=== PATIENT | female | born 1985 | race Asian ===

== ENCOUNTER 2018-02-12 08:57 | Emergency (ER) | payer OTHER, MEDICAID, SELFPAY ==
[2018-02-12 09:08] VITALS: BP 174/106; PULSE 120; RESP 20; TEMP 37.1; O2SAT 99; BMI 55.0
--- NOTE | 2018-02-12 09:45 | ED_ITS ---
HPI - General Adult General Chief complaint: Hypertension Stated complaint: BLOOD PRESSURE 170, PULSE 123 Time Seen by Provider: 02/12/18 09:31 Source: patient Mode of arrival: ambulatory Limitations: no limitations History of Present Illness HPI narrative: Patient is a 32-year-old female with history of hypertension and tachycardia is presenting with what she thinks is a kidney infection. For the last 2-3 days she has had bilateral flank pain. She was at the walk-in clinic but did not want to stay for evaluation. She has no painful or frequent urination. Pain does not radiate around to her front. She has been trying to stay hydrated. This morning as she did not take her morning meds and noted that her heart rate was elevated along with her blood pressure. She denies any fever or chills Onset (ago): day(s) (3) Location: back (Flank pain) Radiation: non-radiation Relieving factors: none Exacerbating factors: none Related Data Home Medications Medication Instructions Recorded Confirmed insulin lispro [Humalog KwikPen 18 - 54 u SQ SEE INSTRUCTIONS 02/12/18 02/12/18 Insulin] nystatin [Nystop] 100,000 unit TOPICAL BIDP PRN 02/12/18 02/12/18 Previous Rx's Medication Instructions Recorded fluticasone [Flovent HFA] 1 puff INH BID #1 inh 03/29/16 albuterol sulfate [Ventolin HFA] 2 puff INH Q4HP PRN #1 inh 09/25/16 fluticasone 0.05 mg INTRANASAL Q DAY PRN PRN 02/25/17 #1 spr hydrochlorothiazide 25 mg PO QDAY #30 tab 03/21/17 clobetasol 1 nikole TOPICAL BID PRN #30 gm 08/06/17 lisinopril 10 mg PO SEE INSTRUCTIONS #90 tab 10/16/17 metformin 500 mg tablet 500 mg PO QID #360 tab 02/03/18 propranolol 10 mg tablet 10 mg PO BID #60 tab 02/03/18 hydrocodone 5 mg-acetaminophen 325 1 tab PO Q6HP PRN #120 tab 02/11/18 mg tablet lorazepam 1 mg tablet See Label Instructions PO QID PRN 02/12/18 #120 tab MDD 4 mg sulfamethoxazole-trimethoprim 1 tab PO BID 5 Days #10 tab 02/12/18 true metrix glucose strips #100 each 02/12/18 Allergies Allergy/AdvReac Type Severity Reaction Status Date / Time Iodinated Contrast- Oral and Allergy Severe Neck, face Unverified 12/10/17 12:20 IV Dye arms all [IODINATED CONTRAST MEDIA - swollen IV DYE] with difficulty breathing hydromorphone [From DILAUDID] Allergy Mild Very Unverified 12/10/17 12:20 sensitive to this drug. loperamide [From IMODIUM A-D] AdvReac Mild Nausea Unverified 12/10/17 12:20 vomiting ondansetron AdvReac Mild Nausea Unverified 12/10/17 12:20 [From ZOFRAN ( with oral HYDROCHLORIDE)] route VITAMIN C AdvReac Mild Nausea/vomiting Uncoded 12/10/17 12:20 and migraines Review of Systems Review of Systems All systems reviewed & are unremarkable except as noted in HPI and below Constitutional Denies chills, Denies fever(s), Denies lethargy and Denies weakness ENT Ears, Nose, Mouth, and Throat: Denies dysphagia Cardiovascular Denies chest pain with activity, Denies syncope and Denies dyspnea Respiratory Denies change in phlegm color, Denies cough, Denies pain with cough, Denies dyspnea and Denies wheezing Gastrointestinal Gastrointestinal: Reports abdominal pain (Mild lower bilaterally), Reports bloating and Denies dysphagia Genitourinary Reports system reviewed and no additional complaints, except as docu and Reports as per HPI Neurologic Denies syncope and Denies weakness Allergic/Immunologic Denies wheezing PFSH Family History Mother Age: 37 Type 2 diabetes mellitus without complication Sister Age: 27 Depression Sister Age: 30 Anxiety Social History Smoking Status: Never smoker Exam Initial Vital Signs Initial Vital Signs: Vital Signs Temperature 98.7 F 02/12/18 09:08 Pulse Rate 120 H 02/12/18 09:08 Respiratory Rate 20 02/12/18 09:08 Blood Pressure 174/106 H 02/12/18 09:08 Pulse Oximetry 99 02/12/18 09:08 Const General: cooperative and comfortable Nutritional Appearance: obese Neck Neck: full ROM and no meningeal signs Resp Effort & Inspection: normal respiratory effort, able to speak in complete sentences, no respiratory distress and no use of accessory muscles Auscultation: clear to auscultation bilaterally, no rales, no rhonchi and no wheezes Cardio Rate: tachycardic Rhythm: regular rhythm Heart Sounds: S1 normal and S2 normal GI Palpation: soft and tender (Mild across lower abdomen no localization) General: CVA tenderness (Bilateral) Skin General: no rashes or lesions noted, No jaundice and No petechiae Neuro General: alert, oriented x3, gait normal and no focal motor deficits Speech: speech normal Course Orders Ordered: Discontinued Medications Sodium Chloride (Normal Saline 0.9%) 1,000 mls @ 1,000 mls/hr IV CONT JANIE Last Infusion: 02/12/18 10:59 Dose: 0 mls/hr Admin: 02/12/18 09:55 Dose: 1,000 mls/hr Ketorolac Tromethamine (Toradol) 30 mg IV NOW ONE Stop: 02/12/18 09:32 Last Admin: 02/12/18 09:56 Dose: 30 mg Vital Signs - 8 hr 02/12/18 11:50 02/12/18 12:16 Pulse Rate 106 H 106 H Respiratory Rate 22 20 Blood Pressure 118/54 L Blood Pressure [Right Arm] 133/83 H Pulse Oximetry 99 99 Medical Decision Making MDM Narrative Medical decision making narrative: Patient took her own medications in the ED her vitals improved. She does have bacteria in her urine and will treat for kidney infection. Lab Data Result diagrams: 02/12/18 09:50 02/12/18 09:50 Lab Results 02/12/18 02/12/18 02/12/18 Range/Units 09:50 09:50 10:35 WBC 10.4 (4.5-11.0) X10^3/uL RBC 5.29 H (4.0-5.2) X10^6/uL Hgb 9.9 L (12.0-16.0) g/dL Hct 31.0 L (36-46) % MCV 58.7 L (80-100) fL MCH 18.7 L (26-34) PG MCHC 31.9 (30-36) % RDW 19.2 H (11.6-14.8) % Plt Count 411 H (150-400) X10^3/uL Neut % (Auto) 89.1 H (50-75) % Lymph % (Auto) 4.3 L (25-40) % [place] % (Auto) 5.7 (3-14) % Eos % (Auto) 0.5 L (2-4) % Baso % (Auto) 0.4 (0-2) % Neut # (Auto) 9300 H (0366-2654) /uL RBC Morphology Not Reportable Polychromasia 1+ H Hypochromasia 2+ H Microcytosis 2+ H Sodium 135 L (137-145) mmol/L Potassium 4.2 (3.4-5.1) mmol/L Chloride 98 (98-107) mmol/L Carbon Dioxide 25 (22-32) mmol/L BUN 19 H (7-17) mg/dL Creatinine 0.50 L (0.52-1.04) mg/dL Estimated GFR > 60.0 (>60) mL/min BUN/Creatinine Ratio 38.0 H (6-22) Glucose 218 H (70-100) mg/dL Calcium 8.4 (8.4-10.2) mg/dL Total Bilirubin 0.6 (0.2-1.3) mg/dL AST 15 (14-36) IU/L ALT 26 (9-52) IU/L Alkaline Phosphatase 50 (38-126) U/L Total Protein 7.6 (6.3-8.2) g/dL Albumin 4.0 (3.5-5.0) g/dL Globulin 3.6 (1.7-4.1) g/dL Albumin/Globulin Ratio 1.1 (1.0-2.8) Lipase 341 H (23-300) U/L Urine RBC >100/hpf H (0-5/HPF) Urine WBC 0-1/hpf (0-5/HPF) Ur Squamous Epith Cells 1-5 /hpf Urine Bacteria Many (>30) H (None) Ur Culture Indicated? Cult not indicated Micro UA Comment Not Reportable Discharge Plan Departure Patient Disposition: Home, Self-Care Clinical Impression: UTI (urinary tract infection) Discharge Date/Time: 02/12/18 12:17 Interventions: ED Discharge Assessment Last Done: 02/12/18 12:16 Activity Restrictions/Additional Instructions: *You have been diagnosed with kidney infection *What to do: Increase fluids *Continue to take medications as directed -Septra 1 tablet twice a day for 7 days At your request you're medications have been faxed to [facility] *Follow up with your primary care provider in 2-3 days and follow up with ortho , urology etc *Return to ER if you should have such as or any new, worsening or concerning symptoms Prescriptions: New sulfamethoxazole-trimethoprim 800-160 mg tablet 1 tab PO BID 5 Days Qty: 10 RF: 0 No Action fluticasone [Flovent HFA] 12 GM HFA aerosol inhaler 1 puff INH BID Qty: 1 RF: 2 albuterol sulfate [Ventolin HFA] 90 MCG/PUFF HFA aerosol inhaler 2 puff INH Q4HP PRNQty: 1 RF: 0 fluticasone 16 GM spray,suspension 0.05 mg Intranasal Q DAY PRN PRNQty: 1 RF: 5 hydrochlorothiazide 25 MG tablet 25 mg PO QDAY Qty: 30 RF: 5 clobetasol 0.05 % ointment 1 nikole Topical BID PRNQty: 30 RF: 3 lisinopril 10 MG tablet 10 mg PO SEE INSTRUCTIONS Qty: 90 RF: 3 propranolol 10 mg tablet 10 mg PO BID Qty: 60 RF: 0 metformin [Glucophage] 500 mg tablet 500 mg PO QID Qty: 360 RF: 0 hydrocodone-acetaminophen 5-325 mg tablet 1 tab PO Q6HP PRN (Reason: pain) Qty: 120 RF: 0 lorazepam 1 mg tablet See Label Instructions PO QID MDD 4 mg PRN (Reason: anxiety) Qty: 120 RF: 0 true metrix glucose strips Qty: 100 RF: 5 nystatin [Nystop] 30 GM powder 100,000 unit Topical BIDP PRN (Reason: yeast) RF: 0 insulin lispro [Humalog KwikPen Insulin] 100 UNIT/1 ML insulin pen 18 - 54 u SQ SEE INSTRUCTIONS RF: 0
[2018-02-12] MEDS: SODIUM CHLORIDE 0.9% 1,000 ML 1000 ML IV (09:55)
[2018-02-12] MEDS: KETOROLAC 60 MG/2 ML VIAL 30 MG IV (09:56)
[2018-02-12 10:05] VITALS: BP 144/81; PULSE 110; RESP 23; O2SAT 99
[2018-02-12 10:05] LABS: Add Manual Diff / Slide Review NO; Basophils Percent Auto 0.4 % (0-2); Eosinophils Percent Auto 0.5 % (2-4); Hemoglobin 9.9 g/dL (12.0-16.0); Lymphocytes Percent Auto 4.3 % (25-40); Mean Corpuscular HGB Conc 31.9 % (30-36); Mean Corpuscular Hemoglobin 18.7 PG (26-34); Mean Corpuscular Volume 58.7 fL (80-100); Monocytes Percent Auto 5.7 % (3-14); Neutrophils Absolute Auto 9300 /uL (3000-5900); Neutrophils Percent Auto 89.1 % (50-75); Platelet Count 411 X10^3/uL (150-400); Red Blood Cell Count 5.29 X10^6/uL (4.0-5.2); Red Cell Distribution Width 19.2 % (11.6-14.8); White Blood Cell Count 10.4 X10^3/uL (4.5-11.0)
--- NOTE | 2018-02-12 10:07 | PC.NURSE ---
Pt states pain that starts at rt uq and travels across abd to l upper quad
[2018-02-12 10:17] LABS: Alanine Aminotransferase 26 IU/L (9-52); Albumin Globulin Ratio 1.1 (1.0-2.8); Alkaline Phosphatase 50 U/L (38-126); Aspartate Aminotransferase 15 IU/L (14-36); Bilirubin Total 0.6 mg/dL (0.2-1.3); Blood Urea Nitrogen 19 mg/dL (7-17); Calcium 8.4 mg/dL (8.4-10.2); Carbon Dioxide 25 mmol/L (22-32); Chloride 98 mmol/L (98-107); Estimated Glomerular Filt Rate > 60.0 mL/min (>60); Globulin 3.6 g/dL (1.7-4.1); Glucose 218 mg/dL (70-100); HEMOLYSIS < 15 (0-50); Lipase 341 U/L (23-300); Potassium 4.2 mmol/L (3.4-5.1); Sodium 135 mmol/L (137-145); Total Protein 7.6 g/dL (6.3-8.2)
[2018-02-12 10:33] LABS: Hypochromasia 2+; Microcytosis 2+; Polychromasia 1+
[2018-02-12 11:00] VITALS: BP 138/89; PULSE 111; RESP 28; O2SAT 99
[2018-02-12 11:29] LABS: Bacteria Urine Many (>30); Culture Indicated Urine Cult Not Indicated; RBC Urine >100/HPF (0-5/HPF); Squamous Epithelial Cell Urine 1-5 /HPF; WBC Urine 0-1/HPF (0-5/HPF)
[2018-02-12 11:30] VITALS: BP 118/54; PULSE 102; RESP 21; O2SAT 99
[2018-02-12 11:50] VITALS: BP 133/83; PULSE 106; RESP 22; O2SAT 99
[2018-02-12 12:16] VITALS: BP 118/54; PULSE 106; RESP 20; O2SAT 99
== END 2018-02-12 12:17 | disposition home or self-care (01) ==
PROVIDERS: Emergency Provider Emergency Medicine; Family Provider Family Medicine; PCP Family Medicine
DX: N39.0 Urinary tract infection, site not specified (principal)
CPT/HCPCS: 80053; 81003; 81015; 81025; 83690; 85025; 93005; 93041; 96361; 96374; 99284; J1885

== ENCOUNTER 2018-02-13 09:21 | Emergency (ER) | payer OTHER, MEDICAID, SELFPAY ==
[2018-02-13 09:35] VITALS: BP 132/84; PULSE 94; RESP 20; TEMP 36.9; O2SAT 98
--- NOTE | 2018-02-13 12:04 | ED_ITS ---
HPI - Allergic Reaction <Ely Ybarra PA-C - Last Filed: 02/13/18 20:42> General Chief complaint: Allergic Reaction Stated complaint: swelling/rash/itching after taking antibiotic Time Seen by Provider: 02/13/18 11:28 Source: patient Mode of arrival: ambulatory Limitations: no limitations History of Present Illness HPI narrative: This 32 y.o. female was seen yesterday and diagnosed with UTI/ pyelo. She states that she never developed dysuria, frequency, or urgency, but has had right flank pain and stomach upset with turning and twisting in her stomach. She vomited once yesterday. She is not sure about whether any hematuria as she has menses now. She states her stomach is better today. After she took her 2nd dose of Bactrim, she felt warm all over, itchy, and ? puffy?, and noticed bumps and rash on her arms. She states that this has resolved in the last hour or so and feeling fine now. She denies any SOB, wheeze , or difficulty swallowing, or other new c/o on ROS. Related Data Home Medications Medication Instructions Recorded Confirmed insulin lispro [Humalog KwikPen 18 - 54 u SQ SEE INSTRUCTIONS 02/12/18 02/13/18 Insulin] nystatin [Nystop] 100,000 unit TOPICAL BIDP PRN 02/12/18 02/13/18 albuterol sulfate [Ventolin HFA] 2 puff INH Q4HP PRN 02/13/18 02/13/18 clobetasol 1 nikole TOPICAL BID PRN 02/13/18 02/13/18 fluticasone 0.05 mg INTRANASAL Q DAY PRN PRN 02/13/18 02/13/18 Previous Rx's Medication Instructions Recorded fluticasone [Flovent HFA] 1 puff INH BID #1 inh 03/29/16 hydrochlorothiazide 25 mg PO QDAY #30 tab 03/21/17 lisinopril 10 mg PO SEE INSTRUCTIONS #90 tab 10/16/17 metformin 500 mg tablet 500 mg PO QID #360 tab 02/03/18 propranolol 10 mg tablet 10 mg PO BID #60 tab 02/03/18 hydrocodone 5 mg-acetaminophen 325 1 tab PO Q6HP PRN #120 tab 02/11/18 mg tablet lorazepam 1 mg tablet See Label Instructions PO QID PRN 06/14/18 #120 tab MDD 4 mg sulfamethoxazole-trimethoprim 1 tab PO BID 5 Days #10 tab 02/12/18 ciprofloxacin HCl [Cipro] 500 mg PO Q12H #14 tab 02/13/18 Allergies Allergy/AdvReac Type Severity Reaction Status Date / Time Iodinated Contrast- Oral and Allergy Severe Neck, face Unverified 12/10/17 12:20 IV Dye arms all [IODINATED CONTRAST MEDIA - swollen IV DYE] with difficulty breathing hydromorphone [From DILAUDID] Allergy Mild Very Unverified 12/10/17 12:20 sensitive to this drug. Sulfa (Sulfonamide Allergy Rash Verified 02/13/18 12:22 Antibiotics) loperamide [From IMODIUM A-D] AdvReac Mild Nausea Unverified 12/10/17 12:20 vomiting ondansetron AdvReac Mild Nausea Unverified 12/10/17 12:20 [From ZOFRAN ( with oral HYDROCHLORIDE)] route VITAMIN C AdvReac Mild Nausea/vomiting Uncoded 12/10/17 12:20 and migraines Review of Systems <Ely Ybarra PA-C - Last Filed: 02/13/18 20:42> Review of Systems All systems reviewed & are unremarkable except as noted in HPI and below Exam <Ely Ybarra PA-C - Last Filed: 02/13/18 20:42> Narrative Exam Narrative: GENERAL APPEARANCE: Patient sitting comfortably, in no distress. HEENT: EOMI, normal oropharynx NECK: Supple, no masses LUNGS: Clear to auscultation bilaterally. HEART: Rate and rhythm regular without murmur, normal S1 and S2, no S3 or S4. ABDOMEN: Soft, NT, ND, +BS x 4 quadrants, no CVAT. DERMATOLOGIC: No exanthem Initial Vital Signs Initial Vital Signs: Vital Signs Temperature 98.4 F 02/13/18 09:35 Pulse Rate 94 H 02/13/18 09:35 Respiratory Rate 20 02/13/18 09:35 Blood Pressure 132/84 H 02/13/18 09:35 Pulse Oximetry 98 02/13/18 09:35 <Karuna Avila DO - Last Filed: 02/14/18 08:50> Initial Vital Signs Initial Vital Signs: Vital Signs Temperature 98.4 F 02/13/18 09:35 Pulse Rate 94 H 02/13/18 09:35 Respiratory Rate 20 02/13/18 09:35 Blood Pressure 132/84 H 02/13/18 09:35 Pulse Oximetry 98 02/13/18 09:35 Course <Ely Ybarar PA-C - Last Filed: 02/13/18 20:42> Vital Signs - 8 hr 02/13/18 09:35 Temperature 98.4 F Pulse Rate 94 H Respiratory Rate 20 Blood Pressure 132/84 H Pulse Oximetry 98 <Karuna Avila DO - Last Filed: 02/14/18 08:50> Vital Signs - 8 hr 02/13/18 09:35 Temperature 98.4 F Pulse Rate 94 H Respiratory Rate 20 Blood Pressure 132/84 H Pulse Oximetry 98 Discharge Plan Departure Patient Disposition: Home, Self-Care Clinical Impression: Pyelonephritis Discharge Date/Time: 02/13/18 12:39 Interventions: ED Discharge Assessment Last Done: 02/13/18 12:39 Instructions: DI for Kidney Infection Activity Restrictions/Additional Instructions: Please stop the sulfa antibiotic and avoid these in the future as this may have caused your rash earlier today. Since that has resolved, no further treatment is needed now. I have sent in a different antibiotic for you, called ciprofloxacin to the pharmacy. This is typically very effective for kidney infections. It does have a black box warning on it about tendon rupture and damage however this is a very rare side effect, and it is an appropriate antibiotic for your infection. Please return right away if you have any acutely worsening symptoms again, otherwise see your PCP as we talked about in a few days for recheck and to make sure this antibiotic is effective for you. Prescriptions: New ciprofloxacin HCl [Cipro] 500 mg tablet 500 mg PO Q12H Qty: 14 RF: 0 No Action fluticasone [Flovent HFA] 12 GM HFA aerosol inhaler 1 puff INH BID Qty: 1 RF: 2 hydrochlorothiazide 25 MG tablet 25 mg PO QDAY Qty: 30 RF: 5 lisinopril 10 MG tablet 10 mg PO SEE INSTRUCTIONS Qty: 90 RF: 3 propranolol 10 mg tablet 10 mg PO BID Qty: 60 RF: 0 metformin [Glucophage] 500 mg tablet 500 mg PO QID Qty: 360 RF: 0 hydrocodone-acetaminophen 5-325 mg tablet 1 tab PO Q6HP PRN (Reason: pain) Qty: 120 RF: 0 lorazepam 1 mg tablet See Label Instructions PO QID MDD 4 mg PRN (Reason: anxiety) Qty: 120 RF: 0 nystatin [Nystop] 30 GM powder 100,000 unit Topical BIDP PRN (Reason: yeast) RF: 0 insulin lispro [Humalog KwikPen Insulin] 100 UNIT/1 ML insulin pen 18 - 54 u SQ SEE INSTRUCTIONS RF: 0 sulfamethoxazole-trimethoprim 800-160 mg tablet 1 tab PO BID 5 Days Qty: 10 RF: 0 clobetasol 0.05 % ointment 1 nikole Topical BID PRN (Reason: UNKNOWN) RF: 0 albuterol sulfate [Ventolin HFA] 90 MCG/PUFF HFA aerosol inhaler 2 puff INH Q4HP PRN (Reason: Shortness Of Breath) RF: 0 fluticasone 16 GM spray,suspension 0.05 mg Intranasal Q DAY PRN PRN (Reason: Congestion) RF: 0 Referrals: Josiah Escobedo MD [Primary Care Provider] - <Karuna Avila DO - Last Filed: 02/14/18 08:50> Cosign ED Attending Cosmarianneature Attestation: I was immediately available in the department for consultation. Documentation has been reviewed. I agree with assessment and plan.
[2018-02-13 12:39] VITALS: BP 124/76; PULSE 89; RESP 16; O2SAT 100
== END 2018-02-13 12:39 | disposition home or self-care (01) ==
PROVIDERS: Emergency Provider Internal Medicine; Family Provider Family Medicine; PCP Family Medicine
DX: N12 Tubulo-interstitial nephritis, not specified as acute or chronic (principal)
CPT/HCPCS: 99282

== ENCOUNTER → 2018-03-16 19:54 | Outpatient (CLI) | payer OTHER, MEDICAID, SELFPAY | PROVIDERS: Family Provider Family Medicine; PCP Family Medicine; Visit Provider Physician Assistant | DX: R52 Pain, unspecified (principal) | CPT/HCPCS: 87077; 87086; 87186 ==

== ENCOUNTER 2018-03-24 13:44 | Emergency (ER) | payer OTHER, MEDICAID, SELFPAY ==
[2018-03-24 14:14] VITALS: BP 169/100; PULSE 80; RESP 14; TEMP 36.2; O2SAT 100
[2018-03-24 14:46] LABS: Bacteria Urine Many (>30); Culture Indicated Urine Cult Not Indicated; RBC Urine 1-5/HPF (0-5/HPF); Squamous Epithelial Cell Urine 5-10 /HPF; WBC Urine 10-30/HPF (0-5/HPF)
--- NOTE | 2018-03-24 15:48 | ED_ITS ---
HPI - Female Genitourinary <MARY Vaughan - Last Filed: 03/24/18 22:17> General Chief complaint: Urogenital-Female Stated complaint: BACK PAIN,BLADDER/KIDNEY INFECTION Time Seen by Provider: 03/24/18 15:48 History of Present Illness HPI Narrative: 32-year-old female with history type 1 diabetes here for complaint of on going symptoms of urinary tract infection. She has been seen multiple times over the past few weeks for same symptoms that has not resolved. She was last treated with Macrobid and symptoms have not resolved over the past week. She has had different antibiotic prescriptions given to her to were changed due to allergic reactions such as hives. She denies any fevers. She does report having some flank pain over the past few days. Positive p.o. intake. No nausea vomiting. No other concerns or complaints at this time. MD Complaint: UTI Related Data Home Medications Medication Instructions Recorded Confirmed nystatin [Nystop] 100,000 unit TOPICAL BIDP PRN 02/12/18 03/24/18 albuterol sulfate [Ventolin HFA] 2 puff INH Q4HP PRN 02/13/18 03/24/18 clobetasol 1 nikole TOPICAL BID PRN 02/13/18 03/24/18 fluticasone 0.05 mg INTRANASAL Q DAY PRN PRN 02/13/18 03/24/18 bupropion HCl 1 cap PO DAILY 03/24/18 03/24/18 fluticasone [Flovent HFA] 1 puff INH BID PRN 03/24/18 03/24/18 loratadine [Claritin] 10 mg PO QPM 03/24/18 03/24/18 lorazepam 0.5 - 1 mg PO QID PRN MDD 4 mg 03/24/18 03/24/18 methocarbamol 1.5 tab PO QID 03/24/18 03/24/18 nitrofurantoin monohyd/m-cryst 1 cap PO BID 03/24/18 03/24/18 Previous Rx's Medication Instructions Recorded hydrochlorothiazide 25 mg PO QDAY #30 tab 03/21/17 lisinopril 10 mg PO SEE INSTRUCTIONS #90 tab 10/16/17 metformin 500 mg tablet 500 mg PO QID #360 tab 02/03/18 propranolol 10 mg tablet 10 mg PO BID #60 tab 02/03/18 hydrocodone 5 mg-acetaminophen 325 1 tab PO Q6HP PRN #120 tab 03/10/18 mg tablet insulin lispro (U-100) 100 unit/mL See Label Instructions SUBCUT 03/10/18 subcutaneous pen .COMPLEX #15 ml promethazine 6.25 mg-codeine 10 5 ml PO Q6H PRN #118 ml 03/17/18 mg/5 mL syrup cephalexin 500 mg PO BID #14 cap 03/24/18 Allergies Allergy/AdvReac Type Severity Reaction Status Date / Time Iodinated Contrast- Oral and Allergy Severe Neck, face Verified 03/16/18 19:39 IV Dye arms all [IODINATED CONTRAST MEDIA - swollen IV DYE] with difficulty breathing hydromorphone [From DILAUDID] Allergy Mild Very Verified 03/16/18 19:39 sensitive to this drug. ciprofloxacin [From Cipro] Allergy Hives Verified 03/16/18 19:39 Sulfa (Sulfonamide Allergy Rash Verified 03/16/18 19:39 Antibiotics) loperamide [From IMODIUM A-D] AdvReac Mild Nausea Verified 03/16/18 19:39 vomiting ondansetron AdvReac Mild Nausea Verified 03/16/18 19:39 [From ZOFRAN ( with oral HYDROCHLORIDE)] route VITAMIN C AdvReac Mild Nausea/vomiting Uncoded 03/16/18 19:39 and migraines Review of Systems <MARY Vaughan - Last Filed: 03/24/18 22:17> Constitutional Denies chills, Denies fatigue, Denies fever(s), Denies lethargy and Denies weakness Eyes Denies change in vision, Denies eye discharge, Denies irritation and Denies loss of vision ENT Ears, Nose, Mouth, and Throat: Denies change in voice, Denies neck pain and Denies sore throat Cardiovascular Denies dyspnea and Denies dyspnea on exertion Respiratory Denies cough, Denies dyspnea, Denies dyspnea on exertion and Denies wheezing Gastrointestinal Gastrointestinal: Denies abdominal pain, Denies change in bowel habits, Denies diarrhea, Denies nausea and Denies vomiting Genitourinary Reports dysuria Comments: Increased urinary frequency Musculoskeletal Denies neck pain Integumentary/Breasts Denies pruritus, Denies erythema, Denies rash and Denies wounds Neurologic Denies confusion, Denies loss of vision and Denies weakness Psychiatric Denies anxiety, Denies confusion, Denies depression, Denies homicidal ideation and Denies suicidal ideation Endocrine Denies fatigue and Denies flushing Allergic/Immunologic Denies wheezing Exam <MARY Vaughan - Last Filed: 03/24/18 22:17> Initial Vital Signs Initial Vital Signs: Vital Signs Temperature 97.2 F L 03/24/18 14:14 Pulse Rate 80 03/24/18 14:14 Respiratory Rate 14 03/24/18 14:14 Blood Pressure 169/100 H 03/24/18 14:14 Pulse Oximetry 100 03/24/18 14:14 Const General: cooperative and well developed Nutritional Appearance: well nourished Orientation: alert, awake, oriented x3 and not confused HENOK Mouth: oral mucosae normal and moist mucous membranes Eyes General: appearance normal, both eyes and all related structures Eyelids: eyelids normal Conjunctivae: conjunctivae normal Sclera: sclerae normal Pupils: PERRL EOM: EOM intact bilaterally Resp Effort & Inspection: normal respiratory effort, able to speak in complete sentences, no respiratory distress and no use of accessory muscles Auscultation: clear to auscultation bilaterally, no rales, no rhonchi and no wheezes Cardio Rate: regular rate Rhythm: regular rhythm Heart Sounds: no click, no gallops, no murmurs and no rubs GI Inspection: non-distended Palpation: soft, no hepatosplenomegaly, No guarding, No pulsatile mass and No tender Auscultation: normal bowel sounds General: CVA tenderness Skin General: no rashes or lesions noted, No jaundice and No petechiae Neuro General: alert, oriented x3, gait normal and no focal motor deficits Speech: speech normal <Manuel Gutierrez DO - Last Filed: 03/25/18 08:33> Initial Vital Signs Initial Vital Signs: Vital Signs Temperature 97.2 F L 03/24/18 14:14 Pulse Rate 80 03/24/18 14:14 Respiratory Rate 14 03/24/18 14:14 Blood Pressure 169/100 H 03/24/18 14:14 Pulse Oximetry 100 03/24/18 14:14 Course <MARY Vaughan - Last Filed: 03/24/18 22:17> Orders Ordered: Discontinued Medications Sodium Chloride (Normal Saline 0.9%) 1,000 mls @ 1,000 mls/hr IV BOLUS ONE Stop: 03/24/18 17:29 Last Infusion: 03/24/18 17:16 Dose: 0 mls/hr Admin: 03/24/18 16:00 Dose: 1,000 mls/hr Ceftriaxone Sodium/Dextrose (Rocephin) 1 gm in 50 mls @ 100 mls/hr IV NOW ONE Stop: 03/24/18 18:46 Last Infusion: 03/24/18 19:11 Dose: 0 mls/hr Admin: 03/24/18 18:28 Dose: 100 mls/hr Vital Signs - 8 hr 03/24/18 17:16 03/24/18 19:07 Pulse Rate 72 82 Respiratory Rate 22 18 Blood Pressure [Right Arm] 156/88 H 144/54 H Pulse Oximetry 98 99 <Manuel Gutierrez DO - Last Filed: 03/25/18 08:33> Orders Ordered: Discontinued Medications Sodium Chloride (Normal Saline 0.9%) 1,000 mls @ 1,000 mls/hr IV BOLUS ONE Stop: 03/24/18 17:29 Last Infusion: 03/24/18 17:16 Dose: 0 mls/hr Admin: 03/24/18 16:00 Dose: 1,000 mls/hr Ceftriaxone Sodium/Dextrose (Rocephin) 1 gm in 50 mls @ 100 mls/hr IV NOW ONE Stop: 03/24/18 18:46 Last Infusion: 03/24/18 19:11 Dose: 0 mls/hr Admin: 03/24/18 18:28 Dose: 100 mls/hr Vital Signs - 8 hr 03/24/18 17:16 03/24/18 19:07 Pulse Rate 72 82 Respiratory Rate 22 18 Blood Pressure [Right Arm] 156/88 H 144/54 H Pulse Oximetry 98 99 MDM - Female Genitourinary <MARY Vaughan - Last Filed: 03/24/18 22:17> Lab Data Result diagrams: 03/24/18 16:00 03/24/18 16:00 Lab Results 03/24/18 03/24/18 03/24/18 Range/Units 14:20 16:00 16:00 WBC 10.6 (4.5-11.0) X10^3/uL RBC 5.53 H (4.0-5.2) X10^6/uL Hgb 9.9 L (12.0-16.0) g/dL Hct 31.6 L (36-46) % MCV 57.0 L (80-100) fL MCH 17.9 L (26-34) PG MCHC 31.4 (30-36) % RDW 19.7 H (11.6-14.8) % Plt Count 436 H (150-400) X10^3/uL Neut % (Auto) 70.8 (50-75) % Lymph % (Auto) 19.6 L (25-40) % [place] % (Auto) 7.3 (3-14) % Eos % (Auto) 1.3 L (2-4) % Baso % (Auto) 1.0 (0-2) % Neut # (Auto) 7500 H (2939-1946) /uL RBC Morphology Not Reportable Hypochromasia 3+ H Anisocytosis 3+ H Microcytosis 3+ H Sodium (137-145) mmol/L Potassium (3.4-5.1) mmol/L Chloride (98-107) mmol/L Carbon Dioxide (22-32) mmol/L BUN (7-17) mg/dL Creatinine (0.52-1.04) mg/dL Estimated GFR (>60) mL/min BUN/Creatinine Ratio (6-22) Glucose (70-100) mg/dL Lactate (0.7-2.1) mmol/L Calcium (8.4-10.2) mg/dL Total Bilirubin (0.2-1.3) mg/dL AST (14-36) IU/L ALT (9-52) IU/L Alkaline Phosphatase (38-126) U/L Total Protein (6.3-8.2) g/dL Albumin (3.5-5.0) g/dL Globulin (1.7-4.1) g/dL Albumin/Globulin Ratio (1.0-2.8) Procalcitonin < 0.05 (<0.5) ng/mL Urine RBC 1-5/hpf D (0-5/HPF) Urine WBC 10-30/hpf H (0-5/HPF) Ur Squamous Epith Cells 5-10 /hpf H Urine Bacteria Many (>30) H (None) Ur Culture Indicated? Cult not indicated Micro UA Comment Not Reportable 03/24/18 03/24/18 Range/Units 16:00 16:00 WBC (4.5-11.0) X10^3/uL RBC (4.0-5.2) X10^6/uL Hgb (12.0-16.0) g/dL Hct (36-46) % MCV (80-100) fL MCH (26-34) PG MCHC (30-36) % RDW (11.6-14.8) % Plt Count (150-400) X10^3/uL Neut % (Auto) (50-75) % Lymph % (Auto) (25-40) % [place] % (Auto) (3-14) % Eos % (Auto) (2-4) % Baso % (Auto) (0-2) % Neut # (Auto) (6958-8347) /uL RBC Morphology Hypochromasia Anisocytosis Microcytosis Sodium 137 (137-145) mmol/L Potassium 4.0 (3.4-5.1) mmol/L Chloride 98 (98-107) mmol/L Carbon Dioxide 29 (22-32) mmol/L BUN 13 (7-17) mg/dL Creatinine 0.60 (0.52-1.04) mg/dL Estimated GFR > 60.0 (>60) mL/min BUN/Creatinine Ratio 21.7 (6-22) Glucose 233 H (70-100) mg/dL Lactate 1.1 (0.7-2.1) mmol/L Calcium 9.1 (8.4-10.2) mg/dL Total Bilirubin 0.6 (0.2-1.3) mg/dL AST 33 (14-36) IU/L ALT 32 (9-52) IU/L Alkaline Phosphatase 49 (38-126) U/L Total Protein 8.4 H (6.3-8.2) g/dL Albumin 4.5 (3.5-5.0) g/dL Globulin 3.9 (1.7-4.1) g/dL Albumin/Globulin Ratio 1.2 (1.0-2.8) Procalcitonin (<0.5) ng/mL Urine RBC (0-5/HPF) Urine WBC (0-5/HPF) Ur Squamous Epith Cells Urine Bacteria (None) Ur Culture Indicated? Micro UA Comment MDM Narrative Medical decision making narrative: CBC shows anemia however is consistent with her prior levels. Otherwise unremarkable. CMP panel was unremarkable urinalysis indicates urinary tract infection. Urine culture is ordered and is pending. Last urinary culture shows Klebsiella pneumonia with indeterminate Macrobid resistance. Discussed case with hospitalist who recommends continued oral antibiotics and follow-up in the next few days. She was given Rocephin IV in the emergency room and is placed on Keflex. Patient to call her primary care provider office to schedule follow-up appointment here in the next couple of days. Currently prescribed medications as prescribed return emergency room for any worsening symptoms. <Manuel Gutierrez, DO - Last Filed: 03/25/18 08:33> Lab Data Lab Results 03/24/18 03/24/18 03/24/18 Range/Units 14:20 16:00 16:00 WBC 10.6 (4.5-11.0) X10^3/uL RBC 5.53 H (4.0-5.2) X10^6/uL Hgb 9.9 L (12.0-16.0) g/dL Hct 31.6 L (36-46) % MCV 57.0 L (80-100) fL MCH 17.9 L (26-34) PG MCHC 31.4 (30-36) % RDW 19.7 H (11.6-14.8) % Plt Count 436 H (150-400) X10^3/uL Neut % (Auto) 70.8 (50-75) % Lymph % (Auto) 19.6 L (25-40) % [place] % (Auto) 7.3 (3-14) % Eos % (Auto) 1.3 L (2-4) % Baso % (Auto) 1.0 (0-2) % Neut # (Auto) 7500 H (3334-2248) /uL RBC Morphology Not Reportable Hypochromasia 3+ H Anisocytosis 3+ H Microcytosis 3+ H Sodium (137-145) mmol/L Potassium (3.4-5.1) mmol/L Chloride (98-107) mmol/L Carbon Dioxide (22-32) mmol/L BUN (7-17) mg/dL Creatinine (0.52-1.04) mg/dL Estimated GFR (>60) mL/min BUN/Creatinine Ratio (6-22) Glucose (70-100) mg/dL Lactate (0.7-2.1) mmol/L Calcium (8.4-10.2) mg/dL Total Bilirubin (0.2-1.3) mg/dL AST (14-36) IU/L ALT (9-52) IU/L Alkaline Phosphatase (38-126) U/L Total Protein (6.3-8.2) g/dL Albumin (3.5-5.0) g/dL Globulin (1.7-4.1) g/dL Albumin/Globulin Ratio (1.0-2.8) Procalcitonin < 0.05 (<0.5) ng/mL Urine RBC 1-5/hpf D (0-5/HPF) Urine WBC 10-30/hpf H (0-5/HPF) Ur Squamous Epith Cells 5-10 /hpf H Urine Bacteria Many (>30) H (None) Ur Culture Indicated? Cult not indicated Micro UA Comment Not Reportable 03/24/18 03/24/18 Range/Units 16:00 16:00 WBC (4.5-11.0) X10^3/uL RBC (4.0-5.2) X10^6/uL Hgb (12.0-16.0) g/dL Hct (36-46) % MCV (80-100) fL MCH (26-34) PG MCHC (30-36) % RDW (11.6-14.8) % Plt Count (150-400) X10^3/uL Neut % (Auto) (50-75) % Lymph % (Auto) (25-40) % [place] % (Auto) (3-14) % Eos % (Auto) (2-4) % Baso % (Auto) (0-2) % Neut # (Auto) (6451-6146) /uL RBC Morphology Hypochromasia Anisocytosis Microcytosis Sodium 137 (137-145) mmol/L Potassium 4.0 (3.4-5.1) mmol/L Chloride 98 (98-107) mmol/L Carbon Dioxide 29 (22-32) mmol/L BUN 13 (7-17) mg/dL Creatinine 0.60 (0.52-1.04) mg/dL Estimated GFR > 60.0 (>60) mL/min BUN/Creatinine Ratio 21.7 (6-22) Glucose 233 H (70-100) mg/dL Lactate 1.1 (0.7-2.1) mmol/L Calcium 9.1 (8.4-10.2) mg/dL Total Bilirubin 0.6 (0.2-1.3) mg/dL AST 33 (14-36) IU/L ALT 32 (9-52) IU/L Alkaline Phosphatase 49 (38-126) U/L Total Protein 8.4 H (6.3-8.2) g/dL Albumin 4.5 (3.5-5.0) g/dL Globulin 3.9 (1.7-4.1) g/dL Albumin/Globulin Ratio 1.2 (1.0-2.8) Procalcitonin (<0.5) ng/mL Urine RBC (0-5/HPF) Urine WBC (0-5/HPF) Ur Squamous Epith Cells Urine Bacteria (None) Ur Culture Indicated? Micro UA Comment Discharge Plan Departure Patient Disposition: Home, Self-Care Clinical Impression: Urinary tract infection Discharge Date/Time: 03/24/18 19:13 Interventions: ED Discharge Assessment Last Done: 03/24/18 19:11 Instructions: Urinary Tract Infection Activity Restrictions/Additional Instructions: Urinalysis indicates continued urinary tract infection. New were given IV antibiotics in the emergency room and placed on a different antibiotic. Follow up with primary care provider in the next day or 2 for re-evaluation. Call the office tomorrow to schedule follow-up appointment. Plenty of fluids. Currently prescribed medication regimen as prescribed. For any worsening symptoms return to the emergency room. Prescriptions: New cephalexin 500 mg capsule 500 mg PO BID Qty: 14 RF: 0 No Action hydrocodone-acetaminophen 5-325 mg tablet 1 tab PO Q6HP PRN (Reason: pain) Qty: 120 RF: 0 insulin lispro [Humalog KwikPen Insulin] 100 unit/mL insulin pen See Patient Comments SUBCUT .COMPLEX Qty: 15 RF: 5 hydrochlorothiazide 25 MG tablet 25 mg PO QDAY Qty: 30 RF: 5 lisinopril 10 MG tablet 10 mg PO SEE INSTRUCTIONS Qty: 90 RF: 3 propranolol 10 mg tablet 10 mg PO BID Qty: 60 RF: 0 metformin [Glucophage] 500 mg tablet 500 mg PO QID Qty: 360 RF: 0 promethazine-codeine 6.25-10 mg/5 mL syrup 5 ml PO Q6H PRN (Reason: cough) Qty: 118 RF: 0 nystatin [Nystop] 30 GM powder 100,000 unit Topical BIDP PRN (Reason: yeast) RF: 0 methocarbamol 500 mg tablet 1.5 tab PO QID RF: 0 bupropion HCl 150 mg tablet extended release 24 hr 1 cap PO DAILY RF: 0 nitrofurantoin monohyd/m-cryst 100 mg capsule 1 cap PO BID RF: 0 lorazepam 1 mg tablet 0.5 - 1 mg PO QID MDD 4 mg PRN (Reason: anxiety) RF: 0 loratadine [Claritin] 10 mg Tablet 10 mg PO QPM RF: 0 fluticasone [Flovent HFA] 12 GM HFA aerosol inhaler 1 puff INH BID PRN (Reason: Shortness Of Breath) RF: 0 clobetasol 0.05 % ointment 1 nikole Topical BID PRN (Reason: UNKNOWN) RF: 0 albuterol sulfate [Ventolin HFA] 90 MCG/PUFF HFA aerosol inhaler 2 puff INH Q4HP PRN (Reason: Shortness Of Breath) RF: 0 fluticasone 16 GM spray,suspension 0.05 mg Intranasal Q DAY PRN PRN (Reason: Congestion) RF: 0 Referrals: Josiah Escobedo MD [Primary Care Provider] - <Manuel Gutierrez DO - Last Filed: 03/25/18 08:33> Cosign ED Attending Cosmarianneature Attestation: I was immediately available in the department for consultation. Documentation has been reviewed. I agree with assessment and plan.
[2018-03-24] MEDS: SODIUM CHLORIDE 0.9% 1,000 ML 1000 ML IV (16:00)
[2018-03-24 16:39] LABS: Add Manual Diff / Slide Review NO; Eosinophils Percent Auto 1.3 % (2-4); Hematocrit 31.6 % (36-46); Hemoglobin 9.9 g/dL (12.0-16.0); Lymphocytes Percent Auto 19.6 % (25-40); Mean Corpuscular HGB Conc 31.4 % (30-36); Mean Corpuscular Hemoglobin 17.9 PG (26-34); Monocytes Percent Auto 7.3 % (3-14); Neutrophils Absolute Auto 7500 /uL (3000-5900); Neutrophils Percent Auto 70.8 % (50-75); Platelet Count 436 X10^3/uL (150-400); Red Blood Cell Count 5.53 X10^6/uL (4.0-5.2); Red Cell Distribution Width 19.7 % (11.6-14.8); White Blood Cell Count 10.6 X10^3/uL (4.5-11.0)
[2018-03-24 17:00] LABS: Alanine Aminotransferase 32 IU/L (9-52); Albumin 4.5 g/dL (3.5-5.0); Albumin Globulin Ratio 1.2 (1.0-2.8); Alkaline Phosphatase 49 U/L (38-126); Aspartate Aminotransferase 33 IU/L (14-36); BUN Creatinine Ratio 21.7 (6-22); Bilirubin Total 0.6 mg/dL (0.2-1.3); Blood Urea Nitrogen 13 mg/dL (7-17); Calcium 9.1 mg/dL (8.4-10.2); Carbon Dioxide 29 mmol/L (22-32); Chloride 98 mmol/L (98-107); Estimated Glomerular Filt Rate > 60.0 mL/min (>60); Globulin 3.9 g/dL (1.7-4.1); Glucose 233 mg/dL (70-100); HEMOLYSIS < 15 (0-50); Sodium 137 mmol/L (137-145); Total Protein 8.4 g/dL (6.3-8.2)
[2018-03-24 17:16] VITALS: BP 156/88; PULSE 72; RESP 22; O2SAT 98
[2018-03-24 17:19] LABS: Procalcitonin < 0.05 ng/mL (<0.5)
[2018-03-24 17:22] LABS: Lactate (Lactic Acid) 1.1 mmol/L (0.7-2.1)
[2018-03-24 17:35] LABS: Anisocytosis 3+; Hypochromasia 3+; Microcytosis 3+
[2018-03-24] MEDS: CEFTRIAXONE 1 GM/50 ML FROZ.PIGGY IV (18:28)
[2018-03-24 19:07] VITALS: BP 144/54; PULSE 82; RESP 18; O2SAT 99
== END 2018-03-24 19:13 | disposition home or self-care (01) ==
PROVIDERS: Emergency Provider Nurse Practitioner Family; Family Provider Family Medicine; PCP Family Medicine
DX: N39.0 Urinary tract infection, site not specified (principal)
CPT/HCPCS: 36415; 80053; 81003; 81015; 83605; 84145; 85025; 96361; 96365; 99283; 99284

== ENCOUNTER 2018-05-12 21:26 | Emergency (ER) | payer OTHER, MEDICAID, SELFPAY ==
[2018-05-12 21:34] VITALS: BP 162/91; PULSE 108; RESP 18; TEMP 36.9; O2SAT 100; BMI 54.9
--- NOTE | 2018-05-12 21:40 | ED.GENADULT ---
HPI - General Adult <Mauricio ChoiMARY ordoñez - Last Filed: 05/12/18 21:58> General Chief complaint: Extremity Problem,Nontraumatic Stated complaint: RT FOOT PAIN, HIGH BP Time Seen by Provider: 05/12/18 21:30 Source: patient Mode of arrival: ambulatory Limitations: no limitations History of Present Illness HPI narrative: 32-year-old female with history of hypertension and lower extremity edema that is a former smoker here for complaint of having a swelling into ft earlier tonight mode in the right foot. The she states this has resolved after some elevation earlier today. She also states that her blood pressure was elevated today. She states that she has not taken her night hypertension medication. She denies any shortness of breath. No chest pain. She denies any trauma to the right foot. She states she has been taking her medications as prescribed. She denies any chest pain no shortness of breath. No abdominal pain. She was told by her primary care provider DUs elevation to help with any swelling to her lower extremities. She denies any other concerns or complaints at this time. Related Data Home Medications Medication Instructions Recorded Confirmed nystatin [Nystop] 100,000 unit TOPICAL BIDP PRN 02/12/18 04/24/18 albuterol sulfate [Ventolin HFA] 2 puff INH Q4HP PRN 02/13/18 04/24/18 clobetasol 1 nikole TOPICAL BID PRN 02/13/18 04/24/18 fluticasone 0.05 mg INTRANASAL Q DAY PRN PRN 02/13/18 04/24/18 fluticasone [Flovent HFA] 1 puff INH BID PRN 03/24/18 04/24/18 loratadine [Claritin] 10 mg PO QPM 03/24/18 04/24/18 methocarbamol 1.5 tab PO QID 03/24/18 04/24/18 nitrofurantoin monohyd/m-cryst 1 cap PO BID 03/24/18 04/24/18 Previous Rx's Medication Instructions Recorded lisinopril 10 mg PO SEE INSTRUCTIONS #90 tab 10/16/17 metformin 500 mg tablet 500 mg PO QID #360 tab 02/03/18 insulin lispro (U-100) 100 unit/mL See Label Instructions SUBCUT 03/10/18 subcutaneous pen .COMPLEX #15 ml promethazine 6.25 mg-codeine 10 5 ml PO Q6H PRN #118 ml 03/17/18 mg/5 mL syrup cephalexin 500 mg PO BID #14 cap 03/24/18 hydrocodone 5 mg-acetaminophen 325 1 tab PO Q6HP PRN #120 tab 04/24/18 mg tablet lorazepam 1 mg tablet 1 mg PO Q6H PRN #120 tab MDD 4 mg 04/24/18 hydrochlorothiazide 25 mg PO QDAY #30 tab 04/29/18 propranolol 10 mg tablet 10 mg PO BID #60 tab 04/29/18 bupropion HCl XL 150 mg 24 hr 150 mg PO DAILY #30 tab 04/30/18 tablet, extended release Allergies Allergy/AdvReac Type Severity Reaction Status Date / Time Iodinated Contrast- Oral and Allergy Severe Neck, face Verified 04/24/18 11:10 IV Dye arms all [IODINATED CONTRAST MEDIA - swollen IV DYE] with difficulty breathing hydromorphone [From DILAUDID] Allergy Mild Very Verified 04/24/18 11:10 sensitive to this drug. ciprofloxacin [From Cipro] Allergy Hives Verified 04/24/18 11:10 Sulfa (Sulfonamide Allergy Rash Verified 04/24/18 11:10 Antibiotics) loperamide [From IMODIUM A-D] AdvReac Mild Nausea Verified 04/24/18 11:10 vomiting ondansetron AdvReac Mild Nausea Verified 04/24/18 11:10 [From ZOFRAN ( with oral HYDROCHLORIDE)] route VITAMIN C AdvReac Mild Nausea/vomiting Uncoded 04/24/18 11:10 and migraines Review of Systems <MARY Vaughan - Last Filed: 05/12/18 21:58> Constitutional Denies chills, Denies fever(s), Denies lethargy and Denies weakness Eyes Denies change in vision, Denies eye discharge, Denies irritation and Denies loss of vision ENT Ears, Nose, Mouth, and Throat: Denies change in voice, Denies neck pain and Denies sore throat Cardiovascular Denies chest pain, Denies irregular heart rhythm, Denies lightheadedness, Denies palpitations, Denies dyspnea, Denies dyspnea on exertion and Denies orthopnea Respiratory Denies cough, Denies dyspnea, Denies dyspnea on exertion and Denies wheezing Gastrointestinal Gastrointestinal: Denies abdominal pain, Denies change in bowel habits, Denies diarrhea, Denies nausea and Denies vomiting Genitourinary Denies hematuria, Denies flank pain, Denies urinary incontinence and Denies urinary urgency Musculoskeletal Denies neck pain Comments: Swelling Integumentary/Breasts Denies pruritus, Denies erythema, Denies rash and Denies wounds Neurologic Denies loss of vision and Denies weakness Endocrine Denies palpitations Allergic/Immunologic Denies wheezing Exam <MARY Vaughan - Last Filed: 05/12/18 21:58> Initial Vital Signs Initial Vital Signs: Vital Signs Temperature 98.5 F 05/12/18 21:34 Pulse Rate 108 H 05/12/18 21:34 Respiratory Rate 18 05/12/18 21:34 Blood Pressure 162/91 H 05/12/18 21:34 Pulse Oximetry 100 05/12/18 21:34 Const General: cooperative and well developed Nutritional Appearance: well nourished Orientation: alert, awake, oriented x3 and not confused HENMT Mouth: oral mucosae normal, oropharynx normal and moist mucous membranes Eyes Conjunctivae: conjunctivae normal Sclera: sclerae normal Pupils: PERRL EOM: EOM intact bilaterally Resp Effort & Inspection: normal respiratory effort, able to speak in complete sentences, no respiratory distress and no use of accessory muscles Auscultation: clear to auscultation bilaterally, no rales, no rhonchi and no wheezes Cardio Rate: regular rate Rhythm: regular rhythm Heart Sounds: no click, no gallops, no murmurs and no rubs Pulses: normal peripheral pulses Neuro General: alert, oriented x3, gait normal and no focal motor deficits Speech: speech normal Extrem Other: No edema appreciated to bilateral lower extremities at this time. Distal sensation is intact. Distal pulses are intact. Distal range of motion is intact. <Chon Kilpatrick DO - Last Filed: 05/12/18 22:33> Initial Vital Signs Initial Vital Signs: Vital Signs Temperature 98.5 F 05/12/18 21:34 Pulse Rate 108 H 05/12/18 21:34 Respiratory Rate 18 05/12/18 21:34 Blood Pressure 162/91 H 05/12/18 21:34 Pulse Oximetry 100 05/12/18 21:34 Course <MARY Vaughan - Last Filed: 05/12/18 21:58> Vital Signs - 8 hr 05/12/18 21:34 05/12/18 21:50 Temperature 98.5 F Pulse Rate 108 H 94 H Respiratory Rate 18 Blood Pressure 162/91 H Blood Pressure [Right Wrist] 162/91 H Pulse Oximetry 100 99 <Chon Kilpatrick DO - Last Filed: 05/12/18 22:33> Vital Signs - 8 hr 05/12/18 21:34 05/12/18 21:50 Temperature 98.5 F Pulse Rate 108 H 94 H Respiratory Rate 18 Blood Pressure 162/91 H Blood Pressure [Right Wrist] 162/91 H Pulse Oximetry 100 99 Medical Decision Making <MARY Vaughan - Last Filed: 05/12/18 21:58> MDM Narrative Medical decision making narrative: Blood pressure elevated emergency room this evening at 162/91. Patient has not taken her evening blood pressure medications as of yet. Lab patient follow up with primary care provider for further evaluation. Patient encouraged to keep a log of blood pressure readings for further evaluation. No pitting edema is appreciated on exam today most likely resolved prior to arrival. She is placed in an Hema wrap to the right foot to help with swelling. She is encouraged to use elevation to help with her symptoms. Compression socks may help as well for any worsening symptoms return to the emergency room. Discharge Plan Departure Patient Disposition: Home Clinical Impression: Essential hypertension, Edema of lower extremity Discharge Date/Time: 05/12/18 22:04 Interventions: ED Discharge Assessment Last Done: 05/12/18 22:04 Instructions: DI for Dependent Edema Activity Restrictions/Additional Instructions: Signs and symptoms swelling into your lower extremities appears consistent with dependent edema. Try to elevate your feet to help with the edema. Compression socks may be of help. Make sure you are taking your blood pressure medications as prescribed. Keep a log of her blood pressure and bring with you when you follow up with her primary care provider for further evaluation to help with titration of her medications if needed. Hema wrap was applied to the right foot to help with any edema. For any worsening symptoms return to the emergency room. Prescriptions: No Action insulin lispro [Humalog KwikPen Insulin] 100 unit/mL insulin pen See Patient Comments SUBCUT .COMPLEX Qty: 15 RF: 5 lorazepam 1 mg tablet 1 mg PO Q6H MDD 4 mg PRN (Reason: anxiety) Qty: 120 RF: 0 hydrocodone-acetaminophen 5-325 mg tablet 1 tab PO Q6HP PRN (Reason: pain) Qty: 120 RF: 0 lisinopril 10 MG tablet 10 mg PO SEE INSTRUCTIONS Qty: 90 RF: 3 metformin [Glucophage] 500 mg tablet 500 mg PO QID Qty: 360 RF: 0 promethazine-codeine 6.25-10 mg/5 mL syrup 5 ml PO Q6H PRN (Reason: cough) Qty: 118 RF: 0 hydrochlorothiazide 25 mg tablet 25 mg PO QDAY Qty: 30 RF: 5 propranolol 10 mg tablet 10 mg PO BID Qty: 60 RF: 0 bupropion HCl 150 mg tablet extended release 24 hr 150 mg PO DAILY Qty: 30 RF: 5 nystatin [Nystop] 30 GM powder 100,000 unit Topical BIDP PRN (Reason: yeast) RF: 0 methocarbamol 500 mg tablet 1.5 tab PO QID RF: 0 nitrofurantoin monohyd/m-cryst 100 mg capsule 1 cap PO BID RF: 0 loratadine [Claritin] 10 mg Tablet 10 mg PO QPM RF: 0 fluticasone [Flovent HFA] 12 GM HFA aerosol inhaler 1 puff INH BID PRN (Reason: Shortness Of Breath) RF: 0 cephalexin 500 mg capsule 500 mg PO BID Qty: 14 RF: 0 clobetasol 0.05 % ointment 1 nikole Topical BID PRN (Reason: UNKNOWN) RF: 0 albuterol sulfate [Ventolin HFA] 90 MCG/PUFF HFA aerosol inhaler 2 puff INH Q4HP PRN (Reason: Shortness Of Breath) RF: 0 fluticasone 16 GM spray,suspension 0.05 mg Intranasal Q DAY PRN PRN (Reason: Congestion) RF: 0 Referrals: Josiah Escobedo MD [Primary Care Provider] - <Chon Kilpatrick DO - Last Filed: 05/12/18 22:33> Cosign ED Attending Cosignature Attestation: I was available for consultation during this patient's emergency department encounter
[2018-05-12 21:50] VITALS: BP 162/91; PULSE 94; O2SAT 99
== END 2018-05-12 22:04 | disposition home or self-care (01) ==
PROVIDERS: Emergency Provider Nurse Practitioner Family; Family Provider Family Medicine; PCP Family Medicine
DX: R60.0 Localized edema (principal); I10 Essential (primary) hypertension
CPT/HCPCS: 99282

== ENCOUNTER → 2018-07-10 18:46 | Outpatient (CLI) | payer OTHER, MEDICAID, SELFPAY | PROVIDERS: Family Provider Family Medicine; PCP Student in an Organized Health Care Education/Training Program; Visit Provider Physician Assistant | DX: J35.1 Hypertrophy of tonsils (principal) | CPT/HCPCS: 87070; 87077; 87147 ==

== ENCOUNTER 2018-10-18 19:38 | Observation (INO) | payer OTHER, MEDICAID, SELFPAY ==
[2018-10-18 19:43] VITALS: BP 172/112; PULSE 112; RESP 24; TEMP 38.5; O2SAT 99; BMI 55.3
--- NOTE | 2018-10-18 20:25 | ED.CHESTPAIN ---
HPI - Chest Pain General Chief Complaint: Chest Pain Stated Complaint: chest pains,stomach pains,vomiting and diarrhea Time Seen by Provider: 10/18/18 20:16 Source: patient Mode of arrival: ambulatory Limitations: no limitations History of Present Illness HPI narrative: The patient presents with chest pain of 8 2+ day duration. The pain radiates across her upper chest. She denies dyspnea. She has a fever upon arrival, she has had no productive cough. She denies sinus pressure, sore throat, or ear pain. She has no neck pain. She has not complained of abdominal pain, nausea, vomiting or diarrhea. She denies dysuria. She has no skin rash. With the chest discomfort she has had no hemoptysis. She is diabetic, and hypertensive. She has history of DVT and PE in 2010. She is also injured small PEs in 2016 and 2017. She is not currently anticoagulated. She has no history of CAD or LA. She has previously experienced a significant allergic reaction to IV contrast. Her last PE was evaluated by a V/Q scan. Related Data Home Medications Medication Instructions Recorded Confirmed Ventolin HFA 2 puff INH Q4HP PRN 02/13/18 10/19/18 clobetasol 1 nikole TOPICAL BID PRN 02/13/18 10/19/18 loratadine [Claritin] 10 mg PO QPM 03/24/18 10/19/18 Previous Rx's Medication Instructions Recorded hydrochlorothiazide 25 mg PO QDAY #30 tab 04/29/18 lisinopril 10 mg tablet 10 mg PO SEE INSTRUCTIONS #90 tab 07/03/18 metformin 500 mg tablet 500 mg PO QID #360 tab 07/03/18 nystatin 100,000 unit/gram topical 100,000 unit TOPICAL BIDP PRN #15 07/03/18 powder gram propranolol 10 mg tablet 10 mg PO BID #180 tab 07/03/18 True metrix glucose test strip #100 each 07/31/18 insulin lispro (U- 100) 100 See Rx Instructions SUBCUT 08/18/18 unit/mL subcutaneous pen .COMPLEX #30 ml BD U/F MINI PEN NEEDLE [id number] #1 ea 08/27/18 lorazepam 1 mg tablet 1 mg PO Q6H PRN #120 tab MDD 4 mg 09/02/18 hydrocodone 5 mg-acetaminophen 325 1 tab PO Q6HP PRN #120 tab 10/09/18 mg tablet Allergies Allergy/AdvReac Type Severity Reaction Status Date / Time Iodinated Contrast- Oral and Allergy Severe Neck, face Verified 10/09/18 12:59 IV Dye arms all [IODINATED CONTRAST MEDIA - swollen IV DYE] with difficulty breathing hydromorphone [From DILAUDID] Allergy Mild Very Verified 10/09/18 12:59 sensitive to this drug. ciprofloxacin [From Cipro] Allergy Hives Verified 10/09/18 12:59 Sulfa (Sulfonamide Allergy Rash Verified 10/09/18 12:59 Antibiotics) loperamide [From IMODIUM A-D] AdvReac Mild Nausea Verified 10/09/18 12:59 vomiting ondansetron AdvReac Mild Nausea Verified 10/09/18 12:59 [From ZOFRAN ( with oral HYDROCHLORIDE)] route VITAMIN C AdvReac Mild Nausea/vomiting Uncoded 04/24/18 11:10 and migraines Review of Systems Review of Systems ROS Unobtainable: All systems reviewed & are unremarkable except as noted in HPI and below Constitutional Denies chills, Reports fever(s), Reports lethargy and Denies weakness Eyes Denies change in vision, Denies eye discharge and Denies irritation ENT Ears, Nose, Mouth, and Throat: Denies change in voice, Denies vertigo, Denies otalgia, Denies facial pain, Denies nasal congestion, Denies neck pain and Denies sore throat Cardiovascular Reports as per HPI, Denies chest pain, Denies syncope, Denies irregular heart rhythm, Denies lightheadedness, Denies palpitations, Denies dyspnea on exertion, Denies orthopnea and Reports other (No hemoptysis) Respiratory Denies cough, Denies dyspnea on exertion and Denies wheezing Gastrointestinal Gastrointestinal: Denies abdominal pain, Denies change in bowel habits, Denies diarrhea, Denies nausea and Denies vomiting Genitourinary Denies hematuria, Denies dysuria, Denies flank pain and Denies urinary urgency Musculoskeletal Denies back pain and Denies neck pain Integumentary/Breasts Denies pruritus, Denies erythema, Denies rash and Denies wounds Neurologic Denies confusion, Denies vertigo, Denies syncope and Denies weakness Psychiatric Denies anxiety and Denies confusion Endocrine Denies palpitations Hematologic/Lymphatic Denies easy bleeding and Denies easy bruising Allergic/Immunologic Denies wheezing Comments: Known allergy to IV contrast. [facility] Medical History Chronic dental pain (Chronic) Uncomplicated opioid dependence (Chronic) Anxiety (Chronic Unknown) Depression (Chronic Unknown) HTN (hypertension) (Chronic ~2009) Asthma (Chronic) Morbid obesity with body mass index (BMI) greater than or equal to 50 (Chronic 08/04/15) Mild intermittent asthma without complication (Chronic 02/23/16) Type 2 diabetes mellitus without complication, with long-term current use of insulin (Chronic 10/08/16) Dermatitis (Chronic Unknown) Hx MRSA infection (Resolved 10/2010) Surgical History No history of previous surgery (Chronic) History of cholecystectomy (Acute) Family History Mother Age: 38 Type 2 diabetes mellitus without complication Sister Age: 28 Depression Sister Age: 31 Anxiety Social History household members: spouse Smoking Status: Former smoker Family History Mother Age: 38 Type 2 diabetes mellitus without complication Sister Age: 28 Depression Sister Age: 31 Anxiety Social History household members: spouse Smoking Status: Former smoker Exam Initial Vital Signs Initial Vital Signs: Vital Signs Temperature 101.3 F H 10/18/18 19:43 Pulse Rate 112 H 10/18/18 19:43 Respiratory Rate 24 10/18/18 19:43 Blood Pressure 172/112 H 10/18/18 19:43 Pulse Oximetry 99 10/18/18 19:43 Const General: cooperative, well developed and other (Morbidly obese) Nutritional Appearance: well nourished Orientation: alert, awake, oriented x3 and not confused HENMT Head: normocephalic and atraumatic Ears: external ears normal and TM's normal bilaterally Nose: No nasal discharge Face and sinus: sinuses nontender and face symmetric Mouth: oral mucosae normal and moist mucous membranes Throat: posterior oropharynx normal, tonsils normal and uvula midline Eyes General: appearance normal, both eyes and all related structures Eyelids: eyelids normal Conjunctivae: conjunctivae normal Sclera: sclerae normal Pupils: PERRL EOM: EOM intact bilaterally Neck Neck: supple Lymphatic: No lymphadenopathy Chest Chest: normal inspection of the chest and tenderness (Across the upper chest.) Resp Effort & Inspection: normal respiratory effort, able to speak in complete sentences, no respiratory distress and no use of accessory muscles Auscultation: clear to auscultation bilaterally, no rales, no rhonchi and no wheezes Cardio Rate: regular rate Rhythm: regular rhythm Heart Sounds: no click, no gallops, no murmurs and no rubs Pulses: normal peripheral pulses GI Inspection: non-distended and obesity Palpation: soft, no hepatosplenomegaly, No guarding, No pulsatile mass and No tender Auscultation: normal bowel sounds Back/Spine/Pelvis Back: No CVA tenderness Cervical Spine: cervical ROM normal and No pain with cervical ROM Thoracic/Lumbar Spine: thoracic and lumbar spine normal to inspection Skin General: no rashes or lesions noted, dry skin, No jaundice and No petechiae Neuro General: alert, oriented x3, gait normal and no focal motor deficits Speech: speech normal Extrem General: full ROM, no clubbing, cyanosis or edema, no pedal edema and calf tenderness (Mild right calf tenderness, but no edema or positive Homans.) Psych Appearance: well kempt Mental Status: mental status grossly normal Attitude: cooperative Thought Content: normal and suicidality Judgment: judgment good Course Orders Ordered: ED Orders 10/18/18 20:36 XR chest 2V Stat 10/18/18 21:00 Blood Culture Stat Complete Blood Count AUTO DIFF Stat Comprehensive Metabolic Panel Stat D Dimer Stat Lactate (Lactic Acid) Stat Lipase Stat Troponin & CK Cardiac Panel Stat 10/18/18 21:16 Influenza A and B by PCR Rapid Stat 10/18/18 21:37 US periph venous low extrem rt Stat 10/18/18 23:25 Urinalysis and Microscopic Stat 10/19/18 NM pul vent and perfusion Urgent Hemoglobin A1C % Routine Lipid Panel Routine PTT [Partial Thromboplastin Time] Stat Prothrombin Time INR Stat 10/19/18 02:09 Consult to Dietitian, Adult Routine Consult to Discharge Planning Routine 10/19/18 02:13 Consult to Pharmacy Routine 10/19/18 03:02 Consult to Respiratory Therapy Evaluate & Treat 10/19/18 05:00 Basic Metabolic Panel DAILY Complete Blood Count AUTO DIFF DAILY 10/19/18 08:00 Partial Thromboplastin Time Stat 10/20/18 05:00 Basic Metabolic Panel DAILY Complete Blood Count AUTO DIFF DAILY 10/21/18 05:00 Basic Metabolic Panel DAILY Complete Blood Count AUTO DIFF DAILY Acetaminophen (Tylenol) 650 mg PO Q6HR PRN PRN Reason: As Needed for Fever/Mild Pain Bisacodyl (Dulcolax) 10 mg PO DAILY PRN PRN Reason: Constipation Dextrose (D50w) 25 gm IV PRN PRN; Protocol PRN Reason: Hypoglycemia Hydrochlorothiazide (Hydrochlorothiazide) 25 mg PO DAILY [facility] Heparin Sodium/Dextrose (Heparin Drip) 25,000 unit in 500 mls @ 56.01 mls/hr IV CONT JANIE; Protocol Last Titration: 10/19/18 02:42 Dose: 18 units/kg/hr, 56.01 mls/hr Admin: 10/19/18 01:53 Dose: 18 units/kg/hr, 56.01 mls/hr Sodium Chloride (Normal Saline 0.9%) 1,000 mls @ 100 mls/hr IV CONT [facility] Insulin Aspart (Novolog Flexpen) 0 unit SUBCUT ACHS [facility]; Protocol Insulin Glargine (Lantus Solostar (Pen)) 20 unit SUBCUT BEDTIME JANIE Lisinopril (Zestril) 10 mg PO SEE INSTRUCTIONS [facility] Metformin HCl (Glucophage) 500 mg PO 0800,1700 [facility] Naloxone HCl (Narcan) 0.2 mg IV Q2MIN PRN PRN Reason: Opiate Reversal Ondansetron HCl (Zofran) 4 mg IV Q8HR PRN PRN Reason: Nausea And Vomiting Pantoprazole Sodium (Protonix) 20 mg PO 0600 [facility] Propranolol HCl (Inderal) 10 mg PO BID JANIE Discontinued Medications Bupropion HCl (Wellbutrin Xl) 150 mg PO DAILY [facility] Al Hydrox/Mg Hydrox/Simethicone 20 ml/ Lidocaine HCl 15 ml 0 ml PO NOW ONE Stop: 10/18/18 20:26 Last Admin: 10/18/18 21:04 Dose: 35 ml Heparin Sodium (Porcine) (Heparin) 5,000 unit IV NOW ONE Stop: 10/19/18 01:03 Last Admin: 10/19/18 01:29 Dose: 5,000 unit Sodium Chloride (Normal Saline 0.9%) 1,000 mls @ 1,000 mls/hr IV BOLUS ONE Stop: 10/18/18 22:31 Last Infusion: 10/19/18 00:33 Dose: 0 mls/hr Admin: 10/18/18 21:40 Dose: 1,000 mls/hr Pantoprazole Sodium (Protonix) 40 mg IV NOW ONE Stop: 10/18/18 20:26 Last Admin: 10/18/18 21:04 Dose: 40 mg Vital Signs - 8 hr 10/18/18 19:43 10/18/18 21:53 10/18/18 22:50 Temperature 101.3 F H 101.7 F H Pulse Rate 112 H 112 H 108 H Respiratory Rate 24 24 Blood Pressure 172/112 H Blood Pressure [Left Arm] 139/40 L 139/74 Pulse Oximetry 99 100 97 10/18/18 23:13 10/19/18 00:03 10/19/18 00:33 Temperature Pulse Rate 108 H 105 H 107 H Respiratory Rate 17 25 H Blood Pressure Blood Pressure [Left Arm] 143/51 H 97/68 115/61 Pulse Oximetry 96 95 97 10/19/18 01:08 10/19/18 01:35 10/19/18 02:14 Temperature 99.7 F H Pulse Rate 105 H 106 H 104 H Respiratory Rate 18 29 H 18 Blood Pressure Blood Pressure [Left Arm] 133/55 L 109/40 L Pulse Oximetry 97 98 97 MDM - Chest Pain Lab Data Attestation: I reviewed the patient's lab results. Result diagrams: 10/18/18 21:00 10/18/18 21:00 Lab Results 10/18/18 10/18/18 10/18/18 Range/Units 21:00 21:00 21:00 WBC 7.5 (4.5-11.0) X10^3/uL RBC 5.75 H (4.0-5.2) X10^6/uL Hgb 10.7 L (12.0-16.0) g/dL Hct 33.9 L (36-46) % MCV 58.9 L (80-100) fL MCH 18.6 L (26-34) PG MCHC 31.6 (30-36) % RDW 20.2 H (11.6-14.8) % Plt Count 339 (150-400) X10^3/uL Neut % (Auto) 78.2 H (50-75) % Lymph % (Auto) 13.0 L (25-40) % [place] % (Auto) 7.0 (3-14) % Eos % (Auto) 1.0 L (2-4) % Baso % (Auto) 0.8 (0-2) % Neut # (Auto) 5900 (0380-0907) /uL Lymph # (Auto) 1000 L (2129-6561) /uL [place] # (Auto) 500 (0-900) /uL Eos # (Auto) 100 (0-450) /uL Baso # (Auto) 100 (0-100) /uL RBC Morphology See below Hypochromasia 1+ H Anisocytosis 3+ H Microcytosis 3+ H PT (10.1-12.7) SECONDS INR (0.9-1.3) APTT (26.4-36.2) SECONDS D-Dimer 1806 H (<230) ng/mL Sodium 136 L (137-145) mmol/L Potassium 4.1 (3.4-5.1) mmol/L Chloride 98 (98-107) mmol/L Carbon Dioxide 27 (22-32) mmol/L BUN 16 (7-17) mg/dL Creatinine 0.60 (0.52-1.04) mg/dL Estimated GFR > 60.0 (>60) mL/min BUN/Creatinine Ratio 26.7 H (6-22) Glucose 249 H (70-100) mg/dL Lactate (0.7-2.1) mmol/L Calcium 9.1 (8.4-10.2) mg/dL Total Bilirubin 0.5 (0.2-1.3) mg/dL AST 21 (14-36) IU/L ALT 37 (9-52) IU/L Alkaline Phosphatase 49 (38-126) U/L Total Creatine Kinase 68 (30-135) U/L CK-MB (CK-2) TNP CK-MB (CK-2) Rel Index TNP Troponin I 0.014 (0.01-0.034) ng/mL Total Protein 8.2 (6.3-8.2) g/dL Albumin 4.3 (3.5-5.0) g/dL Globulin 3.9 (1.7-4.1) g/dL Albumin/Globulin Ratio 1.1 (1.0-2.8) Lipase 104 (23-300) U/L Urine Color Urine Appearance Urine pH (4.5-8.0) Ur Specific [place] (1.000-1.035) Urine Protein (Negative) Urine Glucose (UA) (Negative) g/dL Urine Ketones (NEGATIVE) Urine Occult Blood (Negative) Urine Nitrate (Negative) Urine Bilirubin (NEGATIVE) Urine Urobilinogen (0.2) E.U./dL Ur Leukocyte Esterase (NEGATIVE) Urine RBC (0-5/HPF) Urine WBC (0-5/HPF) Ur Squamous Epith Cells Urine Bacteria (None) Ur Culture Indicated? Influenza A & B (PCR) (Negative) 10/18/18 10/18/18 10/18/18 Range/Units 21:00 21:16 23:25 WBC (4.5-11.0) X10^3/uL RBC (4.0-5.2) X10^6/uL Hgb (12.0-16.0) g/dL Hct (36-46) % MCV (80-100) fL MCH (26-34) PG MCHC (30-36) % RDW (11.6-14.8) % Plt Count (150-400) X10^3/uL Neut % (Auto) (50-75) % Lymph % (Auto) (25-40) % [place] % (Auto) (3-14) % Eos % (Auto) (2-4) % Baso % (Auto) (0-2) % Neut # (Auto) (6020-0258) /uL Lymph # (Auto) (4510-3130) /uL [place] # (Auto) (0-900) /uL Eos # (Auto) (0-450) /uL Baso # (Auto) (0-100) /uL RBC Morphology Hypochromasia Anisocytosis Microcytosis PT (10.1-12.7) SECONDS INR (0.9-1.3) APTT (26.4-36.2) SECONDS D-Dimer (<230) ng/mL Sodium (137-145) mmol/L Potassium (3.4-5.1) mmol/L Chloride (98-107) mmol/L Carbon Dioxide (22-32) mmol/L BUN (7-17) mg/dL Creatinine (0.52-1.04) mg/dL Estimated GFR (>60) mL/min BUN/Creatinine Ratio (6-22) Glucose (70-100) mg/dL Lactate 1.7 (0.7-2.1) mmol/L Calcium (8.4-10.2) mg/dL Total Bilirubin (0.2-1.3) mg/dL AST (14-36) IU/L ALT (9-52) IU/L Alkaline Phosphatase (38-126) U/L Total Creatine Kinase (30-135) U/L CK-MB (CK-2) CK-MB (CK-2) Rel Index Troponin I (0.01-0.034) ng/mL Total Protein (6.3-8.2) g/dL Albumin (3.5-5.0) g/dL Globulin (1.7-4.1) g/dL Albumin/Globulin Ratio (1.0-2.8) Lipase (23-300) U/L Urine Color Yellow Urine Appearance Slightly cloudy Urine pH 5.0 (4.5-8.0) Ur Specific [place] 1.020 (1.000-1.035) Urine Protein Negative (Negative) Urine Glucose (UA) 1+ H (Negative) g/dL Urine Ketones Negative (NEGATIVE) Urine Occult Blood 3+ H (Negative) Urine Nitrate Negative (Negative) Urine Bilirubin Negative (NEGATIVE) Urine Urobilinogen 0.2 (0.2) E.U./dL Ur Leukocyte Esterase Negative (NEGATIVE) Urine RBC >100/hpf H (0-5/HPF) Urine WBC 0-1/hpf (0-5/HPF) Ur Squamous Epith Cells 1-5 /hpf Urine Bacteria Few (2-10) H (None) Ur Culture Indicated? Cult not indicated Influenza A & B (PCR) Negative (Negative) 10/18/18 Range/Units Unknown WBC (4.5-11.0) X10^3/uL RBC (4.0-5.2) X10^6/uL Hgb (12.0-16.0) g/dL Hct (36-46) % MCV (80-100) fL MCH (26-34) PG MCHC (30-36) % RDW (11.6-14.8) % Plt Count (150-400) X10^3/uL Neut % (Auto) (50-75) % Lymph % (Auto) (25-40) % [place] % (Auto) (3-14) % Eos % (Auto) (2-4) % Baso % (Auto) (0-2) % Neut # (Auto) (7284-9678) /uL Lymph # (Auto) (1803-7210) /uL [place] # (Auto) (0-900) /uL Eos # (Auto) (0-450) /uL Baso # (Auto) (0-100) /uL RBC Morphology Hypochromasia Anisocytosis Microcytosis PT 11.9 (10.1-12.7) SECONDS INR 1.0 (0.9-1.3) APTT 30 (26.4-36.2) SECONDS D-Dimer (<230) ng/mL Sodium (137-145) mmol/L Potassium (3.4-5.1) mmol/L Chloride (98-107) mmol/L Carbon Dioxide (22-32) mmol/L BUN (7-17) mg/dL Creatinine (0.52-1.04) mg/dL Estimated GFR (>60) mL/min BUN/Creatinine Ratio (6-22) Glucose (70-100) mg/dL Lactate (0.7-2.1) mmol/L Calcium (8.4-10.2) mg/dL Total Bilirubin (0.2-1.3) mg/dL AST (14-36) IU/L ALT (9-52) IU/L Alkaline Phosphatase (38-126) U/L Total Creatine Kinase (30-135) U/L CK-MB (CK-2) CK-MB (CK-2) Rel Index Troponin I (0.01-0.034) ng/mL Total Protein (6.3-8.2) g/dL Albumin (3.5-5.0) g/dL Globulin (1.7-4.1) g/dL Albumin/Globulin Ratio (1.0-2.8) Lipase (23-300) U/L Urine Color Urine Appearance Urine pH (4.5-8.0) Ur Specific [place] (1.000-1.035) Urine Protein (Negative) Urine Glucose (UA) (Negative) g/dL Urine Ketones (NEGATIVE) Urine Occult Blood (Negative) Urine Nitrate (Negative) Urine Bilirubin (NEGATIVE) Urine Urobilinogen (0.2) E.U./dL Ur Leukocyte Esterase (NEGATIVE) Urine RBC (0-5/HPF) Urine WBC (0-5/HPF) Ur Squamous Epith Cells Urine Bacteria (None) Ur Culture Indicated? Influenza A & B (PCR) (Negative) Imaging Data Chest x-ray: Radiologist's impression: 197 Javi Boucher MD Find Patient Imaging Yaquelin Loera 32 F 1985 ACTIVITY DATE EXAM STATUS AUTHOR 10/18/18 21:37 Signed Misha Marquez 10/18/18 20:36 Signed Misha Marquez ORDER STATUS ORDER START ORDER DETAIL CT angio chest PE protocol Cancelled 10/18/18 21:[address] [address] XRay Report Signed Patient: Yaquelin Loera CMR#: [id number] : 1985Acct:[id number] Age/Sex: 32 / FDate of Service: 10/18/18 Loc: ED Accession Number: [id number] Procedure: XR chest 2V Ordering Provider: Javi Boucher M.D. PROCEDURE: XR CHEST 2V INDICATIONS: Fever. Chest discomfort TECHNIQUE: 2 views of the chest were acquired. COMPARISON: [facility], , XR CHEST 1 VIEW, 03/25/2018, 21:41. FINDINGS: Surgical changes and devices: None. Lungs and pleura: Lungs are clear. No pleural effusions or pneumothorax. Mediastinum: Mediastinal contours are normal. Heart size is normal. Bones and chest wall: No suspicious bony abnormalities. Soft tissues appear unremarkable. IMPRESSION: 1. No acute cardiopulmonary disease. Dictated by: Misha Marquez M.D. on 10/18/2018 at 21:46 Approved by: Misha Marquez M.D. on 10/18/2018 at 21:46 Right leg Venous US:: Radiologist's impression: No evidence of DVT ECG Data Attestation: I personally reviewed and interpreted this ECG as follows: (Normal sinus rhythm rate 99 bpm. Normal intervals. No ectopy. No acute ST or T-wave changes.) MDM Narrative Medical decision making narrative: The patient has a low-grade fever. Influenza test is negative. The BC count is normal. Lactate is normal. UA is normal. There are no acute findings on ENT, chest, or abdominal exam. She has no concerning rashes. I think the fevers associated with a viral syndrome. An ultrasound was performed of the right leg, no evidence of DVT. Chest x-ray is normal. She is a concerning elevation to the D-dimer study. She has experienced 3 PEs with the last 8 years. She is not a candidate for a CTA of the chest due to significant allergy reaction to IV contrast. Given the situation she was started on heparin, admitted to the hospitalist,MARY Anne. Followup V/Q scan and echo were discussed with MARY Anne. She is on a heparin drip following a bolus when admitted. Her blood pressure is normal, she has no hypoxia. She has no suggestion of shock. Discharge Plan Departure Patient Disposition: Admitted As Inpatient Clinical Impression: Atypical chest pain, Elevated d-dimer Discharge Date/Time: 10/19/18 01:39 Interventions: ED Discharge Assessment Last Done: 10/19/18 02:14 Admit Date/Time: 10/19/18 01:38 Admit Provider: Riley Anne
--- NOTE | 2018-10-18 20:36 | DI.RAD.S_ITS ---
PROCEDURE: XR CHEST 2V INDICATIONS: Fever. Chest discomfort TECHNIQUE: 2 views of the chest were acquired. COMPARISON: [facility], CR, XR CHEST 1 VIEW, 03/25/2018, 21:41. FINDINGS: Surgical changes and devices: None. Lungs and pleura: Lungs are clear. No pleural effusions or pneumothorax. Mediastinum: Mediastinal contours are normal. Heart size is normal. Bones and chest wall: No suspicious bony abnormalities. Soft tissues appear unremarkable. IMPRESSION: 1. No acute cardiopulmonary disease. Dictated by: Misha Marquez M.D. on 10/18/2018 at 21:46 Approved by: Misha Marquez M.D. on 10/18/2018 at 21:46
[2018-10-18] MEDS: MAG HYDROX/ALUMINUM/SIMETH SUS 20 ML, LIDOCAINE VISCOUS 2% 15 ML PO (21:04)
[2018-10-18] MEDS: PANTOPRAZOLE 40 MG VIAL IV (21:04)
[2018-10-18 21:20] LABS: Alanine Aminotransferase 37 IU/L (9-52); Albumin 4.3 g/dL (3.5-5.0); Albumin Globulin Ratio 1.1 (1.0-2.8); Alkaline Phosphatase 49 U/L (38-126); Aspartate Aminotransferase 21 IU/L (14-36); BUN Creatinine Ratio 26.7 (6-22); Bilirubin Total 0.5 mg/dL (0.2-1.3); Blood Urea Nitrogen 16 mg/dL (7-17); Calcium 9.1 mg/dL (8.4-10.2); Carbon Dioxide 27 mmol/L (22-32); Chloride 98 mmol/L (98-107); Creatine Kinase 68 U/L (30-135); Estimated Glomerular Filt Rate > 60.0 mL/min (>60); Globulin 3.9 g/dL (1.7-4.1); Glucose 249 mg/dL (70-100); HEMOLYSIS < 15 (0-50); Lactate (Lactic Acid) 1.7 mmol/L (0.7-2.1); Lipase 104 U/L (23-300); Potassium 4.1 mmol/L (3.4-5.1); Sodium 136 mmol/L (137-145); Total Protein 8.2 g/dL (6.3-8.2)
[2018-10-18 21:23] LABS: Add Manual Diff / Slide Review SLIDE REVIEW; Basophils Absolute Auto 100 /uL (0-100); Basophils Percent Auto 0.8 % (0-2); Eosinophils Absolute Auto 100 /uL (0-450); Hematocrit 33.9 % (36-46); Hemoglobin 10.7 g/dL (12.0-16.0); Lymphocytes Absolute Auto 1000 /uL (1100-4500); Mean Corpuscular HGB Conc 31.6 % (30-36); Mean Corpuscular Hemoglobin 18.6 PG (26-34); Mean Corpuscular Volume 58.9 fL (80-100); Monocytes Absolute Auto 500 /uL (0-900); Neutrophils Absolute Auto 5900 /uL (1500-7000); Neutrophils Percent Auto 78.2 % (50-75); Platelet Count 339 X10^3/uL (150-400); Red Blood Cell Count 5.75 X10^6/uL (4.0-5.2); Red Cell Distribution Width 20.2 % (11.6-14.8); White Blood Cell Count 7.5 X10^3/uL (4.5-11.0)
[2018-10-18 21:26] LABS: D Dimer 1806 ng/mL (<230)
[2018-10-18 21:32] LABS: Troponin I 0.014 ng/mL (0.01-0.034)
[2018-10-18 21:36] LABS: Influenza A and B by PCR Rapid Negative (Negative)
--- NOTE | 2018-10-18 21:37 | DI.US.S_ITS ---
PROCEDURE: US PERIPH VENOUS LOW EXTREM RT INDICATIONS: Right calf tenderness, elevated D Dimer TECHNIQUE: Real-time imaging, as well as color and pulse Doppler interrogation, were performed of the lower extremity deep veins from the inguinal ligament to the popliteal fossa. COMPARISON: [facility], , PERIPH.JASMEET EXT BILAT, 08/18/2017, 10:50. FINDINGS: The deep veins are normally compressible, and free of intraluminal thrombus. Color and pulse Doppler demonstrate normal phasic intraluminal flow. There is normal augmentation response to distal compression maneuver. IMPRESSION: 1. No evidence of deep venous thrombosis in the right lower extremity. Dictated by: Misha Marquez M.D. on 10/18/2018 at 22:26 Approved by: Misha Marquez M.D. on 10/18/2018 at 22:27
[2018-10-18] MEDS: SODIUM CHLORIDE 0.9% 1,000 ML 1000 ML IV (21:40)
[2018-10-18 21:53] VITALS: BP 139/40; PULSE 112; RESP 24; TEMP 38.7; O2SAT 100
[2018-10-18 21:54] LABS: Anisocytosis 3+; Hypochromasia 1+; Microcytosis 3+
[2018-10-18 22:50] VITALS: BP 139/74; PULSE 108; O2SAT 97
[2018-10-18 23:13] VITALS: BP 143/51; PULSE 108; O2SAT 96
[2018-10-18 23:29] LABS: Bilirubin Urine UA NEGATIVE (NEGATIVE); Color Urine UA YELLOW; Glucose Urine UA 1+ g/dL (Negative); Ketones Urine UA NEGATIVE (NEGATIVE); Leukocyte Esterase Urine UA NEGATIVE (NEGATIVE); Nitrite Urine UA NEGATIVE (Negative); Occult Blood Urine UA 3+ (Negative); Protein Urine UA NEGATIVE (Negative); Urobilinogen Urine UA 0.2 E.U./dL (0.2)
[2018-10-18 23:31] LABS: Appearance Urine UA Slightly Cloudy
[2018-10-18 23:39] LABS: Bacteria Urine Few (2-10); RBC Urine >100/HPF (0-5/HPF); Squamous Epithelial Cell Urine 1-5 /HPF; WBC Urine 0-1/HPF (0-5/HPF)
[2018-10-18 23:40] LABS: Culture Indicated Urine Cult Not Indicated
[2018-10-19] VITALS (14 sets, daily range): BP systolic 97–136; BP diastolic 40–82; PULSE 80–107; RESP 15–29; TEMP 36.1–37.6; O2SAT 95–99; BMI 55.3
--- NOTE | 2018-10-19 | DI.NM.S_ITS ---
PROCEDURE: AL PUL VENT AND PERFUSION RADIOPHARMACEUTICAL: 36.1 mCi Tc-99m DTPA aerosol by inhalation and 10.1 mCi Tc-99m MAA intravenously. INDICATIONS: CP, history multiple PE TECHNIQUE: Ventilation images were obtained first with Tc-99m DTPA aerosol. Subsequently, perfusion images were acquired after intravenous injection of Tc-99m MAA. Anterior, posterior, EMERSON, PERSIAN, RPO, LPO, left and right lateral views were obtained. COMPARISON: [facility], [place], PUL. PERFUSION & VENTILATION, 08/18/2017, 11:38. FINDINGS: No unmatched perfusion defects were visible. There is homogeneous distribution of ventilation and perfusion radiotracer in both lungs. IMPRESSION: Low probability of pulmonary embolus. Dictated by: Regine Hernandes M.D. on 10/19/2018 at 14:51 Approved by: Regine Hernandes M.D. on 10/19/2018 at 14:57
[2018-10-19 01:25] LABS: PTT Partial Thromboplastin Tim 30 SECONDS (26.4-36.2); Prothrombin Time 11.9 SECONDS (10.1-12.7)
[2018-10-19] MEDS: HEPARIN 5,000 UNIT/ML VIAL 5000 UNIT IV (01:29)
[2018-10-19] MEDS: HEPARIN DRIP 25,000 UNIT/500 ML IV.SOLN 56.01 UNIT IV (01:53)
--- NOTE | 2018-10-19 01:54 | PC.NURSE ---
Namrata Porter RN verified dose heparin
--- NOTE | 2018-10-19 02:17 | PM.HP.1 ---
History of Present Illness Date Patient Seen: 10/19/18 Time Patient Seen: 01:45 Chief complaint: chest pains,stomach pains,vomiting and diarrhea Narrative: This is a 32-year-old female with a history of morbid obesity, diabetes, hypertension, asthma, previous DVTs and pulmonary emboli who presents to the ER today with chest pain and stomach pains. Patient states she began feeling ill 2 days ago with fevers and chills, nausea and vomiting and diarrhea. She had associated symptoms of headaches and dizziness. She subsequently today developed precordial chest pain extending bilateral across the mid chest that was occasionally pleuritic in nature. She also complains of right leg pain with swelling and just this evening is had right leg and foot cramping. 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 She has changed physicians and now is under the care Dr. Wright and is currently having her diabetic medications adjusted. She has been taking variable doses metformin from 2-4 times daily depending on blood sugar as well as Humalog between 30 and 60 units up to 4 times daily. Patient previously been on Lantus 20 mg at bedtime. She describes poor oral intake but today did have a bottle Gatorade as that was the only thing she was able to keep down. Patient arrived in the ER at 1943. She had an elevated temperature at 11.3, tachycardic at 112, a blood pressure 172/112 and respirations 24 with an oxygen saturation of 99% on room air. On laboratory analysis the patient has a normal white count at 7.5 without shift and electrolytes are within normal range. She has a BUN of 16 and creatinine 0.6 and a blood sugar of 249. Her lactate was 1.0 however she did have a D-dimer of 1806. Right lower extremity vascular ultrasound was done that was negative for thrombus. She also received Protonix and a GI cocktail which the patient reports did markedly improve her discomfort. She has also had blood cultures drawn and received 1000 saline bolus. The patient started on heparin bolus and infusion and admitted to hospital for rule out PE. Patient History Medical History Chronic dental pain (Chronic) Uncomplicated opioid dependence (Chronic) Anxiety (Chronic Unknown) Depression (Chronic Unknown) HTN (hypertension) (Chronic ~2009) Asthma (Chronic) Morbid obesity with body mass index (BMI) greater than or equal to 50 (Chronic 08/04/15) Mild intermittent asthma without complication (Chronic 02/23/16) Type 2 diabetes mellitus without complication, with long-term current use of insulin (Chronic 10/08/16) Dermatitis (Chronic Unknown) Hx MRSA infection (Resolved 10/2010) Surgical History No history of previous surgery (Chronic) History of cholecystectomy (Acute) Family History Mother Age: 38 Type 2 diabetes mellitus without complication Sister Age: 28 Depression Sister Age: 31 Anxiety Social History household members: spouse Smoking Status: Former smoker Family & Social History Family History Mother Age: 38 Type 2 diabetes mellitus without complication Sister Age: 28 Depression Sister Age: 31 Anxiety Safety & Behavioral: Feels Safe in Current Yes Environment Tobacco & Substance use: Smoking Status Former smoker alcohol intake frequency other Substance Use Type does not use Comment: The patient is for 12 years and is living with her , her best friend and 2 other friends and their child. She reports that she is adopted and has not seen her biological mother for over 15 years however she does have history of obesity but no further malady of health issues. She has never known her father. She has 1 biological sister with a history of osteoarthritis. Smoking: The patient has never smoked however has large burden of 2nd hand smoke exposure Alcohol: Very rare, 1 to 2 times a year Substance use: No recreational pharmaceuticals, tried CBD oil for the 1st time 3 days ago. Advanced directives: The patient designates her father Efrain Frankel to be her surrogate decision maker. Meds Home Medications Medication Instructions Recorded Confirmed Type Ventolin HFA 2 puff INH Q4HP PRN 02/13/18 10/19/18 History clobetasol 1 nikole TOPICAL BID PRN 02/13/18 10/19/18 History loratadine [Claritin] 10 mg PO QPM 03/24/18 10/19/18 History hydrochlorothiazide 25 mg PO QDAY #30 tab 04/29/18 10/19/18 Rx lisinopril 10 mg tablet 10 mg PO SEE INSTRUCTIONS #90 tab 07/03/18 10/19/18 Rx metformin 500 mg tablet 500 mg PO QID #360 tab 07/03/18 10/19/18 Rx nystatin 100,000 unit/gram topical 100,000 unit TOPICAL BIDP PRN #15 07/03/18 10/19/18 Rx powder gram propranolol 10 mg tablet 10 mg PO BID #180 tab 07/03/18 10/19/18 Rx True metrix glucose test strip #100 each 07/31/18 10/09/18 Rx insulin lispro (U- 100) 100 See Rx Instructions SUBCUT 08/18/18 10/19/18 Rx unit/mL subcutaneous pen .COMPLEX #30 ml BD U/F MINI PEN NEEDLE [id number] #1 ea 08/27/18 10/09/18 Rx lorazepam 1 mg tablet 1 mg PO Q6H PRN #120 tab MDD 4 mg 09/02/18 10/19/18 Rx hydrocodone 5 mg-acetaminophen 325 1 tab PO Q6HP PRN #120 tab 10/09/18 10/19/18 Rx mg tablet Allergies Allergy/AdvReac Type Severity Reaction Status Date / Time Iodinated Contrast- Oral and Allergy Severe Neck, face Verified 10/09/18 12:59 IV Dye arms all [IODINATED CONTRAST MEDIA - swollen IV DYE] with difficulty breathing hydromorphone [From DILAUDID] Allergy Mild Very Verified 10/09/18 12:59 sensitive to this drug. ciprofloxacin [From Cipro] Allergy Hives Verified 10/09/18 12:59 Sulfa (Sulfonamide Allergy Rash Verified 10/09/18 12:59 Antibiotics) loperamide [From IMODIUM A-D] AdvReac Mild Nausea Verified 10/09/18 12:59 vomiting ondansetron AdvReac Mild Nausea Verified 10/09/18 12:59 [From ZOFRAN ( with oral HYDROCHLORIDE)] route VITAMIN C AdvReac Mild Nausea/vomiting Uncoded 04/24/18 11:10 and migraines Review of Systems Review of Systems Constitutional: Positive for illness the last 2 days with fevers, chills, malaise and poor oral intake Eyes: Positive for glasses, Denies visual changes, denies floaters, diplopia ENT: Positive for prior mental allergies, headache Denies hearing changes, no nasal congestion, rhinorrhea, no dysphagia, sore throat or dentalgia, no neck stiffness or pain Respiratory: Positive for poor exercise tolerance, asthma, Denies SOB, cough, exertional dyspnea, wheezing Cardiovascular: Positive for bilateral and substernal precordial chest pain, pleuritic chest pain, orthostatic dizziness, Denies palpitations, syncope, edema Gastrointestinal: Positive for nausea vomiting and diarrhea, bloating Denies denies blood in stool. Genitourinary: Positive for menstruating onset yesterday, denies vaginal discharge, no complains of frequency, burning or urgency, hematuria on voiding Musculoskeletal: Positive for leg cramps and right calf pain and leg swelling, denies falls, weakness, joint swelling. Integumentary: Positive for history of MRSA lesions, plaque psoriasis, denies current abscesses, lesions, masses, rashes, hives, itching or hair loss Neurological: denies dizziness, confusion, numbness or tingling, speech difficulties or seizures Psychiatric: Positive for history of anxiety depression, denies current disturbances in thought, attentions or mood, denies substance abuse Endocrine: Positive for history of diabetes, denies goiter, lethargy, abnormal sweating, and heat/cold intolerance. Heme/lymph: Denies lymphadenopathy, abnormal bleeding or bruising Exam Vital Signs (past 8 hours): - 10/18/18 19:43 10/18/18 21:53 10/18/18 22:50 Temperature 101.3 F H 101.7 F H Pulse Rate 112 H 112 H 108 H Respiratory Rate 24 24 Blood Pressure 172/112 H Blood Pressure [Left Arm] 139/40 L 139/74 Pulse Oximetry 99 100 97 10/18/18 23:13 10/19/18 00:03 10/19/18 00:33 Temperature Pulse Rate 108 H 105 H 107 H Respiratory Rate 17 25 H Blood Pressure Blood Pressure [Left Arm] 143/51 H 97/68 115/61 Pulse Oximetry 96 95 97 10/19/18 01:08 10/19/18 01:35 10/19/18 02:14 Temperature 99.7 F H Pulse Rate 105 H 106 H 104 H Respiratory Rate 18 29 H 18 Blood Pressure Blood Pressure [Left Arm] 133/55 L 109/40 L Pulse Oximetry 97 98 97 Oxygen Delivery Method Room Air Narrative Exam Narrative: General: Well developed, morbidly obese female, BMI 55 point 4 that is febrile and ill appearing Skin: Hot, dry, pink, no rashes, multiple psoriatic lesions HEENT: Normocephalic, PERRLA, EOMs intact without nystagmus, fundi grossly normal bilateral conjunctiva moist, sclera is anicteric, hearing grossly normal, no sinus tenderness to percussion, no rhinorrhea, oropharynx is moist and pink without lesions or exudate, uvula midline, posterior pharynx without inflammation, no cervical lymphadenopathy Neck: Supple, no masses, no thyromegaly, trachea midline, no carotid bruits or JVD, no supraclavicular lymphadenopathy Cardiac: Tachycardic rate with regular rhythm, S1-S2, no murmur, no gallops or rubs, 2+ radial pulse, capillary refill is brisk, trace bilateral pedal edema Chest: Symmetrical movement, breathing non labored, no retractions, no cough present, BS equal bilateral without coarseness, crackles or wheezes Abdomen: Soft, round, obese, exam limited by body habitus, temp neck percussion bilateral upper quadrants dull bilateral lower quadrants no tenderness or guarding, no masses, no flank or suprapubic pain, BS hyperactive Back: Normal curvature, no tenderness Extremities: Movement of extremities x4, no synovial effusions or deformities, strength 5/5 and symmetrical Neuro: AAOx4, cranial nerves II-XII grossly intact, distal sensation intact to light touch, no paresthesias or neuropathy Psych: pleasant, thought coherent, stable mood and congruent affect Objective Labs Result Diagrams: 10/18/18 21:00 10/18/18 21:00 Labs: Laboratory Results - last 24 hr 10/18/18 10/18/18 10/18/18 21:00 21:00 21:00 WBC 7.5 RBC 5.75 H Hgb 10.7 L Hct 33.9 L MCV 58.9 L MCH 18.6 L MCHC 31.6 RDW 20.2 H Plt Count 339 Neut % (Auto) 78.2 H Lymph % (Auto) 13.0 L Gonzales % (Auto) 7.0 Eos % (Auto) 1.0 L Baso % (Auto) 0.8 Neut # (Auto) 5900 Lymph # (Auto) 1000 L Gonzales # (Auto) 500 Eos # (Auto) 100 Baso # (Auto) 100 RBC Morphology See below Hypochromasia 1+ H Anisocytosis 3+ H Microcytosis 3+ H PT INR APTT D-Dimer 1806 H Sodium 136 L Potassium 4.1 Chloride 98 Carbon Dioxide 27 BUN 16 Creatinine 0.60 Estimated GFR > 60.0 BUN/Creatinine Ratio 26.7 H Glucose 249 H Lactate Calcium 9.1 Total Bilirubin 0.5 AST 21 ALT 37 Alkaline Phosphatase 49 Total Creatine Kinase 68 CK-MB (CK-2) TNP CK-MB (CK-2) Rel Index TNP Troponin I 0.014 Total Protein 8.2 Albumin 4.3 Globulin 3.9 Albumin/Globulin Ratio 1.1 Lipase 104 Urine Color Urine Appearance Urine pH Ur Specific [place] Urine Protein Urine Glucose (UA) Urine Ketones Urine Occult Blood Urine Nitrate Urine Bilirubin Urine Urobilinogen Ur Leukocyte Esterase Urine RBC Urine WBC Ur Squamous Epith Cells Urine Bacteria Ur Culture Indicated? Influenza A & B (PCR) 10/18/18 10/18/18 10/18/18 21:00 21:16 23:25 WBC RBC Hgb Hct MCV MCH MCHC RDW Plt Count Neut % (Auto) Lymph % (Auto) Gonzales % (Auto) Eos % (Auto) Baso % (Auto) Neut # (Auto) Lymph # (Auto) Gonzales # (Auto) Eos # (Auto) Baso # (Auto) RBC Morphology Hypochromasia Anisocytosis Microcytosis PT INR APTT D-Dimer Sodium Potassium Chloride Carbon Dioxide BUN Creatinine Estimated GFR BUN/Creatinine Ratio Glucose Lactate 1.7 Calcium Total Bilirubin AST ALT Alkaline Phosphatase Total Creatine Kinase CK-MB (CK-2) CK-MB (CK-2) Rel Index Troponin I Total Protein Albumin Globulin Albumin/Globulin Ratio Lipase Urine Color Yellow Urine Appearance Slightly cloudy Urine pH 5.0 Ur Specific [place] 1.020 Urine Protein Negative Urine Glucose (UA) 1+ H Urine Ketones Negative Urine Occult Blood 3+ H Urine Nitrate Negative Urine Bilirubin Negative Urine Urobilinogen 0.2 Ur Leukocyte Esterase Negative Urine RBC >100/hpf H Urine WBC 0-1/hpf Ur Squamous Epith Cells 1-5 /hpf Urine Bacteria Few (2-10) H Ur Culture Indicated? Cult not indicated Influenza A & B (PCR) Negative 10/18/18 Unknown WBC RBC Hgb Hct MCV MCH MCHC RDW Plt Count Neut % (Auto) Lymph % (Auto) Gonzales % (Auto) Eos % (Auto) Baso % (Auto) Neut # (Auto) Lymph # (Auto) Gonzales # (Auto) Eos # (Auto) Baso # (Auto) RBC Morphology Hypochromasia Anisocytosis Microcytosis PT 11.9 INR 1.0 APTT 30 D-Dimer Sodium Potassium Chloride Carbon Dioxide BUN Creatinine Estimated GFR BUN/Creatinine Ratio Glucose Lactate Calcium Total Bilirubin AST ALT Alkaline Phosphatase Total Creatine Kinase CK-MB (CK-2) CK-MB (CK-2) Rel Index Troponin I Total Protein Albumin Globulin Albumin/Globulin Ratio Lipase Urine Color Urine Appearance Urine pH Ur Specific [place] Urine Protein Urine Glucose (UA) Urine Ketones Urine Occult Blood Urine Nitrate Urine Bilirubin Urine Urobilinogen Ur Leukocyte Esterase Urine RBC Urine WBC Ur Squamous Epith Cells Urine Bacteria Ur Culture Indicated? Influenza A & B (PCR) Assessment & Plan Assessment & Plan narrative: A 32-year-old female with history of prior DVT and PE with an elevated D-dimer that is admitted to the hospital for evaluation recurrent PE. 1. Chest pain, acute -The patient has new onset chest pain is bilateral across the precordium and somewhat pleuritic in nature. -prior history of pulmonary emboli as a knot on anticoagulation or anti platelet therapy -12 lead EKG is sinus tachycardia with a ventricular rate of 108, no ectopy noted, normal axis without ST or T-wave changes or strain -patient is allergic to radiologic contrast dye therefore will obtain a V/Q scan 2. Right calf pain, present on admission, acute -patient with right calf pain for several days with history of prior DVTs -marked elevated D-dimer at 1806 -vascular ultrasound obtain finding no evidence of thrombus 3. Nausea, vomiting, diarrhea, acute -GI symptoms improved with GI cocktail and Protonix in the ER -patient remains febrile at 101?, electrolytes within normal limits -patient received normal saline bolus -will continue hydration with normal saline at 100 cc an hour -patient received Protonix 20 mg daily 4. Diabetes type 2, uncontrolled, chronic -patient under care of new primary care with evolving glycemic treatment plan. Patient's typical blood sugars have been in the mid 200s -patient with variable metformin dosing 2-4 times daily as well as using Humalog 30-60 units sliding scale up to 4 times daily -history of using Lantus 20 units at bedtime previously -we will dose metformin 500 mg twice daily as she has had diarrhea related to 1000 mg dosing -will add Lantus back to her regimen at 20 units at bedtime -will check blood sugars AC and HS and use high dose sliding scale insulin. -we obtain hemoglobin A1c and will follow glucose trending and adjust Lantus as needed 5. Asthma, chronic -patient with history of asthma and uses albuterol at home -no wheezing on exam, patient is saturating at 99% on room air -RT to consult evaluate -albuterol treatments as needed 6. Hypertension, chronic -under treatment taking lisinopril 10 mg daily and propranolol 10 mg daily will continue both medications 7. Depression and anxiety, chronic -patient has been on bupropion which has since been discontinued -patient has been taking lorazepam 1 mg every 6 hr as needed which is continued. Patient is admitted to the hospital observation for rule out PE and the need for close monitoring and potential for complications. Patient's expected length of stay is 1 midnight.
[2018-10-19] MEDS: SODIUM CHLORIDE 0.9% 1,000 ML 100 ML IV ×3 (05:05→23:58)
[2018-10-19 05:59] LABS: Blood Urea Nitrogen 14 mg/dL (7-17); Calcium 8.1 mg/dL (8.4-10.2); Carbon Dioxide 25 mmol/L (22-32); Chloride 101 mmol/L (98-107); Estimated Glomerular Filt Rate > 60.0 mL/min (>60); Glucose 205 mg/dL (70-100); HEMOLYSIS < 15 (0-50); Potassium 3.9 mmol/L (3.4-5.1); Sodium 134 mmol/L (137-145)
[2018-10-19 06:05] LABS: Cholesterol 133 mg/dL (140-199); HDL Cholesterol 37 mg/dL (40-60); LDL Cholesterol Calculated 82 mg/dL (<100); Triglycerides 68 mg/dL (35-150)
[2018-10-19] MEDS: PANTOPRAZOLE 20 MG TABLET PO (06:29)
[2018-10-19 06:45] LABS: Basophils Absolute Auto 0 /uL (0-100); Basophils Percent Auto 0.7 % (0-2); Eosinophils Absolute Auto 0 /uL (0-450); Eosinophils Percent Auto 0.8 % (2-4); Hemoglobin 9.3 g/dL (12.0-16.0); Lymphocytes Absolute Auto 1400 /uL (1100-4500); Lymphocytes Percent Auto 22.2 % (25-40); Mean Corpuscular Hemoglobin 18.4 PG (26-34); Mean Corpuscular Volume 59.4 fL (80-100); Monocytes Absolute Auto 600 /uL (0-900); Monocytes Percent Auto 8.7 % (3-14); Neutrophils Absolute Auto 4300 /uL (1500-7000); Neutrophils Percent Auto 67.6 % (50-75); Platelet Count 287 X10^3/uL (150-400); Red Blood Cell Count 5.04 X10^6/uL (4.0-5.2); Red Cell Distribution Width 20.1 % (11.6-14.8); White Blood Cell Count 6.3 X10^3/uL (4.5-11.0)
[2018-10-19 06:47] LABS: Add Manual Diff / Slide Review SLIDE REVIEW
[2018-10-19 07:23] LABS: Microcytosis 3+
[2018-10-19 07:26] LABS: Anisocytosis 2+; Hypochromasia 2+
[2018-10-19] MEDS: LISINOPRIL 10 MG TABLET PO ×2 (08:43→20:39)
[2018-10-19] MEDS: METFORMIN HCL 500 MG TABLET PO ×2 (08:43→16:50)
[2018-10-19] MEDS: PROPRANOLOL 10 MG TABLET PO ×2 (08:43→20:40)
[2018-10-19] MEDS: hydroCHLOROthiazide 25 MG TABLET PO (08:58)
[2018-10-19] MEDS: INSULIN ASPART 100 UNIT/ML INSULN PEN SUBCUT ×4 (08:59→20:41)
[2018-10-19 09:21] LABS: PTT Partial Thromboplastin Tim 91 SECONDS (26.4-36.2)
--- NOTE | 2018-10-19 09:47 | PC.NURSE ---
Day shift: Lab called with critical lab value Ptt 91. Made Dr Leon aware and she said to follow the heparin drip protocol. Discussed with Michelle hamlin RN that rate to stay the same and Ptt to be drawn tomorrow. Call light in reach. Pt agrees to not get OOB w/o help. Pt made aware that she is at increased risk for bleeding at this time.
[2018-10-19] MEDS: HEPARIN DRIP 25,000 UNIT/500 ML IV.SOLN 16 UNIT IV (11:14)
--- NOTE | 2018-10-19 11:27 | PC.NURSE ---
Day shift: Pt off unit at approx 1130 for imaging.
--- NOTE | 2018-10-19 12:39 | PC.NURSE ---
Day shift: Pt back on AC unit at approx 1235.
--- NOTE | 2018-10-19 13:03 | CM.DANOTE ---
Discharge Planning/Care Management DCP: assessment: Case reviewed and discussed in Team Rounds. Went to room at 1150 with intent to meet pt and introduce self and role. Pt was found to be off the floor and at a procedure. White board in pt's room updated with DCP contact info. EMR reviewed. Documentation reveals that pt is a 32 yeare old female who admitted early this morning to care of the hospitalist team. Admission status: OBS thus far: confirmed by UR RN Misha. Payer: [facility] and Medicaid PCP: Dr. Corwin Pacheco Pt does carry diagnosis of morbid obesity: noted to be 341 lbs. She has a hx of PE's and diabetes that has been difficult to control per H&P. Dr. Leon is seeing her today. Testing is in process. Will follow prn as POC unfolds to assist with any d/c needs that may arise. Her spouse Javi Loera is listed as her primary contact although do note that their home adresses differ (on the demographic info). Will be following as per above. Advanced directive, confirm from FAMILY Start: 10/19/18 03:00 Freq: Q24H Status: Active Protocol: Document 10/19/18 03:00 VLA (Rec: 10/19/18 04:05 VLA [id number]) Advance Directive, confirm on record Time 04:05 Person contacted Javi Montenegro received No CM Discharge Assessment Start: 10/19/18 13:01 Freq: Status: Active Protocol: Document 10/19/18 13:01 ITV (Rec: 10/19/18 13:03 ITV [id number]) Discharge Planning Assessment Advance Directives on File / History Provided By Medical Record Prior Living Arrangements House Household Members spouse Whiteboard Updated in Patient Room with Yes name and ext. # of Wealth Management Advisor Review Status In Process Next Review Type Continued Stay Review
[2018-10-19 14:34] LABS: PTT Partial Thromboplastin Tim 22 SECONDS (26.4-36.2)
--- NOTE | 2018-10-19 14:58 | DIET.PN ---
Interviewed pt. States she's had diabetes ed before - about 5 years ago. Readily agrees she can use more education as she hasn't really gotten good control of her diabetes. Reports having a referral pending to a diabetes ed program DX: Chest pain, stomach pain, vomiting, diarrhea HX: DM2 Ht: 66 / 167cm Wt 343# / 155 kg BMI: 55 Morbid obesity A1C: 9.0 H Cbgs: mid 200's Assessment: Appears cheerful, receptive to DM education. Intervention: Provided ed on using our menus; identifying carb foods and grams of carb. Encouraged pt to use info on menus when ordering meals. Plan: F/U w/ written DM diet information
[2018-10-19] MEDS: HEPARIN 5,000 UNIT/ML VIAL 5000 UNIT SUBCUT ×2 (16:15→23:58)
[2018-10-19] MEDS: INSULIN GLARGINE 100 UNIT/ML 3ML PEN 20 UNIT SUBCUT (20:41)
[2018-10-19 22:20] LABS: PTT Partial Thromboplastin Tim 40 SECONDS (26.4-36.2)
[2018-10-20] VITALS: BP 117/48; PULSE 84; RESP 16; TEMP 36.9; O2SAT 100
--- NOTE | 2018-10-20 | DI.ECHO.S_ITS ---
[facility] +---------+ : : [address] : : : [place], [place] : : : : [id number] : : : : Phone: [phone]+ Echocardiogram Report + + :Name: OZZIE PICKARD Study Date: 10/20/2018 Height: 66 in : :[facility] Exam Location: [facility] Weight: 342 lb : : Gender: Female BSA: 2.5 m2 : :: 1985 Age: 32 yrs BP: 128/75 mmHg: : Performed By: ERM : :Referring: BRENDAN PATTEN : + + Interpretation Summary The left ventricle is not well visualized but grossly appears normal in size. Left ventricular systolic function is probably normal with the ejection fraction grossly estimated to be 60-65%. There are no obvious focal wall motion abnormalities noted but poor endocardial definition reduces the sensitivity for the detection of such. Diastolic parameters suggest probable normal left ventricular diastolic function and normal filling pressures. The right ventricle is not well visualized but grossly appears normal in size. Systolic function may be mildly depressed but reduced visualization reduced specificity. Pulmonary artery pressures cannot be estimated because of the lack of a measurable TR jet velocity. The atria are not well visualized. There is no obvious significant valvular heart disease but limited visualization reduces the sensitivity to detect such. Procedure: A two-dimensional transthoracic echocardiogram with color flow and Doppler was performed. The patient was imaged in a supine position. The echocardiogram was technically difficult due to patient body habitus. The patient declined the use of Definity. Limited visualization of the left ventricle can best be seen on clips 52-54. There is no prior echocardiogram noted for this patient. The patient was in normal sinus rhythm during the exam. Left Ventricle: The left ventricle is not well visualized. The left ventricle is grossly normal size. Left ventricular systolic function is probably normal. The ejection fraction is estimated to be 60-65%. There are no obvious focal wall motion abnormalities noted but poor endocardial definition reduces the sensitivity for the detection of such. Diastolic parameters suggest probable normal left ventricular diastolic function and normal filling pressures. Right Ventricle: The right ventricle is not well visualized. The right ventricle is grossly normal size. Systolic function may be mildly depressed but reduced visualization reduced specificity. Atria: The left atrium is not well visualized. Right atrium not well visualized. Mitral Valve: The mitral valve is grossly normal. There is no mitral regurgitation noted. Aortic Valve: The aortic valve is not well visualized. The aortic valve is grossly normal. Tricuspid Valve: The tricuspid valve is not well visualized. There is a trace or physiologic amount of tricuspid regurgitation. Pulmonary artery pressures cannot be estimated because of the lack of a measurable TR jet velocity. Pulmonic Valve: The pulmonic valve is not well visualized. There is no significant valvular heart disease. Great Vessels: The ascending aorta could not be visualized. The inferior vena cava was not visualized. Pericardium/ Pleura There is an anterior echo-free space consistent with a fat pad. There is no pericardial effusion. There is no pleural effusion. MMode/2D Measurements & Calculations Ao Arch Diam (Prox Trans): 2.5 cm Doppler Measurements & Calculations MV E max tristian: 66.7 cm/sec MV A max tristian: 35.3 cm/sec MV E/A: 1.9 Med Peak E' Tristian: 8.2 cm/sec E/E' med: 8.1 Lat Peak E' Tristian: 8.4 cm/sec E/E' lat: 7.9 E/e' average: 8.0 MV dec time: 0.09 sec Reading Physician:PAULY
--- NOTE | 2018-10-20 00:10 | PC.NURSE ---
Shift- A/O xe, no c/o chest pain, or SOB, mild tenderness to right calf inner aspect, no erythemia, edema, tenderness, and afebrile. Pt reports feels like a cramp ablut to start. RFA SL, Lt hand NS @ 100 and heparin drip at 800/hr, APPT @ 1430-22, per protocol, heparin 5000 units IV bolus, and increased to units/hr to 1000/hr, orders to recheck APTT @ 2200. 2200- APTT- 40, heparin 5000 units bolus, and increased to 1200/hr per protocol. Orders to recheck APTT @ 0600. CBG- 243- 4 units and 204-2units insulin plus 20 units glargine insulin. Tele in place with NSR 1 degree AVB x 2. 98%RA, LS clear denies SOB. BT+ denies nausea, brown/yellowish loose stools from previous GI cocktail admin in ED. rooming in, stress test in AM, NPO at midnight. uses call light appropriately.
--- NOTE | 2018-10-20 01:06 | PC.NURSE ---
Heparin infusing per non-cardiac protocol. 5000 units IV given, rate increased to 1200 units/hr. Patient denies chest pain or dyspnea, no sings of bleeding. Next PTT draw at 0545 am. NPO after midnight for Nuclear stress test in am.
[2018-10-20 05:30] VITALS: BP 125/71; PULSE 98; RESP 16; TEMP 36.5; O2SAT 98
[2018-10-20] MEDS: PANTOPRAZOLE 20 MG TABLET PO (05:55)
[2018-10-20 06:02] LABS: PTT Partial Thromboplastin Tim 56 SECONDS (26.4-36.2)
[2018-10-20 06:08] LABS: Basophils Absolute Auto 100 /uL (0-100); Basophils Percent Auto 0.9 % (0-2); Eosinophils Absolute Auto 100 /uL (0-450); Eosinophils Percent Auto 1.3 % (2-4); Hematocrit 32.1 % (36-46); Hemoglobin 10.1 g/dL (12.0-16.0); Lymphocytes Absolute Auto 1600 /uL (1100-4500); Lymphocytes Percent Auto 23.3 % (25-40); Mean Corpuscular HGB Conc 31.6 % (30-36); Mean Corpuscular Hemoglobin 18.7 PG (26-34); Mean Corpuscular Volume 59.1 fL (80-100); Monocytes Absolute Auto 500 /uL (0-900); Monocytes Percent Auto 8.2 % (3-14); Neutrophils Absolute Auto 4400 /uL (1500-7000); Neutrophils Percent Auto 66.3 % (50-75); Platelet Count 335 X10^3/uL (150-400); Red Blood Cell Count 5.43 X10^6/uL (4.0-5.2); Red Cell Distribution Width 20.5 % (11.6-14.8); White Blood Cell Count 6.7 X10^3/uL (4.5-11.0)
[2018-10-20 06:09] LABS: Add Manual Diff / Slide Review SLIDE REVIEW
[2018-10-20 06:11] LABS: Blood Urea Nitrogen 10 mg/dL (7-17); Calcium 8.5 mg/dL (8.4-10.2); Carbon Dioxide 22 mmol/L (22-32); Chloride 104 mmol/L (98-107); Estimated Glomerular Filt Rate > 60.0 mL/min (>60); Glucose 200 mg/dL (70-100); HEMOLYSIS 28 (0-50); Potassium 4.2 mmol/L (3.4-5.1); Sodium 136 mmol/L (137-145)
[2018-10-20 06:18] LABS: Troponin I < 0.012 ng/mL (0.01-0.034)
[2018-10-20] MEDS: HEPARIN 5,000 UNIT/ML VIAL 5000 UNIT SUBCUT (06:26)
[2018-10-20 07:33] LABS: Hypochromasia 2+; Platelet Estimate Adequate on smear
[2018-10-20 07:34] LABS: Anisocytosis 1+; Microcytosis 3+
--- NOTE | 2018-10-20 07:39 | P.PN_ITS ---
Subjective Date Patient Seen: 10/20/18 Interval history: Yaquelin Loera is a 32-year-old female with a past medical history significant for morbid obesity, hypertension, diabetes mellitus type 2, insulin using, asthma, previous DVTs and pulmonary emboli who presented after feeling ill for 2 days ago with fevers, chills, nausea, vomiting and diarrhea with associated symptoms of headaches and dizziness. She subsequently today developed precordial chest pain extending bilateral across the mid chest that was occasionally pleuritic in nature. Exam Vital Signs (past 8 hours): - 10/20/18 00:00 10/20/18 05:30 Temperature 98.5 F 97.7 F Pulse Rate 84 98 H Respiratory Rate 16 16 Blood Pressure 117/48 L 125/71 Pulse Oximetry 100 98 Oxygen Delivery Method Room Air Oxygen Flow Rate 0 Objective Labs Result Diagrams: 10/20/18 05:45 10/20/18 05:45 Labs: Laboratory Results - last 24 hr 10/19/18 10/19/18 10/19/18 08:30 14:10 22:05 WBC RBC Hgb Hct MCV MCH MCHC RDW Plt Count Neut % (Auto) Lymph % (Auto) [place] % (Auto) Eos % (Auto) Baso % (Auto) Neut # (Auto) Lymph # (Auto) [place] # (Auto) Eos # (Auto) Baso # (Auto) Platelet Estimate RBC Morphology Hypochromasia Anisocytosis Microcytosis APTT 91 H* D 22 L D 40 H D Sodium Potassium Chloride Carbon Dioxide BUN Creatinine Estimated GFR BUN/Creatinine Ratio Glucose Calcium Troponin I 10/20/18 10/20/18 10/20/18 05:45 05:45 05:45 WBC 6.7 RBC 5.43 H Hgb 10.1 L Hct 32.1 L MCV 59.1 L MCH 18.7 L MCHC 31.6 RDW 20.5 H Plt Count 335 Neut % (Auto) 66.3 Lymph % (Auto) 23.3 L [place] % (Auto) 8.2 Eos % (Auto) 1.3 L Baso % (Auto) 0.9 Neut # (Auto) 4400 Lymph # (Auto) 1600 [place] # (Auto) 500 Eos # (Auto) 100 Baso # (Auto) 100 Platelet Estimate Adequate on smear RBC Morphology See below Hypochromasia 2+ H Anisocytosis 1+ H Microcytosis 3+ H APTT 56 H D Sodium 136 L Potassium 4.2 Chloride 104 Carbon Dioxide 22 BUN 10 Creatinine 0.50 L Estimated GFR > 60.0 BUN/Creatinine Ratio 20.0 Glucose 200 H Calcium 8.5 Troponin I 10/20/18 05:45 WBC RBC Hgb Hct MCV MCH MCHC RDW Plt Count Neut % (Auto) Lymph % (Auto) [place] % (Auto) Eos % (Auto) Baso % (Auto) Neut # (Auto) Lymph # (Auto) [place] # (Auto) Eos # (Auto) Baso # (Auto) Platelet Estimate RBC Morphology Hypochromasia Anisocytosis Microcytosis APTT Sodium Potassium Chloride Carbon Dioxide BUN Creatinine Estimated GFR BUN/Creatinine Ratio Glucose Calcium Troponin I < 0.012
[2018-10-20 08:39] VITALS: BP 110/72; PULSE 85; RESP 16; TEMP 36.7; O2SAT 97
[2018-10-20] MEDS: METFORMIN HCL 500 MG TABLET PO (09:00)
[2018-10-20] MEDS: INSULIN ASPART 100 UNIT/ML INSULN PEN SUBCUT ×2 (09:01→12:41)
[2018-10-20] MEDS: SODIUM CHLORIDE 0.9% FLUSH 10 ML IV (09:01)
[2018-10-20] MEDS: SODIUM CHLORIDE 0.9% 1,000 ML 100 ML IV (10:38)
[2018-10-20 11:08] LABS: Adenovirus Not Detected (Not Detect); Bordetella pertussis Not Detected (Not Detect); Chlamydophila pneumoniae Not Detected (Not Detect); Coronavirus 229E Not Detected (Not Detect); Coronavirus HKU1 Not Detected (Not Detect); Coronavirus NL 63 Not Detected (Not Detect); Coronavirus OC43 Not Detected (Not Detect); Human Metapneumovirus Not Detected (Not Detect); Human Rhinovirus/Enterovirus Not Detected (Not Detect); Influenza A Not Detected (Not Detect); Influenza B Not Detected (Not Detect); Mycoplasma pneumoniae Not Detected (Not Detect); Parainfluenza Virus 1 Not Detected (Not Detect); Parainfluenza Virus 2 Not Detected (Not Detect); Parainfluenza Virus 3 Not Detected (Not Detect); Parainfluenza Virus 4 Not Detected (Not Detect); Respiratory Syncytial Virus Not Detected (Not Detect)
[2018-10-20 12:00] VITALS: BP 128/80; PULSE 94; RESP 16; TEMP 36.8; O2SAT 98
[2018-10-20 12:33] LABS: PTT Partial Thromboplastin Tim 30 SECONDS (26.4-36.2)
--- NOTE | 2018-10-20 13:46 | PC.NURSE ---
Addendum entered by Arina Mcconnell R.N. 10/20/18 13:53: Heparin infusion stopped at 0905 per verbal and written order by Dr. Leon. Original Note: Day Shift- Held scheduled BP meds this AM per pt request, states does not take her BP medications if her SBP is 125 or less and with her SBP at 0905 was 128, pr continued to not want to take. At 1200 vitals SBP was 128. Pt asymptomatic. Pt states taking her BP approx every 4 hours at home during the day. Respiratory virus panel swab completed at 0935 and sent to lab. Bedside Echo completed at 1145. Updated Dr. Leon at 1215 that RVP was negative, awaiting echo results. At 1340, pt reported her heart racing, Eliana,student development advisor took BP at 126/67 and pulse 90. Pt remains on telemetry monitoring and shortly after the Monitor read HR of 93-98.
--- NOTE | 2018-10-20 14:38 | CM.DPC ---
DCP: continued: met with pt and her Hiro, as per plan. Introduced self and role. Pt confirms that she and Hiro do live at the [address] [place] [address] address. Hiro's address is a home they lived in years ago. Pt is able to get about without any assistive device. She confirms she saw drawbench operator helper Irene for ideas on managing her diabetes and found it helpful. she said she would bring me some paperwork to take home. Pt expects to go home when ok'd for same by Dr. Leon. She will be following up with her PCP Dr. Corwin Pacheco. She will have either a friend for her take her home at d/c. It depends on what day they discharge me. DCP team will follow prn for any d/c needs that may arise.
--- NOTE | 2018-10-20 15:32 | PC.NURSE ---
Addendum entered by Rosetta Pike R.N. 10/20/18 18:36: 1825- pt discharged. discussion about medications and diabetes. pt verbalized understanding. wheeled down to ER with gift shop clerk for d/c to private vehicle. Original Note: 1500- assumed care of pt from outgoing shift. pending discharge. will continue to monitor.
[2018-10-20 16:00] VITALS: BP 126/68; PULSE 89; RESP 18; TEMP 36.7; O2SAT 99
--- NOTE | 2018-10-20 17:09 | PM.DS.1 ---
History of Present Illness Date Patient Seen: 10/19/18 Chief complaint: chest pains,stomach pains,vomiting and diarrhea Narrative: Written by Riley HERNANDEZ: This is a 32-year-old female with a history of morbid obesity, diabetes, hypertension, asthma, previous DVTs and pulmonary emboli who presents to the ER today with chest pain and stomach pains. Patient states she began feeling ill 2 days ago with fevers and chills, nausea and vomiting and diarrhea. She had associated symptoms of headaches and dizziness. She subsequently today developed precordial chest pain extending bilateral across the mid chest that was occasionally pleuritic in nature. She also complains of right leg pain with swelling and just this evening is had right leg and foot cramping. 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 She has changed physicians and now is under the care Dr. Wright and is currently having her diabetic medications adjusted. She has been taking variable doses metformin from 2-4 times daily depending on blood sugar as well as Humalog between 30 and 60 units up to 4 times daily. Patient previously been on Lantus 20 mg at bedtime. She describes poor oral intake but today did have a bottle Gatorade as that was the only thing she was able to keep down. Patient arrived in the ER at 1943. She had an elevated temperature at 11.3, tachycardic at 112, a blood pressure 172/112 and respirations 24 with an oxygen saturation of 99% on room air. On laboratory analysis the patient has a normal white count at 7.5 without shift and electrolytes are within normal range. She has a BUN of 16 and creatinine 0.6 and a blood sugar of 249. Her lactate was 1.0 however she did have a D-dimer of 1806. Right lower extremity vascular ultrasound was done that was negative for thrombus. She also received Protonix and a GI cocktail which the patient reports did markedly improve her discomfort. She has also had blood cultures drawn and received 1000 saline bolus. The patient started on heparin bolus and infusion and admitted to hospital for rule out PE. Discharge Providers Date of admission: 10/19/18 01:38 Primary care physician: Corwin Pacheco MD Consults: 10/19/18 02:09 Consult to Dietitian, Adult Routine Comment: Reason For Exam: morbid obesity, DM Consult to Discharge Planning Routine Comment: 10/19/18 02:13 Consult to Pharmacy Routine Comment: Heparin infusion dosing, APTT at 0800 10/19/18 03:02 Consult to Respiratory Therapy Evaluate & Treat Comment: Asthma Physician Instructions: Evaluate and treat Discharge provider: Peri Leon DO Discharge Date: 10/20/18 Summary Discharge Diagnosis: 1. Acute atypical chest pain, present on admission. Resolved. 2. Acute right calf pain, present on admission. Resolved. 3. Acute URI, present on admission. Resolved. 4. Diabetes mellitus type 2, insulin using, chronic and uncontrolled, present on admission. Stable. 5. Asthma, chronic, present on admission. Stable. 6. Hypertension, chronic, present the admission. Stable. 7. Depression and anxiety, chronic, present on admission. Stable. 8. Morbid obesity, chronic, present on admission. Stable. Hospital Course: Yaquelin Loera is a 32-year-old female with a past medical history significant for hypertension, diabetes mellitus type 2, insulin using, anxiety and depression, and possible DVT with an elevated D-dimer that was admitted to the hospital for evaluation of possible PE. 1. Acute atypical chest pain, present on admission. Resolved. -The patient has new onset pleuritic chest pain bilaterally across the precordium with associated fevers and chills, nausea and vomiting and diarrhea. -Patient does not have a prior history of pulmonary emboli and it has been ruled out every hospitalization, including at [facility]. No evidence of DVT in the records, however, patient is adamant that she has had DVT in the past that was provoked due to long flight to [facility] previously on anticoagulation or aspirin in 2011. -12 lead EKG demonstrated sinus tachycardia with a ventricular rate of 108, no ectopy noted, normal axis without ST or T-wave changes or strain. -Patient is allergic (angioedema) to iodinated contrast and obtain V/Q scan which was low probability of PE. Discontinued heparin gtt. Recommended and prescribed aspirin 81 mg daily and possible genetic workup if not pursued previously. 2. Acute right calf pain, present on admission. Resolved. -Patient with right calf pain for several days with history of prior DVTs. -Marked elevated D-dimer at 1806. -Vascular Doppler ultrasound of right lower extremity did not demonstrate any evidence of DVT. 3. Acute URI, present on admission. Resolved. -GI symptoms improved with GI cocktail and Protonix in the ER. Febrile at 101?. -Received normal saline boluses in ED. Continued IV fluids until adequately hydrated then discontinued. -Respiratory viral PCR negative. -Continued with symptom management for which all symptoms have resolved. 4. Diabetes mellitus type 2, insulin using, chronic and uncontrolled, present on admission. Stable. -Hemoglobin A1c 9.0% 10/2018. -Patient under care of new primary care with evolving glycemic treatment plan. Patient's typical blood sugars have been in the mid 200s and were during hospitalization as well. -Patient with variable metformin dosing 2-4 times daily as well as using Humalog 30-60 units sliding scale up to 4 times daily. History of using Lantus 20 units daily which was continued and prescribed at discharge. Instructed patient to continue until she is able to follow-up with Dr. Pacheco to discuss. -Continued metformin 500 mg twice daily as she has had diarrhea related to 1000 mg dosing. -Continued high-dose correctional scale insulin and blood glucose checks ACHS. 5. Asthma, chronic, present on admission. Stable. -Patient with history of asthma and uses albuterol at home. Question whether patient has OHS and ANDER. Recommend outpatient sleep study. -No wheezing on exam, patient is saturating at 99% on room air. -RT consulted and provided albuterol treatments as needed. 6. Hypertension, chronic, present the admission. Stable. -Continued lisinopril 10 mg daily and propranolol 10 mg daily. 7. Depression and anxiety, chronic, present on admission. Stable. -Patient has been on bupropion previously which has since been discontinued. -Continued lorazepam 1 mg every 6 hr as needed. 8. Morbid obesity, chronic, present on admission. Stable. -BMI 55. -Discussed lifestyle modification including diet and exercise in depth for greater than 30 min. Instructed the patient that she is to start exercising regularly and to start with small obtainable goals working her way up to 150 min of moderate intensity exercise per week per AHA guidelines. Taught the patient the hand rule regarding diet (protein=closed fist, outspread hand=green leafy vegetables (hungry give yourself a high five and eat more veggies) and good carbohydrates half the size of your palm). Recommended the book The Diabetic Solution by Riley Elias MD. Also discussed bariatric surgery after 1 year trial of intensive lifestyle modification. Also discussed poor dentition and it being a cardiac risk factor for which she has plans to have caries filled/pulled by her dentist. -Maintenance Planning Clerk was consulted and discussed nutrition and DM. Status at Discharge Functional status at discharge: independent ambulation Overall status at discharge: patient is back to baseline Time Spent with Patient Greater than 30 minutes Exam Vital Signs (past 8 hours): - 10/20/18 12:00 10/20/18 16:00 Temperature 98.2 F 98.0 F Pulse Rate 94 H 89 Respiratory Rate 16 18 Blood Pressure 128/80 126/68 Pulse Oximetry 98 99 Oxygen Delivery Method Room Air Oxygen Flow Rate 0 Narrative Exam Narrative: General: Young morbidly obese female sitting in bedside chair and in no acute distress, well-developed, well-nourished, appropriately interactive. HEENT: Normocephalic, atraumatic. External ears without defect. Pupils equal, round, and reactive to light. Anicteric sclerae, moist conjunctivae, and no lid lag. Oropharynx free of erythema and cobble stoning with moist mucosa. Poor dentition with multiple caries to gum line. Neck: Supple with full range of motion. No jugular venous distension. No bruits. No lymphadenopathy or thyromegaly. Cardiovascular: Regular rate and rhythm without murmurs, rubs, or gallops appreciated Pulmonary: Clear to auscultation bilaterally without crackles, wheezes, or rhonchi. Normal respiratory effort with no use of accessory muscles. Abdomen: Soft, obese, bowel sounds present, nontender, nondistended. No hepatosplenomegaly or masses appreciated. Extremities: No clubbing, cyanosis, or edema. Skin: Normal temperature, turgor, and texture; no rash, ulcers, or subcutaneous nodules appreciated. Neurological: Cranial nerves grossly intact. Normal muscle strength, tone, and bulk. Reflexes, coordination, and sensory function within normal limits. No known gait impairment. Psychiatric: Normal mood and affect. Alert and oriented to person, place, and time. Objective Labs Result Diagrams: 10/20/18 05:45 10/20/18 05:45 Labs: Laboratory Results - last 24 hr 10/19/18 10/20/18 10/20/18 22:05 05:45 05:45 WBC 6.7 RBC 5.43 H Hgb 10.1 L Hct 32.1 L MCV 59.1 L MCH 18.7 L MCHC 31.6 RDW 20.5 H Plt Count 335 Neut % (Auto) 66.3 Lymph % (Auto) 23.3 L [place] % (Auto) 8.2 Eos % (Auto) 1.3 L Baso % (Auto) 0.9 Neut # (Auto) 4400 Lymph # (Auto) 1600 [place] # (Auto) 500 Eos # (Auto) 100 Baso # (Auto) 100 Platelet Estimate Adequate on smear RBC Morphology See below Hypochromasia 2+ H Anisocytosis 1+ H Microcytosis 3+ H APTT 40 H D 56 H D Sodium Potassium Chloride Carbon Dioxide BUN Creatinine Estimated GFR BUN/Creatinine Ratio Glucose Calcium Troponin I Chlamy pneumoniae PCR Adenovirus (PCR) B.parapertussis DNA PCR Coronavirus OC43 (PCR) Coronavirus HKU1 (PCR) Coronavirus 229E (PCR) Coronavirus NL63 (PCR) Human Metapneumovir PCR Influenza Type A (PCR) Influenza Type B (PCR) M. pneumoniae (PCR) Parainfluenza 1 (PCR) Parainfluenza 2 (PCR) Parainfluenza 3 (PCR) Parainfluenza 4 (PCR) RSV (PCR) Entero/Rhino (PCR) 10/20/18 10/20/18 10/20/18 05:45 05:45 09:29 WBC RBC Hgb Hct MCV MCH MCHC RDW Plt Count Neut % (Auto) Lymph % (Auto) [place] % (Auto) Eos % (Auto) Baso % (Auto) Neut # (Auto) Lymph # (Auto) [place] # (Auto) Eos # (Auto) Baso # (Auto) Platelet Estimate RBC Morphology Hypochromasia Anisocytosis Microcytosis APTT Sodium 136 L Potassium 4.2 Chloride 104 Carbon Dioxide 22 BUN 10 Creatinine 0.50 L Estimated GFR > 60.0 BUN/Creatinine Ratio 20.0 Glucose 200 H Calcium 8.5 Troponin I < 0.012 Chlamy pneumoniae PCR Not detected Adenovirus (PCR) Not detected B.parapertussis DNA PCR Not detected Coronavirus OC43 (PCR) Not detected Coronavirus HKU1 (PCR) Not detected Coronavirus 229E (PCR) Not detected Coronavirus NL63 (PCR) Not detected Human Metapneumovir PCR Not detected Influenza Type A (PCR) Not detected Influenza Type B (PCR) Not detected M. pneumoniae (PCR) Not detected Parainfluenza 1 (PCR) Not detected Parainfluenza 2 (PCR) Not detected Parainfluenza 3 (PCR) Not detected Parainfluenza 4 (PCR) Not detected RSV (PCR) Not detected Entero/Rhino (PCR) Not detected 10/20/18 12:10 WBC RBC Hgb Hct MCV MCH MCHC RDW Plt Count Neut % (Auto) Lymph % (Auto) [place] % (Auto) Eos % (Auto) Baso % (Auto) Neut # (Auto) Lymph # (Auto) [place] # (Auto) Eos # (Auto) Baso # (Auto) Platelet Estimate RBC Morphology Hypochromasia Anisocytosis Microcytosis APTT 30 D Sodium Potassium Chloride Carbon Dioxide BUN Creatinine Estimated GFR BUN/Creatinine Ratio Glucose Calcium Troponin I Chlamy pneumoniae PCR Adenovirus (PCR) B.parapertussis DNA PCR Coronavirus OC43 (PCR) Coronavirus HKU1 (PCR) Coronavirus 229E (PCR) Coronavirus NL63 (PCR) Human Metapneumovir PCR Influenza Type A (PCR) Influenza Type B (PCR) M. pneumoniae (PCR) Parainfluenza 1 (PCR) Parainfluenza 2 (PCR) Parainfluenza 3 (PCR) Parainfluenza 4 (PCR) RSV (PCR) Entero/Rhino (PCR) Discharge Plan Discharge Plan Patient Disposition: Home Discharge comment: You're being discharged home. Please follow-up with your PCP, Dr. Pacheco, regarding your hospitalization and to continue to manage your diabetes and weight loss as discussed. We have continued your Lantus 20 units daily and a prescription for this was sent to your pharmacy. You may discuss continuation of Lantus in addition to your other diabetic medications with your PCP. Your echocardiogram did not demonstrate any heart failure or changes suggestive of impending heart attack. Your EKG and lab markers have been negative for any signs of heart attack. Your V/Q scan did not demonstrate any pulmonary embolism or blood clot in your lung. Review of your records ([facility]) did not demonstrate any previous history of PE or blood clot in your lung or legs. You have been prescribed aspirin 81 mg daily (enteric coated to protect the lining of GI tract) to prevent blood clot. You may discuss with Dr. Pacheco a genetic workup for clotting disorders if this has not already been pursued. Please continue lifestyle modification as discussed including: diet (hand rule) and exercise (150 minutes a week and start with small obtainable goals and work your way up). Discharge Med Rec/Prescriptions Prescriptions: New aspirin 81 mg tablet,delayed release (DR/EC) 81 mg PO DAILY Qty: 30 RF: 0 Lantus Solostar U-100 Insulin 100 unit/mL (3 mL) insulin pen 20 unit SUBCUT DAILY Qty: 15 RF: 0 Continued hydrochlorothiazide 25 mg tablet 25 mg PO QDAY Qty: 30 RF: 5 lisinopril 10 mg tablet 10 mg PO SEE INSTRUCTIONS Qty: 90 RF: 3 metformin [Glucophage] 500 mg tablet 500 mg PO QID Qty: 360 RF: 3 nystatin [Nystop] 100,000 unit/gram powder 100,000 unit Topical BIDP PRN (Reason: yeast) Qty: 15 RF: 0 propranolol 10 mg tablet 10 mg PO BID Qty: 180 RF: 3 True metrix glucose test strip Qty: 100 RF: 5 insulin lispro [Humalog KwikPen Insulin] 100 unit/mL insulin pen See Patient Comments SUBCUT .COMPLEX Qty: 30 RF: 5 BD U/F MINI PEN NEEDLE [id number] Qty: 1 RF: 2 lorazepam 1 mg tablet 1 mg PO Q6H MDD 4 mg PRN (Reason: anxiety) Qty: 120 RF: 2 hydrocodone-acetaminophen 5-325 mg tablet 1 tab PO Q6HP PRN (Reason: pain) Qty: 120 RF: 0 loratadine [Claritin] 10 mg Tablet 10 mg PO QPM RF: 0 clobetasol 0.05 % ointment 1 nikole Topical BID PRN (Reason: UNKNOWN) RF: 0 Ventolin HFA 90 MCG/PUFF HFA aerosol inhaler 2 puff INH Q4HP PRN (Reason: Shortness Of Breath) RF: 0 Follow up/Referrals: Corwin Pacheco MD [Primary Care Provider] - 2 Weeks Provider Discharge Instructions Diet: Carb-consistent/Diabetic, Low-fat, Low-sodium and Low-cholesterol Activity: Activity as tolerated Visit Report/Discharge Packet Instructions: DI for Viral Syndrome Discharge Data Primary Care Provider: Corwin Pacheco Attending Provider: Riley Anne Admit Date/Time: 10/19/18 01:38
== END 2018-10-20 18:32 | disposition home or self-care (01) ==
LOC: ED 20:16 → AC 10-19 01:39
PROVIDERS: Internal Medicine; Admitting Provider Nurse Practitioner Adult Health; Emergency Provider Emergency Medicine; Family Provider Family Medicine; PCP Student in an Organized Health Care Education/Training Program; Visit Provider Nurse Practitioner Adult Health
DX: R07.9 Chest pain, unspecified (principal); E11.9 Type 2 diabetes mellitus without complications; I10 Essential (primary) hypertension; E66.9 Obesity, unspecified; Z68.43 Body mass index [BMI] 50.0-59.9, adult; Z79.4 Long term (current) use of insulin; J45.909 Unspecified asthma, uncomplicated; F32.9 Major depressive disorder, single episode, unspecified; F41.9 Anxiety disorder, unspecified; R11.2 Nausea with vomiting, unspecified; R19.7 Diarrhea, unspecified; M79.661 Pain in right lower leg; J06.9 Acute upper respiratory infection, unspecified
CPT/HCPCS: 36415; 36591; 71046; 78582; 80048; 80053; 80061; 81001; 82550; 82962; 83036; 83605; 83690; 84484; 85025; 85379; 85610; 85730; 87040; 87400; 87633; 93005; 93041; 93306; 93971; 94760; 94762; 96361; 96365; 99285; A9539; A9540; G0378; C9113; J1644

== ENCOUNTER → 2018-11-26 17:02 | Outpatient (CLI) | payer OTHER, MEDICAID, SELFPAY ==
[2018-10-19 02:34] VITALS: BMI 55.3
[2018-11-26 17:45] LABS: Reticulocyte Count, Percent 2.4 % (1.06-2.63)
[2018-11-26 17:56] LABS: Hemoglobin A1C% w Est Avg Glu 9.2 % (4.0-6.0)
[2018-11-26 18:33] LABS: HEMOLYSIS < 15 (0-50); Iron 41 ug/dL (37-170)
[2018-11-26 18:44] LABS: Percent Iron Saturation 10 % (15-50); Total Iron Binding Capacity 396 ug/dL (265-497); Transferrin 312 mg/dL (206-381)
[2018-11-26 19:10] LABS: Ferritin 20.2 ng/mL (6.27-137)
[2018-11-26 19:29] LABS: Vitamin D 25 Hydroxy (D3) < 12.8 ng/mL (30.0-100.0)
[2018-11-26 19:41] LABS: Folate 7.9 ng/mL (2.76-20.0); Vitamin B12 529 pg/mL (239-931)
== END ==
PROVIDERS: PCP Student in an Organized Health Care Education/Training Program; Visit Provider Student in an Organized Health Care Education/Training Program
DX: E61.1 Iron deficiency (principal); E55.9 Vitamin D deficiency, unspecified; E11.9 Type 2 diabetes mellitus without complications; Z79.4 Long term (current) use of insulin
CPT/HCPCS: 36415; 82306; 82607; 82728; 82746; 83036; 83540; 83550; 85045

== ENCOUNTER → 2018-12-09 13:51 | Oncology outpatient (ONC) | payer OTHER, MEDICAID, SELFPAY ==
[2018-10-19 02:34] VITALS: BMI 55.3
[2018-12-09] MEDS: IRON SUCROSE 200 MG in SODIUM CHLORIDE 0.9% 250 ML 1040 ML IV (14:41)
[2018-12-09 14:51] VITALS: BP 144/74; PULSE 87; RESP 20; TEMP 36.6; O2SAT 98
--- NOTE | 2018-12-09 15:25 | PC.NURSE ---
Patient here for iron sucrose one time infusion. Ordered rate was 1000ml/hr. Nurse set rate at 750. About 7[address] patient complained of headache. Rate slowed to 200ml/hour for duration and headache resolved by end of infusion.
== END ==
PROVIDERS: PCP Student in an Organized Health Care Education/Training Program; Visit Provider Student in an Organized Health Care Education/Training Program
DX: D50.9 Iron deficiency anemia, unspecified (principal)
CPT/HCPCS: 96365; J1756

== ENCOUNTER 2018-12-26 21:17 | Emergency (ER) | payer OTHER, MEDICAID, SELFPAY ==
[2018-10-19 02:34] VITALS: BMI 55.3
[2018-12-26 21:28] VITALS: BP 153/89; PULSE 89; RESP 16; TEMP 36.7; O2SAT 100; BMI 55.8
--- NOTE | 2018-12-26 21:31 | ED.GENADULT ---
HPI - General Adult General Chief complaint: Extremity Problem,Nontraumatic Stated complaint: feet are swelling and alot of pain Time Seen by Provider: 12/26/18 21:31 Source: patient Mode of arrival: ambulatory Limitations: no limitations History of Present Illness HPI narrative: Patient is a 33-year-old female who is an insulin-dependent diabetic here for evaluation of bilateral leg and feet swelling and pain and tingling. She states she has had this off and on in the past. She states that the last time it happened she was told that if it was not ?pitting? that she should not worry about it. She is not on any diuretics. She states that her feet have been swelling for the past couple days. She does have some compression stockings at home but does not wear them because they make her feet hurt. She states that the swelling does not seem to be associated with standing or walking. No chest pain or shortness of breath Related Data Home Medications Medication Instructions Recorded Confirmed clobetasol 1 nikole TOPICAL BID PRN 02/13/18 12/03/18 loratadine [Claritin] 10 mg PO QPM 03/24/18 12/03/18 Previous Rx's Medication Instructions Recorded propranolol 10 mg tablet 10 mg PO BID #180 tab 07/03/18 True metrix glucose test strip #100 each 07/31/18 BD U/F MINI PEN NEEDLE [id number] #1 ea 08/27/18 lorazepam 1 mg tablet 1 mg PO Q6H PRN #120 tab MDD 4 mg 09/02/18 hydrocodone 5 mg-acetaminophen 325 1 tab PO Q6HP PRN #120 tab 10/09/18 mg tablet aspirin 81 mg PO DAILY #30 tab 10/20/18 ferrous sulfate 325 mg (65 mg 325 mg PO DAILY #30 tab 10/28/18 iron) tablet lisinopril 20 mg tablet 20 mg PO DAILY #90 tab 10/28/18 metformin 500 mg tablet 500 mg PO BID #180 tab 10/28/18 albuterol sulfate HFA 90 2 puff INHALATION Q4HP PRN #8 gram 11/03/18 mcg/actuation aerosol inhaler ergocalciferol (vitamin D2) 50,000 50,000 unit PO QWEEK #6 cap 11/27/18 unit capsule insulin glargine (U-100) 100 20 unit SUBCUT DAILY #15 ml 12/16/18 unit/mL (3 mL) subcutaneous pen insulin lispro (U- 100) 100 25 unit SUBCUT QAC #30 ml 12/16/18 unit/mL subcutaneous pen furosemide [Lasix] 20 mg PO DAILY 5 Days #5 tab 12/26/18 Allergies Allergy/AdvReac Type Severity Reaction Status Date / Time Iodinated Contrast- Oral and Allergy Severe Neck, face Verified 12/26/18 22:06 IV Dye arms all [IODINATED CONTRAST MEDIA - swollen IV DYE] with difficulty breathing hydromorphone [From DILAUDID] Allergy Mild Very Verified 12/26/18 22:06 sensitive to this drug. ciprofloxacin [From Cipro] Allergy Hives Verified 12/26/18 22:06 Sulfa (Sulfonamide Allergy Rash Verified 12/26/18 22:06 Antibiotics) loperamide [From IMODIUM A-D] AdvReac Mild Nausea Verified 12/26/18 22:06 vomiting VITAMIN C AdvReac Mild Nausea/vomiting Uncoded 11/27/18 16:17 and migraines Review of Systems Constitutional Denies fever(s) Cardiovascular Denies chest pain, Reports pedal edema, Reports edema and Denies dyspnea Respiratory Denies cough and Denies dyspnea Gastrointestinal Gastrointestinal: Denies abdominal pain Musculoskeletal Denies myalgias, Denies arthralgias and Denies joint swelling Integumentary/Breasts Comments: Redness to bilateral legs Hematologic/Lymphatic Denies easy bleeding and Denies easy bruising FOR[facility]LY [facility] Medical History Chronic dental pain (Chronic) Uncomplicated opioid dependence (Chronic) Anxiety (Chronic Unknown) Depression (Chronic Unknown) Morbid obesity with body mass index (BMI) greater than or equal to 50 (Chronic 08/04/15) Mild intermittent asthma without complication (Chronic 02/23/16) Type 2 diabetes mellitus without complication, with long-term current use of insulin (Chronic 10/08/16) Dermatitis (Chronic Unknown) Hx MRSA infection (Resolved 10/2010) Surgical History No history of previous surgery (Chronic) History of cholecystectomy (Acute) Family History Mother Age: 38 Type 2 diabetes mellitus without complication Sister Age: 28 Depression Sister Age: 31 Anxiety Social History household members: spouse Smoking Status: Former smoker Social History household members: spouse Smoking Status: Former smoker Exam Initial Vital Signs Initial Vital Signs: Vital Signs Temperature 98.0 F 12/26/18 21:28 Pulse Rate 89 12/26/18 21:28 Respiratory Rate 16 12/26/18 21:28 Blood Pressure 153/89 H 12/26/18 21:28 Pulse Oximetry 100 12/26/18 21:28 Const General: cooperative, comfortable, well developed, well groomed and No acute distress Orientation: alert, awake and oriented x3 HENMT Head: normal to inspection and normocephalic Resp Effort & Inspection: normal respiratory effort Cardio Rate: regular rate Skin Other: Patient with some redness located bilateral lower extremities from the knees down to the ankles. Occluding the tops of the feet. Neuro Cognition: normal cognition Speech: speech normal Extrem General: edema Course Orders Ordered: ED Orders 12/26/18 21:50 Basic Metabolic Panel Stat Complete Blood Count AUTO DIFF Stat Vital Signs - 8 hr 12/26/18 21:28 Temperature 98.0 F Pulse Rate 89 Respiratory Rate 16 Blood Pressure 153/89 H Pulse Oximetry 100 Medical Decision Making Lab Data Lab results reviewed: Yes I reviewed the patient's lab results. Result diagrams: 12/26/18 21:50 12/26/18 21:50 Lab Results 12/26/18 12/26/18 Range/Units 21:50 21:50 WBC 7.4 (4.5-11.0) X10^3/uL RBC 5.63 H (4.0-5.2) X10^6/uL Hgb 11.5 L (12.0-16.0) g/dL Hct 35.5 L (36-46) % MCV 63.0 L (80-100) fL MCH 20.4 L (26-34) PG MCHC 32.4 (30-36) % RDW 22.7 H (11.6-14.8) % Plt Count 315 (150-400) X10^3/uL Neut % (Auto) 63.4 (50-75) % Lymph % (Auto) 26.7 (25-40) % [place] % (Auto) 7.2 (3-14) % Eos % (Auto) 1.8 L (2-4) % Baso % (Auto) 0.9 (0-2) % Neut # (Auto) 4700 (7046-5814) /uL Lymph # (Auto) 2000 (6177-7496) /uL [place] # (Auto) 500 (0-900) /uL Eos # (Auto) 100 (0-450) /uL Baso # (Auto) 100 (0-100) /uL Sodium 136 L (137-145) mmol/L Potassium 4.2 (3.4-5.1) mmol/L Chloride 100 (98-107) mmol/L Carbon Dioxide 28 (22-32) mmol/L BUN 19 H (7-17) mg/dL Creatinine 0.60 (0.52-1.04) mg/dL Estimated GFR > 60.0 (>60) mL/min BUN/Creatinine Ratio 31.7 H (6-22) Glucose 325 H (70-100) mg/dL Calcium 9.5 (8.4-10.2) mg/dL MDM Narrative Medical decision making narrative: Her exam today is not consistent with cellulitis. It is bilateral. I suspect the redness is secondary to the venous stasis changes. Her creatinine is unremarkable. Potassium is unremarkable. We did discuss the use of the compression stockings and keeping her feet elevated. Will start on a short course of some Lasix. Former that she needed to contact her primary doctor for follow-up. She was also given return precautions. She expressed understanding and agreement with plan. Discharge Plan Departure Patient Disposition: Home Clinical Impression: Peripheral edema Instructions: DI for Peripheral Edema -- Bilateral Activity Restrictions/Additional Instructions: Take the medication as directed. Continue to take your blood sugars at home and treat yourself as directed with your insulin by your primary doctor. You need to contact your primary care doctor for a follow-up. Return to the emergency department for any new or worsening symptoms Prescriptions: New furosemide [Lasix] 20 mg tablet 20 mg PO DAILY 5 Days Qty: 5 RF: 0 No Action propranolol 10 mg tablet 10 mg PO BID Qty: 180 RF: 3 True metrix glucose test strip Qty: 100 RF: 5 BD U/F MINI PEN NEEDLE [id number] Qty: 1 RF: 2 lorazepam 1 mg tablet 1 mg PO Q6H MDD 4 mg PRN (Reason: anxiety) Qty: 120 RF: 2 Lantus Solostar U-100 Insulin 100 unit/mL (3 mL) insulin pen 20 unit SUBCUT DAILY Qty: 15 RF: 1 Humalog KwikPen Insulin 100 unit/mL insulin pen 25 unit SUBCUT QAC Qty: 30 RF: 1 metformin [Glucophage] 500 mg tablet 500 mg PO BID Qty: 180 RF: 3 lisinopril 20 mg tablet 20 mg PO DAILY Qty: 90 RF: 3 ferrous sulfate 325 mg (65 mg iron) tablet 325 mg PO DAILY Qty: 30 RF: 5 Ventolin HFA 90 mcg/actuation HFA aerosol inhaler 2 puff Inhalation Q4HP PRN (Reason: Shortness Of Breath) Qty: 8 RF: 11 hydrocodone-acetaminophen 5-325 mg tablet 1 tab PO Q6HP PRN (Reason: pain) Qty: 120 RF: 0 ergocalciferol (vitamin D2) 50,000 unit capsule 50,000 unit PO QWEEK Qty: 6 RF: 0 loratadine [Claritin] 10 mg Tablet 10 mg PO QPM RF: 0 aspirin 81 mg tablet,delayed release (DR/EC) 81 mg PO DAILY Qty: 30 RF: 0 clobetasol 0.05 % ointment 1 nikole Topical BID PRN (Reason: UNKNOWN) RF: 0 Referrals: Corwin Pacheco MD [Primary Care Provider] -
[2018-12-26 21:57] LABS: Add Manual Diff / Slide Review SLIDE REVIEW; Basophils Absolute Auto 100 /uL (0-100); Basophils Percent Auto 0.9 % (0-2); Eosinophils Absolute Auto 100 /uL (0-450); Eosinophils Percent Auto 1.8 % (2-4); Hematocrit 35.5 % (36-46); Hemoglobin 11.5 g/dL (12.0-16.0); Lymphocytes Absolute Auto 2000 /uL (1100-4500); Lymphocytes Percent Auto 26.7 % (25-40); Mean Corpuscular HGB Conc 32.4 % (30-36); Mean Corpuscular Hemoglobin 20.4 PG (26-34); Monocytes Absolute Auto 500 /uL (0-900); Monocytes Percent Auto 7.2 % (3-14); Neutrophils Absolute Auto 4700 /uL (1500-7000); Neutrophils Percent Auto 63.4 % (50-75); Platelet Count 315 X10^3/uL (150-400); Red Blood Cell Count 5.63 X10^6/uL (4.0-5.2); Red Cell Distribution Width 22.7 % (11.6-14.8); White Blood Cell Count 7.4 X10^3/uL (4.5-11.0)
[2018-12-26 22:04] LABS: BUN Creatinine Ratio 31.7 (6-22); Blood Urea Nitrogen 19 mg/dL (7-17); Calcium 9.5 mg/dL (8.4-10.2); Carbon Dioxide 28 mmol/L (22-32); Chloride 100 mmol/L (98-107); Estimated Glomerular Filt Rate > 60.0 mL/min (>60); Glucose 325 mg/dL (70-100); HEMOLYSIS < 15 (0-50); Potassium 4.2 mmol/L (3.4-5.1); Sodium 136 mmol/L (137-145)
[2018-12-26 22:25] VITALS: BP 135/70; PULSE 90; RESP 16; TEMP 36.7; O2SAT 99
[2018-12-26 22:53] LABS: Anisocytosis 3+; Microcytosis 3+
[2018-12-26 22:54] LABS: Hypochromasia 1+
== END 2018-12-26 22:25 | disposition home or self-care (01) ==
PROVIDERS: Emergency Provider Emergency Medicine; PCP Student in an Organized Health Care Education/Training Program
DX: R60.9 Edema, unspecified (principal); M79.672 Pain in left foot; M79.671 Pain in right foot
CPT/HCPCS: 36415; 80048; 85025; 99282; 99283

== ENCOUNTER 2019-01-13 15:19 | Emergency (ER) | payer OTHER, MEDICAID, SELFPAY ==
[2018-10-19 02:34] VITALS: BMI 55.3
[2019-01-13 15:39] VITALS: BP 146/86; PULSE 99; RESP 20; TEMP 37.2; O2SAT 100
[2019-01-13] MEDS: ONDANSETRON 4 MG/2 ML INJ IV (16:59)
[2019-01-13] MEDS: SODIUM CHLORIDE 0.9% 1,000 ML 1000 ML IV ×2 (16:59→18:05)
[2019-01-13 17:04] LABS: Add Manual Diff / Slide Review NO; Basophils Absolute Auto 0 /uL (0-100); Basophils Percent Auto 0.7 % (0-2); Eosinophils Absolute Auto 100 /uL (0-450); Eosinophils Percent Auto 1.3 % (2-4); Hemoglobin 12.2 g/dL (12.0-16.0); Lymphocytes Absolute Auto 1000 /uL (1100-4500); Lymphocytes Percent Auto 15.8 % (25-40); Mean Corpuscular HGB Conc 32.2 % (30-36); Mean Corpuscular Hemoglobin 20.6 PG (26-34); Mean Corpuscular Volume 64.2 fL (80-100); Monocytes Absolute Auto 700 /uL (0-900); Monocytes Percent Auto 11.4 % (3-14); Neutrophils Absolute Auto 4600 /uL (1500-7000); Neutrophils Percent Auto 70.8 % (50-75); Platelet Count 258 X10^3/uL (150-400); Red Blood Cell Count 5.92 X10^6/uL (4.0-5.2); Red Cell Distribution Width 20.9 % (11.6-14.8); White Blood Cell Count 6.4 X10^3/uL (4.5-11.0)
[2019-01-13 17:15] LABS: Alanine Aminotransferase 57 IU/L (9-52); Albumin 4.2 g/dL (3.5-5.0); Alkaline Phosphatase 41 U/L (38-126); Aspartate Aminotransferase 51 IU/L (14-36); Bilirubin Total 0.7 mg/dL (0.2-1.3); Blood Urea Nitrogen 11 mg/dL (7-17); Calcium 8.9 mg/dL (8.4-10.2); Carbon Dioxide 26 mmol/L (22-32); Chloride 98 mmol/L (98-107); Estimated Glomerular Filt Rate > 60.0 mL/min (>60); Globulin 4.1 g/dL (1.7-4.1); Glucose 163 mg/dL (70-100); HEMOLYSIS 85 (0-50); Magnesium 1.9 mg/dL (1.6-2.3); Sodium 133 mmol/L (137-145); Total Protein 8.3 g/dL (6.3-8.2)
[2019-01-13 17:16] LABS: Potassium 4.7 mmol/L (3.4-5.1)
[2019-01-13 17:20] LABS: Anisocytosis 2+
--- NOTE | 2019-01-13 19:01 | ED_ITS ---
HPI - Nausea/Vomiting/Diarrhea <Portia Miguelmer, DIRECTOR AMBULATORY-BC - Last Filed: 01/13/19 20:43> General Chief complaint: Nausea/Vomiting/Diarrhea Stated complaint: states severe diarrhea, dizziness Time Seen by Provider: 01/13/19 16:31 Source: patient and family Mode of arrival: ambulatory Limitations: no limitations History of Present Illness HPI Narrative: The patient is a 33-year-old female former smoker with history of diabetes who presents with a chief complaint of severe diarrhea. She had loose stools 3 days ago, which x-ray Manuel to watery stools every 30 minutes or so today. She states on arrival that she has not had a diarrhea 90 minutes. She has taken 3 doses of Pepto-Bismol. She states she vomited once yesterday. She denies any fever. She complains of diffuse abdominal cramping, but no specific pain. She denies any chest pain or shortness of breath. She does feel lighthea ded and dizzy at times, and is concerned about dehydration. Related Data Home Medications Medication Instructions Recorded Confirmed clobetasol 1 nikole TOPICAL BID PRN 02/13/18 01/13/19 loratadine [Claritin] 10 mg PO DAILY PRN 03/24/18 01/13/19 insulin glargine [Lantus Solostar 20 unit SUBCUT QPM 01/13/19 01/13/19 U-100 Insulin] lisinopril 30 mg PO DAILY 01/13/19 01/13/19 metformin [Glucophage] 500 mg PO BID 01/13/19 01/13/19 Previous Rx's Medication Instructions Recorded propranolol 10 mg tablet 10 mg PO BID #180 tab 07/03/18 True metrix glucose test strip #100 each 07/31/18 BD U/F MINI PEN NEEDLE [id number] #1 ea 08/27/18 ferrous sulfate 325 mg (65 mg 325 mg PO DAILY #30 tab 10/28/18 iron) tablet albuterol sulfate HFA 90 2 puff INHALATION Q4HP PRN #8 gram 11/03/18 mcg/actuation aerosol inhaler ergocalciferol (vitamin D2) 50,000 50,000 unit PO QWEEK #6 cap 11/27/18 unit capsule insulin lispro (U- 100) 100 25 unit SUBCUT QAC #30 ml 12/16/18 unit/mL subcutaneous pen hydrocodone 5 mg-acetaminophen 325 1 tab PO Q6HP PRN #120 tab 12/29/18 mg tablet lorazepam 1 mg tablet 1 mg PO Q6H PRN #120 tab MDD 4 mg 12/30/18 ondansetron HCl 4 mg PO TID PRN #30 tab 01/13/19 Allergies Allergy/AdvReac Type Severity Reaction Status Date / Time Iodinated Contrast- Oral and Allergy Severe Neck, face Verified 12/29/18 15:41 IV Dye arms all [IODINATED CONTRAST MEDIA - swollen IV DYE] with difficulty breathing hydromorphone [From DILAUDID] Allergy Mild Very Verified 12/29/18 15:41 sensitive to this drug. ciprofloxacin [From Cipro] Allergy Hives Verified 12/29/18 15:41 Sulfa (Sulfonamide Allergy Rash Verified 12/29/18 15:41 Antibiotics) loperamide [From IMODIUM A-D] AdvReac Mild Nausea Verified 12/29/18 15:41 vomiting VITAMIN C AdvReac Mild Nausea/vomiting Uncoded 12/29/18 15:41 and migraines Review of Systems <KOLTON Gustafson - Last Filed: 01/13/19 20:43> Review of Systems GENERAL: Denies chills, fatigue, malaise, fever, sweats. HEENT: Denies sinus pain, ear pain, sore throat, difficulty swallowing, dizziness. RESPIRATORY: Denies dyspnea, cough, wheezing, hemoptysis, sputum. CARDIOVASCULAR: Denies chest pain, palpitations, orthopnea, edema, GASTROINTESTINAL: See HPI : Denies dysuria, frequency, incontinence, hematuria, urinary retention. MUSCULOSKELETAL: denies weakness, joint pain, or bony pain SKIN: Denies rash, skin lesions, or other NEUROLOGIC: Denies weakness, headache, numbness, change in speech, confusion, seizures, incoordination. PSYCHIATRIC: No concerning psychosocial issues. 12 point review of systems is negative except for those stated above PFSH <KOLTON Gustafson - Last Filed: 01/13/19 20:43> Medical History Chronic dental pain (Chronic) Uncomplicated opioid dependence (Chronic) Anxiety (Chronic Unknown) Depression (Chronic Unknown) Morbid obesity with body mass index (BMI) greater than or equal to 50 (Chronic 08/04/15) Mild intermittent asthma without complication (Chronic 02/23/16) Type 2 diabetes mellitus without complication, with long-term current use of insulin (Chronic 10/08/16) Dermatitis (Chronic Unknown) Hx MRSA infection (Resolved 10/2010) Surgical History No history of previous surgery (Chronic) History of cholecystectomy (Acute) Family History Mother Age: 38 Type 2 diabetes mellitus without complication Sister Age: 28 Depression Sister Age: 31 Anxiety Social History household members: spouse Smoking Status: Former smoker Family History Mother Age: 38 Type 2 diabetes mellitus without complication Sister Age: 28 Depression Sister Age: 31 Anxiety Social History household members: spouse Smoking Status: Former smoker Exam <KOLTON Gustafson - Last Filed: 01/13/19 20:43> Narrative Exam Narrative: GENERAL: Obese female lying in no acute distress HEAD: Atraumatic. Normocephalic. No temporal or scalp tenderness. EYES: Pupils equal round and reactive. Extraocular motions intact. No scleral icterus. No injection or drainage. ENT: Nose without bleeding, purulent drainage or septal hematoma. Throat without erythema, tonsillar hypertrophy or exudate. Uvula midline. Airway patent. Slightly dry mucous membranes noted. NECK: Trachea midline. No JVD or lymphadenopathy. Supple, nontender, no meningeal signs. CARDIOVASCULAR: Regular rate and rhythm without murmurs, gallops, or rubs. RESPIRATORY: Clear to auscultation. Breath sounds equal bilaterally. No wheezes, rales, or rhonchi. No cough. No increased respiratory effort. GASTROINTESTINAL: Abdomen soft, diffusely tender, nondistended. No hepato- splenomegaly, or palpable masses. No guarding. Active bowel sounds all 4 quadrants EXTREMITIES: No clubbing, cyanosis, or edema. No joint tenderness, effusion, or edema noted. BACK: Nontender without deformity or crepitance. No flank tenderness. NEURO: AOx3. SKIN: No rash or erythema. Initial Vital Signs Initial Vital Signs: Vital Signs Temperature 98.9 F 01/13/19 15:39 Pulse Rate 99 H 01/13/19 15:39 Respiratory Rate 20 01/13/19 15:39 Blood Pressure 146/86 H 01/13/19 15:39 Pulse Oximetry 100 01/13/19 15:39 <Javi Boucher MD - Last Filed: 01/14/19 06:54> Initial Vital Signs Initial Vital Signs: Vital Signs Temperature 98.9 F 01/13/19 15:39 Pulse Rate 99 H 01/13/19 15:39 Respiratory Rate 20 01/13/19 15:39 Blood Pressure 146/86 H 01/13/19 15:39 Pulse Oximetry 100 01/13/19 15:39 Course <KENRICK Gustafson- - Last Filed: 01/13/19 20:43> Orders Ordered: Discontinued Medications Sodium Chloride (Normal Saline 0.9%) 1,000 mls @ 1,000 mls/hr IV BOLUS ONE Stop: 01/13/19 17:32 Last Infusion: 01/13/19 18:07 Dose: 0 mls/hr Admin: 01/13/19 16:59 Dose: 1,000 mls/hr Sodium Chloride (Normal Saline 0.9%) 1,000 mls @ 1,000 mls/hr IV BOLUS ONE Stop: 01/13/19 18:51 Last Infusion: 01/13/19 19:33 Dose: 1,000 mls/hr Admin: 01/13/19 18:05 Dose: 1,000 mls/hr Ondansetron HCl (Zofran) 4 mg IV NOW ONE Stop: 01/13/19 16:45 Last Admin: 01/13/19 16:59 Dose: 4 mg Vital Signs - 8 hr 01/13/19 15:39 01/13/19 19:15 01/13/19 20:00 Temperature 98.9 F Pulse Rate 99 H 87 94 H Respiratory Rate 20 18 17 Blood Pressure 146/86 H Blood Pressure [Right Arm] 149/84 H 147/84 H Pulse Oximetry 100 100 99 <Javi Boucher MD - Last Filed: 01/14/19 06:54> Orders Ordered: Discontinued Medications Sodium Chloride (Normal Saline 0.9%) 1,000 mls @ 1,000 mls/hr IV BOLUS ONE Stop: 01/13/19 17:32 Last Infusion: 01/13/19 18:07 Dose: 0 mls/hr Admin: 01/13/19 16:59 Dose: 1,000 mls/hr Sodium Chloride (Normal Saline 0.9%) 1,000 mls @ 1,000 mls/hr IV BOLUS ONE Stop: 01/13/19 18:51 Last Infusion: 01/13/19 19:33 Dose: 1,000 mls/hr Admin: 01/13/19 18:05 Dose: 1,000 mls/hr Ondansetron HCl (Zofran) 4 mg IV NOW ONE Stop: 01/13/19 16:45 Last Admin: 01/13/19 16:59 Dose: 4 mg Vital Signs - 8 hr 01/13/19 15:39 01/13/19 19:15 01/13/19 20:00 Temperature 98.9 F Pulse Rate 99 H 87 94 H Respiratory Rate 20 18 17 Blood Pressure 146/86 H Blood Pressure [Right Arm] 149/84 H 147/84 H Pulse Oximetry 100 100 99 MDM - Nausea/Vomiting/Diarrhea <KENRICK Gustafson- - Last Filed: 01/13/19 20:43> Lab Data Result diagrams: 01/13/19 16:50 01/13/19 16:50 Lab Results 01/13/19 01/13/19 01/13/19 Range/Units 16:50 16:50 16:50 WBC 6.4 (4.5-11.0) X10^3/uL RBC 5.92 H (4.0-5.2) X10^6/uL Hgb 12.2 (12.0-16.0) g/dL Hct 38.0 (36-46) % MCV 64.2 L (80-100) fL MCH 20.6 L (26-34) PG MCHC 32.2 (30-36) % RDW 20.9 H (11.6-14.8) % Plt Count 258 (150-400) X10^3/uL Neut % (Auto) 70.8 (50-75) % Lymph % (Auto) 15.8 L (25-40) % [place] % (Auto) 11.4 (3-14) % Eos % (Auto) 1.3 L (2-4) % Baso % (Auto) 0.7 (0-2) % Neut # (Auto) 4600 (2291-8070) /uL Lymph # (Auto) 1000 L (4489-6054) /uL [place] # (Auto) 700 (0-900) /uL Eos # (Auto) 100 (0-450) /uL Baso # (Auto) 0 (0-100) /uL RBC Morphology Not Reportable Anisocytosis 2+ H Sodium 133 L (137-145) mmol/L Potassium 4.7 (3.4-5.1) mmol/L Chloride 98 (98-107) mmol/L Carbon Dioxide 26 (22-32) mmol/L BUN 11 (7-17) mg/dL Creatinine 0.50 L (0.52-1.04) mg/dL Estimated GFR > 60.0 (>60) mL/min BUN/Creatinine Ratio 22.0 (6-22) Glucose 163 H (70-100) mg/dL Calcium 8.9 (8.4-10.2) mg/dL Magnesium 1.9 (1.6-2.3) mg/dL Total Bilirubin 0.7 (0.2-1.3) mg/dL AST 51 H (14-36) IU/L ALT 57 H (9-52) IU/L Alkaline Phosphatase 41 (38-126) U/L Total Protein 8.3 H (6.3-8.2) g/dL Albumin 4.2 (3.5-5.0) g/dL Globulin 4.1 (1.7-4.1) g/dL Albumin/Globulin Ratio 1.0 (1.0-2.8) Urine RBC (0-5/HPF) Urine WBC (0-5/HPF) Ur Squamous Epith Cells (0-5/HPF) Urine Bacteria (None) Ur Culture Indicated? 01/13/19 Range/Units 19:15 WBC (4.5-11.0) X10^3/uL RBC (4.0-5.2) X10^6/uL Hgb (12.0-16.0) g/dL Hct (36-46) % MCV (80-100) fL MCH (26-34) PG MCHC (30-36) % RDW (11.6-14.8) % Plt Count (150-400) X10^3/uL Neut % (Auto) (50-75) % Lymph % (Auto) (25-40) % Swift % (Auto) (3-14) % Eos % (Auto) (2-4) % Baso % (Auto) (0-2) % Neut # (Auto) (4923-9927) /uL Lymph # (Auto) (3886-6813) /uL Swift # (Auto) (0-900) /uL Eos # (Auto) (0-450) /uL Baso # (Auto) (0-100) /uL RBC Morphology Anisocytosis Sodium (137-145) mmol/L Potassium (3.4-5.1) mmol/L Chloride (98-107) mmol/L Carbon Dioxide (22-32) mmol/L BUN (7-17) mg/dL Creatinine (0.52-1.04) mg/dL Estimated GFR (>60) mL/min BUN/Creatinine Ratio (6-22) Glucose (70-100) mg/dL Calcium (8.4-10.2) mg/dL Magnesium (1.6-2.3) mg/dL Total Bilirubin (0.2-1.3) mg/dL AST (14-36) IU/L ALT (9-52) IU/L Alkaline Phosphatase (38-126) U/L Total Protein (6.3-8.2) g/dL Albumin (3.5-5.0) g/dL Globulin (1.7-4.1) g/dL Albumin/Globulin Ratio (1.0-2.8) Urine RBC 1-5/hpf D (0-5/HPF) Urine WBC 1-5/hpf (0-5/HPF) Ur Squamous Epith Cells 1-5 /hpf (0-5/HPF) Urine Bacteria Occasional (0-1) (None) Ur Culture Indicated? Cult not indicated Point of Care Testing Test Results Negative Urine Dip Bedside Urine Glucose Negative Bedside Urine Bilirubin - Negative Bedside Urine Ketone - Negative Urine Specific [place] 1.010 Bedside Urine Occult Blood +/- Bedside Urine pH 6.0 Bedside Urine Protein - Negative Bedside Urine Urobilinogen - Negative Bedside Urine Nitrite - Negative Bedside Urine Leukocytes - Negative Esterase MDM Narrative Medical decision making narrative: The patient is a [age]-year-old female who presents with chief complaint of diarrhea. Interestingly she only had 1 episode of diarrhea during her stay in the emergency department, which she did not collect for lab evaluation. She does not have any elevated white blood cell count. She felt much improved after 2 L of IV fluid and Zofran. She had no belly pain on re-evaluation to palpation. Her electrolytes are grossly normal. She was able to pass a p.o. challenge prior to discharge. She had a negative UA. She requested Zofran tablets rather than disintegrating, so I gave her prescription of those. Discussed at length return precautions of fever with abdominal pain, chest pain shortness of breath etc. Patient felt much improved upon discharge. <Javi Boucher MD - Last Filed: 01/14/19 06:54> Lab Data Lab Results 01/13/19 01/13/19 01/13/19 Range/Units 16:50 16:50 16:50 WBC 6.4 (4.5-11.0) X10^3/uL RBC 5.92 H (4.0-5.2) X10^6/uL Hgb 12.2 (12.0-16.0) g/dL Hct 38.0 (36-46) % MCV 64.2 L (80-100) fL MCH 20.6 L (26-34) PG MCHC 32.2 (30-36) % RDW 20.9 H (11.6-14.8) % Plt Count 258 (150-400) X10^3/uL Neut % (Auto) 70.8 (50-75) % Lymph % (Auto) 15.8 L (25-40) % Swift % (Auto) 11.4 (3-14) % Eos % (Auto) 1.3 L (2-4) % Baso % (Auto) 0.7 (0-2) % Neut # (Auto) 4600 (0307-6672) /uL Lymph # (Auto) 1000 L (3751-7400) /uL [place] # (Auto) 700 (0-900) /uL Eos # (Auto) 100 (0-450) /uL Baso # (Auto) 0 (0-100) /uL RBC Morphology Not Reportable Anisocytosis 2+ H Sodium 133 L (137-145) mmol/L Potassium 4.7 (3.4-5.1) mmol/L Chloride 98 (98-107) mmol/L Carbon Dioxide 26 (22-32) mmol/L BUN 11 (7-17) mg/dL Creatinine 0.50 L (0.52-1.04) mg/dL Estimated GFR > 60.0 (>60) mL/min BUN/Creatinine Ratio 22.0 (6-22) Glucose 163 H (70-100) mg/dL Calcium 8.9 (8.4-10.2) mg/dL Magnesium 1.9 (1.6-2.3) mg/dL Total Bilirubin 0.7 (0.2-1.3) mg/dL AST 51 H (14-36) IU/L ALT 57 H (9-52) IU/L Alkaline Phosphatase 41 (38-126) U/L Total Protein 8.3 H (6.3-8.2) g/dL Albumin 4.2 (3.5-5.0) g/dL Globulin 4.1 (1.7-4.1) g/dL Albumin/Globulin Ratio 1.0 (1.0-2.8) Urine RBC (0-5/HPF) Urine WBC (0-5/HPF) Ur Squamous Epith Cells (0-5/HPF) Urine Bacteria (None) Ur Culture Indicated? 01/13/19 Range/Units 19:15 WBC (4.5-11.0) X10^3/uL RBC (4.0-5.2) X10^6/uL Hgb (12.0-16.0) g/dL Hct (36-46) % MCV (80-100) fL MCH (26-34) PG MCHC (30-36) % RDW (11.6-14.8) % Plt Count (150-400) X10^3/uL Neut % (Auto) (50-75) % Lymph % (Auto) (25-40) % [place] % (Auto) (3-14) % Eos % (Auto) (2-4) % Baso % (Auto) (0-2) % Neut # (Auto) (9549-6328) /uL Lymph # (Auto) (7242-0094) /uL [place] # (Auto) (0-900) /uL Eos # (Auto) (0-450) /uL Baso # (Auto) (0-100) /uL RBC Morphology Anisocytosis Sodium (137-145) mmol/L Potassium (3.4-5.1) mmol/L Chloride (98-107) mmol/L Carbon Dioxide (22-32) mmol/L BUN (7-17) mg/dL Creatinine (0.52-1.04) mg/dL Estimated GFR (>60) mL/min BUN/Creatinine Ratio (6-22) Glucose (70-100) mg/dL Calcium (8.4-10.2) mg/dL Magnesium (1.6-2.3) mg/dL Total Bilirubin (0.2-1.3) mg/dL AST (14-36) IU/L ALT (9-52) IU/L Alkaline Phosphatase (38-126) U/L Total Protein (6.3-8.2) g/dL Albumin (3.5-5.0) g/dL Globulin (1.7-4.1) g/dL Albumin/Globulin Ratio (1.0-2.8) Urine RBC 1-5/hpf D (0-5/HPF) Urine WBC 1-5/hpf (0-5/HPF) Ur Squamous Epith Cells 1-5 /hpf (0-5/HPF) Urine Bacteria Occasional (0-1) (None) Ur Culture Indicated? Cult not indicated Point of Care Testing Test Results Negative Urine Dip Bedside Urine Glucose Negative Bedside Urine Bilirubin - Negative Bedside Urine Ketone - Negative Urine Specific [place] 1.010 Bedside Urine Occult Blood +/- Bedside Urine pH 6.0 Bedside Urine Protein - Negative Bedside Urine Urobilinogen - Negative Bedside Urine Nitrite - Negative Bedside Urine Leukocytes - Negative Esterase Discharge Plan Departure Patient Disposition: Home Clinical Impression: Diarrhea Qualifiers: Diarrhea type: unspecified type Qualified Code(s): R19.7 - Diarrhea, unspecified Vomiting Qualifiers: Vomiting type: unspecified Vomiting Intractability: non-intractable Nausea presence: with nausea Qualified Code(s): R11.2 - Nausea with vomiting, unspecified Discharge Date/Time: 01/13/19 20:45 Interventions: ED Discharge Assessment Last Done: 01/13/19 20:45 Instructions: DI for Abdominal Pain-Adult, DI for Diarrhea and Traveler's Diarrhea -- Adult, DI for Vomiting -- Adult Activity Restrictions/Additional Instructions: Your lab work came back mostly normal today. You did well with 2 L of fluid. I have given her prescription for Zofran tablets. Please push fluids and rest. Please follow up with primary care provider. Please come back to the emergency department for any acute concerns such as chest pain, shortness of breath abdominal pain with fever etc. Prescriptions: New ondansetron HCl 4 mg tablet 4 mg PO TID PRN (Reason: nausea and vomiting) Qty: 30 RF: 0 No Action propranolol 10 mg tablet 10 mg PO BID Qty: 180 RF: 3 True metrix glucose test strip Qty: 100 RF: 5 BD U/F MINI PEN NEEDLE [id number] Qty: 1 RF: 2 Humalog KwikPen Insulin 100 unit/mL insulin pen 25 unit SUBCUT QAC Qty: 30 RF: 1 lorazepam 1 mg tablet 1 mg PO Q6H MDD 4 mg PRN (Reason: anxiety) Qty: 120 RF: 5 ferrous sulfate 325 mg (65 mg iron) tablet 325 mg PO DAILY Qty: 30 RF: 5 Ventolin HFA 90 mcg/actuation HFA aerosol inhaler 2 puff Inhalation Q4HP PRN (Reason: Shortness Of Breath) Qty: 8 RF: 11 hydrocodone-acetaminophen 5-325 mg tablet 1 tab PO Q6HP PRN (Reason: pain) Qty: 120 RF: 0 ergocalciferol (vitamin D2) 50,000 unit capsule 50,000 unit PO QWEEK Qty: 6 RF: 0 loratadine [Claritin] 10 mg Tablet 10 mg PO DAILY PRN (Reason: Allergy Symptoms) RF: 0 lisinopril 10 mg tablet 30 mg PO DAILY RF: 0 metformin [Glucophage] 500 mg tablet 500 mg PO BID RF: 0 Lantus Solostar U-100 Insulin 100 unit/mL (3 mL) insulin pen 20 unit SUBCUT QPM RF: 0 clobetasol 0.05 % ointment 1 nikole Topical BID PRN (Reason: UNKNOWN) RF: 0 Referrals: Corwin Pacheco MD [Primary Care Provider] - <Javi Boucher MD - Last Filed: 01/14/19 06:54> Cosign ED Attending Cosignature Attestation: I was present in the ER at the time of this patient's care. I was available for consultation or to see the patient directly if requested. I agree with the evaluation, assessment and treatment plan noted in the record.
[2019-01-13 19:15] VITALS: BP 149/84; PULSE 87; RESP 18; O2SAT 100
[2019-01-13 20:00] VITALS: BP 147/84; PULSE 94; RESP 17; O2SAT 99
[2019-01-13 20:23] LABS: Bacteria Urine Occasional (0-1); Culture Indicated Urine Cult Not Indicated; RBC Urine 1-5/HPF (0-5/HPF); Squamous Epithelial Cell Urine 1-5 /HPF (0-5/HPF); WBC Urine 1-5/HPF (0-5/HPF)
== END 2019-01-13 20:45 | disposition home or self-care (01) ==
PROVIDERS: Emergency Provider Nurse Practitioner Family; PCP Student in an Organized Health Care Education/Training Program
DX: R19.7 Diarrhea, unspecified (principal); R11.2 Nausea with vomiting, unspecified; R42 Dizziness and giddiness
CPT/HCPCS: 36591; 80053; 81003; 81015; 81025; 83735; 85025; 96361; 96374; 99284; J2405

== ENCOUNTER 2019-02-04 20:04 | Emergency (ER) | payer OTHER, MEDICAID, SELFPAY ==
[2019-02-04 19:31] VITALS: BMI 55.3
[2019-02-04 20:11] VITALS: BP 187/108; PULSE 69; RESP 16; TEMP 38.1; O2SAT 98; BMI 57.4
--- NOTE | 2019-02-04 20:41 | ED_ITS ---
HPI - URI/Sore Throat General Chief Complaint: Upper Respiratory Symptoms Stated Complaint: COUGHING UP BLOOD Time Seen by Provider: 02/04/19 20:40 Source: patient Mode of arrival: ambulatory Limitations: no limitations History of Present Illness HPI Narrative: 33-year-old female was sent over from the walk-in clinic for evaluation after she reported to the walk-in clinic for several days of a cough which led to shortness of breath and also blood streaked sputum. She states that she is never coughed up just blood. It is always been blood-streaked sputum. She states that she only has shortness of breath after coughing spells. No chest pain. Patient states that she has had an elevated D-dimer in the past. Initially there was some concern that she had had a pulmonary embolism in the past however the patient states she has never been diagnosed with a pulmonary embolism. Has never been on any anticoagulation except for aspirin. Related Data Home Medications Medication Instructions Recorded Confirmed loratadine [Claritin] 10 mg PO DAILY PRN 03/24/18 02/04/19 insulin glargine [Lantus Solostar 20 unit SUBCUT QPM 01/13/19 02/04/19 U-100 Insulin] lisinopril 30 mg PO DAILY 01/13/19 02/04/19 metformin [Glucophage] 500 mg PO BID 01/13/19 02/04/19 Previous Rx's Medication Instructions Recorded propranolol 10 mg tablet 10 mg PO BID #180 tab 07/03/18 True metrix glucose test strip #100 each 07/31/18 BD U/F MINI PEN NEEDLE [id number] #1 ea 08/27/18 ferrous sulfate 325 mg (65 mg 325 mg PO DAILY #30 tab 10/28/18 iron) tablet albuterol sulfate HFA 90 2 puff INHALATION Q4HP PRN #8 gram 11/03/18 mcg/actuation aerosol inhaler ergocalciferol (vitamin D2) 50,000 50,000 unit PO QWEEK #6 cap 11/27/18 unit capsule insulin lispro (U- 100) 100 25 unit SUBCUT QAC #30 ml 12/16/18 unit/mL subcutaneous pen hydrocodone 5 mg-acetaminophen 325 1 tab PO Q6HP PRN #120 tab 12/29/18 mg tablet lorazepam 1 mg tablet 1 mg PO Q6H PRN #120 tab MDD 4 mg 12/30/18 ondansetron HCl 4 mg PO TID PRN #30 tab 01/13/19 clobetasol 0.05 % topical ointment 1 applictn TOPICAL BID PRN #30 gram 01/19/19 nystatin 100,000 unit/gram topical 1 applictn TOP BID #30 gram 01/19/19 powder benzonatate [Tessalon Perles] 100 mg PO BID-TID PRN #20 cap 02/04/19 Allergies Allergy/AdvReac Type Severity Reaction Status Date / Time Iodinated Contrast- Oral and Allergy Severe Neck, face Verified 02/04/19 19:50 IV Dye arms all [IODINATED CONTRAST MEDIA - swollen IV DYE] with difficulty breathing hydromorphone [From DILAUDID] Allergy Mild Very Verified 02/04/19 19:50 sensitive to this drug. ciprofloxacin [From Cipro] Allergy Hives Verified 02/04/19 19:50 Sulfa (Sulfonamide Allergy Rash Verified 02/04/19 19:50 Antibiotics) loperamide [From IMODIUM A-D] AdvReac Mild Nausea Verified 02/04/19 19:50 vomiting VITAMIN C AdvReac Mild Nausea/vomiting Uncoded 01/22/19 15:30 and migraines Review of Systems Constitutional Denies fever(s) Cardiovascular Denies chest pain and Reports dyspnea Respiratory Reports chest congestion, Reports cough, Reports hemoptysis, Reports pain with cough and Reports dyspnea Gastrointestinal Gastrointestinal: Denies abdominal pain, Denies nausea and Denies vomiting Genitourinary Denies dysuria Integumentary/Breasts Denies rash Neurologic Denies behavioral changes Psychiatric Denies behavioral changes Hematologic/Lymphatic Denies easy bleeding and Denies easy bruising [facility] Medical History Chronic dental pain (Chronic) Uncomplicated opioid dependence (Chronic) Anxiety (Chronic Unknown) Depression (Chronic Unknown) Morbid obesity with body mass index (BMI) greater than or equal to 50 (Chronic 08/04/15) Mild intermittent asthma without complication (Chronic 02/23/16) Type 2 diabetes mellitus without complication, with long-term current use of insulin (Chronic 10/08/16) Dermatitis (Chronic Unknown) Hx MRSA infection (Resolved 10/2010) Surgical History No history of previous surgery (Chronic) History of cholecystectomy (Acute) Family History Mother Age: 38 Type 2 diabetes mellitus without complication Sister Age: 28 Depression Sister Age: 31 Anxiety Social History household members: spouse Smoking Status: Former smoker Social History household members: spouse Smoking Status: Former smoker Exam Initial Vital Signs Initial Vital Signs: Vital Signs Temperature 100.5 F H 02/04/19 20:11 Pulse Rate 69 02/04/19 20:11 Respiratory Rate 16 02/04/19 20:11 Blood Pressure 187/108 H 02/04/19 20:11 Pulse Oximetry 98 02/04/19 20:11 Const General: cooperative, well developed, well groomed and No acute distress Orientation: alert, awake and oriented x3 HENMT Head: normal to inspection and normocephalic Resp Effort & Inspection: normal respiratory effort Auscultation: clear to auscultation bilaterally Cardio Rate: regular rate Rhythm: regular rhythm GI Inspection: non-distended Skin Lesions: no lesions Rashes: no rashes Neuro General: alert and awake Cognition: normal cognition Speech: speech normal Extrem General: normal to inspection and capillary refill normal Course Orders Ordered: ED Orders 02/04/19 20:51 XR chest 2V Stat Vital Signs - 8 hr 02/04/19 20:11 Temperature 100.5 F H Pulse Rate 69 Respiratory Rate 16 Blood Pressure 187/108 H Pulse Oximetry 98 MDM - URI/Sore Throat Imaging Data Chest x-ray: Radiologist's impression: [address] [address] XRay Report Signed Patient: Yaquelin Loera CMR#: [id number] : 1985Acct:[id number] Age/Sex: 33 / FDate of Service: 02/04/19 Loc: ED Accession Number: [id number] Procedure: XR chest 2V Ordering Provider: Chon Kilpatrick D.O. PROCEDURE: XR CHEST 2V INDICATIONS: Fever and cough TECHNIQUE: 2 views of the chest were acquired. COMPARISON: None. FINDINGS: Surgical changes and devices: None. Lungs and pleura: Low lung volumes with scattered subsegmental atelectasis/scarring. No pleural effusions or pneumothorax. Mediastinum: Mediastinal contours are normal. Heart size is normal. Bones and chest wall: No suspicious bony abnormalities. Soft tissues appear unremarkable. IMPRESSION: No acute disease. Dictated by: Manpreet Tobin M.D. on 02/04/2019 at 21:11 Approved by: Manpreet Tobin M.D. on 02/04/2019 at 21:[address] [facility] Narrative Medical decision making narrative: Patient is a negative chest x-ray however is not hypoxic, not tachypneic, is febrile to 100.5. Her shortness of breath is only associated with the time immediately following a ?coughing fit? she denies any chest pain. I have low suspicion for pulmonary embolism. Will hold on further workup of that for now. No indication for antibiotics. Suspect upper respiratory infection. Patient was given strict return precautions and follow- up instructions. She expressed understanding and agreement plan Discharge Plan Departure Patient Disposition: Home Clinical Impression: Cough Upper respiratory infection Qualifiers: URI type: unspecified URI Qualified Code(s): J06.9 - Acute upper respiratory infection, unspecified Discharge Date/Time: 02/04/19 21:52 Interventions: ED Discharge Assessment Last Done: 02/04/19 21:46 Instructions: Cough, DI for Acute Bronchitis Activity Restrictions/Additional Instructions: Continue all of your medications as directed. Return to the emergency department for any new or worsening symptoms Prescriptions: New benzonatate [Tessalon Perles] 100 mg capsule 100 mg PO BID-TID PRN (Reason: cough) Qty: 20 RF: 0 No Action propranolol 10 mg tablet 10 mg PO BID Qty: 180 RF: 3 True metrix glucose test strip Qty: 100 RF: 5 BD U/F MINI PEN NEEDLE [id number] Qty: 1 RF: 2 Humalog KwikPen Insulin 100 unit/mL insulin pen 25 unit SUBCUT QAC Qty: 30 RF: 1 lorazepam 1 mg tablet 1 mg PO Q6H MDD 4 mg PRN (Reason: anxiety) Qty: 120 RF: 5 nystatin 100,000 unit/gram powder 1 applictn TOP BID Qty: 30 RF: 1 clobetasol 0.05 % ointment 1 applictn Topical BID PRN (Reason: rash) Qty: 30 RF: 1 ferrous sulfate 325 mg (65 mg iron) tablet 325 mg PO DAILY Qty: 30 RF: 5 Ventolin HFA 90 mcg/actuation HFA aerosol inhaler 2 puff Inhalation Q4HP PRN (Reason: Shortness Of Breath) Qty: 8 RF: 11 hydrocodone-acetaminophen 5-325 mg tablet 1 tab PO Q6HP PRN (Reason: pain) Qty: 120 RF: 0 ergocalciferol (vitamin D2) 50,000 unit capsule 50,000 unit PO QWEEK Qty: 6 RF: 0 loratadine [Claritin] 10 mg Tablet 10 mg PO DAILY PRN (Reason: Allergy Symptoms) RF: 0 lisinopril 10 mg tablet 30 mg PO DAILY RF: 0 metformin [Glucophage] 500 mg tablet 500 mg PO BID RF: 0 Lantus Solostar U-100 Insulin 100 unit/mL (3 mL) insulin pen 20 unit SUBCUT QPM RF: 0 ondansetron HCl 4 mg tablet 4 mg PO TID PRN (Reason: nausea and vomiting) Qty: 30 RF: 0 Referrals: Corwin Pacheco MD [Primary Care Provider] -
--- NOTE | 2019-02-04 20:51 | DI.RAD.S_ITS ---
PROCEDURE: XR CHEST 2V INDICATIONS: Fever and cough TECHNIQUE: 2 views of the chest were acquired. COMPARISON: None. FINDINGS: Surgical changes and devices: None. Lungs and pleura: Low lung volumes with scattered subsegmental atelectasis/scarring. No pleural effusions or pneumothorax. Mediastinum: Mediastinal contours are normal. Heart size is normal. Bones and chest wall: No suspicious bony abnormalities. Soft tissues appear unremarkable. IMPRESSION: No acute disease. Dictated by: Manpreet Tobin M.D. on 02/04/2019 at 21:11 Approved by: Manpreet Tobin M.D. on 02/04/2019 at 21:12
== END 2019-02-04 21:52 | disposition home or self-care (01) ==
PROVIDERS: Emergency Provider Emergency Medicine; Family Provider Student in an Organized Health Care Education/Training Program; PCP Student in an Organized Health Care Education/Training Program
DX: J06.9 Acute upper respiratory infection, unspecified (principal)
CPT/HCPCS: 71046; 99282; 99283

== ENCOUNTER 2019-03-04 09:56 | Emergency (ER) | payer OTHER, MEDICAID, SELFPAY ==
[2019-03-04 10:01] VITALS: BP 195/106; PULSE 96; RESP 18; TEMP 35.7; O2SAT 97; BMI 55.2
--- NOTE | 2019-03-04 10:07 | DI.RAD.S_ITS ---
PROCEDURE: XR CHEST 2V INDICATIONS: sob, cough TECHNIQUE: 2 views of the chest were acquired. COMPARISON: None. FINDINGS: Surgical changes and devices: None. Lungs and pleura: Lungs are clear. No pleural effusions or pneumothorax. Mediastinum: Mediastinal contours are normal. Heart size is enlarged. Bones and chest wall: No suspicious bony abnormalities. Soft tissues appear unremarkable. IMPRESSION: Cardiomegaly. No acute pulmonary pathology. Dictated by: Buck Negrete M.D. on 03/04/2019 at 10:32 Approved by: Buck Negrete M.D. on 03/04/2019 at 10:32
[2019-03-04 10:23] VITALS: PULSE 72; RESP 14; O2SAT 98
[2019-03-04] MEDS: ALBUTEROL/IPRATROPIUM 3 ML AMPUL INH (10:23)
[2019-03-04 10:27] VITALS: BP 195/106; PULSE 86
[2019-03-04] MEDS: LISINOPRIL 20 MG TABLET PO (10:27)
[2019-03-04] MEDS: PROPRANOLOL 10 MG TABLET PO (10:27)
--- NOTE | 2019-03-04 10:28 | ED_ITS ---
HPI - URI/Sore Throat General Chief Complaint: Upper Respiratory Symptoms Stated Complaint: possible pneumonia Time Seen by Provider: 03/04/19 10:00 Source: patient Mode of arrival: ambulatory Limitations: no limitations History of Present Illness HPI Narrative: Patient is a 33-year-old presenting with cough sore throat shortness of breath. 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 She says last week initially started with what she thought was allergies runny nose itchy eyes cough. She does have an albuterol inhaler for her seasonal allergies however she has not used it. She says this morning she feels worse. He is coughing up mucus she feels short of breath with exertion and at rest. She does not think she has had fever or chills. Her blood pressure is noted to be quite elevated she states she did not take her blood pressure medications this morning. He has no chest tightness every time she takes a deep breath she coughs. MD Complaint: cough and sore throat Onset (ago): day(s) Duration: progressively worsening Relieving factors: nothing Exacerbating factors: nothing Able to tolerate fluids by mouth: Yes Context: sick contacts Related Data Home Medications Medication Instructions Recorded Confirmed loratadine [Claritin] 10 mg PO DAILY PRN 03/24/18 02/04/19 insulin glargine [Lantus Solostar 20 unit SUBCUT QPM 01/13/19 02/04/19 U-100 Insulin] lisinopril 30 mg PO DAILY 01/13/19 02/04/19 metformin [Glucophage] 500 mg PO BID 01/13/19 02/04/19 Previous Rx's Medication Instructions Recorded propranolol 10 mg tablet 10 mg PO BID #180 tab 07/03/18 True metrix glucose test strip #100 each 07/31/18 BD U/F MINI PEN NEEDLE [id number] #1 ea 08/27/18 ferrous sulfate 325 mg (65 mg 325 mg PO DAILY #30 tab 10/28/18 iron) tablet albuterol sulfate HFA 90 2 puff INHALATION Q4HP PRN #8 gram 11/03/18 mcg/actuation aerosol inhaler ergocalciferol (vitamin D2) 50,000 50,000 unit PO QWEEK #6 cap 11/27/18 unit capsule insulin lispro (U- 100) 100 25 unit SUBCUT QAC #30 ml 12/16/18 unit/mL subcutaneous pen hydrocodone 5 mg-acetaminophen 325 1 tab PO Q6HP PRN #120 tab 12/29/18 mg tablet lorazepam 1 mg tablet 1 mg PO Q6H PRN #120 tab MDD 4 mg 12/30/18 clobetasol 0.05 % topical ointment 1 applictn TOPICAL BID PRN #30 gram 01/19/19 nystatin 100,000 unit/gram topical 1 applictn TOP BID #30 gram 01/19/19 powder benzonatate [Tessalon Perles] 100 mg PO BID-TID PRN #20 cap 02/04/19 Allergies Allergy/AdvReac Type Severity Reaction Status Date / Time Iodinated Contrast- Oral and Allergy Severe Neck, face Verified 03/04/19 10:01 IV Dye arms all [IODINATED CONTRAST MEDIA - swollen IV DYE] with difficulty breathing hydromorphone [From DILAUDID] Allergy Mild Very Verified 03/04/19 10:01 sensitive to this drug. ciprofloxacin [From Cipro] Allergy Hives Verified 03/04/19 10:01 Sulfa (Sulfonamide Allergy Rash Verified 03/04/19 10:01 Antibiotics) loperamide [From IMODIUM A-D] AdvReac Mild Nausea Verified 03/04/19 10:01 vomiting VITAMIN C AdvReac Mild Nausea/vomiting Uncoded 03/04/19 10:01 and migraines Review of Systems Review of Systems ROS Unobtainable: All systems reviewed & are unremarkable except as noted in HPI and below Constitutional Denies chills, Denies fever(s), Denies lethargy and Denies weakness Eyes Denies change in vision, Denies eye discharge, Denies irritation and Denies loss of vision ENT Ears, Nose, Mouth, and Throat: Reports as per HPI Cardiovascular Denies chest pain, Denies irregular heart rhythm, Denies lightheadedness, Denies palpitations, Reports dyspnea, Reports dyspnea on exertion and Denies orthopnea Respiratory Reports as per HPI, Reports change in phlegm color, Reports dyspnea and Reports dyspnea on exertion Gastrointestinal Gastrointestinal: Denies abdominal pain, Denies change in bowel habits, Denies diarrhea, Denies nausea and Denies vomiting Musculoskeletal Denies back pain, Denies muscle weakness, Denies numbness and Denies tingling Integumentary/Breasts Denies pruritus, Denies erythema, Denies rash and Denies wounds Neurologic Denies loss of vision, Denies numbness, Denies tingling and Denies weakness Endocrine Denies palpitations [facility] Social History household members: spouse Smoking Status: Former smoker Exam Initial Vital Signs Initial Vital Signs: Vital Signs Temperature 96.3 F L 03/04/19 10:01 Pulse Rate 96 H 03/04/19 10:01 Respiratory Rate 18 03/04/19 10:01 Blood Pressure 195/106 H 03/04/19 10:01 Pulse Oximetry 97 03/04/19 10:01 Course Orders Ordered: ED Orders 03/04/19 10:07 XR chest 2V Stat Discontinued Medications Albuterol/Ipratropium (Duoneb) 3 ml INH NOW ONE Stop: 03/04/19 10:08 Last Admin: 03/04/19 10:23 Dose: 3 ml Lisinopril (Zestril) 20 mg PO NOW ONE Stop: 03/04/19 10:08 Last Admin: 03/04/19 10:27 Dose: 20 mg Propranolol HCl (Inderal) 10 mg PO NOW ONE Stop: 03/04/19 10:08 Last Admin: 03/04/19 10:27 Dose: 10 mg Vital Signs - 8 hr 03/04/19 10:01 03/04/19 10:23 03/04/19 10:27 Temperature 96.3 F L Pulse Rate 96 H 72 86 Respiratory Rate 18 14 Blood Pressure 195/106 H 195/106 H Blood Pressure [Left Arm] Pulse Oximetry 97 98 03/04/19 11:03 03/04/19 12:04 Temperature Pulse Rate 79 73 Respiratory Rate 16 15 Blood Pressure Blood Pressure [Left Arm] 162/99 H 150/99 H Pulse Oximetry 97 97 MDM - URI/Sore Throat Lab Data Point of Care Testing Rapid Strep A Negative Imaging Data Chest x-ray: Radiologist's impression: PROCEDURE: XR CHEST 2V INDICATIONS: sob, cough TECHNIQUE: 2 views of the chest were acquired. COMPARISON: None. FINDINGS: Surgical changes and devices: None. Lungs and pleura: Lungs are clear. No pleural effusions or pneumothorax. Mediastinum: Mediastinal contours are normal. Heart size is enlarged. Bones and chest wall: No suspicious bony abnormalities. Soft tissues appear unremarkable. IMPRESSION: Cardiomegaly. No acute pulmonary pathology. Dictated by: Buck Negrete M.D. on 03/04/2019 at 10:32 MDM Narrative Medical decision making narrative: The patient states albuterol did seem to help. She was given a spacer and teaching. At this time she does not appear septic or toxic. Blood pressure has come down with her regular blood pressure medications. No sign of pneumonia x-ray. At this time recommend conservative treatment and management. No need for antibiotics. Discharge Plan Departure Patient Disposition: Home Clinical Impression: Upper respiratory infection Qualifiers: URI type: unspecified viral URI Qualified Code(s): J06.9 - Acute upper respiratory infection, unspecified Discharge Date/Time: 03/04/19 12:33 Interventions: ED Discharge Assessment Last Done: 03/04/19 12:33 Instructions: DI for Acute Bronchitis Activity Restrictions/Additional Instructions: *You have been diagnosed with upper respiratory infection *What to do: at this time no indication for antibiotics x-ray does not show pneumonia *Continue to take medications as directed Albuterol inhaler with spacer every 4 hours if needed for pain *Follow up with your primary care provider in 2-3 days *Return to ER if you should have increasing shortness of breath chest pain or any new, worsening or concerning symptoms Prescriptions: No Action propranolol 10 mg tablet 10 mg PO BID Qty: 180 RF: 3 True metrix glucose test strip Qty: 100 RF: 5 BD U/F MINI PEN NEEDLE [id number] Qty: 1 RF: 2 Humalog KwikPen Insulin 100 unit/mL insulin pen 25 unit SUBCUT QAC Qty: 30 RF: 1 lorazepam 1 mg tablet 1 mg PO Q6H MDD 4 mg PRN (Reason: anxiety) Qty: 120 RF: 5 nystatin 100,000 unit/gram powder 1 applictn TOP BID Qty: 30 RF: 1 clobetasol 0.05 % ointment 1 applictn Topical BID PRN (Reason: rash) Qty: 30 RF: 1 ferrous sulfate 325 mg (65 mg iron) tablet 325 mg PO DAILY Qty: 30 RF: 5 Ventolin HFA 90 mcg/actuation HFA aerosol inhaler 2 puff Inhalation Q4HP PRN (Reason: Shortness Of Breath) Qty: 8 RF: 11 hydrocodone-acetaminophen 5-325 mg tablet 1 tab PO Q6HP PRN (Reason: pain) Qty: 120 RF: 0 ergocalciferol (vitamin D2) 50,000 unit capsule 50,000 unit PO QWEEK Qty: 6 RF: 0 loratadine [Claritin] 10 mg Tablet 10 mg PO DAILY PRN (Reason: Allergy Symptoms) RF: 0 lisinopril 10 mg tablet 30 mg PO DAILY RF: 0 metformin [Glucophage] 500 mg tablet 500 mg PO BID RF: 0 Lantus Solostar U-100 Insulin 100 unit/mL (3 mL) insulin pen 20 unit SUBCUT QPM RF: 0 benzonatate [Tessalon Perles] 100 mg capsule 100 mg PO BID-TID PRN (Reason: cough) Qty: 20 RF: 0 Referrals: Corwin Pacheco MD [Primary Care Provider] -
[2019-03-04 11:03] VITALS: BP 162/99; PULSE 79; RESP 16; O2SAT 97
[2019-03-04 12:04] VITALS: BP 150/99; PULSE 73; RESP 15; O2SAT 97
--- NOTE | 2019-03-04 12:35 | PC.NURSE ---
left upper lobe wheeze mild after RT breathing treatment. pt states feeling better
== END 2019-03-04 12:33 | disposition home or self-care (01) ==
PROVIDERS: Emergency Provider Emergency Medicine; Family Provider Student in an Organized Health Care Education/Training Program; PCP Student in an Organized Health Care Education/Training Program
DX: J06.9 Acute upper respiratory infection, unspecified (principal)
CPT/HCPCS: 71046; 87880; 94640; 99282; 99283

== ENCOUNTER 2019-03-05 18:42 | Emergency (ER) | payer OTHER, MEDICAID, SELFPAY ==
[2019-03-05 18:46] VITALS: BP 179/110; PULSE 87; RESP 16; TEMP 36.2; O2SAT 99; BMI 55.2
--- NOTE | 2019-03-05 19:15 | ED.BACK ---
HPI - Back Pain/Injury General Chief Complaint: Back Pain/Injury Stated Complaint: BACK PAIN Time Seen by Provider: 03/05/19 18:43 Source: patient Mode of arrival: ambulatory Limitations: no limitations History of Present Illness HPI Narrative: 33-year-old female with multiple medical problems presents to the emergency department with a chief complaint of pain across her mid and lower back over the course of the day. She states that she was walking and she felt this pain started. She denies any specific injury but states she has been working harder than normal at home lately. She states is worse with motion and improves with rest. She denies any radiation down her legs, denies any bowel or bladder control problems. She denies any numbness, tingling or weakness. She denies frequency, urgency or dysuria. She has had no fever or chills. MD Complaint: back pain Onset (ago): hour(s) Duration: constant Similar Symptoms Previously: Yes Location: lumbar spine and thoracic spine Severity: moderate Quality: aching Radiation: none Relieving factors: immobilization Exacerbating factors: movement Associated symptoms: denies other symptoms Related Data Home Medications Medication Instructions Recorded Confirmed loratadine [Claritin] 10 mg PO DAILY PRN 03/24/18 02/04/19 insulin glargine [Lantus Solostar 20 unit SUBCUT QPM 01/13/19 02/04/19 U-100 Insulin] lisinopril 30 mg PO DAILY 01/13/19 02/04/19 metformin [Glucophage] 500 mg PO BID 01/13/19 02/04/19 Previous Rx's Medication Instructions Recorded propranolol 10 mg tablet 10 mg PO BID #180 tab 07/03/18 True metrix glucose test strip #100 each 07/31/18 BD U/F MINI PEN NEEDLE [id number] #1 ea 08/27/18 ferrous sulfate 325 mg (65 mg 325 mg PO DAILY #30 tab 10/28/18 iron) tablet ergocalciferol (vitamin D2) 50,000 50,000 unit PO QWEEK #6 cap 11/27/18 unit capsule insulin lispro (U- 100) 100 25 unit SUBCUT QAC #30 ml 12/16/18 unit/mL subcutaneous pen hydrocodone 5 mg-acetaminophen 325 1 tab PO Q6HP PRN #120 tab 12/29/18 mg tablet lorazepam 1 mg tablet 1 mg PO Q6H PRN #120 tab MDD 4 mg 12/30/18 clobetasol 0.05 % topical ointment 1 applictn TOPICAL BID PRN #30 gram 01/19/19 nystatin 100,000 unit/gram topical 1 applictn TOP BID #30 gram 01/19/19 powder albuterol sulfate HFA 90 2 puff INHALATION Q4HP PRN #8 gram 03/05/19 mcg/actuation aerosol inhaler benzonatate 100 mg capsule 100 mg PO BID-TID PRN #20 cap 03/05/19 ketorolac 10 mg PO Q6H PRN #14 tab 03/05/19 Allergies Allergy/AdvReac Type Severity Reaction Status Date / Time Iodinated Contrast- Oral and Allergy Severe Neck, face Verified 03/05/19 18:51 IV Dye arms all [IODINATED CONTRAST MEDIA - swollen IV DYE] with difficulty breathing hydromorphone [From DILAUDID] Allergy Mild Very Verified 03/05/19 18:51 sensitive to this drug. ciprofloxacin [From Cipro] Allergy Hives Verified 03/05/19 18:51 Sulfa (Sulfonamide Allergy Rash Verified 03/05/19 18:51 Antibiotics) loperamide [From IMODIUM A-D] AdvReac Mild Nausea Verified 03/05/19 18:51 vomiting VITAMIN C AdvReac Mild Nausea/vomiting Uncoded 03/05/19 18:51 and migraines Review of Systems Constitutional Denies chills, Denies fever(s), Denies lethargy and Denies weakness Eyes Denies change in vision, Denies eye discharge, Denies irritation and Denies loss of vision ENT Ears, Nose, Mouth, and Throat: Denies change in voice, Denies neck pain and Denies sore throat Cardiovascular Denies chest pain, Denies irregular heart rhythm, Denies lightheadedness, Denies palpitations, Denies dyspnea, Denies dyspnea on exertion and Denies orthopnea Respiratory Denies cough, Denies dyspnea, Denies dyspnea on exertion and Denies wheezing Gastrointestinal Gastrointestinal: Denies abdominal pain, Denies change in bowel habits, Denies diarrhea, Denies nausea and Denies vomiting Genitourinary Denies hematuria, Denies flank pain, Denies urinary incontinence and Denies urinary urgency Musculoskeletal Reports back pain and Denies neck pain Integumentary/Breasts Denies pruritus, Denies erythema, Denies rash and Denies wounds Neurologic Denies confusion, Denies loss of vision and Denies weakness Psychiatric Denies anxiety, Denies confusion, Denies depression, Denies homicidal ideation and Denies suicidal ideation Endocrine Denies palpitations Hematologic/Lymphatic Denies easy bruising Allergic/Immunologic Denies wheezing [facility] Medical History Chronic dental pain (Chronic) Uncomplicated opioid dependence (Chronic) Anxiety (Chronic Unknown) Depression (Chronic Unknown) Morbid obesity with body mass index (BMI) greater than or equal to 50 (Chronic 08/04/15) Mild intermittent asthma without complication (Chronic 02/23/16) Type 2 diabetes mellitus without complication, with long-term current use of insulin (Chronic 10/08/16) Dermatitis (Chronic Unknown) Hx MRSA infection (Resolved 10/2010) Surgical History No history of previous surgery (Chronic) History of cholecystectomy (Acute) Family History Mother Age: 38 Type 2 diabetes mellitus without complication Sister Age: 28 Depression Sister Age: 31 Anxiety Social History household members: spouse Smoking Status: Former smoker Family History Mother Age: 38 Type 2 diabetes mellitus without complication Sister Age: 28 Depression Sister Age: 31 Anxiety Social History household members: spouse Smoking Status: Former smoker Exam Narrative Exam Narrative: GEN: AOx3 and in mild distress, morbidly obese, appears stated age EYES: Pupils are equal, round, and reactive to light and accommodation. Extraoccular muscles are intact bilaterally. There is no subconjunctival hemorrhage or exudate. CHEST: Lungs are clear to auscultation bilaterally and free of wheezes, rales, or rhonchi. Heart rate is regular rhythm, there are no murmurs, clicks, rubs, or gallops. There is no chest wall tenderness. ABD: Abdomen is soft and nontender. There is no guarding or rebound. Bowel sounds are normal in all 4 quadrants. There is no mass or organomegaly. EXT: Full painless ROM of all extremities with no loss of sensation or strength. BACK: Patient tender to palpation across thoracic and lumbar spine and bilaterally in the paraspinal muscles. No midline tenderness. tender but free of any obvious external abnormalities. Patient exam notes decreased range of motion and muscle spasm, but no CVA tenderness, or vertebral point tenderness. There are no symptoms of cauda equina such as saddle anesthesia, and decreased reflexes, decreased sensation or strength. SKIN: Warm, pink, and dry. No erythema or rash Initial Vital Signs Initial Vital Signs: Vital Signs Temperature 97.2 F L 03/05/19 18:46 Pulse Rate 87 03/05/19 18:46 Respiratory Rate 16 03/05/19 18:46 Blood Pressure 179/110 H 03/05/19 18:46 Pulse Oximetry 99 03/05/19 18:46 Course Orders Ordered: ED Orders 03/05/19 19:51 Urinalysis and Microscopic Stat Vital Signs - 8 hr 03/05/19 18:46 Temperature 97.2 F L Pulse Rate 87 Respiratory Rate 16 Blood Pressure 179/110 H Pulse Oximetry 99 MDM - Back Pain/Injury Lab Data Lab Results 03/05/19 Range/Units 19:51 Urine Color Yellow Urine Appearance Clear Urine pH 6.5 (4.5-8.0) Ur Specific Perry <=1.005 (1.000-1.035) Urine Protein Negative (Negative) Urine Glucose (UA) Trace H (Negative) g/dL Urine Ketones Negative (NEGATIVE) Urine Occult Blood Negative (Negative) Urine Nitrate Negative (Negative) Urine Bilirubin Negative (NEGATIVE) Urine Urobilinogen 0.2 (0.2) E.U./dL Ur Leukocyte Esterase Negative (NEGATIVE) Urine RBC 1-5/hpf (0-5/HPF) Urine WBC 1-5/hpf (0-5/HPF) Urine Bacteria None seen (None) Ur Culture Indicated? Cult not indicated MDM Narrative Medical decision making narrative: Multiple etiologies for patient's symptoms considered including: [Musculoskeletal spasm, pyelonephritis versus epidural abscess versus osteomyelitis versus other] Findings and discharge diagnosis discussed with patient/family followed by verbalization of understanding Return precautions discussed with patient/family whom verbalize understanding. Discharge Plan Departure Patient Disposition: Home Clinical Impression: Back pain Qualifiers: Back pain location: thoracic back pain Chronicity: acute Back pain laterality: bilateral Qualified Code(s): M54.6 - Pain in thoracic spine Discharge Date/Time: 03/05/19 21:21 Interventions: ED Discharge Assessment Last Done: 03/05/19 21:21 Instructions: DI for Back Spasm Activity Restrictions/Additional Instructions: *You have been diagnosed with [thoracic and lumbar back pain, muscle spasm and inflammation] *What to do: *Take medications as directed: You already have prescriptions for hydrocodone (pain), lorazepam (muscle relaxer), please take these as directed. Additionally I have electronically transmitted a prescription for an anti-inflammatory to [facility] at your request. Finally you can also use [id number] lidocaine patches, ask the pharmacist about these *Follow up with your primary care provider in 2-3 days, call for an appointment. Let them know you were seen in the Emergency Department and that we ask that you be seen in follow up *Return to ER if you should have any new, worsening or concerning symptoms Prescriptions: New ketorolac 10 mg tablet 10 mg PO Q6H PRN (Reason: pain) Qty: 14 RF: 0 No Action propranolol 10 mg tablet 10 mg PO BID Qty: 180 RF: 3 True metrix glucose test strip Qty: 100 RF: 5 BD U/F MINI PEN NEEDLE [id number] Qty: 1 RF: 2 Humalog KwikPen Insulin 100 unit/mL insulin pen 25 unit SUBCUT QAC Qty: 30 RF: 1 lorazepam 1 mg tablet 1 mg PO Q6H MDD 4 mg PRN (Reason: anxiety) Qty: 120 RF: 5 nystatin 100,000 unit/gram powder 1 applictn TOP BID Qty: 30 RF: 1 clobetasol 0.05 % ointment 1 applictn Topical BID PRN (Reason: rash) Qty: 30 RF: 1 Ventolin HFA 90 mcg/actuation HFA aerosol inhaler 2 puff Inhalation Q4HP PRN (Reason: Shortness Of Breath) Qty: 8 RF: 11 benzonatate [Tessalon Perles] 100 mg capsule 100 mg PO BID-TID PRN (Reason: cough) Qty: 20 RF: 0 ferrous sulfate 325 mg (65 mg iron) tablet 325 mg PO DAILY Qty: 30 RF: 5 hydrocodone-acetaminophen 5-325 mg tablet 1 tab PO Q6HP PRN (Reason: pain) Qty: 120 RF: 0 ergocalciferol (vitamin D2) 50,000 unit capsule 50,000 unit PO QWEEK Qty: 6 RF: 0 loratadine [Claritin] 10 mg Tablet 10 mg PO DAILY PRN (Reason: Allergy Symptoms) RF: 0 lisinopril 10 mg tablet 30 mg PO DAILY RF: 0 metformin [Glucophage] 500 mg tablet 500 mg PO BID RF: 0 Lantus Solostar U-100 Insulin 100 unit/mL (3 mL) insulin pen 20 unit SUBCUT QPM RF: 0 Referrals: Corwin Pacheco MD [Primary Care Provider] -
[2019-03-05 19:52] LABS: Bacteria Urine None Seen
[2019-03-05 19:55] LABS: Appearance Urine UA CLEAR; Bilirubin Urine UA NEGATIVE (NEGATIVE); Color Urine UA YELLOW; Glucose Urine UA TRACE g/dL (Negative); Ketones Urine UA NEGATIVE (NEGATIVE); Leukocyte Esterase Urine UA NEGATIVE (NEGATIVE); Nitrite Urine UA NEGATIVE (Negative); Occult Blood Urine UA NEGATIVE (Negative); Protein Urine UA NEGATIVE (Negative); Specific Gravity Urine UA <=1.005 (1.000-1.035); Urobilinogen Urine UA 0.2 E.U./dL (0.2); pH Urine UA 6.5 (4.5-8.0)
[2019-03-05 20:19] LABS: Culture Indicated Urine Cult Not Indicated; RBC Urine 1-5/HPF (0-5/HPF); WBC Urine 1-5/HPF (0-5/HPF)
--- NOTE | 2019-03-05 20:37 | PC.NURSE ---
Pt Hx chronic back pain. Takes pain meds at home. C/o pain 9/10 today. Denies any injury. No relief obtained from home medication. Ambulating without assistance. Urine sample collected and results available and negative. Will continue to monitor.
== END 2019-03-05 21:21 | disposition home or self-care (01) ==
PROVIDERS: Emergency Provider Emergency Medicine; Family Provider Student in an Organized Health Care Education/Training Program; PCP Student in an Organized Health Care Education/Training Program
DX: M54.6 Pain in thoracic spine (principal)
CPT/HCPCS: 81001; 99282; 99283

== ENCOUNTER → 2019-03-15 17:52 | Outpatient (CLI) | payer OTHER, MEDICAID, SELFPAY ==
[2019-03-15 18:31] LABS: Reticulocyte Count, Percent 1.4 % (1.06-2.63)
[2019-03-15 18:36] LABS: Hematocrit 38.2 % (36-46); Hemoglobin 12.2 g/dL (12.0-16.0); Mean Corpuscular Hemoglobin 21.6 PG (26-34); Mean Corpuscular Volume 67.6 fL (80-100); Platelet Count 305 X10^3/uL (150-400); Red Blood Cell Count 5.65 X10^6/uL (4.0-5.2); Red Cell Distribution Width 16.9 % (11.6-14.8); White Blood Cell Count 7.9 X10^3/uL (4.5-11.0)
[2019-03-15 18:48] LABS: D Dimer 230 ng/mL (<230)
[2019-03-15 18:59] LABS: HEMOLYSIS < 15 (0-50); Iron 39 ug/dL (37-170)
[2019-03-15 19:00] LABS: Phosphorous 3.7 mg/dL (2.5-4.5)
[2019-03-15 19:10] LABS: Percent Iron Saturation 11 % (15-50); Total Iron Binding Capacity 354 ug/dL (265-497); Transferrin 289 mg/dL (206-381)
[2019-03-15 19:17] LABS: Vitamin D 25 Hydroxy (D3) 17.5 ng/mL (30.0-100.0)
[2019-03-18 15:15] LABS: Parathyroid Hormone Int 52 pg/mL (14-64)
== END ==
PROVIDERS: Family Provider Student in an Organized Health Care Education/Training Program; PCP Student in an Organized Health Care Education/Training Program; Visit Provider Student in an Organized Health Care Education/Training Program
DX: D50.9 Iron deficiency anemia, unspecified (principal); E11.9 Type 2 diabetes mellitus without complications; E55.9 Vitamin D deficiency, unspecified; Z79.4 Long term (current) use of insulin; E66.01 Morbid (severe) obesity due to excess calories
CPT/HCPCS: 36415; 82306; 83516; 83540; 83550; 83970; 84100; 85027; 85045; 85379

== ENCOUNTER → 2019-03-16 13:35 | Outpatient (CLI) | payer OTHER, MEDICAID, SELFPAY ==
[2019-03-16 13:56] LABS: Hemoglobin A1C% w Est Avg Glu 10.2 % (4.0-6.0)
== END ==
PROVIDERS: Family Provider Student in an Organized Health Care Education/Training Program; PCP Student in an Organized Health Care Education/Training Program; Visit Provider Student in an Organized Health Care Education/Training Program
DX: E11.9 Type 2 diabetes mellitus without complications (principal); Z79.4 Long term (current) use of insulin
CPT/HCPCS: 83036

== ENCOUNTER 2019-05-18 15:17 | Emergency (ER) | payer OTHER, MEDICAID, SELFPAY ==
[2019-05-18 15:26] VITALS: BP 161/90; PULSE 78; RESP 20; TEMP 36.6; O2SAT 97; BMI 55.2
--- NOTE | 2019-05-18 16:53 | ED_ITS ---
HPI - Nausea/Vomiting/Diarrhea General Chief complaint: Nausea/Vomiting/Diarrhea Stated complaint: fever, vomiting, unable to swallow water Time Seen by Provider: 05/18/19 16:53 Source: patient Mode of arrival: ambulatory Limitations: no limitations History of Present Illness HPI Narrative: 33-year-old female comes to the emergency department with complaint of diarrhea for 3 days. Patient states that has decreased but not she is having nausea and vomiting intermittently. She states she has not been able to keep a lot of fluid down. She states the last. Of emesis was about 11:00 a.m. this morning. She denies fevers but felt a little warm earlier today. She had abdominal pain that she describes left flank pain little bit into the left side but also describes some generalized abdominal pain. She also describes a little bit of a sore throat. She states she has been a little hoarse but she has been vomiting she also attended a post [employer] concert and was screaming a lot during the concert. She has been able to swallow liquids without major issue. She did contact her primary care but but not get in for a sooner appointment. She also had her Zofran refilled which she does take. She has a history of diabetes as well as hypertension. She states that she has had a cholecystectomy and denies other surgeries. She has not allergy to Zofran ODT but has had IV and p.o. Zofran without issue. Related Data Home Medications Medication Instructions Recorded Confirmed loratadine [Claritin] 10 mg PO DAILY PRN 03/24/18 05/18/19 insulin glargine [Lantus Solostar 30 unit SUBCUT QPM 01/13/19 05/18/19 U-100 Insulin] ergocalciferol (vitamin D2) 50,000 unit PO QWEEK 05/18/19 05/18/19 [Vitamin D2] ferrous sulfate 325 mg PO QPM 05/18/19 05/18/19 insulin lispro [Humalog KwikPen 45 unit SUBCUT QAC 05/18/19 05/18/19 Insulin] lisinopril 10 mg PO QPM 05/18/19 05/18/19 lisinopril 20 mg PO QAM 05/18/19 05/18/19 propranolol 10 mg PO BID 05/18/19 05/18/19 Previous Rx's Medication Instructions Recorded BD U/F MINI PEN NEEDLE [id number] #1 ea 08/27/18 lorazepam 1 mg tablet 1 mg PO Q6H PRN #120 tab MDD 4 mg 12/30/18 clobetasol 0.05 % topical ointment 1 applictn TOPICAL BID PRN #30 gram 01/19/19 nystatin 100,000 unit/gram topical 1 applictn TOP BID #30 gram 01/19/19 powder albuterol sulfate 90 mcg/actuation 2 puff INHALATION Q4HP PRN #8 gram 03/05/19 aerosol inhaler cyclobenzaprine 5 mg tablet 5 mg PO BEDTIME PRN #30 tab 03/16/19 hydrocodone 5 mg-acetaminophen 325 1 tab PO Q6HP PRN #120 tab 03/16/19 mg tablet metformin 500 mg tablet 500 mg PO QID #360 tab 03/16/19 TRUE METRIX AIR GLUCOSE METER #1 ea 03/17/19 BD U/F Mini Pen Needle #100 each 04/14/19 True metrix glucose test strip #100 each 04/14/19 cephalexin [Keflex] 500 mg PO BID #14 cap 05/18/19 ondansetron HCl 4 mg tablet 4 mg PO TID PRN #30 tab 05/18/19 ondansetron HCl [Zofran] 4 mg PO QID PRN #5 tab 05/18/19 Allergies Allergy/AdvReac Type Severity Reaction Status Date / Time Iodinated Contrast- Oral and Allergy Severe Neck, face Verified 03/16/19 13:36 IV Dye arms all [IODINATED CONTRAST MEDIA - swollen IV DYE] with difficulty breathing hydromorphone [From DILAUDID] Allergy Mild Very Verified 03/16/19 13:36 sensitive to this drug. ciprofloxacin [From Cipro] Allergy Hives Verified 03/16/19 13:36 Sulfa (Sulfonamide Allergy Rash Verified 03/16/19 13:36 Antibiotics) loperamide [From IMODIUM A-D] AdvReac Mild Nausea Verified 03/16/19 13:36 vomiting VITAMIN C AdvReac Mild Nausea/vomiting Uncoded 03/16/19 13:36 and migraines Review of Systems Review of Systems ROS Unobtainable: All systems reviewed & are unremarkable except as noted in HPI and below Constitutional Constitutional: Denies chills, Denies fever(s), Denies lethargy and Denies weakness Cardiovascular Cardiovascular: Denies chest pain, Denies dyspnea and Denies dyspnea on exertion Respiratory Respiratory: Denies dyspnea and Denies dyspnea on exertion Gastrointestinal Gastrointestinal: Reports abdominal pain, Denies melena, Denies hematochezia, Denies change in bowel habits, Denies constipation, Reports cramping, Denies adelaide rrhea, Reports nausea and Reports vomiting Genitourinary Genitourinary: Denies hematuria, Denies urinary frequency, Denies dysuria, Denies flank pain, Denies urinary incontinence, Denies urinary hesitancy and Denies urinary urgency Neurologic Neurologic: Denies weakness [facility] Medical History Anxiety (Chronic Unknown) Chronic dental pain (Chronic) Depression (Chronic Unknown) Dermatitis (Chronic Unknown) Hx MRSA infection (Resolved 10/2010) Mild intermittent asthma without complication (Chronic 02/23/16) Morbid obesity with body mass index (BMI) greater than or equal to 50 (Chronic 08/04/15) Type 2 diabetes mellitus without complication, with long-term current use of insulin (Chronic 10/08/16) Uncomplicated opioid dependence (Chronic) Surgical History History of cholecystectomy (Acute) No history of previous surgery (Chronic) Family History Mother Age: 38 Type 2 diabetes mellitus without complication Sister Age: 28 Depression Sister Age: 31 Anxiety Social History household members: spouse Smoking Status: Former smoker Social History household members: spouse Smoking Status: Former smoker Exam Narrative Exam Narrative: GENERAL: Alert and oriented x three, obese, well-appearing female in mild distress. HEENT: Head normocephalic, atraumatic, EOMI, pupils reactive, face symmetric, throat is not erythematous, no exudate, uvula is midline, moist mucous membranes NECK: Supple, full range of motion CARDIOVASCULAR: Regular rate and rhythm without murmurs, rubs or gallops. RESPIRATORY: Breath sounds equal bilaterally, no wheezes rales or rhonchi. ABDOMEN: Soft, mild generalized tenderness. Normoactive bowel sounds all 4 quadrants. No guarding or rebound, rigidity, no mass : No CVA tenderness EXTREMITIES: Normal range of motion, no clubbing or edema. Neurovascularly in tact NEUROLOGICAL: Cranial nerves II through XII grossly intact. Moving all extremities SKIN: Warm, dry, no petechiae, no rashes or lesions. Initial Vital Signs Initial Vital Signs: Vital Signs Temperature 97.8 F 05/18/19 15:26 Pulse Rate 78 05/18/19 15:26 Respiratory Rate 20 05/18/19 15:26 Blood Pressure 161/90 H 05/18/19 15:26 Pulse Oximetry 97 05/18/19 15:26 Course Orders Ordered: ED Orders 05/18/19 17:08 CT kidney ureter bladder (KUB) Stat 05/18/19 17:20 Complete Blood Count AUTO DIFF Stat Comprehensive Metabolic Panel Stat Lipase Stat Urinalysis and Microscopic Stat Urine Culture Stat Discontinued Medications Cephalexin HCl (Keflex) 500 mg PO NOW ONE Stop: 05/18/19 18:11 Last Admin: 05/18/19 18:41 Dose: 500 mg Documented by: EULOGIO Sodium Chloride (Normal Saline 0.9%) 1,000 mls @ 1,000 mls/hr IV BOLUS ONE Stop: 05/18/19 18:05 Last Infusion: 05/18/19 18:48 Dose: 0 mls/hr Documented by: Admin: 05/18/19 17:27 Dose: 1,000 mls/hr Documented by: EULOGIO Ketorolac Tromethamine (Toradol) 15 mg IV NOW ONE Stop: 05/18/19 17:13 Last Admin: 05/18/19 17:27 Dose: 15 mg Documented by: EULOGIO Ondansetron HCl (Zofran) 4 mg IV NOW ONE Stop: 05/18/19 17:07 Last Admin: 05/18/19 17:27 Dose: 4 mg Documented by: EULOGIO Vital Signs Vital signs: Vital Signs - 8 hr 05/18/19 15:26 05/18/19 18:46 Temperature 97.8 F Pulse Rate 78 77 Respiratory Rate 20 16 Blood Pressure 161/90 H 147/85 H Pulse Oximetry 97 99 MDM - Nausea/Vomiting/Diarrhea Lab Data Attestation: I reviewed the patient's lab results. Result diagrams: 05/18/19 17:20 05/18/19 17:20 Labs: Lab Results 05/18/19 05/18/19 05/18/19 Range/Units 17:20 17:20 17:20 WBC 8.9 (4.5-11.0) X10^3/uL RBC 5.56 H (4.0-5.2) X10^6/uL Hgb 12.4 (12.0-16.0) g/dL Hct 37.2 (36-46) % MCV 66.9 L (80-100) fL MCH 22.2 L (26-34) PG MCHC 33.2 (30-36) % RDW 16.1 H (11.6-14.8) % Plt Count 301 (150-400) X10^3/uL Neut % (Auto) 70.0 (50-75) % Lymph % (Auto) 17.0 L (25-40) % [place] % (Auto) 8.4 (3-14) % Eos % (Auto) 4.3 H (2-4) % Baso % (Auto) 0.3 (0-2) % Neut # (Auto) 6300 (6480-3668) /uL Lymph # (Auto) 1500 (8264-1129) /uL [place] # (Auto) 700 (0-900) /uL Eos # (Auto) 400 (0-450) /uL Baso # (Auto) 0 (0-100) /uL RBC Morphology See below Polychromasia 1+ H Hypochromasia 1+ H Microcytosis 1+ H Sodium 137 (137-145) mmol/L Potassium 3.9 (3.4-5.1) mmol/L Chloride 99 (98-107) mmol/L Carbon Dioxide 30 (22-32) mmol/L BUN 12 (7-17) mg/dL Creatinine 0.50 L (0.52-1.04) mg/dL Estimated GFR > 60.0 (>60) mL/min BUN/Creatinine Ratio 24.0 H (6-22) Glucose 246 H (70-100) mg/dL Calcium 8.9 (8.4-10.2) mg/dL Total Bilirubin 0.6 (0.2-1.3) mg/dL AST 35 (14-36) IU/L ALT 53 H (9-52) IU/L Alkaline Phosphatase 48 (38-126) U/L Total Protein 7.8 (6.3-8.2) g/dL Albumin 4.0 (3.5-5.0) g/dL Globulin 3.8 (1.7-4.1) g/dL Albumin/Globulin Ratio 1.1 (1.0-2.8) Lipase 53 (23-300) U/L Urine Color Yellow Urine Appearance Cloudy Urine pH 7.0 (4.5-8.0) Ur Specific [place] 1.010 (1.000-1.035) Urine Protein 1+ H (Negative) Urine Glucose (UA) 2+ H (Negative) g/dL Urine Ketones Negative (NEGATIVE) Urine Occult Blood 3+ H (Negative) Urine Nitrate Negative (Negative) Urine Bilirubin Negative (NEGATIVE) Urine Urobilinogen 0.2 (0.2) E.U./dL Ur Leukocyte Esterase Trace H (NEGATIVE) Urine RBC 5-10/hpf H (0-5/HPF) Urine WBC 5-10/hpf H (0-5/HPF) Amorphous Sediment 2+ Urine Bacteria None seen (None) Ur Culture Indicated? Specimen cultured Point of Care Testing Test Results Negative Urine Dip Bedside Urine Glucose 1000 mg/dl Bedside Urine Bilirubin - Negative Bedside Urine Ketone - Negative Urine Specific [place] 1.015 Bedside Urine Occult Blood +++ Bedside Urine pH 6.5 Bedside Urine Protein + 30 Bedside Urine Urobilinogen - Negative Bedside Urine Nitrite - Negative Bedside Urine Leukocytes ++ [address] scan - abdomen: Radiologist's impression: [place] [address] CT Scan Report Signed Patient: Yaquelin Loera CMR#: [id number] : 1985Acct:[id number] Age/Sex: 33 / FDate of Service: 05/18/19 Loc: ED Accession Number: [id number] Procedure: CT kidney ureter bladder (KUB) Ordering Provider: Portia Lira D.O. PROCEDURE: CT KIDNEY URETER BLADDER (KUB) INDICATIONS: left flank pain, n/v TECHNIQUE: Noncontrast 5 mm thick sections acquired from the diaphragms to the symphysis. 5 mm thick coronal and sagittal reformats were then performed. For radiation dose reduction, the following was used: automated exposure control, adjustment of mA and/or kV according to patient size. COMPARISON: [facility], CT, KIDNEY/ URETER/BLADDER, 08/16/2017, 19:50. [facility], CT, KIDNEY/ URETER/BLADDER, 11/26/2011, 17:10. FINDINGS: Image quality: Excellent. Lung bases: Lung bases are clear. Heart size is normal. Urinary system: Both kidneys are normal in size. No kidney stones. No hydron ephrosis or perinephric fat stranding. Both ureters appear non-dilated throughout their expected courses. Bladder wall thickness is normal; no calcified bladder stones. Other solid organs: Liver is normal in size. Gallbladder is surgically absent. Mild prominence of the common bile duct probably is within normal limits given the patient's prior cholecystectomy. Pancreas is normal in contours. Spleen is normal in borderline enlarged. No adrenal nodules. Peritoneum and bowel: Unenhanced bowel loops demonstrate normal wall thickness and caliber. No free fluid or air. No loculated fluid collections are present. The appendix is well-visualized and normal. Moderate residual stool is seen within the colon. Nodes and vessels: No retroperitoneal or mesenteric adenopathy by size criteria. Aorta and inferior vena cava are normal in caliber. Abdominal wall: No ventral hernias. Pelvis: No free pelvic fluid. No inguinal hernias or adenopathy. The uterus a nd ovaries are not enlarged or adequately evaluated. Bones: No suspicious bony lesions. No vertebral body compression fractures. IMPRESSION: 1. No calcified nephroureterolithiasis or hydronephrosis. 2. No bowel obstruction. 3. The uterus and ovaries do not appear to be enlarged. Dictated by: Brendon La M.D. on 05/18/2019 at 16:52 Approved by: Brendon La M.D. on 05/18/2019 at 16:55 MDM Narrative Medical decision making narrative: patient has Discharge Plan Departure Patient Disposition: Home Clinical Impression: UTI (urinary tract infection) Discharge Date/Time: 05/18/19 18:49 Instructions: DI for Urinary Tract Infection (UTI) Activity Restrictions/Additional Instructions: Follow up with primary care in the next 3-5 days for recheck. Take antibiotics until gone. [facility] in [place]. Return to the Emergency Department fevers greater than 100.4 F, persistent vomiting, worsening abdominal, flank pain, black or bloody stools, lightheadedness, altered mental status or other new or concerning symptoms. Prescriptions: New cephalexin [Keflex] 500 mg capsule 500 mg PO BID Qty: 14 RF: 0 ondansetron HCl [Zofran] 4 mg tablet 4 mg PO QID PRN (Reason: nausea and vomiting) Qty: 5 RF: 0 No Action (DME) BD U/F MINI PEN NEEDLE [id number] Qty: 1 RF: 2 lorazepam 1 mg tablet 1 mg PO Q6H MDD 4 mg PRN (Reason: anxiety) Qty: 120 RF: 5 nystatin 100,000 unit/gram powder 1 applictn TOP BID Qty: 30 RF: 1 clobetasol 0.05 % ointment 1 applictn Topical BID PRN (Reason: rash) Qty: 30 RF: 1 Ventolin HFA 90 mcg/actuation HFA aerosol inhaler 2 puff Inhalation Q4HP PRN (Reason: Shortness Of Breath) Qty: 8 RF: 11 (DME) TRUE METRIX AIR GLUCOSE METER Qty: 1 RF: 0 (DME) True metrix glucose test strip Qty: 100 RF: 5 (DME) BD U/F Mini Pen Needle 31G X 5MM Qty: 100 RF: 5 ondansetron HCl 4 mg tablet 4 mg PO TID PRN (Reason: nausea and vomiting) Qty: 30 RF: 0 cyclobenzaprine 5 mg tablet 5 mg PO BEDTIME PRN (Reason: muscle spasm) Qty: 30 RF: 0 metformin [Glucophage] 500 mg tablet 500 mg PO QID Qty: 360 RF: 1 hydrocodone-acetaminophen 5-325 mg tablet 1 tab PO Q6HP PRN (Reason: pain) Qty: 120 RF: 0 loratadine [Claritin] 10 mg Tablet 10 mg PO DAILY PRN (Reason: Allergy Symptoms) RF: 0 Lantus Solostar U-100 Insulin 100 unit/mL (3 mL) insulin pen 30 unit SUBCUT QPM RF: 0 propranolol 10 mg tablet 10 mg PO BID RF: 0 lisinopril 10 mg tablet 10 mg PO QPM RF: 0 ergocalciferol (vitamin D2) [Vitamin D2] 50,000 unit capsule 50,000 unit PO QWEEK RF: 0 lisinopril 20 mg tablet 20 mg PO QAM RF: 0 ferrous sulfate 325 mg (65 mg iron) tablet 325 mg PO QPM RF: 0 insulin lispro [Humalog KwikPen Insulin] 100 unit/mL insulin pen 45 unit SUBCUT QAC RF: 0 Referrals: Corwin Pacheco MD [Primary Care Provider] -
--- NOTE | 2019-05-18 17:08 | DI.CT.S_ITS ---
PROCEDURE: CT KIDNEY URETER BLADDER (KUB) INDICATIONS: left flank pain, n/v TECHNIQUE: Noncontrast 5 mm thick sections acquired from the diaphragms to the symphysis. 5 mm thick coronal and sagittal reformats were then performed. For radiation dose reduction, the following was used: automated exposure control, adjustment of mA and/or kV according to patient size. COMPARISON: [facility], CT, KIDNEY/ URETER/BLADDER, 08/16/2017, 19:50. [facility], CT, KIDNEY/ URETER/BLADDER, 11/26/2011, 17:10. FINDINGS: Image quality: Excellent. Lung bases: Lung bases are clear. Heart size is normal. Urinary system: Both kidneys are normal in size. No kidney stones. No hydronephrosis or perinephric fat stranding. Both ureters appear non-dilated throughout their expected courses. Bladder wall thickness is normal; no calcified bladder stones. Other solid organs: Liver is normal in size. Gallbladder is surgically absent. Mild prominence of the common bile duct probably is within normal limits given the patient's prior cholecystectomy. Pancreas is normal in contours. Spleen is normal in borderline enlarged. No adrenal nodules. Peritoneum and bowel: Unenhanced bowel loops demonstrate normal wall thickness and caliber. No free fluid or air. No loculated fluid collections are present. The appendix is well-visualized and normal. Moderate residual stool is seen within the colon. Nodes and vessels: No retroperitoneal or mesenteric adenopathy by size criteria. Aorta and inferior vena cava are normal in caliber. Abdominal wall: No ventral hernias. Pelvis: No free pelvic fluid. No inguinal hernias or adenopathy. The uterus and ovaries are not enlarged or adequately evaluated. Bones: No suspicious bony lesions. No vertebral body compression fractures. IMPRESSION: 1. No calcified nephroureterolithiasis or hydronephrosis. 2. No bowel obstruction. 3. The uterus and ovaries do not appear to be enlarged. Dictated by: Brendon La M.D. on 05/18/2019 at 16:52 Approved by: Brendon La M.D. on 05/18/2019 at 16:55
[2019-05-18] MEDS: KETOROLAC 60 MG/2 ML VIAL 15 MG IV (17:27)
[2019-05-18] MEDS: ONDANSETRON 4 MG/2 ML INJ IV (17:27)
[2019-05-18] MEDS: SODIUM CHLORIDE 0.9% 1,000 ML 1000 ML IV (17:27)
[2019-05-18 17:31] LABS: Add Manual Diff / Slide Review NO; Basophils Absolute Auto 0 /uL (0-100); Basophils Percent Auto 0.3 % (0-2); Eosinophils Absolute Auto 400 /uL (0-450); Eosinophils Percent Auto 4.3 % (2-4); Hematocrit 37.2 % (36-46); Hemoglobin 12.4 g/dL (12.0-16.0); Lymphocytes Absolute Auto 1500 /uL (1100-4500); Mean Corpuscular HGB Conc 33.2 % (30-36); Mean Corpuscular Hemoglobin 22.2 PG (26-34); Mean Corpuscular Volume 66.9 fL (80-100); Monocytes Absolute Auto 700 /uL (0-900); Monocytes Percent Auto 8.4 % (3-14); Neutrophils Absolute Auto 6300 /uL (1500-7000); Platelet Count 301 X10^3/uL (150-400); Red Blood Cell Count 5.56 X10^6/uL (4.0-5.2); Red Cell Distribution Width 16.1 % (11.6-14.8); White Blood Cell Count 8.9 X10^3/uL (4.5-11.0)
[2019-05-18 17:47] LABS: Alanine Aminotransferase 53 IU/L (9-52); Albumin Globulin Ratio 1.1 (1.0-2.8); Alkaline Phosphatase 48 U/L (38-126); Aspartate Aminotransferase 35 IU/L (14-36); Bilirubin Total 0.6 mg/dL (0.2-1.3); Blood Urea Nitrogen 12 mg/dL (7-17); Calcium 8.9 mg/dL (8.4-10.2); Carbon Dioxide 30 mmol/L (22-32); Chloride 99 mmol/L (98-107); Estimated Glomerular Filt Rate > 60.0 mL/min (>60); Globulin 3.8 g/dL (1.7-4.1); Glucose 246 mg/dL (70-100); HEMOLYSIS < 15 (0-50); Lipase 53 U/L (23-300); Potassium 3.9 mmol/L (3.4-5.1); Sodium 137 mmol/L (137-145); Total Protein 7.8 g/dL (6.3-8.2)
[2019-05-18 17:50] LABS: Hypochromasia 1+; Microcytosis 1+; Polychromasia 1+
[2019-05-18 17:51] LABS: Bacteria Urine None Seen
[2019-05-18 17:54] LABS: Appearance Urine UA CLOUDY; Bilirubin Urine UA NEGATIVE (NEGATIVE); Color Urine UA YELLOW; Glucose Urine UA 2+ g/dL (Negative); Ketones Urine UA NEGATIVE (NEGATIVE); Leukocyte Esterase Urine UA TRACE (NEGATIVE); Nitrite Urine UA NEGATIVE (Negative); Occult Blood Urine UA 3+ (Negative); Protein Urine UA 1+ (Negative); Urobilinogen Urine UA 0.2 E.U./dL (0.2)
[2019-05-18 18:03] LABS: Amorphous Sediment Urine 2+; Culture Indicated Urine Specimen Cultured; RBC Urine 5-10/HPF (0-5/HPF); WBC Urine 5-10/HPF (0-5/HPF)
[2019-05-18] MEDS: cephALEXin 250 MG CAPSULE 500 MG PO (18:41)
[2019-05-18 18:46] VITALS: BP 147/85; PULSE 77; RESP 16; O2SAT 99
== END 2019-05-18 18:49 | disposition home or self-care (01) ==
PROVIDERS: Emergency Provider Emergency Medicine; Family Provider Student in an Organized Health Care Education/Training Program; PCP Student in an Organized Health Care Education/Training Program
DX: N39.0 Urinary tract infection, site not specified (principal)
CPT/HCPCS: 74176; 80053; 81001; 81003; 81025; 83690; 85025; 87077; 87086; 96361; 96374; 96375; 99283; 99284; J1885; J2405

== ENCOUNTER → 2019-06-24 19:34 | Outpatient (CLI) | payer OTHER, MEDICAID, SELFPAY | PROVIDERS: Family Provider Student in an Organized Health Care Education/Training Program; PCP Student in an Organized Health Care Education/Training Program; Visit Provider Physician Assistant | DX: J02.9 Acute pharyngitis, unspecified (principal) | CPT/HCPCS: 87070 ==

== ENCOUNTER 2019-07-13 23:41 | Inpatient (IN) | payer OTHER, MEDICAID, SELFPAY ==
[2019-07-14] VITALS (15 sets, daily range): BP systolic 114–162; BP diastolic 38–96; PULSE 77–110; RESP 20–24; TEMP 36.1–37.8; O2SAT 96–100; BMI 55.7; BMI 59.5; BMI 59.6
--- NOTE | 2019-07-14 00:58 | ED.SKABFB ---
HPI - Skin/Abscess/Foreign Bdy General Chief complaint: Skin/Abscess/Foreign Body Stated complaint: cyst or boil under left breast Time Seen by Provider: 07/14/19 00:58 Source: patient Mode of arrival: Ambulatory Limitations: no limitations History of Present Illness HPI narrative: The patient presents with pain and swelling to the left breast. She has a cyst or abscess forming. There has been drainage at this site. There is redness to the left breast. She denies associated fever chills. She has had recent cough and URI symptoms, which seemed to resolve. She is having no chest pain or dyspnea at this time. She denies chronic skin problems. She is morbidly obese, with poorly controlled diabetes. Glucose levels at home or using a 2-300 range. She has no prior history of pathology or surgery on the left breast. Related Data Home Medications Medication Instructions Recorded Confirmed loratadine [Claritin] 10 mg PO DAILY PRN 03/24/18 07/14/19 insulin glargine [Lantus Solostar 30 unit SUBCUT QPM 01/13/19 07/14/19 U-100 Insulin] ferrous sulfate 325 mg PO QPM 05/18/19 07/14/19 lisinopril 20 mg PO QAM 05/18/19 07/14/19 propranolol 10 mg PO BID 05/18/19 07/14/19 Previous Rx's Medication Instructions Recorded BD U/F MINI PEN NEEDLE [id number] #1 ea 08/27/18 albuterol sulfate 90 mcg/actuation 2 puff INHALATION Q4HP PRN #8 gram 03/05/19 aerosol inhaler cyclobenzaprine 5 mg tablet 5 mg PO BEDTIME PRN #30 tab 03/16/19 metformin 500 mg tablet 500 mg PO QID #360 tab 03/16/19 TRUE METRIX AIR GLUCOSE METER #1 ea 03/17/19 BD U/F Mini Pen Needle #100 each 04/14/19 True metrix glucose test strip #100 each 04/14/19 hydrocodone 5 mg-acetaminophen 325 1 tab PO Q6HP PRN #120 tab 06/15/19 mg tablet lorazepam 1 mg tablet 1 mg PO BID PRN #60 tab 06/15/19 insulin lispro 100 unit/mL 45 unit SUBCUT QAC #30 ml 06/21/19 subcutaneous pen clobetasol 0.05 % topical ointment 1 applictn TOPICAL BID PRN #30 gram 06/25/19 nystatin 100,000 unit/gram topical 1 applictn TOP BID #30 gram 06/25/19 powder Allergies Allergy/AdvReac Type Severity Reaction Status Date / Time Iodinated Contrast Media Allergy Severe Neck, face Verified 06/24/19 19:28 [IODINATED CONTRAST MEDIA - arms all IV DYE] swollen with difficulty breathing hydromorphone [From DILAUDID] Allergy Mild Very Verified 06/24/19 19:28 sensitive to this drug. ciprofloxacin [From Cipro] Allergy Hives Verified 06/24/19 19:28 Sulfa (Sulfonamide Allergy Rash Verified 06/24/19 19:28 Antibiotics) loperamide [From IMODIUM A-D] AdvReac Mild Nausea Verified 06/24/19 19:28 vomiting VITAMIN C AdvReac Mild Nausea/vomiting Uncoded 06/15/19 11:36 and migraines Review of Systems Review of Systems ROS Unobtainable: All systems reviewed & are unremarkable except as noted in HPI and below Constitutional Constitutional: Denies chills, Denies fever(s), Denies headache(s), Reports lethargy and Denies weakness ENT Ears, Nose, Mouth, and Throat: Denies change in voice, Denies vertigo, Denies dizziness, Denies headache(s), Denies neck pain and Denies sore throat Cardiovascular Cardiovascular: Denies chest pain, Denies lightheadedness, Denies palpitations, Denies dyspnea and Denies orthopnea Respiratory Respiratory: Reports cough, Denies dyspnea and Denies wheezing Gastrointestinal Gastrointestinal: Denies abdominal pain, Denies change in bowel habits, Denies diarrhea, Denies nausea and Denies vomiting Musculoskeletal Musculoskeletal: Denies back pain and Denies neck pain Integumentary/Breasts Skin/Breast: Reports breast swelling, Reports erythema and Reports sores Neurologic Neurologic: Denies confusion, Denies vertigo, Denies dizziness, Denies headache(s) and Denies weakness Psychiatric Psychiatric: Denies confusion Endocrine Endocrine: Denies palpitations Allergic/Immunologic Allergic/Immunologic: Denies wheezing Patient History Medical History Anxiety (Chronic Unknown) Chronic dental pain (Chronic) Depression (Chronic Unknown) Dermatitis (Chronic Unknown) Hx MRSA infection (Resolved 10/2010) Mild intermittent asthma without complication (Chronic 02/23/16) Morbid obesity with body mass index (BMI) greater than or equal to 50 (Chronic 08/04/15) Type 2 diabetes mellitus without complication, with long-term current use of insulin (Chronic 10/08/16) Uncomplicated opioid dependence (Chronic) Surgical History History of cholecystectomy (Acute) No history of previous surgery (Chronic) Family History Mother Age: 38 Type 2 diabetes mellitus without complication Sister Age: 28 Depression Sister Age: 31 Anxiety Social History household members: spouse Smoking Status: Former smoker alcohol intake frequency: holidays/special occasions only Substance Use Type: does not use Exam Initial Vital Signs Initial Vital Signs: Vital Signs Temperature 99.7 F H 07/14/19 00:29 Pulse Rate 110 H 07/14/19 00:29 Respiratory Rate 24 07/14/19 00:29 Blood Pressure 149/76 H 07/14/19 00:29 Pulse Oximetry 98 07/14/19 00:29 Const General: cooperative and well developed Nutritional Appearance: well nourished Orientation: alert, awake, oriented x3 and not confused Chest Other: Erythema with warmth involving about 1/2 of the left breast. There is a 2x3 cm abscess with induration and fluctuance and purulent discharge in the left lower outer quadrant of the breast. The site is quite tender. There is no nipple discharge. Resp Effort & Inspection: normal respiratory effort, able to speak in complete sentences, respiratory distress and uses accessory muscles Auscultation: clear to auscultation bilaterally, no rales, no rhonchi and no wheezes Cardio Rate: regular rate Rhythm: regular rhythm Heart Sounds: S1 normal, S2 normal, no click, no gallops, no murmurs and no rubs Pulses: normal peripheral pulses GI Inspection: large pannus and obesity Palpation: soft and No tender Procedures Abscess I/D Site: chest (breast) Side (if applicable): left Local Anesthetic: lidocaine 1% Amount of anesthesia used (mL): 4 Technique: incised with #11 blade Amount of fluid expressed (mL): 3 Irrigation: Yes Packing used?: iodoform Complications: other (None) Course Course Course Narrative: The patient arrives with significant cellulitis and an abscess in the left breast. I have I and D the abscess, the wound was irrigated and packed. Wound and blood cultures have been obtained. The patient was tachypneic with tachycardic upon arrival. Lactic acid level was normal. She has been started on vancomycin for the breast infection. Her glucose is greater than 300. Successful management of wound will require management of hyperglycemia. The case has been discussed with hospitalist, LUCIANO Anne. She will be admitted. Decision to Admit Date: 07/14/19 Decision to Admit time: 03:31 Orders Ordered: ED Orders 07/14/19 01:15 Basic Metabolic Panel Stat Complete Blood Count AUTO DIFF Stat Lactate (Lactic Acid) Stat Wound Culture and Gram Stain Stat 07/14/19 01:40 Blood Culture Stat 07/14/19 02:15 Urine Culture Stat Urine Microscopic Stat Discontinued Medications Vancomycin HCl/Dextrose (Vancomycin) 2,000 mg in 400 mls @ 200 mls/hr IV NOW ONE Stop: 07/14/19 03:06 Last Admin: 07/14/19 02:07 Dose: 200 mls/hr Documented by: ALICIA Lidocaine HCl (Xylocaine 1%) 10 ml INJ NOW ONE Stop: 07/14/19 01:06 Last Admin: 07/14/19 02:06 Dose: 10 ml Documented by: ALICIA Vital Signs Vital signs: Vital Signs - 8 hr 07/14/19 00:29 07/14/19 00:34 Temperature 99.7 F H 99.7 F H Pulse Rate 110 H 110 H Respiratory Rate 24 24 Blood Pressure [Right Arm] 149/76 H Pulse Oximetry 98 98 MDM - Skin/Abscess/Foreign Bdy Lab Data Result diagrams: 07/14/19 01:15 07/14/19 01:15 Labs: Lab Results 07/14/19 07/14/19 07/14/19 Range/Units 01:15 01:15 01:15 WBC 10.4 (4.5-11.0) X10^3/uL RBC 5.73 H (4.0-5.2) X10^6/uL Hgb 12.7 (12.0-16.0) g/dL Hct 38.9 (36-46) % MCV 67.9 L (80-100) fL MCH 22.2 L (26-34) PG MCHC 32.7 (30-36) % RDW 15.6 H (11.6-14.8) % Plt Count 313 (150-400) X10^3/uL Neut % (Auto) 72.6 (50-75) % Lymph % (Auto) 18.1 L (25-40) % [place] % (Auto) 7.6 (3-14) % Eos % (Auto) 1.1 L (2-4) % Baso % (Auto) 0.6 (0-2) % Neut # (Auto) 7500 H (2970-4229) /uL Lymph # (Auto) 1900 (2715-7493) /uL [place] # (Auto) 800 (0-900) /uL Eos # (Auto) 100 (0-450) /uL Baso # (Auto) 100 (0-100) /uL Sodium 135 L (137-145) mmol/L Potassium 4.2 (3.4-5.1) mmol/L Chloride 97 L (98-107) mmol/L Carbon Dioxide 28 (22-32) mmol/L BUN 19 H (7-17) mg/dL Creatinine 0.90 (0.52-1.04) mg/dL Estimated GFR > 60.0 (>60) mL/min BUN/Creatinine Ratio 21.1 (6-22) Glucose 315 H (70-100) mg/dL Lactate 1.5 (0.7-2.1) mmol/L Calcium 9.2 (8.4-10.2) mg/dL Urine RBC (0-5/HPF) Urine WBC (0-5/HPF) Urine Bacteria (None) Ur Culture Indicated? 07/14/19 Range/Units 02:15 WBC (4.5-11.0) X10^3/uL RBC (4.0-5.2) X10^6/uL Hgb (12.0-16.0) g/dL Hct (36-46) % MCV (80-100) fL MCH (26-34) PG MCHC (30-36) % RDW (11.6-14.8) % Plt Count (150-400) X10^3/uL Neut % (Auto) (50-75) % Lymph % (Auto) (25-40) % [place] % (Auto) (3-14) % Eos % (Auto) (2-4) % Baso % (Auto) (0-2) % Neut # (Auto) (5814-3464) /uL Lymph # (Auto) (9516-2946) /uL [place] # (Auto) (0-900) /uL Eos # (Auto) (0-450) /uL Baso # (Auto) (0-100) /uL Sodium (137-145) mmol/L Potassium (3.4-5.1) mmol/L Chloride (98-107) mmol/L Carbon Dioxide (22-32) mmol/L BUN (7-17) mg/dL Creatinine (0.52-1.04) mg/dL Estimated GFR (>60) mL/min BUN/Creatinine Ratio (6-22) Glucose (70-100) mg/dL Lactate (0.7-2.1) mmol/L Calcium (8.4-10.2) mg/dL Urine RBC >100/hpf H (0-5/HPF) Urine WBC None seen (0-5/HPF) Urine Bacteria None seen (None) Ur Culture Indicated? Specimen cultured Point of Care Testing Test Results Negative Urine Dip Bedside Urine Glucose 1000 mg/dl Bedside Urine Bilirubin - Negative Bedside Urine Ketone - Negative Urine Specific [place] 1.015 Bedside Urine Occult Blood +++ Bedside Urine pH 6.0 Bedside Urine Protein + 30 Bedside Urine Urobilinogen - Negative Bedside Urine Nitrite - Negative Bedside Urine Leukocytes +/- 15 Esterase Critical Care Time Critical Care Time Critical Care Time: Yes Total Critical Care Time: 30 Attestation: Critical care time included initial evaluation of patient, review of medical records, and lab data, discussing the clinical data with the patient and consultation with the admitting hospitalist. Discharge Plan Departure Patient Disposition: Admitted as Observation Clinical Impression: Abscess of breast, left, Cellulitis of left breast Diabetes mellitus due to underlying condition with hyperglycemia Qualifiers: Diabetes mellitus buttermaker continuous churn insulin use: with residential use Qualified Code(s): E08.65 - Diabetes mellitus due to underlying condition with hyperglycemia Admit Date/Time: 07/14/19 03:29 Admit Provider: Riley Anne
[2019-07-14 01:30] LABS: Add Manual Diff / Slide Review NO; Basophils Absolute Auto 100 /uL (0-100); Basophils Percent Auto 0.6 % (0-2); Eosinophils Absolute Auto 100 /uL (0-450); Eosinophils Percent Auto 1.1 % (2-4); Hematocrit 38.9 % (36-46); Hemoglobin 12.7 g/dL (12.0-16.0); Lymphocytes Absolute Auto 1900 /uL (1100-4500); Lymphocytes Percent Auto 18.1 % (25-40); Mean Corpuscular HGB Conc 32.7 % (30-36); Mean Corpuscular Hemoglobin 22.2 PG (26-34); Mean Corpuscular Volume 67.9 fL (80-100); Monocytes Absolute Auto 800 /uL (0-900); Monocytes Percent Auto 7.6 % (3-14); Neutrophils Absolute Auto 7500 /uL (1500-7000); Neutrophils Percent Auto 72.6 % (50-75); Platelet Count 313 X10^3/uL (150-400); Red Blood Cell Count 5.73 X10^6/uL (4.0-5.2); Red Cell Distribution Width 15.6 % (11.6-14.8); White Blood Cell Count 10.4 X10^3/uL (4.5-11.0)
[2019-07-14 01:38] LABS: BUN Creatinine Ratio 21.1 (6-22); Blood Urea Nitrogen 19 mg/dL (7-17); Calcium 9.2 mg/dL (8.4-10.2); Carbon Dioxide 28 mmol/L (22-32); Chloride 97 mmol/L (98-107); Estimated Glomerular Filt Rate > 60.0 mL/min (>60); Glucose 315 mg/dL (70-100); HEMOLYSIS < 15 (0-50); Lactate (Lactic Acid) 1.5 mmol/L (0.7-2.1); Potassium 4.2 mmol/L (3.4-5.1); Sodium 135 mmol/L (137-145)
[2019-07-14] MEDS: LIDOCAINE 1% 20 ML 10 ML INJ (02:06)
[2019-07-14] MEDS: VANCOMYCIN 2,000 MG/400 ML PIGGYBACK 200 MG IV (02:07)
--- NOTE | 2019-07-14 02:09 | PC.NURSE ---
Pt arrived in reports that she has abscess on L breast x 2-3 days after scratching her L breast. Breast swollen, red, hot to touch, with visible pus drainage. Afebrile. Reports chills occasionally but getting over a cold IV placed and labs drawn including BC x2 and lactate. Urine obtained. Assisted with I&D with Dr Boucher. Wound culture obtained and pt tolerated well. Wound packed and dressed with gauze and paper tape. Vanco infusing per MAR. pt resting in bed and warm blankets given. Report given to TALITA Ram and care relinquished at this time.
[2019-07-14 02:17] LABS: Bacteria Urine None Seen; RBC Urine >100/HPF (0-5/HPF); WBC Urine None Seen (0-5/HPF)
[2019-07-14 02:18] LABS: Culture Indicated Urine Specimen Cultured
[2019-07-14 03:48] LABS: Bilirubin Urine UA NEGATIVE (NEGATIVE); Glucose Urine UA 2+ g/dL (Negative); Leukocyte Esterase Urine UA NEGATIVE (NEGATIVE); Nitrite Urine UA NEGATIVE (Negative); Occult Blood Urine UA 3+ (Negative); Protein Urine UA 1+ (Negative); Urobilinogen Urine UA 0.2 E.U./dL (0.2)
[2019-07-14 03:50] LABS: Appearance Urine UA CLOUDY; pH Urine UA 5.5 (4.5-8.0)
[2019-07-14 03:56] LABS: Color Urine UA BROWN
[2019-07-14 04:06] LABS: Microcytosis 1+
[2019-07-14 04:12] LABS: Hemoglobin A1C% w Est Avg Glu 10.9 % (4.0-6.0)
--- NOTE | 2019-07-14 05:58 | P.HP_ITS ---
History of Present Illness History of Present Illness Date Patient Seen: 07/14/19 Time Patient Seen: 04:10 Chief complaint: cyst or boil under left breast Narrative: Ms. Yaquelin Loera 32-year-old female with a history of morbid obesity, uncontrolled diabetes type 2 with hyperglycemia, hypertension, and asthma who presents to the ER today with a draining breast abscess. The patient reports developing pain and swelling of the left breast 3 days ago that has become p rogressively tender with redness warmth and swelling and has begun to drain. Patient states she has had mild fevers and chills, temperature at home was 100.8 without complaints of nausea and vomiting and diarrhea. She endorses a recent history of an upper upper respiratory infection treated by her PCP Dr. Wright whom she is on 06/25/2019. The patient hyper or hypoglycemic episodes and uses a current regimen of Lantus 30 units each evening and lispro approximately 45 units with each meal depending on her food content. She otherwise denies chest pain or palpitations, shortness of breath cough or wheezing. She has no abdominal pain and denies changes in bowel or bladder habits. Upon arrival to the ER the patient is found to be low-grade temperature 100 0.0 ?, heart rate of 79, blood pressure 148/96, respirations 24 saturating 98% on room air. Laboratory analysis finds the patient to have normal white count 10.4, hemoglobin of 12.7, hematocrit of 38.9, platelets of 313. Her electrolytes are within normal range has a BUN of 19 and creatinine of 0.9. Her nonfasting glucose is 315. She has lactic acid of 1.5 and her last hemoglobin A1c was in January 2019 at that time it was 10.2. The ER provider performed an incision and drainage of the abscess with cultures obtained and packed wound with iodoform gauze. Patient received 2 g of vancomycin IV with a history of being MRSA positive. Patient History Medical History Anxiety (Chronic Unknown) Chronic dental pain (Chronic) Depression (Chronic Unknown) Dermatitis (Chronic Unknown) Hx MRSA infection (Resolved 10/2010) Mild intermittent asthma without complication (Chronic 02/23/16) Morbid obesity with body mass index (BMI) greater than or equal to 50 (Chronic 08/04/15) Type 2 diabetes mellitus without complication, with long-term current use of insulin (Chronic 10/08/16) Uncomplicated opioid dependence (Chronic) Surgical History History of cholecystectomy (Acute) No history of previous surgery (Chronic) Family & Social History Family History Mother Age: 38 Type 2 diabetes mellitus without complication Sister Age: 28 Depression Sister Age: 31 Anxiety Social History: household members spouse Prior Living Arrangements House Safety & Behavioral: Feels Safe in Current Yes Environment Been Physically Hurt or No Threatened By a Person Suicidal Ideation Description None Suicide Plan Description No Plan Tobacco & Substance use: Smoking Status Former smoker alcohol intake frequency holiday/special occasion Substance Use Type does not use Comment: The patient is for 12 years and is living with her and roommates.. She reports that she is adopted and has not seen her biological mother for over 15 years however she does have history of obesity but no further malady of health issues. She has never known her father. She has 1 biological sister with a history of osteoarthritis. 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 Smoking: The patient has never smoked however has large burden of 2nd hand smoke exposure Alcohol: Very rare, 1 to 2 times a year Substance use: No recreational pharmaceuticals, tried CBD oil for the 1st time 3 days ago. Advanced directives: Patient has no formal advanced directives but states her desire to be FULL CODE. The patient designates her to be her surrogate decision maker. Meds Home Medications and Allergies Home Medications Medication Instructions Recorded Confirmed Type loratadine [Claritin] 10 mg PO DAILY PRN 03/24/18 07/14/19 History BD U/F MINI PEN NEEDLE [id number] #1 ea 08/27/18 06/15/19 Rx insulin glargine [Lantus Solostar 30 unit SUBCUT QPM 01/13/19 07/14/19 History U-100 Insulin] albuterol sulfate 90 mcg/actuation 2 puff INHALATION Q4HP PRN #8 gram 03/05/19 07/14/19 Rx aerosol inhaler cyclobenzaprine 5 mg tablet 5 mg PO BEDTIME PRN #30 tab 03/16/19 07/14/19 Rx metformin 500 mg tablet 500 mg PO QID #360 tab 03/16/19 07/14/19 Rx TRUE METRIX AIR GLUCOSE METER #1 ea 03/17/19 06/15/19 Rx BD U/F Mini Pen Needle #100 each 04/14/19 06/15/19 Rx True metrix glucose test strip #100 each 04/14/19 06/15/19 Rx ferrous sulfate 325 mg PO QPM 05/18/19 07/14/19 History lisinopril 20 mg PO QAM 05/18/19 07/14/19 History propranolol 10 mg PO BID 05/18/19 07/14/19 History hydrocodone 5 mg-acetaminophen 325 1 tab PO Q6HP PRN #120 tab 06/15/19 07/14/19 Rx mg tablet lorazepam 1 mg tablet 1 mg PO BID PRN #60 tab 06/15/19 07/14/19 Rx insulin lispro 100 unit/mL 45 unit SUBCUT QAC #30 ml 06/21/19 07/14/19 Rx subcutaneous pen clobetasol 0.05 % topical ointment 1 applictn TOPICAL BID PRN #30 gram 06/25/19 07/14/19 Rx nystatin 100,000 unit/gram topical 1 applictn TOP BID #30 gram 06/25/19 07/14/19 Rx powder pioglitazone 30 mg PO DAILY 07/14/19 07/14/19 History Allergies Allergy/AdvReac Type Severity Reaction Status Date / Time Iodinated Contrast Media Allergy Severe Neck, face Verified 06/24/19 19:28 [IODINATED CONTRAST MEDIA - arms all IV DYE] swollen with difficulty breathing hydromorphone [From DILAUDID] Allergy Mild Very Verified 06/24/19 19:28 sensitive to this drug. ciprofloxacin [From Cipro] Allergy Hives Verified 06/24/19 19:28 Sulfa (Sulfonamide Allergy Rash Verified 06/24/19 19:28 Antibiotics) loperamide [From IMODIUM A-D] AdvReac Mild Nausea Verified 06/24/19 19:28 vomiting VITAMIN C AdvReac Mild Nausea/vomiting Uncoded 06/15/19 11:36 and migraines Review of Systems Review of Systems ROS Unobtainable: All systems reviewed & are unremarkable except as noted in HPI and below Exam Vital Signs (past 8 hours): - 07/14/19 00:29 07/14/19 00:34 07/14/19 03:49 Temperature 99.7 F H 99.7 F H 100.0 F H Pulse Rate 110 H 110 H 106 H Respiratory Rate 24 24 Blood Pressure Blood Pressure [Right Arm] 149/76 H 114/56 L Pulse Oximetry 98 98 100 07/14/19 04:00 07/14/19 04:10 Temperature 98.9 F Pulse Rate 101 H Respiratory Rate 20 Blood Pressure 150/68 H Blood Pressure [Right Arm] Pulse Oximetry 100 100 Oxygen Delivery Method Room Air Oxygen Flow Rate 0 Narrative Exam Narrative: GENERAL APPEARANCE: well developed, super morbidly obese with a BMI of 59.6, In no acute distress. HEENT: Normocephalic, PERRLA, conjunctiva clear, EOMs intact without nystagmus, no rhinorrhea, mucous membranes are moist and pink without lesions or exudate. NECK/THYROID: neck supple, no thyromegaly, trachea midline. LYMPH NODES: no cervical or supraclavicular lymphadenopathy. SKIN: [place], warm and dry, patient with plaque psoriasis bilateral lower extremities. HEART: regular rate and rhythm, heart tones distant, S1-S2, no murmur, no rubs or gallops, brisk capillary refill, no edema LUNGS: clear to auscultation bilaterally, no coarseness crackles or wheezing, no cough present CHEST: Abscess left breast approximately 4 o'clock position, 6 cm induration, approximately 1.5 cm incision with packing in place,symmetrical chest movement, no accessory muscle use, no pain to AP and lateral compression. ABDOMEN: Firm, round, no abdominal tenderness, no organomegaly with exam limited by body habitus, no flank tenderness, active bowel tones. BACK: Normal curvature, nontender to palpation, no CVA tenderness on percussion EXTREMITIES: moves all extremities, strength is 5/5 and symmetrical, no defor mities or joint effusions. NEUROLOGIC: AAO x4, no focal neurologic deficits, sensation intact to light touch. PSYCH: alert, cognitive function intact, good eye contact, appropriate with stable behavior Objective Labs Result Diagrams: 07/14/19 01:15 07/14/19 01:15 Labs: Laboratory Results - last 24 hr 07/14/19 07/14/19 07/14/19 01:15 01:15 01:15 WBC 10.4 RBC 5.73 H Hgb 12.7 Hct 38.9 MCV 67.9 L MCH 22.2 L MCHC 32.7 RDW 15.6 H Plt Count 313 Neut % (Auto) 72.6 Lymph % (Auto) 18.1 L [place] % (Auto) 7.6 Eos % (Auto) 1.1 L Baso % (Auto) 0.6 Neut # (Auto) 7500 H Lymph # (Auto) 1900 [place] # (Auto) 800 Eos # (Auto) 100 Baso # (Auto) 100 RBC Morphology See below Microcytosis 1+ H Sodium 135 L Potassium 4.2 Chloride 97 L Carbon Dioxide 28 BUN 19 H Creatinine 0.90 Estimated GFR > 60.0 BUN/Creatinine Ratio 21.1 Glucose 315 H Hemoglobin A1c Lactate 1.5 Calcium 9.2 Urine Color Urine Appearance Urine pH Ur Specific [place] Urine Protein Urine Glucose (UA) Urine Ketones Urine Occult Blood Urine Nitrate Urine Bilirubin Urine Urobilinogen Ur Leukocyte Esterase Urine RBC Urine WBC Urine Bacteria Ur Culture Indicated? 07/14/19 07/14/19 01:15 02:15 WBC RBC Hgb Hct MCV MCH MCHC RDW Plt Count Neut % (Auto) Lymph % (Auto) [place] % (Auto) Eos % (Auto) Baso % (Auto) Neut # (Auto) Lymph # (Auto) [place] # (Auto) Eos # (Auto) Baso # (Auto) RBC Morphology Microcytosis Sodium Potassium Chloride Carbon Dioxide BUN Creatinine Estimated GFR BUN/Creatinine Ratio Glucose Hemoglobin A1c 10.9 H Lactate Calcium Urine Color Brown Urine Appearance Cloudy Urine pH 5.5 Ur Specific [place] 1.010 Urine Protein 1+ H Urine Glucose (UA) 2+ H Urine Ketones Not Reportable Urine Occult Blood 3+ H Urine Nitrate Negative Urine Bilirubin Negative Urine Urobilinogen 0.2 Ur Leukocyte Esterase Negative Urine RBC >100/hpf H Urine WBC None seen Urine Bacteria None seen Ur Culture Indicated? Specimen cultured Assessment & Plan Assessment & Plan narrative: This is a 33-year-old female patient with a large abscess left breast status post incision and drainage by the ER provider with cultures obtained. Patient with associated fever but no nausea vomiting or rigors. The patient does not meet septic criteria. 1. Skin abscess, left breast, present on admission, active -large abscess with inside of the left breast developing in 3 days in the setting of uncontrolled diabetes. -artery redness and swelling with acute induration approximately 6 cm. -I&D performed in the emergency department with wound and blood cultures obtained and wound packed. -patient with history of MRSA, patient received vancomycin 2000 mg IV in the emergency department, will continue vancomycin per pharmacy dosing. -will adjust antibiotics pending culture results. 2. Diabetes type 2, uncontrolled, chronic -blood sugar on admission is 315, last hemoglobin A1c in March 2019 was 10.2 today is found to be 10.9. -patient takes metformin 4 times daily and pioglitazone 30 mg daily. -patient using long-acting Lantus 30 units at bedtime. Will increase Lantus to 20 units twice daily. -she takes large doses of correctional lispro with meals averaging 40-50 units per patient report, fingerstick glucose AC and HS and use high dose correctional scale -will follow glycemic control and adjust Lantus as indicated. 3. Asthma, chronic -patient with history of mild intermittent asthma and uses albuterol at home -no wheezing on exam, patient is saturating at 99% on room air -continue patient's home albuterol inhaler. 4. Microcytic hypochromic red cells, chronic, present on admission, stable -patient with history of microcytosis and low hemoglobin content on prior laboratory analysis. -patient has been prescribed ferrous sulfate 325 mg once daily which is held related to current infection. 5. Hypertension, chronic -blood pressure on arrival 148/96 and improves to approximately 150/68 following admission. -will continue lisinopril 20 mg daily. 6. Depression and anxiety, chronic -will continue the patient's home regimen of lorazepam 1 mg twice daily. 7. Super morbid obesity, chronic, present on admission, active -patient has gained over 12 kg and 6 months. -diabetes is uncontrolled with increasing hemoglobin A1c to 10.9. -dietitian consult requested. VTE prophylaxis: SCDs, Lovenox 40 mg daily The patient is admitted to the hospital related to severity of infection requiring IV antibiotics in the setting of uncontrolled diabetes. The patient is admitted as an inpatient with expected length of stay to be greater than 2 midnights. Scores GCS Bennett coma scale eye opening: Spontaneous [place] coma scale verbal response: Orientated Bennett coma scale motor response: Obey commands Bennett coma scale total score: 15
--- NOTE | 2019-07-14 06:17 | PC.ADMIT ---
[email or web address] [place] [address] Admission Note: The patient,Yaquelin Loera,33 y/o, was given written information regarding hospital policies, unit procedures and contact persons. Patient's smoking status: Former smoker. Vital Signs - 8 hr 07/14/19 00:29 07/14/19 00:34 07/14/19 03:49 Temperature 99.7 F H 99.7 F H 100.0 F H Pulse Rate 110 H 110 H 106 H Respiratory Rate 24 24 Blood Pressure Blood Pressure [Right Arm] 149/76 H 114/56 L Pulse Oximetry 98 98 100 07/14/19 04:00 07/14/19 04:10 Temperature 98.9 F Pulse Rate 101 H Respiratory Rate 20 Blood Pressure 150/68 H Blood Pressure [Right Arm] Pulse Oximetry 100 100 Patient admitted to room 102, A/Ox4, fatigued. Drsg over incision to Lt breast intact with small serous-sang drainage, packing visible beneath drsg, 6cm surrounding skin hard and erythemic, painful to touch, otherwise noc/o pain. Patient also has several patches of white scaly skin- Psoriasis, to knees, elbows, feet, and hands. Vancomycin complete. Afebrile.
[2019-07-14] MEDS: SODIUM CHLORIDE 0.9% 1,000 ML 100 ML IV (06:40)
[2019-07-14] MEDS: ENOXAPARIN 40 MG/0.4 ML SYRINGE SUBCUT ×2 (08:52→20:09)
[2019-07-14] MEDS: PROPRANOLOL 10 MG TABLET PO ×2 (08:52→20:55)
[2019-07-14] MEDS: LISINOPRIL 20 MG TABLET PO (08:52)
[2019-07-14] MEDS: INSULIN ASPART 100 UNIT/ML INSULN PEN SUBCUT ×4 (08:53→21:01)
[2019-07-14] MEDS: INSULIN GLARGINE 100 UNIT/ML 3ML PEN 20 UNIT SUBCUT ×2 (08:54→20:59)
[2019-07-14] MEDS: IBUPROFEN 600 MG TABLET PO ×2 (08:55→16:12)
[2019-07-14] MEDS: METFORMIN HCL 500 MG TABLET PO ×4 (08:55→20:55)
[2019-07-14] MEDS: SODIUM CHLORIDE 0.9% FLUSH 10 ML IV ×2 (08:56→21:03)
[2019-07-14] MEDS: ACETAMINOPHEN 325 MG TABLET 650 MG PO ×2 (08:56→20:56)
[2019-07-14] MEDS: NYSTATIN POWDER 15GM 1 APPLIC TOP ×2 (08:56→19:47)
[2019-07-14] MEDS: VANCOMYCIN 1,500 MG/300 ML FROZ.PIGGY 200 MG IV ×2 (10:13→18:09)
--- NOTE | 2019-07-14 10:33 | CM.DANOTE ---
DCP; Case received, EMR reviewed and met with patient. Introduced self and role. Met with patient briefly, and was able to obtain some baseline health and activity information. Patient is a 33 year old female who admitted early this morning to the care of the hospitalist team. PCP: Dr. Pacheco. Payer: confirmed: [employer]. Patient came to the hospital via family vehicle secondary to a cyst under her left breast. She has currrent diagnosis of MRSA to area, and is on IV antibiotics. Patient has history of diabetes type 2, and is currently on oral medications for this. Met briefly with patient in her room. She is alert and oriented, resides here in [place] with her spouse, Javi. 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 Maggy, manager pharmacy, will also be meeting with patient today. P:DCP to follow closely. Her wound will be cultured, and the goal would be for her to return home if she can go on oral antibiotics. Charlee Sexton RN/[employer] Ch[employer]
[2019-07-14 11:39] LABS: BUN Creatinine Ratio 28.6 (6-22); Blood Urea Nitrogen 20 mg/dL (7-17); Calcium 8.5 mg/dL (8.4-10.2); Carbon Dioxide 28 mmol/L (22-32); Chloride 96 mmol/L (98-107); Estimated Glomerular Filt Rate > 60.0 mL/min (>60); Glucose 326 mg/dL (70-100); HEMOLYSIS < 15 (0-50); Potassium 4.5 mmol/L (3.4-5.1); Sodium 134 mmol/L (137-145)
--- NOTE | 2019-07-14 13:01 | P.PN_ITS ---
Subjective Subjective Date Patient Seen: 07/14/19 Exam Vital Signs (past 8 hours): - 07/14/19 14:52 07/14/19 15:34 07/14/19 15:35 Temperature 97.0 F L Pulse Rate 80 Respiratory Rate 23 Blood Pressure 146/79 H 150/91 H Pulse Oximetry 98 98 07/14/19 16:22 07/14/19 19:56 07/14/19 20:00 Temperature 97.1 F L Pulse Rate 85 Respiratory Rate 22 Blood Pressure 148/96 H Pulse Oximetry 99 98 98 Oxygen Delivery Method Room Air Oxygen Flow Rate 0 Objective Labs Result Diagrams: 07/14/19 01:15 07/14/19 11:15 Labs: Laboratory Results - last 24 hr 07/14/19 07/14/19 07/14/19 01:15 01:15 01:15 WBC 10.4 RBC 5.73 H Hgb 12.7 Hct 38.9 MCV 67.9 L MCH 22.2 L MCHC 32.7 RDW 15.6 H Plt Count 313 Neut % (Auto) 72.6 Lymph % (Auto) 18.1 L Hughes % (Auto) 7.6 Eos % (Auto) 1.1 L Baso % (Auto) 0.6 Neut # (Auto) 7500 H Lymph # (Auto) 1900 Hughes # (Auto) 800 Eos # (Auto) 100 Baso # (Auto) 100 RBC Morphology See below Microcytosis 1+ H Sodium 135 L Potassium 4.2 Chloride 97 L Carbon Dioxide 28 BUN 19 H Creatinine 0.90 Estimated GFR > 60.0 BUN/Creatinine Ratio 21.1 Glucose 315 H Hemoglobin A1c Lactate 1.5 Calcium 9.2 Iron Transferrin Urine Color Urine Appearance Urine pH Ur Specific [place] Urine Protein Urine Glucose (UA) Urine Ketones Urine Occult Blood Urine Nitrate Urine Bilirubin Urine Urobilinogen Ur Leukocyte Esterase Urine RBC Urine WBC Urine Bacteria Ur Culture Indicated? Nasal Screen MRSA (PCR) 07/14/19 07/14/19 07/14/19 01:15 02:15 04:00 WBC RBC Hgb Hct MCV MCH MCHC RDW Plt Count Neut % (Auto) Lymph % (Auto) Hughes % (Auto) Eos % (Auto) Baso % (Auto) Neut # (Auto) Lymph # (Auto) Hughes # (Auto) Eos # (Auto) Baso # (Auto) RBC Morphology Microcytosis Sodium Potassium Chloride Carbon Dioxide BUN Creatinine Estimated GFR BUN/Creatinine Ratio Glucose Hemoglobin A1c 10.9 H Lactate Calcium Iron Transferrin Urine Color Brown Urine Appearance Cloudy Urine pH 5.5 Ur Specific [place] 1.010 Urine Protein 1+ H Urine Glucose (UA) 2+ H Urine Ketones Not Reportable Urine Occult Blood 3+ H Urine Nitrate Negative Urine Bilirubin Negative Urine Urobilinogen 0.2 Ur Leukocyte Esterase Negative Urine RBC >100/hpf H Urine WBC None seen Urine Bacteria None seen Ur Culture Indicated? Specimen cultured Nasal Screen MRSA (PCR) Negative for mrsa 07/14/19 07/14/19 06:44 11:15 WBC RBC Hgb Hct MCV MCH MCHC RDW Plt Count Neut % (Auto) Lymph % (Auto) Hughes % (Auto) Eos % (Auto) Baso % (Auto) Neut # (Auto) Lymph # (Auto) Hughes # (Auto) Eos # (Auto) Baso # (Auto) RBC Morphology Microcytosis Sodium 134 L Potassium 4.5 Chloride 96 L Carbon Dioxide 28 BUN 20 H Creatinine 0.70 Estimated GFR > 60.0 BUN/Creatinine Ratio 28.6 H Glucose 326 H Hemoglobin A1c Lactate Calcium 8.5 Iron 34 L Transferrin 257 Urine Color Urine Appearance Urine pH Ur Specific [place] Urine Protein Urine Glucose (UA) Urine Ketones Urine Occult Blood Urine Nitrate Urine Bilirubin Urine Urobilinogen Ur Leukocyte Esterase Urine RBC Urine WBC Urine Bacteria Ur Culture Indicated? Nasal Screen MRSA (PCR) Assessment & Plan Assessment & Plan narrative: Brief progress note: Patient seen and examined. Patient is hemodynamically stable. Physical exam unchanged other than dressing over left breast with serous drainage. Plan to have nursing staff remove packing, rinse wound gently with saline, repack and apply a new dressing daily. Agree with admitting providers assessment and plan. In addition, increased Lantus from 20 to 30 units twice daily (patient reports she takes Lantus 30-40 units daily), nutritional insulin 20 units 3 times daily with meals, and continued high-dose correctional scale insulin for better glycemic control to help control infection and promote healing. Plan to have patient follow up with wound care outpatient and will schedule an appointment.
--- NOTE | 2019-07-14 14:42 | PC.NURSE ---
Day Shift Note Outer dressing changed to left breast after shower. Saturated with serosanguinous drainage, opening of wound about 1 inch, packing in place and not removed at this time.
--- NOTE | 2019-07-14 15:58 | DIET.PN ---
Dietary Progress Note Assessment: 33y F admitted for breast abcess and hyperglycemia referred to nutrition for unmanaged DM2 and super morbid obesity. 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 Pt heritage is g[place], and . Was adopted at 7y and weight increased starting around this time. Pt was 150# at 11yo though was active on swim team, has always enjoyed hiking. No current issues with hip, knee, or ankle px but does endorse getting short of breath when walking several blocks. Maintained wt at 280# for many years but has been gaining over past 4y r/t personal stress and not making time to take care of herself. usual intake: B: coffee c almond milk, bagel with turkey and gonzalez L: food as given to daycare kids: spaghetti, chicken nuggets, rice, etc Did not get dinner information reports issue is with portion control and snacking on high carb items like pretzels and goldfish crackers. Purchases snacks from [employer] so has large bags around all the time. Evening snack is cheese stick with 4-5 crackers, feels this is her best choice of the day. Drinks water, Ice drinks, and coffee with SF creamer or almond milk Avoids liquid dairy s/p gall bladder removal. Pt has several friends who had weight loss surgery. Is considering this option but would like to try losing weight without the surgery. Pt has poor dentation limiting food options as she has full set of lower teeth but only two on top, they started breaking off in her 20s and too expensive to fix. She has a [facility] dentist who is willing to fix her teeth pro beverly once her HTN and DM are better controlled. This is a motivator for her getting healthy along with meaningful time with her daycare kids. Pt reports allergy to Vitamin C tablets, avoidance of this nutrient likely contributed to poor dentation. Pt reports interest in swimming with her niece 3x/w as she enjoys swimming and her niece would like this, too. While doing DM education, pt was very reflective, showing understanding. Pt ordered her own dinner and breakfast via phone to the kitchen and was within 30g carb limit for both meals. When realizing a bagel has 60g carbs, pt exclaimed, oh my god no wonder my BG is so high! HT: 167.6cm WT: 167.5kg BMI: 59.6 Labs: BG 313 on admit H, A1c 10.9 H MNA: 14 Chetan: 19 Nutrition Diagnosis: 1. Super morbid obesity r/t denial regarding need to eat well aeb pt dx DM2 at 19yo, has been >300# for 4y. 2. Altered nutrition related lab values (A1c, BG) r/t knowledge deficit of DM2 diet aeb pt food recall includes bagels, goldfish crackers, pasta, A1c 10.9 and admit BG 313, pt reports not knowing how to count carbs. Interventions: 1. Discussed barriers to meaningful wt loss and good BG control. 2. Discussed moderating intake to 30g carbs for each meal and snack until she completes DSME. 3. Used handout to show carb content of common foods. Used menu as example to practice meal planning. 4. Discussed portion control and to preportion snacks into 15g carb bags. 5. Discussed reading food labels, how to manipulate the numbers based on actual amount eaten. Diet Order: CCD EER: 2200kcal (600kcal deficit for wt loss), 130g PRO (0.8g/kg), 4L water Monitoring/Evaluations: Pt missed her appt for DSME 1:1 on 06/01/19, will call to reschedule as pt expressed this hospitalization is a wake up call. This RD is confident with support pt will make strides for her health.
[2019-07-14 16:24] LABS: HEMOLYSIS < 15 (0-50); Iron 34 ug/dL (37-170)
[2019-07-14 16:35] LABS: Transferrin 257 mg/dL (206-381)
--- NOTE | 2019-07-14 16:49 | PC.NURSE ---
Pain Reassessment 16:12 Patient complained of 5 or 6 out of 10 pain in the left breast. PRN 600 mg Ibuprofen given. 16:45 Reassessed and the patient states the pain has decrease and is at 5 out of 10 pain. Patient reports pain is tolerable. Declined further intervention.
[2019-07-14] MEDS: INSULIN ASPART 100 UNIT/ML INSULN PEN 20 UNIT SUBCUT (17:09)
--- NOTE | 2019-07-14 19:59 | PC.NURSE ---
1800 - ABX infusing. Pt up ambulating to bathroom. Currently on her menses, pads available. Pt requesting to put on own top. We had been holding off pending wound care consult. However, now, dressing assessed with a small amount of serosanguineous shadow drainage. Drsg intact. Nystatin powder applied. Pt assisted to change into own shirt. IV saline locked following completion of infusion.
[2019-07-14] MEDS: INSULIN GLARGINE 100 UNIT/ML 3ML PEN 10 UNIT SUBCUT (22:21)
[2019-07-15 00:40] VITALS: BP 153/92; PULSE 80; RESP 18; TEMP 36.7; O2SAT 97
[2019-07-15 00:45] VITALS: O2SAT 97
[2019-07-15] MEDS: IBUPROFEN 600 MG TABLET PO ×2 (00:50→13:13)
[2019-07-15 02:22] LABS: Vancomycin Trough 9.6 ug/mL (10-20)
[2019-07-15] MEDS: SODIUM CHLORIDE 0.9% FLUSH 10 ML IV ×2 (02:53→11:33)
[2019-07-15] MEDS: VANCOMYCIN 1,500 MG/300 ML FROZ.PIGGY 200 MG IV ×2 (02:53→11:33)
[2019-07-15 04:40] VITALS: O2SAT 95
[2019-07-15 04:41] VITALS: BP 137/61; PULSE 72; RESP 18; TEMP 36.5; O2SAT 94
[2019-07-15 05:10] LABS: Alanine Aminotransferase 35 IU/L (<35); Albumin 3.6 g/dL (3.5-5.0); Alkaline Phosphatase 45 U/L (38-126); Aspartate Aminotransferase 26 IU/L (14-36); Bilirubin Total 0.6 mg/dL (0.2-1.3); Blood Urea Nitrogen 14 mg/dL (7-17); Calcium 8.9 mg/dL (8.4-10.2); Carbon Dioxide 28 mmol/L (22-32); Chloride 100 mmol/L (98-107); Estimated Glomerular Filt Rate > 60.0 mL/min (>60); Globulin 3.5 g/dL (1.7-4.1); Glucose 266 mg/dL (70-100); HEMOLYSIS < 15 (0-50); Magnesium 1.8 mg/dL (1.6-2.3); Potassium 4.7 mmol/L (3.4-5.1); Sodium 133 mmol/L (137-145); Total Protein 7.1 g/dL (6.3-8.2)
[2019-07-15 05:13] LABS: Add Manual Diff / Slide Review NO; Basophils Absolute Auto 100 /uL (0-100); Basophils Percent Auto 1.1 % (0-2); Eosinophils Absolute Auto 200 /uL (0-450); Hematocrit 37.1 % (36-46); Lymphocytes Absolute Auto 1300 /uL (1100-4500); Mean Corpuscular HGB Conc 32.3 % (30-36); Mean Corpuscular Hemoglobin 22.2 PG (26-34); Mean Corpuscular Volume 68.8 fL (80-100); Monocytes Absolute Auto 600 /uL (0-900); Monocytes Percent Auto 8.5 % (3-14); Neutrophils Absolute Auto 5400 /uL (1500-7000); Neutrophils Percent Auto 70.4 % (50-75); Platelet Count 226 X10^3/uL (150-400); Red Blood Cell Count 5.39 X10^6/uL (4.0-5.2); Red Cell Distribution Width 15.6 % (11.6-14.8); White Blood Cell Count 7.6 X10^3/uL (4.5-11.0)
[2019-07-15 05:42] LABS: Anisocytosis 1+; Microcytosis 1+
[2019-07-15 06:13] LABS: Procalcitonin < 0.05 ng/mL (<0.5)
[2019-07-15 08:00] VITALS: BP 147/73; PULSE 82; RESP 18; TEMP 35.6; O2SAT 96; O2SAT 98
--- NOTE | 2019-07-15 08:08 | P.PN_ITS ---
Subjective Subjective Date Patient Seen: 07/15/19 Time Patient Seen: 08:11 Interval history: Yaquelin Loera is a 33 year old female female with a history of morbid obesity, uncontrolled diabetes type 2 with hyperglycemia, hypertension, and asthma who is seen today for follow-up of a left breast abscess which is now PPD#1 s/p I&D. Her only complaint is of left breast soreness today, she denies any fevers, chills, nausea, vomiting. She feels her left breast is improving after drainage, and her pain is markedly better. We are still awaiting culture results from the I and D, per micro lab her cultures are likely to finalized tomorrow. Exam Vital Signs (past 8 hours): - 07/15/19 00:40 07/15/19 00:45 07/15/19 04:40 Temperature 98.1 F Pulse Rate 80 Respiratory Rate 18 Blood Pressure 153/92 H Pulse Oximetry 97 97 95 07/15/19 04:41 Temperature 97.7 F Pulse Rate 72 Respiratory Rate 18 Blood Pressure 137/61 Pulse Oximetry 94 Oxygen Delivery Method Room Air Oxygen Flow Rate 0 Narrative Exam Narrative: GENERAL APPEARANCE: Obese Well developed female in no acute distress. SKIN: Inspection of the skin reveals no ulcerations or petechiae. There is an area of hypopigmentation on her RUE. HEENT: The sclerae were anicteric and conjunctivae were pink and moist. Extraocular movements were intact and pupils were equal, round with normal accommodation. External inspection of the ears and nose showed no scars, lesions, or masses. Lips, teeth, and gums showed normal mucosa. The oral mucosa, hard and soft palate, tongue and posterior pharynx were unremarkable. NECK: Supple and symmetric. There was no thyroid enlargement, and no tenderness, or masses were felt. CHEST: Normal AP diameter and normal contour without any kyphoscoliosis. L breast mildly tender, dressings c/d/i. LUNGS: Auscultation of the lungs revealed no wheezes, rhonchi, or rales. CARDIOVASCULAR: There was a regular rate and rhythm without any murmurs, gallops, rubs. Peripheral pulses were 2+ and symmetric. ABDOMEN: Soft and nontender with normal bowel sounds. No ascites was noted. MUSCULOSKELETAL: There was no tenderness or effusions noted. Muscle strength and tone were normal. EXTREMITIES: No cyanosis, clubbing or edema. NEUROLOGIC: Alert and oriented x 3. Normal affect. Gait was normal. Strength is +5/5 in the Upper Extremities and Lower Extremities Bilaterally. Sensation to touch was normal. Objective Labs Result Diagrams: 07/15/19 04:35 07/15/19 04:35 Labs: Laboratory Results - last 24 hr 07/14/19 07/14/19 07/15/19 06:44 11:15 01:35 WBC RBC Hgb Hct MCV MCH MCHC RDW Plt Count Neut % (Auto) Lymph % (Auto) [place] % (Auto) Eos % (Auto) Baso % (Auto) Neut # (Auto) Lymph # (Auto) [place] # (Auto) Eos # (Auto) Baso # (Auto) RBC Morphology Anisocytosis Microcytosis Sodium 134 L Potassium 4.5 Chloride 96 L Carbon Dioxide 28 BUN 20 H Creatinine 0.70 Estimated GFR > 60.0 BUN/Creatinine Ratio 28.6 H Glucose 326 H Calcium 8.5 Magnesium Iron 34 L Transferrin 257 Total Bilirubin AST ALT Alkaline Phosphatase Total Protein Albumin Globulin Albumin/Globulin Ratio Procalcitonin Vancomycin Trough 9.6 L 07/15/19 07/15/19 07/15/19 04:35 04:35 04:35 WBC 7.6 RBC 5.39 H Hgb 12.0 Hct 37.1 MCV 68.8 L MCH 22.2 L MCHC 32.3 RDW 15.6 H Plt Count 226 Neut % (Auto) 70.4 Lymph % (Auto) 17.0 L [place] % (Auto) 8.5 Eos % (Auto) 3.0 Baso % (Auto) 1.1 Neut # (Auto) 5400 Lymph # (Auto) 1300 [place] # (Auto) 600 Eos # (Auto) 200 Baso # (Auto) 100 RBC Morphology See below Anisocytosis 1+ H Microcytosis 1+ H Sodium 133 L Potassium 4.7 Chloride 100 Carbon Dioxide 28 BUN 14 Creatinine 0.50 L Estimated GFR > 60.0 BUN/Creatinine Ratio 28.0 H Glucose 266 H Calcium 8.9 Magnesium 1.8 Iron Transferrin Total Bilirubin 0.6 AST 26 ALT 35 H Alkaline Phosphatase 45 Total Protein 7.1 Albumin 3.6 Globulin 3.5 Albumin/Globulin Ratio 1.0 Procalcitonin < 0.05 Vancomycin Trough Assessment & Plan Assessment & Plan narrative: This is a 33-year-old female patient with a large abscess left breast status post incision and drainage by the ER provider with cultures obtained. Patient with associated fever but no nausea vomiting or rigors. The patient does not meet septic criteria. 1. Skin abscess, left breast, present on admission, active -large abscess with inside of the left breast developing in 3 days in the setting of uncontrolled diabetes. -redness and swelling with acute induration approximately 6 cm on admission, this appears to be improving. -I&D performed in the emergency department with wound and blood cultures obtained and wound packed. -patient with history of MRSA, patient received vancomycin 2000 mg IV in the emergency department, will continue vancomycin per pharmacy dosing. -will adjust antibiotics pending culture results and if susceptible to oral antibiotics she can be discharged home. 2. Diabetes type 2, uncontrolled, chronic -blood sugar on admission is 315, last hemoglobin A1c in March 2019 was 10.2 today is found to be 10.9. -patient takes metformin 4 times daily and pioglitazone 30 mg daily. -patient using long-acting Lantus 30 units at bedtime. Will increase Lantus to 20 units twice daily. -she takes large doses of correctional lispro with meals averaging 40-50 units per patient report, fingerstick glucose AC and HS and use high dose correctional scale -will follow glycemic control and adjust Lantus as indicated. 3. Asthma, chronic -patient with history of mild intermittent asthma and uses albuterol at home -no wheezing on exam, patient is saturating at 99% on room air -continue patient's home albuterol inhaler. 4. Microcytic hypochromic red cells, chronic, present on admission, stable -patient with history of microcytosis and low hemoglobin content on prior laboratory analysis. -patient has been prescribed ferrous sulfate 325 mg once daily which is held related to current infection. 5. Hypertension, chronic -blood pressure on arrival 148/96 and improves to approximately 150/68 following admission. -will continue lisinopril 20 mg daily. 6. Depression and anxiety, chronic -will continue the patient's home regimen of lorazepam 1 mg twice daily. 7. Morbid obesity, chronic, present on admission, active -patient has gained over 12 kg and 6 months. -diabetes is uncontrolled with increasing hemoglobin A1c to 10.9. -dietitian consult requested. VTE prophylaxis: SCDs, Lovenox 40 mg daily The patient is admitted to the hospital related to severity of infection requiring IV antibiotics in the setting of uncontrolled diabetes. The patient is admitted as an inpatient with expected length of stay to be greater than 2 midnights. She can be discharged home once culture results are obtained and antibiotics can be narrowed, likely tomorrow per micro lab.
[2019-07-15] MEDS: INSULIN ASPART 100 UNIT/ML INSULN PEN 20 UNIT SUBCUT ×2 (08:35→13:10)
[2019-07-15] MEDS: INSULIN ASPART 100 UNIT/ML INSULN PEN SUBCUT ×2 (08:35→13:09)
[2019-07-15] MEDS: CLOBETASOL 0.05% OINTMENT 30 GM 1 APPLIC TOP (08:37)
[2019-07-15] MEDS: PROPRANOLOL 10 MG TABLET PO (08:37)
[2019-07-15] MEDS: INSULIN GLARGINE 100 UNIT/ML 3ML PEN 30 UNIT SUBCUT (08:38)
[2019-07-15] MEDS: ENOXAPARIN 40 MG/0.4 ML SYRINGE SUBCUT (08:42)
[2019-07-15] MEDS: ACETAMINOPHEN 325 MG TABLET 650 MG PO (08:42)
[2019-07-15 08:44] VITALS: BP 147/73
[2019-07-15] MEDS: LISINOPRIL 20 MG TABLET PO (08:44)
[2019-07-15] MEDS: METFORMIN HCL 500 MG TABLET PO ×2 (08:46→13:13)
[2019-07-15] MEDS: NYSTATIN POWDER 15GM 1 APPLIC TOP (10:30)
--- NOTE | 2019-07-15 13:48 | PC.NURSE ---
Addendum entered by Yelena Hartmann R.N. 07/15/19 14:02: PT DISCHARGED FROM HOSPITAL AT THIS TIME- WITH SPOUSE- DECLINED HOSP ESCORT AT THIS TIME Original Note: pt prepared for discharge and removed iv access - educated about new rx for po antibiotics - and step by step instructions provided for dressing changes - this was also demonstrated to pts mother - who will be assisting pt at home until [facility]
--- NOTE | 2019-07-15 15:04 | P.DS_ITS ---
History of Present Illness History of Present Illness Date Patient Seen: 07/15/19 Time Patient Seen: 08:00 Chief complaint: cyst or boil under left breast Narrative: Written by MARY Vieyra: Ms. Yaquelin Loera 32-year-old female with a history of morbid obesity, uncontrolled diabetes type 2 with hyperglycemia, hypertension, and asthma who presents to the ER today with a draining breast abscess. The patient reports developing pain and swelling of the left breast 3 days ago that has become progressively tender with redness warmth and swelling and has begun to drain. Patient states she has had mild fevers and chills, temperature at home was 100.8 without complaints of nausea and vomiting and diarrhea. She endorses a recent history of an upper upper respiratory infection treated by her PCP Dr. Wright whom she is on 06/25/2019. The patient hyper or hypoglycemic episodes and uses a current regimen of Lantus 30 units each evening and lispro approximately 45 units with each meal depending on her food content. She otherwise denies chest pain or palpitations, shortness of breath cough or wheezing. She has no abdominal pain and denies changes in bowel or bladder habits. Upon arrival to the ER the patient is found to be low-grade temperature 100 0.0 ?, heart rate of 79, blood pressure 148/96, respirations 24 saturating 98% on room air. Laboratory analysis finds the patient to have normal white count 10.4, hemoglobin of 12.7, hematocrit of 38.9, platelets of 313. Her electrolytes are within normal range has a BUN of 19 and creatinine of 0.9. Her nonfasting glucose is 315. She has lactic acid of 1.5 and her last hemoglobin A1c was in January 2019 at that time it was 10.2. The ER provider performed an incision and drainage of the abscess with cultures obtained and packed wound with iodoform gauze. Patient received 2 g of vancomycin IV with a history of being MRSA positive. Discharge Providers Provider Date of admission: 07/14/19 03:29 Discharge Date: 07/15/19 Primary care physician: Corwin Pacheco MD Consults: 07/14/19 04:24 Consult to Dietitian, Adult Routine Comment: Reason For Exam: morbid obesity, uncontrolled diabetic 07/14/19 04:25 Consult to Discharge Planning Routine Comment: Discharge provider: Riley Mora DO Summary Hospital Course Discharge Diagnosis: 1. Skin abscess, left breast, present on admission, active 2. Diabetes type 2, uncontrolled, chronic 3. Asthma, chronic 4. Microcytic hypochromic red cells, chronic, present on admission, stable 5. Hypertension, chronic 6. Depression and anxiety, chronic 7. Morbid obesity, chronic, present on admission, active Hospital Course: This is a 33-year-old female patient with a large abscess left breast status post incision and drainage by the ER provider with cultures obtained. Patient with associated fever but no nausea vomiting or rigors. The patient does not meet septic criteria. 1. Skin abscess, left breast, present on admission, active -large abscess with inside of the left breast developing in 3 days in the setting of uncontrolled diabetes. -redness and swelling with acute induration approximately 6 cm on admission, this appears to be improving. -I&D performed in the emergency department with wound and blood cultures obtained and wound packed. Wound cultures grew group B strep, patient was given vancomycin while inpatient and discharged on cephalexin. She will complete 7 additional days of cephalexin and follow-up in the [facility] on 07/19/2019. 2. Diabetes type 2, uncontrolled, chronic -blood sugar on admission is 315, last hemoglobin A1c in March 2019 was 10.2 today is found to be 10.9. -patient takes metformin 4 times daily and pioglitazone 30 mg daily. -patient using long-acting Lantus 30 units at bedtime. -she takes large doses of correctional lispro with meals averaging 40-50 units per patient report, fingerstick glucose AC and HS and use high dose correctional scale -patient needs to follow up with her primary care provider for additional titration and control of her diabetes. 3. Asthma, chronic -patient with history of mild intermittent asthma and uses albuterol at home -no wheezing on exam, patient is saturating at 99% on room air -continue patient's home albuterol inhaler. 4. Microcytic hypochromic red cells, chronic, present on admission, stable -patient with history of microcytosis and low hemoglobin content on prior labo ratory analysis. -patient has been prescribed ferrous sulfate 325 mg once daily which is held related to current infection. 5. Hypertension, chronic -blood pressure on arrival 148/96 and improves to approximately 150/68 following admission. -will continue lisinopril 20 mg daily. Can follow up with primary care provider for further titration of blood pressure. 6. Depression and anxiety, chronic -will continue the patient's home regimen of lorazepam 1 mg twice daily. 7. Morbid obesity, chronic, present on admission, active -patient has gained over 12 kg and 6 months. -diabetes is uncontrolled with increasing hemoglobin A1c to 10.9. -dietitian consult recommended as outpatient\ Dispo: discharge home. Exam Vital Signs (past 8 hours): - 07/15/19 08:00 07/15/19 08:44 Temperature 96.1 F L Pulse Rate 82 Respiratory Rate 18 Blood Pressure 147/73 H 147/73 H Pulse Oximetry 96 Oxygen Delivery Method Room Air Oxygen Flow Rate 0 Narrative Exam Narrative: GENERAL APPEARANCE: Obese Well developed female in no acute distress. SKIN: Inspection of the skin reveals no ulcerations or petechiae. There is an area of hypopigmentation on her RUE. HEENT: The sclerae were anicteric and conjunctivae were pink and moist. Extraocular movements were intact and pupils were equal, round with normal accommodation. External inspection of the ears and nose showed no scars, lesions, or masses. Lips, teeth, and gums showed normal mucosa. The oral mucosa, hard and soft palate, tongue and posterior pharynx were unremarkable. NECK: Supple and symmetric. There was no thyroid enlargement, and no tenderness, or masses were felt. CHEST: Normal AP diameter and normal contour without any kyphoscoliosis. L breast mildly tender, dressings c/d/i. LUNGS: Auscultation of the lungs revealed no wheezes, rhonchi, or rales. CARDIOVASCULAR: There was a regular rate and rhythm without any murmurs, gallops, rubs. Peripheral pulses were 2+ and symmetric. ABDOMEN: Soft and nontender with normal bowel sounds. No ascites was noted. MUSCULOSKELETAL: There was no tenderness or effusions noted. Muscle strength and tone were normal. EXTREMITIES: No cyanosis, clubbing or edema. NEUROLOGIC: Alert and oriented x 3. Normal affect. Gait was normal. Strength is +5/5 in the Upper Extremities and Lower Extremities Bilaterally. Sensation to touch was normal. Objective Labs Result Diagrams: 07/15/19 04:35 07/15/19 04:35 Labs: Laboratory Results - last 24 hr 07/14/19 07/15/19 07/15/19 06:44 01:35 04:35 WBC 7.6 RBC 5.39 H Hgb 12.0 Hct 37.1 MCV 68.8 L MCH 22.2 L MCHC 32.3 RDW 15.6 H Plt Count 226 Neut % (Auto) 70.4 Lymph % (Auto) 17.0 L Dent % (Auto) 8.5 Eos % (Auto) 3.0 Baso % (Auto) 1.1 Neut # (Auto) 5400 Lymph # (Auto) 1300 Dent # (Auto) 600 Eos # (Auto) 200 Baso # (Auto) 100 RBC Morphology See below Anisocytosis 1+ H Microcytosis 1+ H Sodium Potassium Chloride Carbon Dioxide BUN Creatinine Estimated GFR BUN/Creatinine Ratio Glucose Calcium Magnesium Iron 34 L Transferrin 257 Total Bilirubin AST ALT Alkaline Phosphatase Total Protein Albumin Globulin Albumin/Globulin Ratio Procalcitonin Vancomycin Trough 9.6 L 07/15/19 07/15/19 04:35 04:35 WBC RBC Hgb Hct MCV MCH MCHC RDW Plt Count Neut % (Auto) Lymph % (Auto) Dent % (Auto) Eos % (Auto) Baso % (Auto) Neut # (Auto) Lymph # (Auto) Dent # (Auto) Eos # (Auto) Baso # (Auto) RBC Morphology Anisocytosis Microcytosis Sodium 133 L Potassium 4.7 Chloride 100 Carbon Dioxide 28 BUN 14 Creatinine 0.50 L Estimated GFR > 60.0 BUN/Creatinine Ratio 28.0 H Glucose 266 H Calcium 8.9 Magnesium 1.8 Iron Transferrin Total Bilirubin 0.6 AST 26 ALT 35 H Alkaline Phosphatase 45 Total Protein 7.1 Albumin 3.6 Globulin 3.5 Albumin/Globulin Ratio 1.0 Procalcitonin < 0.05 Vancomycin Trough Discharge Plan Discharge Plan Patient Disposition: Home Discharge comment: Your admitted to the hospital for an abscess which was drained. Cultures from the infected fluid showed a group B strep infection. You will be discharged on cephalexin, which you should continue for the next 7 days. You may need to take this for longer depending on your response and how the wound is looking. You have a follow-up with the [facility] on Friday. Please continue dressing changes at home until then. You should follow up with your primary care provider regarding your diabetes Discharge orders & Medications Prescriptions: New acetaminophen 325 mg Tablet 650 mg PO Q6HR PRN (Reason: As Needed For Fever/Mild Pain) 30 Days Qty: 60 RF: 0 ibuprofen 600 mg Tablet 600 mg PO Q6HR PRN (Reason: As Needed For Fever/Mild Pain) 30 Days Qty: 90 RF: 0 cephalexin 500 mg capsule 500 mg PO BID 7 Days Qty: 14 RF: 0 Continued (DME) BD U/F MINI PEN NEEDLE [id number] Qty: 1 RF: 2 Ventolin HFA 90 mcg/actuation HFA aerosol inhaler 2 puff Inhalation Q4HP PRN (Reason: Shortness Of Breath) Qty: 8 RF: 11 (DME) TRUE METRIX AIR GLUCOSE METER Qty: 1 RF: 0 (DME) True metrix glucose test strip Qty: 100 RF: 5 (DME) BD U/F Mini Pen Needle 31G X 5MM Qty: 100 RF: 5 insulin lispro [Humalog KwikPen Insulin] 100 unit/mL insulin pen 45 unit SUBCUT QAC Qty: 30 RF: 5 clobetasol 0.05 % ointment 1 applictn Topical BID PRN (Reason: rash) Qty: 30 RF: 1 nystatin 100,000 unit/gram powder 1 applictn TOP BID Qty: 30 RF: 1 lorazepam 1 mg tablet 1 mg PO BID PRN (Reason: anxiety) Qty: 60 RF: 5 hydrocodone-acetaminophen 5-325 mg tablet 1 tab PO Q6HP PRN (Reason: pain) Qty: 120 RF: 0 cyclobenzaprine 5 mg tablet 5 mg PO BEDTIME PRN (Reason: muscle spasm) Qty: 30 RF: 0 metformin [Glucophage] 500 mg tablet 500 mg PO QID Qty: 360 RF: 1 loratadine [Claritin] 10 mg Tablet 10 mg PO DAILY PRN (Reason: Allergy Symptoms) RF: 0 Lantus Solostar U-100 Insulin 100 unit/mL (3 mL) insulin pen 30 unit SUBCUT QPM RF: 0 propranolol 10 mg tablet 10 mg PO BID RF: 0 lisinopril 20 mg tablet 20 mg PO QAM RF: 0 ferrous sulfate 325 mg (65 mg iron) tablet 325 mg PO QPM RF: 0 pioglitazone 30 mg tablet 30 mg PO DAILY RF: 0 Follow up/Referrals: Corwin Pacheco MD [Primary Care Provider] - Seb Rodriguez MD [Physician] - (FOLLOW UP @ [facility]: [address] [place] [address] APPT-FRIDAY, 2:20 CHECK IN TIME) Diet/Activity/Treatments Diet: Diet as Tolerated and Carb-consistent/Diabetic Activity: As tolerated Skin/Wound/Dressing Care Skin care: dressing change every day Dressing: Please continue dressing changes at home Other wound treatment: Wound care Clinic follow up 07/19/19 Visit Report/Discharge Packet Instructions: Cephalexin (By mouth) Discharge Data Primary Care Provider: Corwin Pacheco Discharges patient from system. Discharge Date/Time: 07/15/19 14:04
--- NOTE | 2019-07-16 08:53 | CM.DPNOTE ---
TC from [facility] asking DC date? Request DC summary be faxed and asked about status? Reviewed SARAH Rondon RN's Rafael Notes, pt made inpt status upon Nela's review 07.14.19. Rebecca [facility] also faxed clinical yesterday 07.15.19 Faxed DC summary per request to F# [phone] HAMZAH
[2019-07-16 14:11] LABS: Percent Iron Saturation 10 % (15-50); Total Iron Binding Capacity 331 ug/dL (265-497)
== END 2019-07-15 14:04 | disposition home or self-care (01) | DRG 385 ==
LOC: ED 07-14 02:54 → ICU 07-14 07:45 → AC 07-14 12:26 → ICU 07-14 12:26
PROVIDERS: Internal Medicine; Admitting Provider Nurse Practitioner Adult Health; Emergency Provider Emergency Medicine; Family Provider Student in an Organized Health Care Education/Training Program; PCP Student in an Organized Health Care Education/Training Program; Visit Provider Nurse Practitioner Adult Health
DX: N61.1 Abscess of the breast and nipple (principal); E11.65 Type 2 diabetes mellitus with hyperglycemia; E66.01 Morbid (severe) obesity due to excess calories; Z68.43 Body mass index [BMI] 50.0-59.9, adult; I10 Essential (primary) hypertension; J45.909 Unspecified asthma, uncomplicated; F32.9 Major depressive disorder, single episode, unspecified; F41.9 Anxiety disorder, unspecified; Z87.891 Personal history of nicotine dependence; Z79.4 Long term (current) use of insulin
CPT/HCPCS: 10060; 36415; 80048; 80053; 80202; 81003; 81015; 81025; 82962; 83036; 83540; 83550; 83605; 83735; 84145; 85025; 87040; 87070; 87075; 87077; 87086; 87147; 87205; 87797; 96365; 96366; 99283; 99284; J1650

== ENCOUNTER 2019-07-16 14:52 | Emergency (ER) | payer OTHER, MEDICAID, SELFPAY ==
[2019-07-14 04:10] VITALS: BMI 59.5
[2019-07-16 14:55] VITALS: BP 184/102; PULSE 80; RESP 18; TEMP 36.9; O2SAT 97
--- NOTE | 2019-07-16 16:16 | ED_ITS ---
HPI - Skin/Abscess/Foreign Bdy General Chief complaint: Skin/Abscess/Foreign Body Stated complaint: states pain from a cyst that was drained Time Seen by Provider: 07/16/19 14:54 Source: patient Mode of arrival: Ambulatory Limitations: no limitations History of Present Illness HPI narrative: 33-year-old female morbid obesity and a recent I and D of a left breast abscess presents with a chief complaint of discomfort in the breast which is bothering her. She has a large supply of hydrocodone but has not been taking it for unknown reasons. She denies any fever chills nor increased drainage. She denies any injury. She has been taking her antibiotics as directed MD complaint: abscess/boil Onset (ago): day(s) Location: chest Severity: moderate Quality: aching Pain Consistency: constant Relieving factors: none Exacerbating factors: none Associated symptoms: denies other symptoms Treatments prior to arrival: bandages Related Data Home Medications Medication Instructions Recorded Confirmed loratadine [Claritin] 10 mg PO DAILY PRN 03/24/18 07/14/19 Lantus Solostar U-100 Insulin 30 unit SUBCUT QPM 01/13/19 07/14/19 ferrous sulfate 325 mg PO QPM 05/18/19 07/14/19 lisinopril 20 mg PO QAM 05/18/19 07/14/19 propranolol 10 mg PO BID 05/18/19 07/14/19 pioglitazone 30 mg PO DAILY 07/14/19 07/14/19 Previous Rx's Medication Instructions Recorded BD U/F MINI PEN NEEDLE [id number] #1 ea 08/27/18 albuterol sulfate 90 mcg/actuation 2 puff INHALATION Q4HP PRN #8 gram 03/05/19 aerosol inhaler cyclobenzaprine 5 mg tablet 5 mg PO BEDTIME PRN #30 tab 03/16/19 metformin 500 mg tablet 500 mg PO QID #360 tab 03/16/19 TRUE METRIX AIR GLUCOSE METER #1 ea 03/17/19 BD U/F Mini Pen Needle #100 each 04/14/19 True metrix glucose test strip #100 each 04/14/19 hydrocodone 5 mg-acetaminophen 325 1 tab PO Q6HP PRN #120 tab 06/15/19 mg tablet lorazepam 1 mg tablet 1 mg PO BID PRN #60 tab 06/15/19 insulin lispro 100 unit/mL 45 unit SUBCUT QAC #30 ml 06/21/19 subcutaneous pen clobetasol 0.05 % topical ointment 1 applictn TOPICAL BID PRN #30 gram 06/25/19 nystatin 100,000 unit/gram topical 1 applictn TOP BID #30 gram 06/25/19 powder acetaminophen 650 mg PO Q6HR PRN 30 Days #60 tab 07/15/19 cephalexin 500 mg PO BID 7 Days #14 cap 07/15/19 ibuprofen 600 mg PO Q6HR PRN 30 Days #90 tab 07/15/19 Allergies Allergy/AdvReac Type Severity Reaction Status Date / Time Iodinated Contrast Media Allergy Severe Neck, face Verified 06/24/19 19:28 [IODINATED CONTRAST MEDIA - arms all IV DYE] swollen with difficulty breathing hydromorphone [From DILAUDID] Allergy Mild Very Verified 06/24/19 19:28 sensitive to this drug. ciprofloxacin [From Cipro] Allergy Hives Verified 06/24/19 19:28 Sulfa (Sulfonamide Allergy Rash Verified 06/24/19 19:28 Antibiotics) loperamide [From IMODIUM A-D] AdvReac Mild Nausea Verified 06/24/19 19:28 vomiting VITAMIN C AdvReac Mild Nausea/vomiting Uncoded 06/15/19 11:36 and migraines Review of Systems Constitutional Constitutional: Denies chills, Denies fatigue, Denies fever(s), Denies frequent falls, Denies lethargy and Denies weakness Eyes Eyes: Denies change in vision, Denies eye discharge, Denies irritation and Denies loss of vision ENT Ears, Nose, Mouth, and Throat: Denies change in voice, Denies dizziness, Denies neck pain, Denies sore throat and Denies throat swelling Cardiovascular Cardiovascular: Denies chest pain, Denies irregular heart rhythm, Denies lightheadedness, Denies palpitations, Denies dyspnea, Denies dyspnea on exertion and Denies orthopnea Respiratory Respiratory: Denies cough, Denies dyspnea, Denies dyspnea on exertion and Denies wheezing Gastrointestinal Gastrointestinal: Denies abdominal pain, Denies change in bowel habits, Denies diarrhea, Denies nausea and Denies vomiting Genitourinary Genitourinary: Denies hematuria, Denies flank pain, Denies urinary incontinence and Denies urinary urgency Musculoskeletal Musculoskeletal: Denies back pain, Denies muscle weakness, Denies neck pain, Denies numbness and Denies tingling Integumentary/Breasts Skin/Breast: Denies pruritus, Reports erythema, Denies rash and Reports wounds Neurologic Neurologic: Denies behavioral changes, Denies confusion, Denies dizziness, Denies frequent falls, Denies loss of vision, Denies numbness, Denies tingling and Denies weakness Psychiatric Psychiatric: Denies anxiety, Denies behavioral changes, Denies confusion, Denies depression, Denies homicidal ideation and Denies suicidal ideation Endocrine Endocrine: Denies fatigue, Denies flushing and Denies palpitations Hematologic/Lymphatic Hematologic/Lymphatic: Denies easy bruising Allergic/Immunologic Allergic/Immunologic: Denies urticaria, Denies throat swelling and Denies wheezing Patient History Medical History Anxiety (Chronic Unknown) Chronic dental pain (Chronic) Depression (Chronic Unknown) Dermatitis (Chronic Unknown) Hx MRSA infection (Resolved 10/2010) Mild intermittent asthma without complication (Chronic 02/23/16) Morbid obesity with body mass index (BMI) greater than or equal to 50 (Chronic 08/04/15) Type 2 diabetes mellitus without complication, with long-term current use of insulin (Chronic 10/08/16) Uncomplicated opioid dependence (Chronic) Surgical History History of cholecystectomy (Acute) No history of previous surgery (Chronic) Family History Mother Age: 38 Type 2 diabetes mellitus without complication Sister Age: 28 Depression Sister Age: 31 Anxiety Social History household members: spouse Smoking Status: Former smoker alcohol intake frequency: holidays/special occasions only Substance Use Type: does not use Exam Narrative Exam Narrative: GEN: AOx3 and in mild distress EYES: Pupils are equal, round, and reactive to light and accommodation. Extraoccular muscles are intact bilaterally. There is no subconjunctival hemorrhage or exudate. CHEST: Lungs are clear to auscultation bilaterally and free of wheezes, rales, or rhonchi. Heart rate is regular rhythm, there are no murmurs, clicks, rubs, or gallops. There is no chest wall tenderness. BREAST: No ongoing drainage with minimal induration. This is improved per the patient. This is examined with a female nursing ticker installer at the bedside and the patient's permission ABD: Abdomen is soft and nontender. There is no guarding or rebound. Bowel sounds are normal in all 4 quadrants. There is no mass or organomegaly. EXT: Full painless ROM of all extremities with no loss of sensation or strength. SKIN: Warm, pink, and dry. No erythema or rash Initial Vital Signs Initial Vital Signs: Vital Signs Temperature 98.5 F 07/16/19 14:55 Pulse Rate 80 07/16/19 14:55 Respiratory Rate 18 07/16/19 14:55 Blood Pressure 184/102 H 07/16/19 14:55 Pulse Oximetry 97 07/16/19 14:55 Course Orders Ordered: ED Orders 07/16/19 16:23 US breast LT limited Stat Vital Signs Vital signs: Vital Signs - 8 hr 07/16/19 14:55 07/16/19 17:14 07/16/19 17:20 Temperature 98.5 F 97.6 F Pulse Rate 80 79 73 Respiratory Rate 18 18 18 Blood Pressure 184/102 H Blood Pressure [Left Arm] 153/86 H 153/86 H Pulse Oximetry 97 100 100 MDM - Skin/Abscess/Foreign Bdy Imaging Data Breast US: Radiologist's impression: [address] [address] Ultrasound Report Signed Patient: Yaquelin Loera CMR#: [id number] : 1985Acct:[id number] Age/Sex: 33 / FDate of Service: 07/16/19 Loc: ED Accession Number: [id number] Procedure: US breast LT limited Ordering Provider: Manuel Gutierrez D.O. PROCEDURE: US BREAST LT LIMITED COMPARISON: None. INDICATIONS: RECENT I/D, WORSENING PAIN FINDINGS: Ultrasound evaluation in the area of pain demonstrates echogenic shadowing packing material from recent incision and drainage. There is an associated region of hypoechoic soft tissue with indistinct margins. This demonstrates internal vascularity on color Doppler interrogation. The findings likely reflect mastitis. No discrete fluid collection identified to suggest an abscess. IMPRESSION: 1. Ill-defined hypoechoic region in the area of clinical concern at the representing mastitis. No discrete abscess collection identified. Recommend followup ultrasound in 6 months to demonstrate resolution and exclude an underlying mass. Dictated by: Misha Marquez M.D. on 07/16/2019 at 17:13 Approved by: Misha Marquez M.D. on 07/16/2019 at 17:18 Discharge Plan Departure Patient Disposition: Home Clinical Impression: Pain due to abscess Discharge Date/Time: 07/16/19 17:20 Instructions: Incision and Drainage of a Skin Abscess Activity Restrictions/Additional Instructions: *You have been diagnosed with [breast pain due to recent incision and drainage of abscess] *What to do: *Take medications as directed *Follow up with your primary care provider in 2-3 days, call for an appointment. Let them know you were seen in the Emergency Department and that we ask that you be seen in follow up *Return to ER if you should have any new, worsening or concerning symptoms Prescriptions: No Action (DME) BD U/F MINI PEN NEEDLE [id number] Qty: 1 RF: 2 Ventolin HFA 90 mcg/actuation HFA aerosol inhaler 2 puff Inhalation Q4HP PRN (Reason: Shortness Of Breath) Qty: 8 RF: 11 (DME) TRUE METRIX AIR GLUCOSE METER Qty: 1 RF: 0 (DME) True metrix glucose test strip Qty: 100 RF: 5 (DME) BD U/F Mini Pen Needle 31G X 5MM Qty: 100 RF: 5 insulin lispro [Humalog KwikPen Insulin] 100 unit/mL insulin pen 45 unit SUBCUT QAC Qty: 30 RF: 5 clobetasol 0.05 % ointment 1 applictn Topical BID PRN (Reason: rash) Qty: 30 RF: 1 nystatin 100,000 unit/gram powder 1 applictn TOP BID Qty: 30 RF: 1 lorazepam 1 mg tablet 1 mg PO BID PRN (Reason: anxiety) Qty: 60 RF: 5 hydrocodone-acetaminophen 5-325 mg tablet 1 tab PO Q6HP PRN (Reason: pain) Qty: 120 RF: 0 cyclobenzaprine 5 mg tablet 5 mg PO BEDTIME PRN (Reason: muscle spasm) Qty: 30 RF: 0 metformin [Glucophage] 500 mg tablet 500 mg PO QID Qty: 360 RF: 1 loratadine [Claritin] 10 mg Tablet 10 mg PO DAILY PRN (Reason: Allergy Symptoms) RF: 0 Lantus Solostar U-100 Insulin 100 unit/mL (3 mL) insulin pen 30 unit SUBCUT QPM RF: 0 propranolol 10 mg tablet 10 mg PO BID RF: 0 lisinopril 20 mg tablet 20 mg PO QAM RF: 0 ferrous sulfate 325 mg (65 mg iron) tablet 325 mg PO QPM RF: 0 pioglitazone 30 mg tablet 30 mg PO DAILY RF: 0 acetaminophen 325 mg Tablet 650 mg PO Q6HR PRN (Reason: As Needed For Fever/Mild Pain) 30 Days Qty: 60 RF: 0 ibuprofen 600 mg Tablet 600 mg PO Q6HR PRN (Reason: As Needed For Fever/Mild Pain) 30 Days Qty: 90 RF: 0 cephalexin 500 mg capsule 500 mg PO BID 7 Days Qty: 14 RF: 0 Referrals: Corwin Pacheco MD [Primary Care Provider] -
--- NOTE | 2019-07-16 16:23 | DI.US.S_ITS ---
PROCEDURE: US BREAST LT LIMITED COMPARISON: None. INDICATIONS: RECENT I/D, WORSENING PAIN FINDINGS: Ultrasound evaluation in the area of pain demonstrates echogenic shadowing packing material from recent incision and drainage. There is an associated region of hypoechoic soft tissue with indistinct margins. This demonstrates internal vascularity on color Doppler interrogation. The findings likely reflect mastitis. No discrete fluid collection identified to suggest an abscess. IMPRESSION: 1. Ill-defined hypoechoic region in the area of clinical concern at the representing mastitis. No discrete abscess collection identified. Recommend followup ultrasound in 6 months to demonstrate resolution and exclude an underlying mass. Dictated by: Misha Marquez M.D. on 07/16/2019 at 17:13 Approved by: Misha Marquez M.D. on 07/16/2019 at 17:18
[2019-07-16 17:14] VITALS: BP 153/86; PULSE 79; RESP 18; O2SAT 100
[2019-07-16 17:20] VITALS: BP 153/86; PULSE 73; RESP 18; TEMP 36.4; O2SAT 100
== END 2019-07-16 17:20 | disposition home or self-care (01) ==
PROVIDERS: Emergency Provider Emergency Medicine; Family Provider Student in an Organized Health Care Education/Training Program; PCP Student in an Organized Health Care Education/Training Program
DX: L02.91 Cutaneous abscess, unspecified (principal)
CPT/HCPCS: 76642; 99282; 99283

== ENCOUNTER → 2019-07-19 14:49 | Outpatient (CLI) | payer OTHER, MEDICAID, SELFPAY ==
[2019-07-14 04:10] VITALS: BMI 59.5
== END ==
PROVIDERS: Family Provider Student in an Organized Health Care Education/Training Program; PCP Student in an Organized Health Care Education/Training Program; Visit Provider Family Medicine
DX: E11.622 Type 2 diabetes mellitus with other skin ulcer (principal); S21.002A Unspecified open wound of left breast, initial encounter; N61.0 Mastitis without abscess; R71.8 Other abnormality of red blood cells; Z79.4 Long term (current) use of insulin
CPT/HCPCS: 11042; 99203; 99213

== ENCOUNTER → 2019-07-26 09:49 | Outpatient (CLI) | payer OTHER, MEDICAID, SELFPAY ==
[2019-07-14 04:10] VITALS: BMI 59.5
== END ==
PROVIDERS: Family Provider Student in an Organized Health Care Education/Training Program; PCP Student in an Organized Health Care Education/Training Program; Visit Provider Family Medicine
DX: E11.622 Type 2 diabetes mellitus with other skin ulcer (principal); S21.002D Unspecified open wound of left breast, subsequent encounter; N61.0 Mastitis without abscess; R71.8 Other abnormality of red blood cells
CPT/HCPCS: 99213

== ENCOUNTER → 2019-08-04 10:15 | Outpatient (CLI) | payer OTHER, MEDICAID, SELFPAY ==
[2019-07-14 04:10] VITALS: BMI 59.5
--- NOTE | 2019-08-04 13:30 | DIET.PN ---
Diabetes Intake: Initial Assessment Assess: Mrs Loera is a 33 YOF referred for long standing hx (2005) of type 2 diabetes. She was adopted and reports she has no known family hx. She was recently admitted into ICU for a breast abscess do to uncontrolled diabetes. She states she has cut out sugar, but is unfamiliar with other sources of carbohydrates and how they affect her BG. She continues to get the majority of her calories from CHO containing foods. She was started on metformin at diagnosis which she takes 500 mg QID r/t GI complications. She was started on insulin in 2009 when she was admitted to the ER due to a hand wound that would not heal due to high blood sugar. She states she is concerned with her lack of concern. She is willing to make changes but feels lack of education has made it difficult to do so. 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 She finds little time or energy to do things to take care of herself. In the past she has enjoyed walks and hikes, but states she would not be able to endure this type of activity now. Her usual body weight is around 280 lb which she was able to maintain for many years, but has gradually gained weight over that last few years related to stress. Pt has poor upper dentition limiting some food options. She is currently seeing an oral surgeon in [place] with plans to have her teeth fixed with better glucose control. 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 Purchases snacks from [employer] so has large bags around all the time. Drinks water, Ice drinks, and coffee with SF creamer or almond milk Avoids liquid dairy s/p gall bladder removal. Wt: 366# Ht: 66? BMI: 59 DX: Altered nutrition related laboratory values related to impaired glucose metabolism, lack of previous exposure to nutrition information as evidenced by pt report, diagnosis of diabetes, previous diet high in refined carbohydrates. Intervention: 1. Completed intake assessment. Discussed barriers to care. 2. Discussed pathophysiology of diabetes. Reviewed A1c and its correlation to blood glucose numbers. Discussed recommended BG ranges. 3. Discussed importance of self-monitoring, how often, and when to check. 4. Reviewed hyper/hypoglycemia and treatment. 5. Reviewed safe disposal of equipment (strip/lancets/insulin needles). 6. Created SMART goals for pt self-care and success. 7. Discussed program curriculum outline and class needs based on individual goals. SMART Goals: 1. Pt would like to lose 15-20 lb (5% body weight) in the next 3 months by cutting down on portions and counting carbohydrates. 2. Pt would like to lower A1c and blood glucose by self-managing blood glucose 4x/day including FBG, pre-meal, and evening. Monitor/Evaluate: Anticipate good compliance. Pt will attend full DSME. Exercise class scheduled for Aug 06 @ 10.
== END ==
PROVIDERS: PCP Student in an Organized Health Care Education/Training Program; Visit Provider Student in an Organized Health Care Education/Training Program
DX: E11.9 Type 2 diabetes mellitus without complications (principal); Z79.84 Long term (current) use of oral hypoglycemic drugs; Z79.4 Long term (current) use of insulin; E66.9 Obesity, unspecified; Z68.43 Body mass index [BMI] 50.0-59.9, adult; Z71.3 Dietary counseling and surveillance
CPT/HCPCS: G0108

== ENCOUNTER → 2019-08-09 13:58 | Outpatient (CLI) | payer OTHER, MEDICAID, SELFPAY ==
[2019-08-05 10:50] VITALS: BMI 59.5
== END ==
PROVIDERS: PCP Student in an Organized Health Care Education/Training Program; Referring Provider Student in an Organized Health Care Education/Training Program; Visit Provider Family Medicine
DX: E11.622 Type 2 diabetes mellitus with other skin ulcer (principal); S21.002D Unspecified open wound of left breast, subsequent encounter
CPT/HCPCS: 99212; 99213

== ENCOUNTER 2019-09-14 19:48 | Emergency (ER) | payer OTHER, MEDICAID, SELFPAY ==
[2019-08-05 10:50] VITALS: BMI 59.5
[2019-09-14 19:56] VITALS: BP 191/105; PULSE 97; RESP 16; TEMP 35.8; O2SAT 98; BMI 59.7
--- NOTE | 2019-09-14 21:23 | ED.SKABFB ---
HPI - Skin/Abscess/Foreign Bdy General Chief complaint: Skin/Abscess/Foreign Body Stated complaint: abscess opened up Time Seen by Provider: 09/14/19 21:23 Source: patient Mode of arrival: Ambulatory Limitations: no limitations History of Present Illness HPI narrative: The patient is diabetic, she is morbidly obese. She is prone to multiple abscesses. She has previously required admission. Her glucose is currently running 200-300 level. She developed an abscess in the left pannus about 4 days ago. The abscess ruptured and is draining. There is slight erythema, but little pain in the area. She is having no fever chills. She currently has no other skin lesions. Related Data Home Medications Medication Instructions Recorded Confirmed loratadine [Claritin] 10 mg PO DAILY PRN 03/24/18 09/06/19 ferrous sulfate 325 mg PO QPM 05/18/19 09/06/19 lisinopril 20 mg PO QAM 05/18/19 09/06/19 propranolol 10 mg PO BID 05/18/19 09/06/19 pioglitazone 30 mg PO DAILY 07/14/19 09/06/19 Previous Rx's Medication Instructions Recorded BD U/F MINI PEN NEEDLE [id number] #1 ea 08/27/18 albuterol sulfate 90 mcg/actuation 2 puff INHALATION Q4HP PRN #8 gram 03/05/19 aerosol inhaler cyclobenzaprine 5 mg tablet 5 mg PO BEDTIME PRN #30 tab 03/16/19 metformin 500 mg tablet 500 mg PO QID #360 tab 03/16/19 TRUE METRIX AIR GLUCOSE METER #1 ea 03/17/19 BD U/F Mini Pen Needle #100 each 04/14/19 True metrix glucose test strip #100 each 04/14/19 hydrocodone 5 mg-acetaminophen 325 1 tab PO Q6HP PRN #120 tab 06/15/19 mg tablet lorazepam 1 mg tablet 1 mg PO BID PRN #60 tab 06/15/19 clobetasol 0.05 % topical ointment 1 applictn TOPICAL BID PRN #30 gram 06/25/19 nystatin 100,000 unit/gram topical 1 applictn TOP BID #30 gram 06/25/19 powder insulin glargine 100 unit/mL (3 40 unit SUBCUT QPM #15 ml 08/18/19 mL) subcutaneous pen fluticasone 100 mcg-salmeterol 50 1 puff INHALATION DAILY #60 each 09/06/19 mcg/dose blistr powdr for inhalation insulin lispro 100 unit/mL 45 unit SUBCUT QAC #30 ml 09/07/19 subcutaneous pen doxycycline hyclate 100 mg PO BID 10 Days #20 tab 09/14/19 Allergies Allergy/AdvReac Type Severity Reaction Status Date / Time Iodinated Contrast Media Allergy Severe Neck, face Verified 09/14/19 20:00 [IODINATED CONTRAST MEDIA - arms all IV DYE] swollen with difficulty breathing hydromorphone [From DILAUDID] Allergy Mild Very Verified 09/14/19 20:00 sensitive to this drug. ciprofloxacin [From Cipro] Allergy Hives Verified 09/14/19 20:00 Sulfa (Sulfonamide Allergy Rash Verified 09/14/19 20:00 Antibiotics) loperamide [From IMODIUM A-D] AdvReac Mild Nausea Verified 09/14/19 20:00 vomiting VITAMIN C AdvReac Mild Nausea/vomiting Uncoded 09/14/19 20:00 and migraines Review of Systems Review of Systems ROS Unobtainable: All systems reviewed & are unremarkable except as noted in HPI and below Constitutional Constitutional: Denies chills, Denies fever(s) and Denies lethargy Gastrointestinal Gastrointestinal: Denies abdominal pain, Denies change in bowel habits, Denies diarrhea, Denies nausea and Denies vomiting Musculoskeletal Comments: No lesions or abscesses. Integumentary/Breasts Skin/Breast: Reports erythema, Denies rash and Reports wounds (Left lower abdomen) Neurologic Comments: No headache. No confusion. Patient History Medical History Anxiety (Chronic Unknown) Chronic dental pain (Chronic) Depression (Chronic Unknown) Dermatitis (Chronic Unknown) Hx MRSA infection (Resolved 10/2010) Mild intermittent asthma without complication (Chronic 02/23/16) Morbid obesity with body mass index (BMI) greater than or equal to 50 (Chronic 08/04/15) Type 2 diabetes mellitus without complication, with long-term current use of insulin (Chronic 10/08/16) Uncomplicated opioid dependence (Chronic) Surgical History History of cholecystectomy (Acute) No history of previous surgery (Chronic) Family History Mother Age: 39 Type 2 diabetes mellitus without complication Sister Age: 29 Depression Sister Age: 32 Anxiety Social History household members: spouse Smoking Status: Former smoker eating out: 1-3 times/week Type(s) of exercise: none Smoking Status: Former smoker alcohol intake frequency: holidays/special occasions only Substance Use Type: does not use Exam Initial Vital Signs Initial Vital Signs: Vital Signs Temperature 96.4 F L 09/14/19 19:56 Pulse Rate 97 H 09/14/19 19:56 Respiratory Rate 16 09/14/19 19:56 Blood Pressure 191/105 H 09/14/19 19:56 Pulse Oximetry 98 09/14/19 19:56 Const General: cooperative and well developed Nutritional Appearance: well nourished GI Inspection: large pannus and obesity Palpation: soft, No guarding and No tender Auscultation: normal bowel sounds Other: Abscess on the left lower abdomen. Skin Other: Draining abscess, left lower abdomen. Purulent, bloody discharge. No other rashes or lesions. Course Course Course Narrative: The abscess is spontaneously draining. A wound culture was obtained. Bandaging was applied. The patient was started on doxycycline. She is advised to do her best to decrease her glucose. Orders Ordered: ED Orders 09/14/19 21:38 Wound Culture and Gram Stain Stat Discontinued Medications Doxycycline Hyclate (Vibramycin) 100 mg PO NOW ONE Stop: 09/14/19 21:32 Vital Signs Vital signs: Vital Signs - 8 hr 09/14/19 19:56 Temperature 96.4 F L Pulse Rate 97 H Respiratory Rate 16 Blood Pressure 191/105 H Pulse Oximetry 98 Discharge Plan Departure Patient Disposition: Home Clinical Impression: Abdominal wall abscess, Poorly controlled type 2 diabetes mellitus Instructions: DI for Skin Abscess Activity Restrictions/Additional Instructions: With usual medications and diet to best controlled diabetes. Apply warm compresses, and clean the wound several times daily as needed. Doxycycline 2 times daily as prescribed. Follow-up with her doctor about 1 week for recheck. Return the ER if he have increasing drainage the site, increased redness at the site, or fever. Prescriptions: New doxycycline hyclate 100 mg tablet,delayed release (DR/EC) 100 mg PO BID 10 Days Qty: 20 RF: 0 No Action fluticasone propion-salmeterol [Advair Diskus] 100-50 mcg/dose blister with device 1 puff INHALATION DAILY Qty: 60 RF: 0 (DME) BD U/F MINI PEN NEEDLE [id number] Qty: 1 RF: 2 Ventolin HFA 90 mcg/actuation HFA aerosol inhaler 2 puff Inhalation Q4HP PRN (Reason: Shortness Of Breath) Qty: 8 RF: 11 (DME) TRUE METRIX AIR GLUCOSE METER Qty: 1 RF: 0 (DME) True metrix glucose test strip Qty: 100 RF: 5 (DME) BD U/F Mini Pen Needle 31G X 5MM Qty: 100 RF: 5 clobetasol 0.05 % ointment 1 applictn Topical BID PRN (Reason: rash) Qty: 30 RF: 1 nystatin 100,000 unit/gram powder 1 applictn TOP BID Qty: 30 RF: 1 insulin lispro [Humalog KwikPen Insulin] 100 unit/mL insulin pen 45 unit SUBCUT QAC Qty: 30 RF: 11 lorazepam 1 mg tablet 1 mg PO BID PRN (Reason: anxiety) Qty: 60 RF: 5 hydrocodone-acetaminophen 5-325 mg tablet 1 tab PO Q6HP PRN (Reason: pain) Qty: 120 RF: 0 Lantus Solostar U-100 Insulin 100 unit/mL (3 mL) insulin pen 40 unit SUBCUT QPM Qty: 15 RF: 11 cyclobenzaprine 5 mg tablet 5 mg PO BEDTIME PRN (Reason: muscle spasm) Qty: 30 RF: 0 metformin [Glucophage] 500 mg tablet 500 mg PO QID Qty: 360 RF: 1 loratadine [Claritin] 10 mg Tablet 10 mg PO DAILY PRN (Reason: Allergy Symptoms) RF: 0 propranolol 10 mg tablet 10 mg PO BID RF: 0 lisinopril 20 mg tablet 20 mg PO QAM RF: 0 ferrous sulfate 325 mg (65 mg iron) tablet 325 mg PO QPM RF: 0 pioglitazone 30 mg tablet 30 mg PO DAILY RF: 0 Referrals: Corwin Pacheco MD [Primary Care Provider] -
--- NOTE | 2019-09-14 21:41 | PC.NURSE ---
Pt woke to drainage from wound on left lower abd. Patient states increase pain throughout the day. Patient denies it feeling hot to touch or running a fever at home
[2019-09-14] MEDS: DOXYCYCLINE HYCLATE 100 MG TABLET PO (21:49)
== END 2019-09-14 22:01 | disposition home or self-care (01) ==
PROVIDERS: Emergency Provider Emergency Medicine; Family Provider Student in an Organized Health Care Education/Training Program; PCP Student in an Organized Health Care Education/Training Program
DX: L02.211 Cutaneous abscess of abdominal wall (principal); E11.65 Type 2 diabetes mellitus with hyperglycemia
CPT/HCPCS: 87070; 87075; 87077; 87147; 87186; 87205; 99283

== ENCOUNTER → 2019-09-21 12:58 | Outpatient (CLI) | payer OTHER, MEDICAID, SELFPAY ==
[2019-07-14 04:10] VITALS: BMI 59.5
[2019-08-05 10:50] VITALS: BMI 59.5
--- NOTE | 2019-09-21 17:43 | DIET.PN ---
DIABETES Nutrition Assessment:? ASSESS:??Ms. Loera is a 33?yof referred for type 2 diabetes seen as part of DSME program. She has been unable to attend several appointments due to her busy work schedule. Since our last visit she had another abscess on her hip. She is frustrated with her BG readings and feels it is related to her lack of sleep, stress, work, and eating habits. She had a sleep study scheduled last week, but was cancelled due to inclement weather and is not able to be seen until October. She has been considering bariatric surgery because she continues to gain weight. Her blood glucose has gone up with stress and health issues. She is still waiting to schedule an appointment with her oral surgeon to have her teeth fixed as she believes this limits some of the healthy foods she is able to eat. ? LABS: Per pt report:? FB-250 Pre-meal: 300 ? MEDS:?? Lantus 40 u pm; Humalog 30-40 units <250, 50 u < 350, 60 u >350 correctional w/ meals ? DIET: Per 24-hour recall:? 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 Weight: 373# ( up from 366#) Ht:? 66? BMI: 60.2 ? Exercise:? None NUTRITION DX 1. Altered Nutrition related labs related to impaired glucose metabolism, lack of previous exposure to accurate nutrition information as evidenced by pt report, dx of diabetes, previous diet high in refined carbohydrates.? INTERVENTION(s): 1. Reviewed pathophysiology of diabetes and impact of nutrition/diet on blood sugar control.? Discussed fed versus non-fed state.?? 2. Discussed the effect of carbohydrates/protein/fat on blood sugar control.? Stressed importance of consistent carbohydrate intake at each meal and provided instructions for recommended servings/portions of carbohydrates/protein per meal. Provided pt with educational material. 3. Reviewed carbohydrate counting and measuring carbohydrate content via serving sizes and reading nutrition labels.? Provided handouts.?? 4. Discussed the difference between simple versus complex carbohydrates and the effect of fiber on blood sugar control.? Discussed various methods to increase fiber content in diet. 5. Stressed importance of meal timing and not going >4-5 hours between meals. Encouraged adding protein to evening snack to support glucose control overnight. Patient agreeable. 6. Discussed healthy weight loss goals of 1-2lbs per week through diet and exercise.? Pt agreeable to walking at least 30 minutes daily. 7. Recommend monitoring fasting and pre-meal glucose. 8. Discussed pre-requisites for bariatric surgery including biweekly visits with dietitian and 5% weight loss. 9. Discussed possibility of splitting lantus (20 u a.m./ 20 u p.m.) Calorie Needs: 2000 lucius CHO: 200 g MONITOR/EVALUATE: Anticipate good compliance.? Patient rescheduled to attend DSME.
[2019-09-21 17:44] VITALS: BMI 60.0
== END ==
PROVIDERS: PCP Student in an Organized Health Care Education/Training Program; Visit Provider Student in an Organized Health Care Education/Training Program
DX: E11.9 Type 2 diabetes mellitus without complications (principal); Z79.4 Long term (current) use of insulin
CPT/HCPCS: G0109

== ENCOUNTER 2019-10-04 17:04 | Emergency (ER) | payer OTHER, MEDICAID, SELFPAY ==
[2019-08-05 10:50] VITALS: BMI 59.5
[2019-10-04 17:11] VITALS: BP 172/94; PULSE 97; RESP 20; TEMP 36.3; O2SAT 98; BMI 60.0
--- NOTE | 2019-10-04 17:21 | DI.RAD.S_ITS ---
PROCEDURE: XR CHEST 2V INDICATIONS: Cough x months TECHNIQUE: 2 views of the chest were acquired. COMPARISON: [facility], CR, XR CHEST 1 VIEW, 03/25/2018, 21:41. [facility], CR, XR CHEST 2V, 10/18/2018, 21:14. [facility], CR, XR CHEST 2V, 02/04/2019, 20:53. [facility], CR, XR CHEST 2V, 03/04/2019, 11:20. FINDINGS: Surgical changes and devices: None. Lungs and pleura: An incomplete inspiratory result is noted, causing a crowded appearance to the lung markings. Mild, streaky opacities are seen at the lung bases. No pneumothorax or significant pleural effusions are seen. Mediastinum: Mediastinal contours are normal. Heart size is normal. Bones and chest wall: No suspicious bony abnormalities. Soft tissues appear unremarkable. IMPRESSION: Study limited by poor inspiratory result. Likely atelectasis at the lung bases. Differential diagnosis in mild infiltrate, yet this is considered to be less likely. As clinically appropriate, a short-term followup chest series (with PA and lateral views) performed in deep inspiration is suggested for further evaluation. Dictated by: Primo Samaniego M.D. on 10/04/2019 at 18:13 Approved by: Primo Samaniego M.D. on 10/04/2019 at 18:14
--- NOTE | 2019-10-04 17:52 | ED.URI ---
HPI - URI/Sore Throat <Lacy Rios, POLITICAL DIRECTOR - Last Filed: 10/04/19 20:40> General Chief Complaint: Upper Respiratory Symptoms Stated Complaint: difficulty breathing Time Seen by Provider: 10/04/19 17:21 Mode of arrival: Ambulatory History of Present Illness HPI Narrative: 33 year old female presents emergency department complaining of episodes of coughing spasms with assoicated SOB, she has been seen for this in the past, I evaluated this patient in the walk-in clinic on 09/06/2019 and her symptoms appeared to be allergenic due to intermittent epsiodeso of coughing and eye pruritus/watery, she was encouraged to take Claritin daily. Patient did follow up with her primary care provider and she was told that she was being referred to an asthma specialist. She has not heard from them yet and has not schedule an appointment. Patient then She states it feels like ?there is itching in my chest. Previously she had intermittent episodes of cough states in her her cough is constant. She states her cough is relieved with drinking water and using cough drops. She states at 1 point she had an elevated D-dimer and there was concern for pulmonary embolism, however, she was not diagnosed with a PE. Patient denies any other symptoms such as headaches, chest pain, abdominal pain, nausea, vomiting, diarrhea, fevers, chills, other concerns. Related Data Home Medications Medication Instructions Recorded Confirmed loratadine [Claritin] 10 mg PO DAILY PRN 03/24/18 09/28/19 ferrous sulfate 325 mg PO QPM 05/18/19 09/28/19 pioglitazone 30 mg PO DAILY 07/14/19 09/28/19 fluticasone propion-salmeterol 1 puff INHALATION DAILY 10/04/19 10/04/19 [Wixela Inhub] propranolol 20 mg PO BID 10/04/19 10/04/19 Previous Rx's Medication Instructions Recorded BD U/F MINI PEN NEEDLE [id number] #1 ea 08/27/18 albuterol sulfate 90 mcg/actuation 2 puff INHALATION Q4HP PRN #8 gram 03/05/19 aerosol inhaler cyclobenzaprine 5 mg tablet 5 mg PO BEDTIME PRN #30 tab 03/16/19 metformin 500 mg tablet 500 mg PO QID #360 tab 03/16/19 TRUE METRIX AIR GLUCOSE METER #1 ea 03/17/19 BD U/F Mini Pen Needle #100 each 04/14/19 True metrix glucose test strip #100 each 04/14/19 hydrocodone 5 mg-acetaminophen 325 1 tab PO Q6HP PRN #120 tab 06/15/19 mg tablet lorazepam 1 mg tablet 1 mg PO BID PRN #60 tab 06/15/19 clobetasol 0.05 % topical ointment 1 applictn TOPICAL BID PRN #30 gram 06/25/19 nystatin 100,000 unit/gram topical 1 applictn TOP BID #30 gram 06/25/19 powder insulin glargine 100 unit/mL (3 40 unit SUBCUT QPM #15 ml 08/18/19 mL) subcutaneous pen insulin lispro 100 unit/mL 60 unit SUBCUT QAC #30 ml 09/22/19 subcutaneous pen losartan 50 mg tablet 50 mg PO DAILY #90 tab 09/28/19 albuterol sulfate 2 puff INHALATION Q4-6H PRN #8.5 10/04/19 gram fluticasone propion-salmeterol 1 inhalation INHALATION BID #60 10/04/19 [Advair Diskus] each prednisone 40 mg PO DAILY 5 Days #10 tab 10/04/19 Allergies Allergy/AdvReac Type Severity Reaction Status Date / Time Iodinated Contrast Media Allergy Severe Neck, face Verified 10/04/19 17:15 [IODINATED CONTRAST MEDIA - arms all IV DYE] swollen with difficulty breathing hydromorphone [From DILAUDID] Allergy Mild Very Verified 10/04/19 17:15 sensitive to this drug. ciprofloxacin [From Cipro] Allergy Hives Verified 10/04/19 17:15 Sulfa (Sulfonamide Allergy Rash Verified 10/04/19 17:15 Antibiotics) loperamide [From IMODIUM A-D] AdvReac Mild Nausea Verified 10/04/19 17:15 vomiting VITAMIN C AdvReac Mild Nausea/vomiting Uncoded 10/04/19 17:15 and migraines Review of Systems <MARY Servin - Last Filed: 10/04/19 20:40> Review of Systems Narrative: REVIEW OF SYSTEMS: GENERAL: Denies fevers. HENT: No head trauma or hearing loss. EYES: No loss of vision, double vision, eye pain, irritation or discharge. CARDIOVASCULAR: No chest pain or syncope. RESPIRATORY: Complains of cough, see HPI. GASTROINTESTINAL: No nausea, vomiting, diarrhea, or constipation. MUSCULOSKELETAL: No weakness or injury. INTEGUMENTARY: No rash, lesions, or pruritus. NEURO: No memory loss, or confusion. Patient History <MARY Servin - Last Filed: 10/04/19 20:40> Medical History Anxiety (Chronic Unknown) Chronic dental pain (Chronic) Depression (Chronic Unknown) Dermatitis (Chronic Unknown) Hx MRSA infection (Resolved 10/2010) Mild intermittent asthma without complication (Chronic 02/23/16) Morbid obesity with body mass index (BMI) greater than or equal to 50 (Chronic 08/04/15) Type 2 diabetes mellitus without complication, with long-term current use of insulin (Chronic 10/08/16) Uncomplicated opioid dependence (Chronic) Surgical History History of cholecystectomy (Acute) No history of previous surgery (Chronic) Family History Mother Age: 39 Type 2 diabetes mellitus without complication Sister Age: 29 Depression Sister Age: 32 Anxiety Social History household members: spouse Smoking Status: Former smoker eating out: 1-3 times/week Type(s) of exercise: none Smoking Status: Former smoker alcohol intake frequency: holidays/special occasions only Alcohol type: beer Substance Use Type: does not use Exam <MARY Servin - Last Filed: 10/04/19 20:40> Initial Vital Signs Initial Vital Signs: Vital Signs Temperature 97.4 F L 10/04/19 17:11 Pulse Rate 97 H 10/04/19 17:11 Respiratory Rate 20 10/04/19 17:11 Blood Pressure 172/94 H 10/04/19 17:11 Pulse Oximetry 98 10/04/19 17:11 PHYSICAL EXAMINATION: GENERAL: Well groomed, alert, and cooperative. Answers questions promptly and appropriately. Vital signs noted. HENT: Normocephalic, atraumatic. Ear canals patent. TMs intact without mucus or erythema. Oropharynx without erythema. Tonsils are not present. EYES: Conjunctiva pink, sclera white, no periorbital swelling. No discharge. CHEST: Normal to inspection and without deformities. CARDIOVASCULAR: S1 and S2 sounds normal. Regular rate and rhythm, no murmurs, clicks, or bruits. RESPIRATORY: Normal respiratory rate, trachea midline, airway patent. No stridor, nasal flaring or accessory muscle use. Able to speak in full sentences. Lungs with decreased lower lung sounds and expiratory wheezes, wheezes completely resolved after administration of DuoNeb. Dry cough exhibited throughout examination. GI: Abdomen soft and nontender, no masses. MUSCULOSKELETAL: Normal gait and coordination. Equal tone and mass bilaterally. EXTREMITIES: Moves all extremities. SKIN: Warm, dry, soft, appropriate color for ethnicity. No lesions, rashes, or wounds to visualized areas. NEURO: Alert and Oriented X 3. Good coordination. No ataxia or cognitive issues. PSYCH: Appropriate affect and mood. <Chon Kilpatrick DO - Last Filed: 10/04/19 20:40> Initial Vital Signs Initial Vital Signs: Vital Signs Temperature 97.4 F L 10/04/19 17:11 Pulse Rate 97 H 10/04/19 17:11 Respiratory Rate 20 10/04/19 17:11 Blood Pressure 172/94 H 10/04/19 17:11 Pulse Oximetry 98 10/04/19 17:11 Scores <MARY Servin - Last Filed: 10/04/19 20:40> PERC Score Age greater than or equal to 50 years: No Heart rate greater than or equal to 100 bpm: No Room Air O2 Sat less than 95%: No Unilateral leg swelling: No Recent trauma or surgery: No Hemoptysis: No Prior PE or DVT: No Hormone Use: No Total PERC Score: 0 Course <MARY Servin - Last Filed: 10/04/19 20:40> Course Course Narrative: Patient was given a DuoNeb, she reports that the ?tickling feeling feels the same but she has notably less coughing. Wheezes on examination completely resolved after DuoNeb administration. Orders Ordered: ED Orders 10/04/19 17:21 XR chest 2V Stat Discontinued Medications Albuterol/Ipratropium (Duoneb) 3 ml INH NOW ONE Stop: 10/04/19 17:50 Last Admin: 10/04/19 18:01 Dose: 3 ml Documented by: RSELFRIDGE Vital Signs Vital signs: Vital Signs - 8 hr 10/04/19 17:11 10/04/19 18:01 10/04/19 19:01 Temperature 97.4 F L Pulse Rate 97 H 98 H 91 H Respiratory Rate 20 18 20 Blood Pressure 172/94 H 165/90 H Pulse Oximetry 98 99 100 <Chon Kilpatrick DO - Last Filed: 10/04/19 20:40> Orders Ordered: ED Orders 10/04/19 17:21 XR chest 2V Stat Discontinued Medications Albuterol/Ipratropium (Duoneb) 3 ml INH NOW ONE Stop: 10/04/19 17:50 Last Admin: 10/04/19 18:01 Dose: 3 ml Documented by: RSELFRIDGE Vital Signs Vital signs: Vital Signs - 8 hr 10/04/19 17:11 10/04/19 18:01 10/04/19 19:01 Temperature 97.4 F L Pulse Rate 97 H 98 H 91 H Respiratory Rate 20 18 20 Blood Pressure 172/94 H 165/90 H Pulse Oximetry 98 99 100 MDM - URI/Sore Throat <MARY Servin - Last Filed: 10/04/19 20:40> Medical Records Attestation: I reviewed the patient's medical records. Lab Data Attestation: I reviewed the patient's lab results. Imaging Data Chest x-ray: Radiologist's Impression: [address] [address] XRay Report Signed Patient: Yaquelin Loera CMR#: [id number] : 1985Acct:[id number] Age/Sex: 33 / FDate of Service: 10/04/19 Loc: ED Accession Number: [id number] Procedure: XR chest 2V Ordering Provider: Chon Kilpatrick D.O. PROCEDURE: XR CHEST 2V INDICATIONS: Cough x months TECHNIQUE: 2 views of the chest were acquired. COMPARISON: [facility], CR, XR CHEST 1 VIEW, 03/25/2018, 21:41. [facility], CR, XR CHEST 2V, 10/18/2018, 21:14. [facility], CR, XR CHEST 2V, 02/04/2019, 20:53. [facility], CR, XR CHEST 2V, 03/04/2019, 11:20. FINDINGS: Surgical changes and devices: None. Lungs and pleura: An incomplete inspiratory result is noted, causing a crowded appearance to the lung markings. Mild, streaky opacities are seen at the lung bases. No pneumothorax or significant pleural effusions are seen. Mediastinum: Mediastinal contours are normal. Heart size is normal. Bones and chest wall: No suspicious bony abnormalities. Soft tissues appear unremarkable. IMPRESSION: Study limited by poor inspiratory result. Likely atelectasis at the lung bases. Differential diagnosis in mild infiltrate, yet this is considered to be less likely. As clinically appropriate, a short-term followup chest series (with PA and lateral views) performed in deep inspiration is suggested for further evaluation. Dictated by: Primo Samaniego M.D. on 10/04/2019 at 18:13 Approved by: Primo Samaniego M.D. on 10/04/2019 at 18:14 MDM Narrative Medical decision making narrative: 33yo year old female former smoker with an extensive history of obesity, diabetes, reactive airway disease, anxiety, and hypertension, presents emergency department complaining of continued cough the past few weeks. I initially seen this patient in the walk-in clinic and treated her with steroid inhalers and albuterol as well as Zyrtec. She presents emergency department because her cough continues. Patient has recently been referred to the asthma and analysis specialist. She has not had an appointment with them at this time. I suspect her symptoms are most likely caused by worsening reactive airway disease due to secondhand smoke exposure, obesity, allergies, and continued cough (due to wheezes that resolved with DuoNeb administration, dry cough that is better with drinking water and eating cough drops, as well as lack of other symptoms). Other differential includes post viral cough and acid reflux. Less likely pulmonary embolism due to lack of tachycardia, hypoxia, presence of wheezes, and resolution of wheezes after DuoNeb, as well as decreased cough after DuoNeb. Less likely cardiac etiology due to lack of other symptoms such as chest pain, dizziness, syncope, nausea, or etc. After discussion about risks and benefits and the chance of increasing patient's blood sugars, she was started on prednisone to help with symptoms. She was encouraged to follow up with the allergy and asthma specialist. Patient agrees to plan of care and verbalizes understanding. Discharge Plan Departure Patient Disposition: Home Clinical Impression: Cough Exacerbation of reactive airway disease Qualifiers: Asthma severity: moderate Asthma persistence: persistent Qualified Code(s): J45.41 - Moderate persistent asthma with (acute) exacerbation Discharge Date/Time: 10/04/19 19:01 Instructions: DI for Reactive Airway Disease-Adult Activity Restrictions/Additional Instructions: Thank you for entrusting me with your care today. As discussed, your chest x-ray shows decreased lung volume in the bases lungs. This may be from reactive airways and not taking deep enough breaths. Please follow-up with an asthma specialist as planned. I have given you a short course of steroids, as we discussed this can increase your blood sugars so please monitor them appropriately. Your inhalers and and prednisone are sent to [facility] in [place]. I also recommend taking [id number] Pepcid daily as acid reflux may be contributed to this problem. Follow up with your primary care provider in 1-2 weeks for further evaluation of symptoms continue. Return emergency department for any new or worsening symptoms such as chest pain, abdominal pain, fevers, or other concerns. Prescriptions: New fluticasone propion-salmeterol [Advair Diskus] 250-50 mcg/dose blister with device 1 inhalation INHALATION BID Qty: 60 RF: 0 albuterol sulfate 90 mcg/actuation HFA aerosol inhaler 2 puff INHALATION Q4-6H PRN (Reason: shortness of breath or wheezing) Qty: 8.5 RF: 0 prednisone 20 mg tablet 40 mg PO DAILY 5 Days Qty: 10 RF: 0 No Action (DME) BD U/F MINI PEN NEEDLE [id number] Qty: 1 RF: 2 Ventolin HFA 90 mcg/actuation HFA aerosol inhaler 2 puff Inhalation Q4HP PRN (Reason: Shortness Of Breath) Qty: 8 RF: 11 (DME) TRUE METRIX AIR GLUCOSE METER Qty: 1 RF: 0 (DME) True metrix glucose test strip Qty: 100 RF: 5 (DME) BD U/F Mini Pen Needle 31G X 5MM Qty: 100 RF: 5 clobetasol 0.05 % ointment 1 applictn Topical BID PRN (Reason: rash) Qty: 30 RF: 1 nystatin 100,000 unit/gram powder 1 applictn TOP BID Qty: 30 RF: 1 insulin lispro [Humalog KwikPen Insulin] 100 unit/mL insulin pen 60 unit SUBCUT QAC Qty: 30 RF: 11 lorazepam 1 mg tablet 1 mg PO BID PRN (Reason: anxiety) Qty: 60 RF: 5 hydrocodone-acetaminophen 5-325 mg tablet 1 tab PO Q6HP PRN (Reason: pain) Qty: 120 RF: 0 Lantus Solostar U-100 Insulin 100 unit/mL (3 mL) insulin pen 40 unit SUBCUT QPM Qty: 15 RF: 11 cyclobenzaprine 5 mg tablet 5 mg PO BEDTIME PRN (Reason: muscle spasm) Qty: 30 RF: 0 metformin [Glucophage] 500 mg tablet 500 mg PO QID Qty: 360 RF: 1 losartan 50 mg tablet 50 mg PO DAILY Qty: 90 RF: 1 loratadine [Claritin] 10 mg Tablet 10 mg PO DAILY PRN (Reason: Allergy Symptoms) RF: 0 ferrous sulfate 325 mg (65 mg iron) tablet 325 mg PO QPM RF: 0 propranolol 20 mg tablet 20 mg PO BID RF: 0 fluticasone propion-salmeterol [Wixela Inhub] 100-50 mcg/dose blister with device 1 puff INHALATION DAILY RF: 0 pioglitazone 30 mg tablet 30 mg PO DAILY RF: 0 Referrals: Corwin Pacheco MD [Primary Care Provider] - <Chon Kilpatrick DO - Last Filed: 10/04/19 20:40> Sign Out Provider Sign Out Attestation: Dr Kilpatrick Co-Sign Statement: I was available for consultation during this patient's emergency department visit. This chart is signed by myself for administrative purposes only. I did not have direct contact with this patient during this visit. They were seen independently by the APC.
[2019-10-04 18:01] VITALS: PULSE 98; RESP 18; O2SAT 99
[2019-10-04] MEDS: ALBUTEROL/IPRATROPIUM 3 ML AMPUL INH (18:01)
[2019-10-04 19:01] VITALS: BP 165/90; PULSE 91; RESP 20; O2SAT 100
== END 2019-10-04 19:01 | disposition home or self-care (01) ==
PROVIDERS: Emergency Provider Nurse Practitioner; PCP Student in an Organized Health Care Education/Training Program
DX: R05 Cough (principal); J45.41 Moderate persistent asthma with (acute) exacerbation
CPT/HCPCS: 71046; 94640; 99283

== ENCOUNTER → 2019-10-11 10:33 | Outpatient (CLI) | payer OTHER, MEDICAID, SELFPAY ==
[2019-08-05 10:50] VITALS: BMI 59.5
--- NOTE | 2019-10-15 16:12 | PM.PFT.1 ---
Pulmonary Function Test Referral & Results Date Patient Seen: 10/11/19 Requesting provider: Corwin Pacheco Results: The spirometry demonstrates an FVC of 2.15 L which is 53% of predicted. The FEV1 was measured at 1.55 L which is 46% of predicted. The FEV1/FVC ratio was 72 which is 85% of predicted. Following the administration of bronchodilator there was a 22% improvement in FEF 25-75%. No lung volumes or diffusing capacity or maximum voluntary ventilation was performed Interpretation: This study demonstrates moderately severe obstructive lung disease with some limited evidence of benefit following bronchodilator administration based on improvement in FEF 25-75% which suggest small airway improvement. Review of flow volume loop is somewhat confusing in that it does not support the diagnosis of obstructive lung disease although lung volumes are certainly reduced. Clinical correlation suggested
== END ==
PROVIDERS: PCP Student in an Organized Health Care Education/Training Program; Referring Provider Student in an Organized Health Care Education/Training Program; Visit Provider Student in an Organized Health Care Education/Training Program
DX: J45.909 Unspecified asthma, uncomplicated (principal); Z87.891 Personal history of nicotine dependence
CPT/HCPCS: 94060

== ENCOUNTER 2019-10-15 21:33 | Emergency (ER) | payer OTHER, MEDICAID, SELFPAY ==
[2019-08-05 10:50] VITALS: BMI 59.5
[2019-10-15 21:40] VITALS: BP 161/112; PULSE 100; RESP 24; TEMP 36.2; O2SAT 97
--- NOTE | 2019-10-15 21:48 | DI.RAD.S_ITS ---
PROCEDURE: XR CHEST 2V INDICATIONS: shortness of breath and cough TECHNIQUE: 2 views of the chest were acquired. COMPARISON: [facility], CR, XR CHEST 2V, 10/18/2018, 21:14. [facility], CR, XR CHEST 2V, 03/04/2019, 11:20. [facility], CR, XR CHEST 2V, 02/04/2019, 20:53. [facility], CR, XR CHEST 2V, 10/04/2019, 17:43. FINDINGS: Surgical changes and devices: None. Lungs and pleura: Interstitial prominence can be seen. Low lung volumes are noted. This causes a crowded appearance to the lung markings and limits evaluation. No pleural effusions or pneumothorax. Mediastinum: Mediastinal contours are normal. Heart size is normal. Bones and chest wall: No suspicious bony abnormalities. Soft tissues appear unremarkable. IMPRESSION: Limited chest study demonstrating apparent interstitial prominence. Differential diagnosis includes artifact from an incomplete inspiratory result, mild pulmonary edema, and a viral infection. As clinically appropriate, a short-term followup chest series (with PA and lateral views) performed in deep inspiration is suggested for further evaluation. Dictated by: Primo Samaniego M.D. on 10/16/2019 at 8:57 Approved by: Primo Samaniego M.D. on 10/16/2019 at 9:00
[2019-10-15] MEDS: predniSONE 20 MG TABLET 40 MG PO (21:53)
[2019-10-15] MEDS: ALBUTEROL/IPRATROPIUM 3 ML AMPUL INH (21:57)
[2019-10-15 22:10] VITALS: PULSE 101; RESP 22; O2SAT 99
[2019-10-15] MEDS: DOXYCYCLINE HYCLATE 100 MG TABLET PO (22:56)
[2019-10-15 23:11] VITALS: BP 175/79; PULSE 93; RESP 16; TEMP 36.3; O2SAT 97
--- NOTE | 2019-10-16 03:16 | ED_ITS ---
HPI - URI/Sore Throat General Chief Complaint: Upper Respiratory Symptoms Stated Complaint: numbness right hand and a bad cough Time Seen by Provider: 10/15/19 21:40 Source: patient Mode of arrival: Ambulatory Limitations: no limitations History of Present Illness HPI Narrative: 33-year-old female former smoker with history of asthma presents with a chief complaint of a persistent hacking cough with occasional sputum production over the past few days. She has had some runny nose but denies sore throat, body aches nor fever or chills. She has had no nausea or vomiting. She denies any diarrhea. She denies recent travel pleuritic type pain or history of clot. She states she has been coughing so much that her abdominal wall is now hurting. MD Complaint: cough Onset (ago): day(s) Duration: constant Severity: moderate Relieving factors: nothing Exacerbating factors: nothing Description of mucous: clear Able to tolerate fluids by mouth: Yes Associated symptoms: cough Related Data Home Medications Medication Instructions Recorded Confirmed loratadine [Claritin] 10 mg PO DAILY PRN 03/24/18 10/12/19 ferrous sulfate 325 mg PO QPM 05/18/19 10/12/19 pioglitazone 30 mg PO DAILY 07/14/19 10/12/19 fluticasone propion-salmeterol 1 puff INHALATION DAILY 10/04/19 10/12/19 [Evanxela Inhub] propranolol 20 mg PO BID 10/04/19 10/12/19 Previous Rx's Medication Instructions Recorded BD U/F MINI PEN NEEDLE [id number] #1 ea 08/27/18 albuterol sulfate 90 mcg/actuation 2 puff INHALATION Q4HP PRN #8 gram 03/05/19 aerosol inhaler cyclobenzaprine 5 mg tablet 5 mg PO BEDTIME PRN #30 tab 03/16/19 metformin 500 mg tablet 500 mg PO QID #360 tab 03/16/19 TRUE METRIX AIR GLUCOSE METER #1 ea 03/17/19 BD U/F Mini Pen Needle #100 each 04/14/19 True metrix glucose test strip #100 each 04/14/19 lorazepam 1 mg tablet 1 mg PO BID PRN #60 tab 06/15/19 clobetasol 0.05 % topical ointment 1 applictn TOPICAL BID PRN #30 gram 06/25/19 nystatin 100,000 unit/gram topical 1 applictn TOP BID #30 gram 06/25/19 powder insulin glargine 100 unit/mL (3 40 unit SUBCUT QPM #15 ml 08/18/19 mL) subcutaneous pen insulin lispro 100 unit/mL 60 unit SUBCUT QAC #30 ml 09/22/19 subcutaneous pen losartan 50 mg tablet 50 mg PO DAILY #90 tab 09/28/19 albuterol sulfate 2 puff INHALATION Q4-6H PRN #8.5 10/04/19 gram hydrocodone 5 mg-acetaminophen 325 1 tab PO Q6HP PRN #120 tab 10/06/19 mg tablet ipratropium bromide 17 1 puff INHALATION QID #12.9 gram 10/12/19 mcg/actuation HFA aerosol inhaler Nebulizer #1 ea 10/14/19 albuterol sulfate 2.5 mg INHALATION Q4H PRN #90 ml 10/14/19 ipratropium 0.5 mg-albuterol 3 mg 3 ml INHALATION BID #90 ml 10/14/19 (2.5 mg base)/3 mL nebulization soln benzonatate [Tessalon Perles] 100 mg PO TID PRN #14 cap 10/15/19 doxycycline hyclate 100 mg PO BID #20 tab 10/15/19 prednisone See Rx Instructions .ROUTE 10/15/19 .COMPLEX #30 tab Allergies Allergy/AdvReac Type Severity Reaction Status Date / Time Iodinated Contrast Media Allergy Severe Neck, face Verified 10/12/19 15:48 [IODINATED CONTRAST MEDIA - arms all IV DYE] swollen with difficulty breathing hydromorphone [From DILAUDID] Allergy Mild Very Verified 10/12/19 15:48 sensitive to this drug. ciprofloxacin [From Cipro] Allergy Hives Verified 10/12/19 15:48 Sulfa (Sulfonamide Allergy Rash Verified 10/12/19 15:48 Antibiotics) loperamide [From IMODIUM A-D] AdvReac Mild Nausea Verified 10/12/19 15:48 vomiting VITAMIN C AdvReac Mild Nausea/vomiting Uncoded 10/12/19 15:48 and migraines Review of Systems Constitutional Constitutional: Denies chills, Denies fatigue, Denies fever(s), Denies frequent falls, Denies lethargy and Denies weakness Eyes Eyes: Denies change in vision, Denies eye discharge, Denies irritation and Denies loss of vision ENT Ears, Nose, Mouth, and Throat: Denies change in voice, Denies dizziness, Denies neck pain, Denies sore throat and Denies throat swelling Cardiovascular Cardiovascular: Denies chest pain, Denies irregular heart rhythm, Denies lightheadedness, Denies palpitations, Denies dyspnea, Denies dyspnea on exertion and Denies orthopnea Respiratory Respiratory: Reports cough, Denies dyspnea, Denies dyspnea on exertion and Reports wheezing Gastrointestinal Gastrointestinal: Denies abdominal pain, Denies change in bowel habits, Denies diarrhea, Denies nausea and Denies vomiting Genitourinary Genitourinary: Denies hematuria, Denies flank pain, Denies urinary incontinence and Denies urinary urgency Musculoskeletal Musculoskeletal: Denies back pain, Denies muscle weakness, Denies neck pain, Denies numbness and Denies tingling Integumentary/Breasts Skin/Breast: Denies pruritus, Denies erythema, Denies rash and Denies wounds Neurologic Neurologic: Denies behavioral changes, Denies confusion, Denies dizziness, Denies frequent falls, Denies loss of vision, Denies numbness, Denies tingling and Denies weakness Psychiatric Psychiatric: Denies anxiety, Denies behavioral changes, Denies confusion, Denies depression, Denies homicidal ideation and Denies suicidal ideation Endocrine Endocrine: Denies fatigue, Denies flushing and Denies palpitations Hematologic/Lymphatic Hematologic/Lymphatic: Denies easy bruising Allergic/Immunologic Allergic/Immunologic: Denies urticaria, Denies throat swelling and Reports wheezing Patient History Social History household members: spouse Smoking Status: Former smoker eating out: 1-3 times/week Type(s) of exercise: none Smoking Status: Former smoker alcohol intake frequency: holidays/special occasions only Alcohol type: beer Substance Use Type: does not use Exam Narrative Exam Narrative: GENERAL: [33] year old patient appears stated age. Well- nourished, well-developed patient, in mild distress. HEAD: Atraumatic. Normocephalic. EYES: Pupils equal round and reactive. Extraocular motions intact. No scleral icterus. No injection or drainage. ENT: Nose without bleeding, purulent drainage. Throat without erythema, tonsillar hypertrophy or exudate. Airway patent. NECK: Trachea midline. Non tender CARDIOVASCULAR: Regular rate and rhythm without murmurs, gallops, or rubs. RESPIRATORY: Expiratory wheeze with some decreased breath sounds in bilateral bases. No rales or rhonchi GASTROINTESTINAL: Abdomen soft, non-tender, nondistended. EXTREMITIES: No edema or joint tenderness. BACK: Nontender without deformity or crepitance. No flank tenderness. NEURO: AOx3. SKIN: No rash or erythema of visible areas Initial Vital Signs Initial Vital Signs: Vital Signs Temperature 97.2 F L 10/15/19 21:40 Pulse Rate 100 H 10/15/19 21:40 Respiratory Rate 24 10/15/19 21:40 Blood Pressure 161/112 H 10/15/19 21:40 Pulse Oximetry 97 10/15/19 21:40 Course Orders Ordered: ED Orders 10/15/19 21:48 XR chest 2V Stat Discontinued Medications Albuterol/Ipratropium (Duoneb) 3 ml INH NOW ONE Stop: 10/15/19 21:49 Last Admin: 10/15/19 21:57 Dose: 3 ml Documented by: MAYNOR Doxycycline Hyclate (Vibramycin) 100 mg PO NOW ONE Stop: 10/15/19 22:52 Last Admin: 10/15/19 22:56 Dose: 100 mg Documented by: TYRELL Prednisone (Deltasone) 40 mg PO NOW ONE Stop: 10/15/19 21:49 Last Admin: 10/15/19 21:53 Dose: 40 mg Documented by: RUBI Vital Signs Vital signs: Vital Signs - 8 hr 10/15/19 21:40 10/15/19 22:10 10/15/19 23:11 Temperature 97.2 F L 97.4 F L Pulse Rate 100 H 101 H 93 H Respiratory Rate 24 22 16 Blood Pressure 161/112 H Blood Pressure [Left Arm] 175/79 H Pulse Oximetry 97 99 97 MDM - URI/Sore Throat MDM Narrative Medical decision making narrative: Patient with known asthma presents with signs and symptoms consistent with respiratory infection and exacerbation of her asthma. She responds to bronchodilators and chest x-ray suggest perhaps a small infiltrate in the left lower lobe. The patient is in no respiratory distress, has no supplemental oxygen needs and is resting comfortably. Patient has been given return precautions and understands the plan and agrees with this plan. She has had her questions answered to her apparent satisfaction Discharge Plan Departure Patient Disposition: Home Clinical Impression: Atypical pneumonia Asthma exacerbation Qualifiers: Asthma severity: moderate Asthma persistence: unspecified Qualified Code(s): J45.901 - Unspecified asthma with (acute) exacerbation Discharge Date/Time: 10/15/19 23:16 Instructions: Atypical Pneumonia Activity Restrictions/Additional Instructions: *You have been diagnosed with [ atypical pneumonia, asthma exacerbation ] *What to do: *Take medications as directed: Prescriptions sent to [facility] at your request *Follow up with your primary care provider in 2-3 days, call for an appointment. Let them know you were seen in the Emergency Department and that we ask that you be seen in follow up *Return to ER if you should have any new, worsening or concerning symptoms Prescriptions: New benzonatate [Tessalon Perles] 100 mg capsule 100 mg PO TID PRN (Reason: cough) Qty: 14 RF: 0 doxycycline hyclate 100 mg tablet 100 mg PO BID Qty: 20 RF: 0 prednisone 10 mg tablet See Rx Instructions .ROUTE .COMPLEX Qty: 30 RF: 0 No Action (DME) BD U/F MINI PEN NEEDLE [id number] Qty: 1 RF: 2 Ventolin HFA 90 mcg/actuation HFA aerosol inhaler 2 puff Inhalation Q4HP PRN (Reason: Shortness Of Breath) Qty: 8 RF: 11 (DME) TRUE METRIX AIR GLUCOSE METER Qty: 1 RF: 0 (DME) True metrix glucose test strip Qty: 100 RF: 5 (DME) BD U/F Mini Pen Needle 31G X 5MM Qty: 100 RF: 5 clobetasol 0.05 % ointment 1 applictn Topical BID PRN (Reason: rash) Qty: 30 RF: 1 nystatin 100,000 unit/gram powder 1 applictn TOP BID Qty: 30 RF: 1 insulin lispro [Humalog KwikPen Insulin] 100 unit/mL insulin pen 60 unit SUBCUT QAC Qty: 30 RF: 11 hydrocodone-acetaminophen 5-325 mg tablet 1 tab PO Q6HP PRN (Reason: pain) Qty: 120 RF: 0 (DME) Nebulizer Qty: 1 RF: 0 ipratropium-albuterol 0.5 mg-3 mg(2.5 mg base)/3 mL solution for nebulization 3 ml INHALATION BID Qty: 90 RF: 5 albuterol sulfate 2.5 mg /3 mL (0.083 %) solution for nebulization 2.5 mg INHALATION Q4H PRN (Reason: shortness of breath or wheezing) Qty: 90 RF: 5 lorazepam 1 mg tablet 1 mg PO BID PRN (Reason: anxiety) Qty: 60 RF: 5 Lantus Solostar U-100 Insulin 100 unit/mL (3 mL) insulin pen 40 unit SUBCUT QPM Qty: 15 RF: 11 cyclobenzaprine 5 mg tablet 5 mg PO BEDTIME PRN (Reason: muscle spasm) Qty: 30 RF: 0 metformin [Glucophage] 500 mg tablet 500 mg PO QID Qty: 360 RF: 1 losartan 50 mg tablet 50 mg PO DAILY Qty: 90 RF: 1 ipratropium bromide 17 mcg/actuation HFA aerosol inhaler 1 puff INHALATION QID Qty: 12.9 RF: 5 loratadine [Claritin] 10 mg Tablet 10 mg PO DAILY PRN (Reason: Allergy Symptoms) RF: 0 ferrous sulfate 325 mg (65 mg iron) tablet 325 mg PO QPM RF: 0 propranolol 20 mg tablet 20 mg PO BID RF: 0 fluticasone propion-salmeterol [Wixela Inhub] 100-50 mcg/dose blister with device 1 puff INHALATION DAILY RF: 0 albuterol sulfate 90 mcg/actuation HFA aerosol inhaler 2 puff INHALATION Q4-6H PRN (Reason: shortness of breath or wheezing) Qty: 8.5 RF: 0 pioglitazone 30 mg tablet 30 mg PO DAILY RF: 0 Referrals: Corwin Pacheco MD [Primary Care Provider] -
== END 2019-10-15 23:16 | disposition home or self-care (01) ==
PROVIDERS: Emergency Provider Emergency Medicine; PCP Student in an Organized Health Care Education/Training Program
DX: J18.9 Pneumonia, unspecified organism (principal); J45.901 Unspecified asthma with (acute) exacerbation
CPT/HCPCS: 71046; 94150; 94640; 99283

== ENCOUNTER → 2020-01-10 15:31 | Outpatient (CLI) | payer OTHER, MEDICAID, SELFPAY ==
[2019-08-05 10:50] VITALS: BMI 59.5
[2020-01-10 16:30] LABS: Hematocrit 30.2 % (36-46); Hemoglobin 9.7 g/dL (12.0-16.0); Mean Corpuscular Hemoglobin 20.2 PG (26-34); Mean Corpuscular Volume 63.1 fL (80-100); Platelet Count 276 X10^3/uL (150-400); Red Blood Cell Count 4.79 X10^6/uL (4.0-5.2); Red Cell Distribution Width 18.4 % (11.6-14.8); White Blood Cell Count 9.8 X10^3/uL (4.5-11.0)
[2020-01-10 16:47] LABS: Hemoglobin A1C% w Est Avg Glu 11.3 % (4.0-6.0)
[2020-01-10 17:04] LABS: HEMOLYSIS < 15 (0-50); Iron 32 ug/dL (37-170)
[2020-01-10 17:16] LABS: Percent Iron Saturation 8 % (15-50); Total Iron Binding Capacity 400 ug/dL (265-497); Transferrin 326 mg/dL (206-381)
[2020-01-10 21:03] LABS: Vitamin D 25 Hydroxy (D3) < 12.8 ng/mL (30.0-100.0)
== END ==
PROVIDERS: PCP Student in an Organized Health Care Education/Training Program; Referring Provider Student in an Organized Health Care Education/Training Program; Visit Provider Student in an Organized Health Care Education/Training Program
DX: D50.9 Iron deficiency anemia, unspecified (principal); E11.9 Type 2 diabetes mellitus without complications; E55.9 Vitamin D deficiency, unspecified; Z79.4 Long term (current) use of insulin
CPT/HCPCS: 36415; 82306; 83036; 83540; 83550; 85027

== ENCOUNTER → 2020-04-20 14:32 | Outpatient (CLI) | payer OTHER, MEDICAID, SELFPAY ==
[2019-08-05 10:50] VITALS: BMI 59.5
[2020-04-20 15:39] LABS: Hematocrit 30.8 % (36-46); Hemoglobin 9.5 g/dL (12.0-16.0); Mean Corpuscular HGB Conc 30.8 % (30-36); Mean Corpuscular Hemoglobin 17.9 PG (26-34); Mean Corpuscular Volume 58.1 fL (80-100); Platelet Count 338 X10^3/uL (150-400); Red Cell Distribution Width 21.3 % (11.6-14.8); White Blood Cell Count 7.5 X10^3/uL (4.5-11.0)
[2020-04-20 15:50] LABS: Reticulocyte Count, Percent 1.9 % (1.06-2.63)
[2020-04-20 16:05] LABS: HEMOLYSIS < 15 (0-50); Iron 41 ug/dL (37-170)
[2020-04-20 16:07] LABS: Alanine Aminotransferase 71 IU/L (<35); Albumin 3.7 g/dL (3.5-5.0); Alkaline Phosphatase 53 U/L (38-126); Aspartate Aminotransferase 54 IU/L (14-36); BUN Creatinine Ratio 23.3 (6-22); Blood Urea Nitrogen 10 mg/dL (7-17); Calcium 8.9 mg/dL (8.4-10.2); Carbon Dioxide 26 mmol/L (22-32); Chloride 95 mmol/L (98-107); Estimated Glomerular Filt Rate > 60.0 mL/min (>60); Globulin 3.7 g/dL (1.7-4.1); Glucose 324 mg/dL (70-100); HEMOLYSIS < 15 (0-50); Potassium 4.3 mmol/L (3.4-5.1); Sodium 131 mmol/L (137-145); Total Protein 7.4 g/dL (6.3-8.2)
[2020-04-20 16:09] LABS: Hemoglobin A1C% w Est Avg Glu 11.3 % (4.0-6.0)
[2020-04-20 16:15] LABS: Percent Iron Saturation 10 % (15-50); Total Iron Binding Capacity 408 ug/dL (265-497); Transferrin 317 mg/dL (206-381)
[2020-04-20 16:16] LABS: Anisocytosis 2+; Hypochromasia 1+; Microcytosis 2+; Neutrophils Absolute Manual 5400 /uL (3000-5900); Platelet Estimate Adequate on smear; Total Cells Counted 100
[2020-04-20 16:22] LABS: Vitamin D 25 Hydroxy (D3) < 12.8 ng/mL (30.0-100.0)
[2020-04-20 16:38] LABS: Hepatitis B Surface Antigen NEGATIVE s/c (NEGATIVE)
[2020-04-20 16:55] LABS: Hep C Virus Ab w/Reflex Quant NEGATIVE s/c (NEGATIVE)
[2020-04-21 04:37] LABS: Hepatitis B Core Antibody Negative (Negative); Hepatitis B Surf AB Quant 82.1 mIU/mL (Immunity>9.9)
[2020-04-22 14:07] LABS: QuantiFERON Mitogen Value 8.14 IU/mL (.); QuantiFERON Nil Value 0.07 IU/mL (.); QuantiFERON TB Gold Plus Negative (Negative); QuantiFERON TB1 Ag Value 0.07 IU/mL (.); QuantiFERON TB2 Ag Value 0.06 IU/mL (.)
== END ==
PROVIDERS: PCP Student in an Organized Health Care Education/Training Program; Referring Provider Student in an Organized Health Care Education/Training Program; Visit Provider Dermatology
DX: L40.0 Psoriasis vulgaris (principal); E55.9 Vitamin D deficiency, unspecified; D50.9 Iron deficiency anemia, unspecified; E11.65 Type 2 diabetes mellitus with hyperglycemia; E11.9 Type 2 diabetes mellitus without complications; Z79.4 Long term (current) use of insulin; Z79.899 Other long term (current) drug therapy
CPT/HCPCS: 36415; 80053; 82306; 83036; 83540; 83550; 85025; 85045; 86480; 86704; 86706; 86803; 87340

== ENCOUNTER → 2020-05-25 08:22 | Outpatient (CLI) | payer OTHER, MEDICAID, SELFPAY ==
[2019-08-05 10:50] VITALS: BMI 59.5
--- NOTE | 2020-05-31 08:52 | PM.PFT.1 ---
Pulmonary Function Test Referral & Results Date Patient Seen: 05/25/20 Requesting provider: Corwin Pacheco Results: The spirometry demonstrates an FVC of 2.27 L which is 56% of predicted. The FEV1 was measured at 1.92 L which is 57% of predicted. The FEV1/FVC ratio was 85 which is 100% of predicted. No bronchodilator was administered No lung volumes were performed No diffusing capacity was performed Interpretation: The spirometry demonstrates moderate obstructive lung disease based on reduction FEV1.
== END ==
PROVIDERS: PCP Student in an Organized Health Care Education/Training Program; Referring Provider Student in an Organized Health Care Education/Training Program; Visit Provider Student in an Organized Health Care Education/Training Program
DX: J45.909 Unspecified asthma, uncomplicated (principal); Z87.891 Personal history of nicotine dependence
CPT/HCPCS: 94010

== ENCOUNTER → 2020-10-11 11:46 | Outpatient (CLI) | payer OTHER, MEDICAID, SELFPAY ==
[2020-06-02 15:53] VITALS: BMI 59.5
[2020-10-11 11:54] LABS: Bacteria Urine None Seen; WBC Urine None Seen (0-5/HPF)
[2020-10-11 12:40] LABS: Appearance Urine UA CLOUDY; Bilirubin Urine UA NEGATIVE (NEGATIVE); Color Urine UA RED; Glucose Urine UA 2+ g/dL (Negative); Ketones Urine UA 1+ (NEGATIVE); Leukocyte Esterase Urine UA NEGATIVE (NEGATIVE); Nitrite Urine UA NEGATIVE (Negative); Occult Blood Urine UA 3+ (Negative); Protein Urine UA 2+ (Negative); Urobilinogen Urine UA 0.2 E.U./dL (0.2)
[2020-10-11 12:43] LABS: pH Urine UA 5.5 (4.5-8.0)
[2020-10-11 12:45] LABS: Culture Indicated Urine Cult Not Indicated; RBC Urine >100/HPF (0-5/HPF)
== END ==
PROVIDERS: PCP Student in an Organized Health Care Education/Training Program; Referring Provider Student in an Organized Health Care Education/Training Program; Visit Provider Student in an Organized Health Care Education/Training Program
DX: R30.0 Dysuria (principal)
CPT/HCPCS: 81001

== ENCOUNTER 2020-11-23 04:48 | Emergency (ER) | payer OTHER, MEDICAID, SELFPAY ==
[2020-06-02 15:53] VITALS: BMI 59.5
--- NOTE | 2020-11-23 04:51 | ED_ITS ---
HPI - General Adult General Chief complaint: Chest Pain Stated complaint: chest pain/ thinks panic attack/diff breathing Time Seen by Provider: 11/23/20 04:51 Source: patient Mode of arrival: Wheelchair Limitations: no limitations History of Present Illness HPI narrative: Patient is a 35-year-old female here for evaluation of shortness of breath and chest discomfort and anxiety. She states that last evening at ap proximately 0500 hours she started having some shortness of breath and chest discomfort. It was hard for her to describe exactly how the discomfort felt although she did not think it was worse with palpation or movement. She was not having nausea or vomiting. She did take an Ativan because she knew that she was having a panic attack which did improve her anxiety but not her chest pain. She is also having lower extremity swelling. She has known psoriasis and is on Humira and also on doxycycline. She states she was told by her wedding consultant that if she gets swelling in her legs are as chest discomfort that she should come to the emergency department for evaluation. She denies any fevers. Related Data Home Medications Medication Instructions Recorded Confirmed ferrous sulfate 325 mg PO QPM 05/18/19 09/06/20 dulaglutide 0.75 mg/0.5 mL 0.75 mg SUBCUT QWEEK 09/19/20 subcutaneous pen injector pioglitazone 30 mg tablet 15 mg PO DAILY tab 09/19/20 Previous Rx's Medication Instructions Recorded insulin glargine 100 unit/mL (3 40 unit SUBCUT QPM #15 ml 08/18/19 mL) subcutaneous pen ipratropium bromide 17 1 puff INHALATION QID #12.9 gram 10/12/19 mcg/actuation HFA aerosol inhaler Incontinence pads #1 ea 10/19/19 BD U/F MINI PEN NEEDLE [id number] #100 each 10/20/19 albuterol sulfate 90 mcg/actuation 2 puff INHALATION Q4HP PRN #18 gram 11/26/19 aerosol inhaler metformin 500 mg tablet 500 mg PO QID #360 tab 11/30/19 TRUE METRIX AIR GLUCOSE METER #1 ea 12/31/19 True metrix glucose test strip #100 each 12/31/19 loratadine 10 mg tablet 10 mg PO DAILY PRN #90 tab 01/10/20 Disabled Parking Permit #1 ea 01/19/20 nystatin 100,000 unit/gram topical 1 applictn TOP BID #30 gram 02/23/20 powder propranolol 20 mg tablet 20 mg PO BID #180 tab 04/12/20 albuterol sulfate 2.5 mg INHALATION Q4H PRN #90 ml 04/19/20 ipratropium 0.5 mg-albuterol 3 mg 3 ml INHALATION BID #90 ml 04/19/20 (2.5 mg base)/3 mL nebulization soln insulin lispro 100 unit/mL 60 unit SUBCUT QAC #40 ml 08/04/20 subcutaneous pen BD U/F Mini Pen Needle #250 ea 09/06/20 lorazepam 1 mg tablet 1 mg PO BID PRN #60 tab 09/06/20 losartan 100 mg tablet 100 mg PO DAILY #90 tab 09/06/20 Nebulizer #1 ea 09/14/20 hydrocodone 7.5 mg-acetaminophen 1 tab PO Q6H PRN 10 Days #40 tab 11/17/20 325 mg tablet oxycodone-acetaminophen 7.5 mg-325 1 tab PO Q6H PRN #120 tab 11/17/20 mg tablet Allergies Allergy/AdvReac Type Severity Reaction Status Date / Time Iodinated Contrast Media Allergy Severe Neck, face Verified 09/06/20 16:30 [IODINATED CONTRAST MEDIA - arms all IV DYE] swollen with difficulty breathing hydromorphone [From DILAUDID] Allergy Mild Very Verified 09/06/20 16:30 sensitive to this drug. ciprofloxacin [From Cipro] Allergy Hives Verified 09/06/20 16:30 Sulfa (Sulfonamide Allergy Rash Verified 09/06/20 16:30 Antibiotics) loperamide [From IMODIUM A-D] AdvReac Mild Nausea Verified 09/06/20 16:30 vomiting VITAMIN C AdvReac Mild Nausea/vomiting Uncoded 09/06/20 16:30 and migraines Review of Systems Constitutional Constitutional: Denies chills and Denies headache(s) ENT Ears, Nose, Mouth, and Throat: Denies headache(s) Cardiovascular Cardiovascular: Reports chest pain and Reports dyspnea Respiratory Respiratory: Reports dyspnea Gastrointestinal Gastrointestinal: Denies abdominal pain and Denies nausea Musculoskeletal Comments: Lower extremity swelling Integumentary/Breasts Skin/Breast: Reports rash Neurologic Neurologic: Denies headache(s) Hematologic/Lymphatic On Anticoagulants: No Allergic/Immunologic Allergic/Immunologic: Denies urticaria Patient History Medical History Anxiety (Unknown) Cellulitis of left breast Chronic dental pain Depression (Unknown) Dermatitis (Unknown) Hx MRSA infection (10/2010) Mild intermittent asthma without complication (02/23/16) Morbid obesity with body mass index (BMI) greater than or equal to 50 (08/04/15) Type 2 diabetes mellitus without complication, with long-term current use of insulin (10/08/16) Uncomplicated opioid dependence Surgical History (Updated 06/11/20 @ 07:06 by Corwin Pacheco MD) History of cholecystectomy No history of previous surgery Family History Mother Age: 40 Type 2 diabetes mellitus without complication Sister Age: 30 Depression Sister Age: 33 Anxiety Family/Other Loud snoring Diabetes mellitus ADD (attention deficit disorder) Alcohol abuse Depression Anxiety Sister Loud snoring Insomnia Obesity Depression Anxiety ADD (attention deficit disorder) Alcohol abuse Social History household members: spouse Smoking Status: Former smoker eating out: 1-3 times/week Type(s) of exercise: none Smoking Status: Former smoker alcohol intake frequency: holidays/special occasions only Alcohol type: beer Substance Use Type: does not use Exam Initial Vital Signs Initial Vital Signs: Vital Signs Temperature 98.0 F 11/23/20 04:55 Pulse Rate 84 11/23/20 04:55 Respiratory Rate 25 H 11/23/20 04:55 Blood Pressure 204/104 H 11/23/20 04:55 Pulse Oximetry 100 11/23/20 04:55 Const General: cooperative Limitations: mental status not altered HENMT Head: normal to inspection and normocephalic Resp Effort & Inspection: not labored and tachypneic Auscultation: clear to auscultation bilaterally Cardio Rate: regular rate Rhythm: regular rhythm Skin Other: Patient with multiple lesions throughout her body to include upper lower extremities consistent with her history of psoriasis. She also has redness around the areas on her lower extremity consistent with her stated staph i nfection for which she is on antibiotics Extrem General: edema Psych Appearance: grossly normal and well kempt Course Orders Ordered: ED Orders 11/23/20 04:52 XR chest 1V Stat EKG-12 Lead Stat 11/23/20 05:27 Complete Blood Count AUTO DIFF Stat Comprehensive Metabolic Panel Stat Lipase Stat Troponin & CK Cardiac Panel Stat Vital Signs Vital signs: Vital Signs - 8 hr 11/23/20 04:55 11/23/20 05:30 11/23/20 05:31 Temperature 98.0 F Pulse Rate 84 88 85 Respiratory Rate 25 H Blood Pressure 204/104 H 171/79 H Pulse Oximetry 100 98 98 Medical Decision Making Medical Records Medical records reviewed: Yes I reviewed the patient's medical records. Lab Data Lab results reviewed: Yes I reviewed the patient's lab results. Result diagrams: 11/23/20 05:37 11/23/20 05:37 Labs: Lab Results 11/23/20 11/23/20 Range/Units 05:37 05:37 WBC 5.9 (4.5-11.0) X10^3/uL RBC 5.52 H (4.0-5.2) X10^6/uL Hgb 10.4 L (12.0-16.0) g/dL Hct 33.8 L (36-46) % MCV 61.2 L (80-100) fL MCH 18.8 L (26-34) PG MCHC 30.7 (30-36) % RDW 18.4 H (11.6-14.8) % Plt Count 324 (150-400) X10^3/uL Neut % (Auto) Not Reportable Lymph % (Auto) Not Reportable [place] % (Auto) Not Reportable Eos % (Auto) Not Reportable Baso % (Auto) Not Reportable Lymph # (Auto) Not Reportable [place] # (Auto) Not Reportable Baso # (Auto) Not Reportable Total Counted 100 Seg Neutrophils % 68.0 (38-70) % Lymphocytes % (Manual) 18.0 L (25-45) % Monocytes % (Manual) 11.0 (2-11) % Eosinophils % (Manual) 2.0 (2-4) % Basophils % (Manual) 1.0 (0-1) % Neutrophils # (Manual) 4012 (9790-8075) /uL RBC Morphology See below Polychromasia 1+ H Hypochromasia 1+ H Anisocytosis 2+ H Microcytosis 1+ H Sodium 136 L (137-145) mmol/L Potassium 4.0 (3.4-5.1) mmol/L Chloride 98 (98-107) mmol/L Carbon Dioxide 31 (22-32) mmol/L BUN 14 (7-17) mg/dL Creatinine 0.40 L (0.52-1.04) mg/dL Estimated GFR > 60.0 (>60) mL/min BUN/Creatinine Ratio 35.0 H (6-22) Glucose 211 H (70-100) mg/dL Calcium 9.5 (8.4-10.2) mg/dL Total Bilirubin 0.6 (0.2-1.3) mg/dL AST 33 (14-36) IU/L ALT 51 H (<35) IU/L Alkaline Phosphatase 51 (38-126) U/L Total Creatine Kinase 93 (30-135) U/L CK-MB (CK-2) TNP CK-MB (CK-2) Rel Index TNP Troponin I < 0.012 (0.01-0.034) ng/mL Total Protein 7.9 (6.3-8.2) g/dL Albumin 4.0 (3.5-5.0) g/dL Globulin 3.9 (1.7-4.1) g/dL Albumin/Globulin Ratio 1.0 (1.0-2.8) Lipase 116 (23-300) U/L Imaging Data Chest x-ray: Attestation: I personally reviewed and interpreted this imaging study as follows: Radiologist's Impression: Multifocal bilateral pulmonary infiltrates. Follow-up chest radiograph after appropriate treatment to document resolution. ECG Data Attestation: I personally reviewed and interpreted this ECG as follows: Prior ECG tracings: not available for review Interpretation: Sinus rhythm Ventricular rate 89 Normal axis Normal QRS Normal QTC Nonspecific ST T wave changes MDM Narrative Medical decision making narrative: Patient is not in heart failure. Her chest x-ray read does show multifocal pulmonary infiltrates however it is of fairly poor quality chest x-ray. She is also currently on doxycycline which would treat any lung pathology. She is nontoxic appearing. Her lungs are actually clear on exam today. She has had chest discomfort that is hard for her to d escribe since last evening and her troponin is negative and this was greater than 6 hours of the onset of symptoms. Have low suspicion for ACS. Low suspicion for heart failure. I do suspect that much of her symptoms were anxiety related. She agrees with this. She is going to continue with her a ntibiotics and her other psoriasis treatments. She was given return precautions and follow-up instructions. She expressed understanding and agreement. Discharge Plan Departure Patient Disposition: Home Clinical Impression: Atypical chest pain Instructions: DI for Atypical Chest Pain Activity Restrictions/Additional Instructions: Continue all of your medications as directed. Contact your primary provider for follow-up. Return to the emergency department for any new or worsening symptoms Prescriptions: No Action (DME) BD U/F MINI PEN NEEDLE [id number] Qty: 100 RF: 2 Ventolin HFA 90 mcg/actuation HFA aerosol inhaler 2 puff Inhalation Q4HP PRN (Reason: Shortness Of Breath) Qty: 18 RF: 11 metformin [Glucophage] 500 mg tablet 500 mg PO QID Qty: 360 RF: 1 (DME) TRUE METRIX AIR GLUCOSE METER Qty: 1 RF: 0 (DME) True metrix glucose test strip Qty: 100 RF: 5 loratadine [Claritin] 10 mg tablet 10 mg PO DAILY PRN (Reason: Allergy Symptoms) Qty: 90 RF: 3 (DME) Disabled Parking Permit Qty: 1 RF: 0 nystatin 100,000 unit/gram powder 1 applictn TOP BID Qty: 30 RF: 2 propranolol 20 mg tablet 20 mg PO BID Qty: 180 RF: 3 insulin lispro [Humalog KwikPen Insulin] 100 unit/mL insulin pen 60 unit SUBCUT QAC Qty: 40 RF: 11 (DME) BD U/F Mini Pen Needle 31G X 5MM Qty: 250 RF: 6 (DME) Nebulizer See Rx Instructions .Route .MEDSUPPLY Qty: 1 RF: 0 pioglitazone 30 mg tablet 15 mg PO DAILY RF: 0 Trulicity 0.75 mg/0.5 mL pen injector 0.75 mg SUBCUT QWEEK RF: 0 hydrocodone-acetaminophen 7.5-325 mg tablet 1 tab PO Q6H PRN (Reason: pain) 10 Days Qty: 40 RF: 0 oxycodone-acetaminophen 7.5-325 mg tablet 1 tab PO Q6H PRN (Reason: pain) Qty: 120 RF: 0 Lantus Solostar U-100 Insulin 100 unit/mL (3 mL) insulin pen 40 unit SUBCUT QPM Qty: 15 RF: 11 albuterol sulfate 2.5 mg /3 mL (0.083 %) solution for nebulization 2.5 mg INHALATION Q4H PRN (Reason: shortness of breath or wheezing) Qty: 90 RF: 5 ipratropium-albuterol 0.5 mg-3 mg(2.5 mg base)/3 mL solution for nebulization 3 ml INHALATION BID Qty: 90 RF: 5 ipratropium bromide 17 mcg/actuation HFA aerosol inhaler 1 puff INHALATION QID Qty: 12.9 RF: 5 (DME) Incontinence pads Qty: 1 RF: 0 losartan 100 mg tablet 100 mg PO DAILY Qty: 90 RF: 3 lorazepam 1 mg tablet 1 mg PO BID PRN (Reason: anxiety) Qty: 60 RF: 5 ferrous sulfate 325 mg (65 mg iron) tablet 325 mg PO QPM RF: 0 Referrals: Corwin Pacheco MD [Primary Care Provider] -
--- NOTE | 2020-11-23 04:52 | DI.RAD.S_ITS ---
PROCEDURE: XR CHEST 1V INDICATIONS: Shortness of breath TECHNIQUE: One view of the chest was acquired. COMPARISON: [facility], CR, XR CHEST 2V, 10/15/2019, 21:44. FINDINGS: Surgical changes and devices: None. Lungs and pleura: No definite pneumothorax or pleural effusion. Diffuse, multifocal airspace opacities. Findings are most pronounced on the left. Mediastinum: Mediastinal contours appear normal. Heart size is normal. Bones and chest wall: No suspicious bony lesions. Overlying soft tissues appear unremarkable. IMPRESSION: Diffuse bilateral airspace opacities. Findings may be related to infectious or inflammatory process. Diminished lung volumes bilaterally. Consider dedicated upright PA and lateral views of the chest when patient is able. Recommend follow up chest radiograph 4-6 weeks after treatment to document resolution of findings and/or return to baseline examination. No significant discrepancy with the [facility] radiology preliminary report. Dictated by: Lucian Baron M.D. on 11/23/2020 at 7:18 Approved by: Lucian Baron M.D. on 11/23/2020 at 7:45
[2020-11-23 04:55] VITALS: BP 204/104; PULSE 84; RESP 25; TEMP 36.7; O2SAT 100; BMI 65.4
[2020-11-23 05:30] VITALS: PULSE 88; O2SAT 98
[2020-11-23 05:31] VITALS: BP 171/79; PULSE 85; O2SAT 98
[2020-11-23 05:53] LABS: Add Manual Diff / Slide Review YES; Hematocrit 33.8 % (36-46); Hemoglobin 10.4 g/dL (12.0-16.0); Mean Corpuscular HGB Conc 30.7 % (30-36); Mean Corpuscular Hemoglobin 18.8 PG (26-34); Mean Corpuscular Volume 61.2 fL (80-100); Platelet Count 324 X10^3/uL (150-400); Red Blood Cell Count 5.52 X10^6/uL (4.0-5.2); Red Cell Distribution Width 18.4 % (11.6-14.8); White Blood Cell Count 5.9 X10^3/uL (4.5-11.0)
[2020-11-23 05:59] LABS: Alanine Aminotransferase 51 IU/L (<35); Alkaline Phosphatase 51 U/L (38-126); Aspartate Aminotransferase 33 IU/L (14-36); Bilirubin Total 0.6 mg/dL (0.2-1.3); Blood Urea Nitrogen 14 mg/dL (7-17); Calcium 9.5 mg/dL (8.4-10.2); Carbon Dioxide 31 mmol/L (22-32); Chloride 98 mmol/L (98-107); Creatine Kinase 93 U/L (30-135); Estimated Glomerular Filt Rate > 60.0 mL/min (>60); Globulin 3.9 g/dL (1.7-4.1); Glucose 211 mg/dL (70-100); HEMOLYSIS < 15 (0-50); Lipase 116 U/L (23-300); Sodium 136 mmol/L (137-145); Total Protein 7.9 g/dL (6.3-8.2)
[2020-11-23 06:00] VITALS: BP 163/94; PULSE 84; O2SAT 97
[2020-11-23 06:11] LABS: Troponin I < 0.012 ng/mL (0.01-0.034)
[2020-11-23 06:15] LABS: Neutrophils Absolute Manual 4012 /uL (3000-5900); Total Cells Counted 100
[2020-11-23 06:17] LABS: Anisocytosis 2+; Hypochromasia 1+; Microcytosis 1+; Polychromasia 1+
== END 2020-11-23 06:36 | disposition home or self-care (01) ==
PROVIDERS: Emergency Provider Emergency Medicine; PCP Student in an Organized Health Care Education/Training Program
DX: R07.89 Other chest pain (principal); F41.9 Anxiety disorder, unspecified
CPT/HCPCS: 36415; 71045; 80053; 82550; 83690; 84484; 85007; 85025; 93005; 93010; 99284

== ENCOUNTER → 2020-12-06 14:50 | Outpatient (CLI) | payer OTHER, MEDICAID, SELFPAY ==
[2020-06-02 15:53] VITALS: BMI 59.5
[2020-12-06] MEDS: COVID-19 VACC #1, MRNA(MOD) 100 MCG/0.5 ML VIAL IM (14:57)
== END ==
PROVIDERS: PCP Student in an Organized Health Care Education/Training Program; Visit Provider Internal Medicine
DX: Z23 Encounter for immunization (principal)
CPT/HCPCS: 0011A; 91301

== ENCOUNTER 2020-12-19 23:11 | Emergency (ER) | payer OTHER, MEDICAID, SELFPAY ==
[2020-06-02 15:53] VITALS: BMI 59.5
[2020-12-19 23:21] VITALS: BP 224/112; PULSE 103; O2SAT 96
[2020-12-19 23:26] VITALS: BP 224/112; PULSE 104; RESP 15; TEMP 36.9; O2SAT 98; BMI 61.8
[2020-12-19 23:30] VITALS: BP 202/94; PULSE 99; O2SAT 97
--- NOTE | 2020-12-19 23:31 | ED_ITS ---
HPI - Extremity Problem General Chief complaint: Extremity Problem,Nontraumatic Stated complaint: staph infection, antibiotics not working Time Seen by Provider: 12/19/20 23:12 Source: patient Mode of arrival: Wheelchair Limitations: no limitations History of Present Illness HPI Narrative: Patient is a 35-year-old female who has known psoriasis. Last time I evaluated her here in the emergency department for an unrelated issue she was on doxycycline for what was thought to be infection of her lower extremities. Since that time she has followed up with Dermatology. She is back on a of doxycycline prescribed by her business analysis specialist for what looks like a diagnosis of bullous impetigo. This is from the primary care doctor's note from a couple days ago. She states that she has been on this medication for the past 5 days. She has a follow-up with her business analysis specialist artery scheduled for tomorrow. She is an insulin-dependent diabetic and states that her blood sugars have been elevated. She feels like the discomfort in her lower extremities scanning worsen she is also having neuropathy and swelling in her legs. Related Data Home Medications Medication Instructions Recorded Confirmed ferrous sulfate 325 mg PO QPM 05/18/19 12/11/20 dulaglutide 0.75 mg/0.5 mL 0.75 mg SUBCUT QWEEK 09/19/20 12/11/20 subcutaneous pen injector adalimumab 40 mg/0.4 mL 40 mg SUBCUT QWEEK 12/11/20 12/11/20 subcutaneous pen kit Previous Rx's Medication Instructions Recorded ipratropium bromide 17 1 puff INHALATION QID #12.9 gram 10/12/19 mcg/actuation HFA aerosol inhaler Incontinence pads #1 ea 10/19/19 BD U/F MINI PEN NEEDLE [id number] #100 each 10/20/19 albuterol sulfate 90 mcg/actuation 2 puff INHALATION Q4HP PRN #18 gram 11/26/19 aerosol inhaler metformin 500 mg tablet 500 mg PO QID #360 tab 11/30/19 TRUE METRIX AIR GLUCOSE METER #1 ea 12/31/19 True metrix glucose test strip #100 each 12/31/19 loratadine 10 mg tablet 10 mg PO DAILY PRN #90 tab 01/10/20 nystatin 100,000 unit/gram topical 1 applictn TOP BID #30 gram 02/23/20 powder propranolol 20 mg tablet 20 mg PO BID #180 tab 04/12/20 albuterol sulfate 2.5 mg INHALATION Q4H PRN #90 ml 04/19/20 ipratropium 0.5 mg-albuterol 3 mg 3 ml INHALATION BID #90 ml 04/19/20 (2.5 mg base)/3 mL nebulization soln insulin lispro 100 unit/mL 60 unit SUBCUT QAC #40 ml 08/04/20 subcutaneous pen BD U/F Mini Pen Needle #250 ea 09/06/20 lorazepam 1 mg tablet 1 mg PO BID PRN #60 tab 09/06/20 losartan 100 mg tablet 100 mg PO DAILY #90 tab 09/06/20 oxycodone-acetaminophen 7.5 mg-325 1 tab PO Q6H PRN #120 tab 11/17/20 mg tablet ondansetron HCl 4 mg tablet 4 mg PO Q8H PRN 14 Days #42 tab 12/11/20 Allergies Allergy/AdvReac Type Severity Reaction Status Date / Time Iodinated Contrast Media Allergy Severe Neck, face Verified 12/11/20 16:24 [IODINATED CONTRAST MEDIA - arms all IV DYE] swollen with difficulty breathing hydromorphone [From DILAUDID] Allergy Mild Very Verified 12/11/20 16:24 sensitive to this drug. ciprofloxacin [From Cipro] Allergy Hives Verified 12/11/20 16:24 Sulfa (Sulfonamide Allergy Rash Verified 12/11/20 16:24 Antibiotics) loperamide [From IMODIUM A-D] AdvReac Mild Nausea Verified 12/11/20 16:24 vomiting VITAMIN C AdvReac Mild Nausea/vomiting Uncoded 12/11/20 16:24 and migraines Review of Systems Constitutional Constitutional: Denies fatigue, Denies fever(s) and Denies headache(s) Eyes Eyes: Denies blurry vision ENT Ears, Nose, Mouth, and Throat: Denies headache(s) Cardiovascular Cardiovascular: Denies chest pain and Denies dyspnea Respiratory Respiratory: Denies dyspnea Gastrointestinal Gastrointestinal: Denies abdominal pain Genitourinary Genitourinary: Denies dysuria Genitourinary: Denies dysuria Musculoskeletal Musculoskeletal: Reports arthralgias, Reports joint swelling, Reports numbness and Reports tingling Integumentary/Breasts Skin/Breast: Reports pruritus, Reports lesions and Reports rash Neurologic Neurologic: Denies behavioral changes, Denies headache(s), Reports numbness and Reports tingling Psychiatric Psychiatric: Denies behavioral changes Endocrine Endocrine: Denies fatigue Hematologic/Lymphatic On Anticoagulants: No Allergic/Immunologic Allergic/Immunologic: Reports urticaria Patient History Medical History Anxiety (Unknown) Breathing-related sleep disorder (~07/2019) Cellulitis of left breast Chronic dental pain Depression (Unknown) Dermatitis (Unknown) Excessive daytime sleepiness (~08/2019) Hx MRSA infection (10/2010) Insomnia due to medical condition (~08/2019) Mild intermittent asthma without complication (02/23/16) Morbid obesity with BMI of 60.0-69.9, adult (~11/23/20) Morbid obesity with body mass index (BMI) greater than or equal to 50 (08/04/15) Type 2 diabetes mellitus without complication, with long-term current use of insulin (10/08/16) Uncomplicated opioid dependence Surgical History (Updated 06/11/20 @ 07:06 by Corwin Pacheco MD) History of cholecystectomy No history of previous surgery Family History Mother Age: 40 Type 2 diabetes mellitus without complication Sister Age: 30 Depression Sister Age: 33 Anxiety Family/Other Loud snoring Diabetes mellitus ADD (attention deficit disorder) Alcohol abuse Depression Anxiety Sister Loud snoring Insomnia Obesity Depression Anxiety ADD (attention deficit disorder) Alcohol abuse Social History household members: spouse Smoking Status: Former smoker eating out: 1-3 times/week Type(s) of exercise: none Smoking Status: Former smoker alcohol intake frequency: holidays/special occasions only Alcohol type: beer Substance Use Type: marijuana Exam Initial Vital Signs Initial Vital Signs: Vital Signs Temperature 98.5 F 12/19/20 23:26 Pulse Rate 104 H 12/19/20 23:26 Respiratory Rate 15 12/19/20 23:26 Blood Pressure 224/112 H 12/19/20 23:26 Pulse Oximetry 98 12/19/20 23:26 Const General: cooperative and comfortable Nutritional Appearance: obese HENMT Head: normal to inspection and normocephalic Resp Effort & Inspection: normal respiratory effort Cardio Rate: tachycardic GI Inspection: non-distended Skin Other: Patient has lesions on bilateral lower extremities consistent with her stated history of psoriasis and bullous impetigo. There are bowl of. There is surrounding erythema. There is no drainage. She also has lesions on her upper extremities that are consistent with psoriasis. Neuro General: patient alert, patient awake and patient oriented x3 Extrem Other: Patient does have swelling to bilateral lower extremities. Psych Appearance: grossly normal and well kempt Course Orders Ordered: ED Orders 12/19/20 23:44 Complete Blood Count AUTO DIFF Stat Comprehensive Metabolic Panel Stat Ketones (Beta-Hydroxybutyrate) Stat Vital Signs Vital signs: Vital Signs - 8 hr 12/19/20 23:26 Temperature 98.5 F Pulse Rate 104 H Respiratory Rate 15 Blood Pressure 224/112 H Pulse Oximetry 98 MDM - Extremity (Nontraumatic) Lab Data Result diagrams: 12/19/20 23:46 12/19/20 23:46 Labs: Lab Results 12/19/20 12/19/20 Range/Units 23:46 23:46 WBC 9.4 (4.5-11.0) X10^3/uL RBC 5.78 H (4.0-5.2) X10^6/uL Hgb 10.7 L (12.0-16.0) g/dL Hct 35.1 L (36-46) % MCV 60.7 L (80-100) fL MCH 18.5 L (26-34) PG MCHC 30.6 (30-36) % RDW 19.5 H (11.6-14.8) % Plt Count 342 (150-400) X10^3/uL Neut % (Auto) 71.9 (50-75) % Lymph % (Auto) 17.0 L (25-40) % [place] % (Auto) 8.5 (3-14) % Eos % (Auto) 1.6 L (2-4) % Baso % (Auto) 1.0 (0-2) % Neut # (Auto) 6800 (6376-2926) /uL Lymph # (Auto) 1600 (8786-9800) /uL [place] # (Auto) 800 (0-900) /uL Eos # (Auto) 200 (0-450) /uL Baso # (Auto) 100 (0-100) /uL RBC Morphology See below Polychromasia 1+ H Hypochromasia 1+ H Anisocytosis 2+ H Microcytosis 2+ H Sodium 135 L (137-145) mmol/L Potassium 4.4 (3.4-5.1) mmol/L Chloride 99 (98-107) mmol/L Carbon Dioxide 28 (22-32) mmol/L BUN 16 (7-17) mg/dL Creatinine 0.50 L (0.52-1.04) mg/dL Estimated GFR > 60.0 (>60) mL/min BUN/Creatinine Ratio 32.0 H (6-22) Glucose 354 H (70-100) mg/dL Calcium 9.2 (8.4-10.2) mg/dL Total Bilirubin 0.4 (0.2-1.3) mg/dL AST 33 (14-36) IU/L ALT 40 H (<35) IU/L Alkaline Phosphatase 56 (38-126) U/L Total Protein 7.8 (6.3-8.2) g/dL Albumin 3.8 (3.5-5.0) g/dL Globulin 4.0 (1.7-4.1) g/dL Albumin/Globulin Ratio 1.0 (1.0-2.8) Ketones 0.03 (<0.27) mmol/L Point of Care Testing Glucose POC 325 MDM Narrative Medical decision making narrative: Patient is nontoxic appearing. She is afebrile. Does not have leukocytosis. Is currently on antibiotics and has a follow-up with her business analysis specialist tomorrow. She states that she was placed back on doxycycline based on a culture done by the business analysis specialist. I feel that since she has an appointment already scheduled for tomorrow that we should hold on switching any of these antibiotics so as to not potentially change her to so mething that her infection is resistant to. Her blood sugars elevated but not in DKA. She is also hypertensive but no signs end-organ dysfunction because of this. She was instructed to continue to take all of her medications as directed. I feel patient does not need admitted to the hospital. She has pain medication already prescribed for her by her primary doctor. Unfortunately feel there is not much more we can do for her out of the emergency department however she does need follow-up which she already has scheduled. She was given return precautions and follow-up instructions. She expressed understanding and agreement. Discharge Plan Departure Patient Disposition: Home Clinical Impression: Bullous impetigo Instructions: DI for Impetigo Activity Restrictions/Additional Instructions: I recommend that you continue all of your medications as directed. Tomorrow keep your appointment that you already have scheduled with your business analysis specialist. Talk with him about any changes in potential antibiotics. Also recommend that you continue to check your blood sugars at home and dose your insulin appropriately. Return to the emergency department for any new or worsening symptoms Prescriptions: No Action (DME) BD U/F MINI PEN NEEDLE [id number] Qty: 100 RF: 2 Ventolin HFA 90 mcg/actuation HFA aerosol inhaler 2 puff Inhalation Q4HP PRN (Reason: Shortness Of Breath) Qty: 18 RF: 11 metformin [Glucophage] 500 mg tablet 500 mg PO QID Qty: 360 RF: 1 (DME) TRUE METRIX AIR GLUCOSE METER Qty: 1 RF: 0 (DME) True metrix glucose test strip Qty: 100 RF: 5 loratadine [Claritin] 10 mg tablet 10 mg PO DAILY PRN (Reason: Allergy Symptoms) Qty: 90 RF: 3 nystatin 100,000 unit/gram powder 1 applictn TOP BID Qty: 30 RF: 2 propranolol 20 mg tablet 20 mg PO BID Qty: 180 RF: 3 insulin lispro [Humalog KwikPen Insulin] 100 unit/mL insulin pen 60 unit SUBCUT QAC Qty: 40 RF: 11 (DME) BD U/F Mini Pen Needle 31G X 5MM Qty: 250 RF: 6 Trulicity 0.75 mg/0.5 mL pen injector 0.75 mg SUBCUT QWEEK RF: 0 oxycodone-acetaminophen 7.5-325 mg tablet 1 tab PO Q6H PRN (Reason: pain) Qty: 120 RF: 0 Hold Instructions: Underlying problem improved. Reassess dose albuterol sulfate 2.5 mg /3 mL (0.083 %) solution for nebulization 2.5 mg INHALATION Q4H PRN (Reason: shortness of breath or wheezing) Qty: 90 RF: 5 ipratropium-albuterol 0.5 mg-3 mg(2.5 mg base)/3 mL solution for nebulization 3 ml INHALATION BID Qty: 90 RF: 5 Humira(CF) Pen 40 mg/0.4 mL pen injector kit 40 mg SUBCUT QWEEK RF: 0 ondansetron HCl 4 mg tablet 4 mg PO Q8H PRN (Reason: nausea and vomiting) 14 Days Qty: 42 RF: 0 ipratropium bromide 17 mcg/actuation HFA aerosol inhaler 1 puff INHALATION QID Qty: 12.9 RF: 5 (DME) Incontinence pads Qty: 1 RF: 0 losartan 100 mg tablet 100 mg PO DAILY Qty: 90 RF: 3 lorazepam 1 mg tablet 1 mg PO BID PRN (Reason: anxiety) Qty: 60 RF: 5 ferrous sulfate 325 mg (65 mg iron) tablet 325 mg PO QPM RF: 0 Referrals: Corwin Pacheco MD [Primary Care Provider] -
[2020-12-20] VITALS: PULSE 98; O2SAT 96
[2020-12-20 00:01] VITALS: BP 198/88; PULSE 95; O2SAT 97
[2020-12-20 00:03] LABS: Add Manual Diff / Slide Review NO; Basophils Absolute Auto 100 /uL (0-100); Eosinophils Absolute Auto 200 /uL (0-450); Eosinophils Percent Auto 1.6 % (2-4); Hematocrit 35.1 % (36-46); Hemoglobin 10.7 g/dL (12.0-16.0); Lymphocytes Absolute Auto 1600 /uL (1100-4500); Mean Corpuscular HGB Conc 30.6 % (30-36); Mean Corpuscular Hemoglobin 18.5 PG (26-34); Mean Corpuscular Volume 60.7 fL (80-100); Monocytes Absolute Auto 800 /uL (0-900); Monocytes Percent Auto 8.5 % (3-14); Neutrophils Absolute Auto 6800 /uL (1500-7000); Neutrophils Percent Auto 71.9 % (50-75); Platelet Count 342 X10^3/uL (150-400); Red Blood Cell Count 5.78 X10^6/uL (4.0-5.2); Red Cell Distribution Width 19.5 % (11.6-14.8); White Blood Cell Count 9.4 X10^3/uL (4.5-11.0)
[2020-12-20 00:16] LABS: Alanine Aminotransferase 40 IU/L (<35); Albumin 3.8 g/dL (3.5-5.0); Alkaline Phosphatase 56 U/L (38-126); Aspartate Aminotransferase 33 IU/L (14-36); Bilirubin Total 0.4 mg/dL (0.2-1.3); Blood Urea Nitrogen 16 mg/dL (7-17); Calcium 9.2 mg/dL (8.4-10.2); Carbon Dioxide 28 mmol/L (22-32); Chloride 99 mmol/L (98-107); Estimated Glomerular Filt Rate > 60.0 mL/min (>60); Glucose 354 mg/dL (70-100); HEMOLYSIS < 15 (0-50); Potassium 4.4 mmol/L (3.4-5.1); Sodium 135 mmol/L (137-145); Total Protein 7.8 g/dL (6.3-8.2)
[2020-12-20 00:19] LABS: Ketones (Beta-Hydroxybutyrate) 0.03 mmol/L (<0.27)
[2020-12-20 00:28] LABS: Anisocytosis 2+; Microcytosis 2+; Polychromasia 1+
[2020-12-20 00:29] LABS: Hypochromasia 1+
[2020-12-20 00:30] VITALS: BP 219/102; PULSE 98; O2SAT 97
== END 2020-12-20 00:40 | disposition home or self-care (01) ==
PROVIDERS: Emergency Provider Emergency Medicine; PCP Student in an Organized Health Care Education/Training Program
DX: L01.03 Bullous impetigo (principal)
CPT/HCPCS: 36415; 80053; 82009; 82962; 85025; 99283

== ENCOUNTER → 2021-01-03 12:56 | Outpatient (CLI) | payer OTHER, MEDICAID, SELFPAY ==
[2020-06-02 15:53] VITALS: BMI 59.5
[2021-01-03] MEDS: COVID-19 VACC #2, MRNA(MOD) 100 MCG/0.5 ML VIAL IM (13:11)
== END ==
PROVIDERS: PCP Student in an Organized Health Care Education/Training Program; Visit Provider Internal Medicine
DX: Z23 Encounter for immunization (principal)
CPT/HCPCS: 0012A; 91301

== ENCOUNTER → 2021-01-05 16:00 | Outpatient (CLI) | payer OTHER, MEDICAID, SELFPAY ==
[2020-06-02 15:53] VITALS: BMI 59.5
[2021-01-05 16:50] LABS: COVID19 -Nasal RAPID Negative (Negative)
== END ==
PROVIDERS: PCP Student in an Organized Health Care Education/Training Program; Visit Provider Family Medicine Sleep Medicine
DX: Z20.822 Contact with and (suspected) exposure to COVID-19 (principal)
CPT/HCPCS: 87635; C9803

== ENCOUNTER → 2021-03-27 10:58 | Outpatient (CLI) | payer OTHER, MEDICAID, SELFPAY ==
[2020-06-02 15:53] VITALS: BMI 59.5
[2021-03-27 11:52] LABS: Mean Corpuscular HGB Conc 31.5 % (30-36); Mean Corpuscular Hemoglobin 20.2 PG (26-34); Platelet Count 294 X10^3/uL (150-400); Red Blood Cell Count 5.94 X10^6/uL (4.0-5.2); Red Cell Distribution Width 19.8 % (11.6-14.8); White Blood Cell Count 6.9 X10^3/uL (4.5-11.0)
[2021-03-27 12:22] LABS: HEMOLYSIS < 15 (0-50); Iron 37 ug/dL (37-170)
[2021-03-27 12:34] LABS: Percent Iron Saturation 11 % (15-50); Total Iron Binding Capacity 347 ug/dL (265-497); Transferrin 259 mg/dL (206-381)
[2021-03-27 12:41] LABS: Vitamin D 25 Hydroxy (D3) 16.4 ng/mL (30.0-100.0)
[2021-03-27 12:59] LABS: Ferritin 18 ng/mL (6-137)
== END ==
PROVIDERS: PCP Student in an Organized Health Care Education/Training Program; Referring Provider Student in an Organized Health Care Education/Training Program; Visit Provider Student in an Organized Health Care Education/Training Program
DX: D50.9 Iron deficiency anemia, unspecified (principal); E11.9 Type 2 diabetes mellitus without complications; E55.9 Vitamin D deficiency, unspecified; Z79.4 Long term (current) use of insulin
CPT/HCPCS: 36415; 82306; 82728; 83540; 83550; 85027; 85045

== ENCOUNTER 2021-05-28 17:51 | Emergency (ER) | payer OTHER, MEDICAID, SELFPAY ==
[2020-06-02 15:53] VITALS: BMI 59.5
[2021-05-28] VITALS (16 sets, daily range): BP systolic 180–214; BP diastolic 81–111; PULSE 89–100; RESP 13–27; TEMP 36.6; O2SAT 97–98
--- NOTE | 2021-05-28 18:06 | DI.RAD.S_ITS ---
PROCEDURE: XR CHEST 1V INDICATIONS: chest pain TECHNIQUE: One view of the chest was acquired. COMPARISON: , CR, XR CHEST 1V, 11/23/2020, 4:55. FINDINGS: Surgical changes and devices: None. Lungs and pleura: Parenchymal do so obscured by patient body habitus. No gross infiltrates. No pleural effusions or pneumothorax. Mediastinum: Mediastinal contours appear normal. Heart size is normal. Bones and chest wall: No suspicious bony lesions. Overlying soft tissues appear unremarkable. IMPRESSION: No gross pulmonary infiltrates. Dictated by: Derek Sorensen M.D. on 05/28/2021 at 19:07 Approved by: Derek Sorensen M.D. on 05/28/2021 at 19:08
--- NOTE | 2021-05-28 18:23 | DI.US.S_ITS ---
PROCEDURE: US PERIPH VENOUS LOW EXTREM LT INDICATIONS: Left leg pain TECHNIQUE: Real-time imaging, as well as color and pulse Doppler interrogation, were performed of the lower extremity deep veins from the inguinal ligament to the popliteal fossa. COMPARISON: None. FINDINGS: The common femoral, femoral and popliteal veins are normally compressible, and free of intraluminal thrombus. Color and pulse Doppler demonstrate normal phasic intraluminal flow. There is normal augmentation response to distal compression maneuver. IMPRESSION: Negative left lower extremity duplex venous ultrasound for DVT. Comment: Preliminary findings were reported by the printer maintainer to the referring provider at the time of study completion. Dictated by: Derek Sorensen M.D. on 05/28/2021 at 19:49 Approved by: Derek Sorensen M.D. on 05/28/2021 at 19:50
--- NOTE | 2021-05-28 18:38 | ED.CHESTPAIN ---
HPI - Chest Pain <Harris Basurto PA-C - Last Filed: 05/28/21 20:03> General Chief Complaint: Chest Pain Stated Complaint: Chest Pain Time Seen by Provider: 05/28/21 18:10 Source: patient Mode of arrival: Wheelchair History of Present Illness HPI narrative: 35-year-old female with past medical history obesity, hyperlipidemia, type 2 diabetes, hypertension, plaque psoriasis, iron deficiency anemia, anxiety, depression presents to the ED with 5 days of left-sided chest pain. Patient describes it as worsening pressure in the chest on inspiration. Patient denies fever, chills, shortness of breath, cough, nausea, vomiting, abdominal pain, dysuria, lightheadedness, dizziness, syncope. Patient states the pain has been intermittent, worsened just prior to coming to the ED. patient also endorses some left leg pain 5 days prior to arrival. Patient endorses allergy to contrast dye. Patient is vaccinated for COVID-19. Patient denies any COVID-19 contacts. Related Data Home Medications Medication Instructions Recorded Confirmed ferrous sulfate 325 mg (65 mg 325 mg PO QPM 05/18/19 03/27/21 iron) tablet dulaglutide 0.75 mg/0.5 mL 0.75 mg SUBCUT QWEEK 09/19/20 03/27/21 subcutaneous pen injector (Trulicity) minocycline 100 mg capsule 100 mg PO BID 01/18/21 03/27/21 Previous Rx's Medication Instructions Recorded ipratropium bromide 17 1 puff INHALATION QID #12.9 gram 10/12/19 mcg/actuation HFA aerosol inhaler Incontinence pads #1 ea 10/19/19 BD U/F MINI PEN NEEDLE [id number] #100 each 10/20/19 albuterol sulfate 90 mcg/actuation 2 puff INHALATION Q4HP PRN #18 gram 11/26/19 aerosol inhaler (Ventolin HFA) TRUE METRIX AIR GLUCOSE METER #1 ea 12/31/19 True metrix glucose test strip #100 each 12/31/19 loratadine 10 mg tablet (Claritin) 10 mg PO DAILY PRN #90 tab 01/10/20 nystatin 100,000 unit/gram topical 1 applictn TOP BID #30 gram 02/23/20 powder albuterol sulfate 2.5 mg INHALATION Q4H PRN #90 ml 04/19/20 ipratropium 0.5 mg-albuterol 3 mg 3 ml INHALATION BID #90 ml 04/19/20 (2.5 mg base)/3 mL nebulization soln insulin lispro 100 unit/mL 60 unit SUBCUT QAC #40 ml 08/04/20 subcutaneous pen (Humalog KwikPen (U-100) Insulin) BD U/F Mini Pen Needle #250 ea 09/06/20 losartan 100 mg tablet 100 mg PO DAILY #90 tab 01/26/21 diazepam 5 mg tablet 5 mg PO BID #60 tab 04/25/21 hydrocodone 7.5 mg-acetaminophen 1 tab PO Q6H PRN #120 tab 04/25/21 325 mg tablet metformin 500 mg tablet 500 mg PO QID #360 tab 05/09/21 propranolol 20 mg tablet 20 mg PO BID-TID PRN #270 tab 05/09/21 Allergies Allergy/AdvReac Type Severity Reaction Status Date / Time Iodinated Contrast Media Allergy Severe Neck, face Verified 05/28/21 18:03 [IODINATED CONTRAST MEDIA - arms all IV DYE] swollen with difficulty breathing hydromorphone [From DILAUDID] Allergy Mild Very Verified 05/28/21 18:03 sensitive to this drug. ciprofloxacin [From Cipro] Allergy Hives Verified 05/28/21 18:03 Sulfa (Sulfonamide Allergy Rash Verified 05/28/21 18:03 Antibiotics) loperamide [From IMODIUM A-D] AdvReac Mild Nausea Verified 05/28/21 18:03 vomiting VITAMIN C AdvReac Mild Nausea/vomiting Uncoded 05/28/21 18:03 and migraines Review of Systems <Harris Basurto PA-C - Last Filed: 05/28/21 20:03> Constitutional Constitutional: Denies chills, Denies fatigue, Denies fever(s), Denies frequent falls, Denies lethargy and Denies weakness Eyes Eyes: Denies change in vision, Denies eye discharge, Denies irritation and Denies loss of vision ENT Ears, Nose, Mouth, and Throat: Denies change in voice, Denies dizziness, Denies neck pain, Denies sore throat and Denies throat swelling Cardiovascular Cardiovascular: Reports chest pain, Denies irregular heart rhythm, Denies lightheadedness, Denies palpitations, Denies dyspnea, Denies dyspnea on exertion and Denies orthopnea Respiratory Respiratory: Denies cough, Denies dyspnea, Denies dyspnea on exertion and Denies wheezing Gastrointestinal Gastrointestinal: Denies abdominal pain, Denies change in bowel habits, Denies diarrhea, Denies nausea and Denies vomiting Musculoskeletal Musculoskeletal: Denies neck pain and Denies numbness Comments: Left leg pain Integumentary/Breasts Skin/Breast: Denies pruritus, Denies erythema, Denies rash and Denies wounds Neurologic Neurologic: Denies behavioral changes, Denies confusion, Denies dizziness, Denies frequent falls, Denies loss of vision, Denies numbness and Denies weakness Psychiatric Psychiatric: Denies anxiety, Denies behavioral changes, Denies confusion, Denies depression, Denies homicidal ideation and Denies suicidal ideation Endocrine Endocrine: Denies fatigue, Denies flushing and Denies palpitations Hematologic/Lymphatic Hematologic/Lymphatic: Denies easy bruising Allergic/Immunologic Allergic/Immunologic: Denies urticaria, Denies throat swelling and Denies wheezing Patient History <Harris Basurto PA-C - Last Filed: 05/28/21 20:03> Medical History Anxiety (Unknown) Cellulitis of left breast Chronic dental pain Depression (Unknown) Dermatitis (Unknown) Hx MRSA infection (10/2010) Insomnia due to medical condition (~08/2019) Mild intermittent asthma without complication (02/23/16) Morbid obesity with BMI of 60.0-69.9, adult (~11/23/20) Morbid obesity with body mass index (BMI) greater than or equal to 50 (08/04/15) Nocturnal hypoxemia Obstructive sleep apnea, adult Snoring Type 2 diabetes mellitus without complication, with long-term current use of insulin (10/08/16) Uncomplicated opioid dependence Surgical History History of cholecystectomy No history of previous surgery Family History Mother Age: 40 Type 2 diabetes mellitus without complication Sister Age: 30 Depression Sister Age: 33 Anxiety Family/Other Loud snoring Diabetes mellitus ADD (attention deficit disorder) Alcohol abuse Depression Anxiety Sister Loud snoring Insomnia Obesity Depression Anxiety ADD (attention deficit disorder) Alcohol abuse Social History household members: spouse Smoking Status: Former smoker eating out: 1-3 times/week Type(s) of exercise: none Smoking Status: Former smoker alcohol intake frequency: holidays/special occasions only Alcohol type: beer Substance Use Type: marijuana Exam <Harris Basurto PA-C - Last Filed: 05/28/21 20:03> Initial Vital Signs Initial Vital Signs: Vital Signs Temperature 97.8 F 05/28/21 17:57 Pulse Rate 97 H 05/28/21 17:57 Respiratory Rate 17 05/28/21 17:57 Blood Pressure 209/111 H 05/28/21 17:57 Pulse Oximetry 97 05/28/21 17:57 Const General: cooperative HENMT Head: normocephalic and atraumatic Ears: external ears normal and TM's normal bilaterally Nose: external nose normal and No nasal discharge Face and sinus: sinuses nontender, face symmetric, no sinus tenderness and No dry mucous membranes Mouth: oral mucosae normal and moist mucous membranes Teeth and gingiva: dentition normal Throat: tonsils normal and uvula midline Eyes General: appearance normal, both eyes and all related structures Eyelids: eyelids normal Conjunctivae: conjunctivae normal Sclera: sclerae normal Pupils: PERRL EOM: EOM intact bilaterally Neck Neck: normal visual inspection, trachea midline, No lymphadenopathy, No midline deformity and No JVD Lymphatic: No lymphedema Chest Chest: normal inspection of the chest Resp Effort & Inspection: normal respiratory effort, able to speak in complete sentences, no respiratory distress and no use of accessory muscles Auscultation: clear to auscultation bilaterally, no rales, no rhonchi and no wheezes Cardio Rate: regular rate Rhythm: regular rhythm Heart Sounds: no click, no gallops, no murmurs and no rubs Pulses: normal peripheral pulses GI Inspection: non-distended Palpation: soft, no hepatosplenomegaly, No guarding, No pulsatile mass and No tender Auscultation: normal bowel sounds Back/Spine/Pelvis Back: No CVA tenderness Cervical Spine: cervical ROM normal and No pain with cervical ROM Thoracic/Lumbar Spine: thoracic and lumbar spine normal to inspection Skin General: no rashes or lesions noted, No jaundice and No petechiae Neuro General: patient alert, patient oriented x3, gait normal and no focal motor deficits Speech: speech normal Extrem General: full ROM, no clubbing, cyanosis or edema, no pedal edema and no calf tenderness Other: No appreciable leg swelling bilaterally. Lesions from plaque psoriasis noted on both legs. Psych Appearance: well kempt Mental Status: mental status grossly normal Attitude: cooperative Thought Content: normal and suicidality Judgment: judgment good <DO Tomas Castro Last Filed: 05/29/21 06:34> Initial Vital Signs Initial Vital Signs: Vital Signs Temperature 97.8 F 05/28/21 17:57 Pulse Rate 97 H 05/28/21 17:57 Respiratory Rate 17 05/28/21 17:57 Blood Pressure 209/111 H 05/28/21 17:57 Pulse Oximetry 97 05/28/21 17:57 Course <ALISA Valeor Last Filed: 05/28/21 20:03> Orders Ordered: ED Orders 05/28/21 21:50 Troponin I Stat Vital Signs Vital signs: Vital Signs - 8 hr 05/28/21 22:30 05/28/21 23:00 05/28/21 23:30 Pulse Rate 89 95 H 91 H Respiratory Rate 16 13 24 Blood Pressure 200/94 H 05/28/21 23:39 05/28/21 23:40 Pulse Rate 90 Respiratory Rate 22 Blood Pressure 202/94 H <DO Tomas Castro Last Filed: 05/29/21 06:34> Orders Ordered: ED Orders 05/28/21 21:50 Troponin I Stat Vital Signs Vital signs: Vital Signs - 8 hr 05/28/21 22:30 05/28/21 23:00 05/28/21 23:30 Pulse Rate 89 95 H 91 H Respiratory Rate 16 13 24 Blood Pressure 200/94 H 05/28/21 23:39 05/28/21 23:40 Pulse Rate 90 Respiratory Rate 22 Blood Pressure 202/94 H MDM - Chest Pain <ALISA Valero Last Filed: 05/28/21 20:03> Medical Records Data Attestation: I reviewed the patient's medical records. Lab Data Attestation: I reviewed the patient's lab results. Lab results narrative: Labs within normal limits, troponin normal Result diagrams: 05/28/21 18:30 05/28/21 18:30 Labs: Lab Results 05/28/21 05/28/21 05/28/21 Range/Units 18:30 18:30 18:30 WBC 9.4 (4.5-11.0) X10^3/uL RBC 5.89 H (4.0-5.2) X10^6/uL Hgb 12.5 (12.0-16.0) g/dL Hct 39.2 (36-46) % MCV 66.5 L (80-100) fL MCH 21.2 L (26-34) PG MCHC 31.9 (30-36) % RDW 17.8 H (11.6-14.8) % Plt Count 284 (150-400) X10^3/uL Neut % (Auto) 75.4 H (50-75) % Lymph % (Auto) 15.1 L (25-40) % [place] % (Auto) 7.0 (3-14) % Eos % (Auto) 1.5 L (2-4) % Baso % (Auto) 1.0 (0-2) % Neut # (Auto) 7100 H (8851-0537) /uL Lymph # (Auto) 1400 (3162-8931) /uL [place] # (Auto) 700 (0-900) /uL Eos # (Auto) 100 (0-450) /uL Baso # (Auto) 100 (0-100) /uL RBC Morphology See below Polychromasia 1+ H Hypochromasia 1+ H Microcytosis 2+ H PT (10.1-12.7) SECONDS INR (0.9-1.3) APTT (26.4-36.2) SECONDS D-Dimer (<230) ng/mL Sodium 134 L (137-145) mmol/L Potassium 4.2 (3.4-5.1) mmol/L Chloride 98 (98-107) mmol/L Carbon Dioxide 32 (22-32) mmol/L BUN 18 H (7-17) mg/dL Creatinine 0.52 (0.52-1.04) mg/dL Estimated GFR > 60.0 (>60) mL/min BUN/Creatinine Ratio 34.6 H (6-22) Glucose 316 H (70-100) mg/dL Calcium 9.1 (8.4-10.2) mg/dL Magnesium 1.9 (1.6-2.3) mg/dL Total Bilirubin 0.4 (0.2-1.3) mg/dL AST 36 (14-36) IU/L ALT 42 H (<35) IU/L Alkaline Phosphatase 64 (38-126) U/L Total Creatine Kinase 56 (30-135) U/L CK-MB (CK-2) TNP CK-MB (CK-2) Rel Index TNP Troponin I < 0.012 (0.01-0.034) ng/mL Total Protein 7.9 (6.3-8.2) g/dL Albumin 4.0 (3.5-5.0) g/dL Globulin 3.9 (1.7-4.1) g/dL Albumin/Globulin Ratio 1.0 (1.0-2.8) Lipase 115 (23-300) U/L TSH (0.47-4.68) uIU/mL 05/28/21 05/28/21 05/28/21 Range/Units 18:30 18:30 18:30 WBC (4.5-11.0) X10^3/uL RBC (4.0-5.2) X10^6/uL Hgb (12.0-16.0) g/dL Hct (36-46) % MCV (80-100) fL MCH (26-34) PG MCHC (30-36) % RDW (11.6-14.8) % Plt Count (150-400) X10^3/uL Neut % (Auto) (50-75) % Lymph % (Auto) (25-40) % [place] % (Auto) (3-14) % Eos % (Auto) (2-4) % Baso % (Auto) (0-2) % Neut # (Auto) (7146-9119) /uL Lymph # (Auto) (5572-8305) /uL [place] # (Auto) (0-900) /uL Eos # (Auto) (0-450) /uL Baso # (Auto) (0-100) /uL RBC Morphology Polychromasia Hypochromasia Microcytosis PT 11.6 (10.1-12.7) SECONDS INR 1.0 (0.9-1.3) APTT 34 (26.4-36.2) SECONDS D-Dimer 214 (<230) ng/mL Sodium (137-145) mmol/L Potassium (3.4-5.1) mmol/L Chloride (98-107) mmol/L Carbon Dioxide (22-32) mmol/L BUN (7-17) mg/dL Creatinine (0.52-1.04) mg/dL Estimated GFR (>60) mL/min BUN/Creatinine Ratio (6-22) Glucose (70-100) mg/dL Calcium (8.4-10.2) mg/dL Magnesium (1.6-2.3) mg/dL Total Bilirubin (0.2-1.3) mg/dL AST (14-36) IU/L ALT (<35) IU/L Alkaline Phosphatase (38-126) U/L Total Creatine Kinase (30-135) U/L CK-MB (CK-2) CK-MB (CK-2) Rel Index Troponin I (0.01-0.034) ng/mL Total Protein (6.3-8.2) g/dL Albumin (3.5-5.0) g/dL Globulin (1.7-4.1) g/dL Albumin/Globulin Ratio (1.0-2.8) Lipase (23-300) U/L TSH 1.52 (0.47-4.68) uIU/mL 05/28/21 Range/Units 21:50 WBC (4.5-11.0) X10^3/uL RBC (4.0-5.2) X10^6/uL Hgb (12.0-16.0) g/dL Hct (36-46) % MCV (80-100) fL MCH (26-34) PG MCHC (30-36) % RDW (11.6-14.8) % Plt Count (150-400) X10^3/uL Neut % (Auto) (50-75) % Lymph % (Auto) (25-40) % [place] % (Auto) (3-14) % Eos % (Auto) (2-4) % Baso % (Auto) (0-2) % Neut # (Auto) (5569-0478) /uL Lymph # (Auto) (4189-1453) /uL [place] # (Auto) (0-900) /uL Eos # (Auto) (0-450) /uL Baso # (Auto) (0-100) /uL RBC Morphology Polychromasia Hypochromasia Microcytosis PT (10.1-12.7) SECONDS INR (0.9-1.3) APTT (26.4-36.2) SECONDS D-Dimer (<230) ng/mL Sodium (137-145) mmol/L Potassium (3.4-5.1) mmol/L Chloride (98-107) mmol/L Carbon Dioxide (22-32) mmol/L BUN (7-17) mg/dL Creatinine (0.52-1.04) mg/dL Estimated GFR (>60) mL/min BUN/Creatinine Ratio (6-22) Glucose (70-100) mg/dL Calcium (8.4-10.2) mg/dL Magnesium (1.6-2.3) mg/dL Total Bilirubin (0.2-1.3) mg/dL AST (14-36) IU/L ALT (<35) IU/L Alkaline Phosphatase (38-126) U/L Total Creatine Kinase (30-135) U/L CK-MB (CK-2) CK-MB (CK-2) Rel Index Troponin I < 0.012 (0.01-0.034) ng/mL Total Protein (6.3-8.2) g/dL Albumin (3.5-5.0) g/dL Globulin (1.7-4.1) g/dL Albumin/Globulin Ratio (1.0-2.8) Lipase (23-300) U/L TSH (0.47-4.68) uIU/mL Point of Care Testing Test Results Negative Urine Dip Bedside Urine Glucose 250 mg/dl Bedside Urine Bilirubin - Negative Bedside Urine Ketone - Negative Urine Specific [place] 1.025 Bedside Urine Occult Blood +/- Bedside Urine pH 6.0 Bedside Urine Protein + 30 Bedside Urine Urobilinogen - Negative Bedside Urine Nitrite - Negative Bedside Urine Leukocytes - Negative Esterase Imaging Data Chest x-ray: Radiologist's Impression: PROCEDURE:? XR CHEST 1V ? INDICATIONS:? chest pain ? TECHNIQUE:? One view of the chest was acquired.? ? COMPARISON:? [facility], CR, XR CHEST 1V, 11/23/2020, 4:55. ? FINDINGS:? ? Surgical changes and devices:? None.? ? Lungs and pleura:? Parenchymal do so obscured by patient body habitus.? No gross infiltrates.? No pleural effusions or pneumothorax.? ? Mediastinum:? Mediastinal contours appear normal.? Heart size is normal.? ? Bones and chest wall:? No suspicious bony lesions.? Overlying soft tissues appear unremarkable.? ? IMPRESSION:? No gross pulmonary infiltrates. ? ? Dictated by: Derek Sorensen M.D. on 05/28/2021 at 19:07 ? ? Approved by: Derek Sorensen M.D. on 05/28/2021 at 19:08 ? US - DVT: Radiologist's Impression: PROCEDURE:? US PERIPH VENOUS LOW EXTREM LT ? INDICATIONS:? Left leg pain ? TECHNIQUE:? Real-time imaging, as well as color and pulse Doppler interrogation, were performed of the lower extremity deep veins from the inguinal ligament to the popliteal fossa.? ? COMPARISON:? None. ? FINDINGS:? The common femoral, femoral and popliteal veins are normally compressible, and free of intraluminal thrombus.? Color and pulse Doppler demonstrate normal phasic intraluminal flow.? There is normal augmentation response to distal compression maneuver. ? ? IMPRESSION:? Negative left lower extremity duplex venous ultrasound for DVT. ? ? Comment: Preliminary findings were reported by the sous chef kitchen manager to the referring provider at the time of study completion. ? Dictated by: Derek Sorensen M.D. on 05/28/2021 at 19:49 ? ? Approved by: Derek Sorensen M.D. on 05/28/2021 at 19:50 ? ECG Data Interpretation: Normal sinus rhythm, no axis deviation, no ST-T changes. [facility] Narrative Medical decision making narrative: 35-year-old female with past medical history obesity, hyperlipidemia, type 2 diabetes, hypertension, plaque psoriasis, iron deficiency anemia, anxiety, depression presents to the ED with 5 days of left-sided chest pain. Concern for ACS versus PE. Will order labs, troponin, chest x-ray, EKG, D-dimer, left lower extremity ultrasound. Heart score 3. Will repeat trop if 1st troponin negative. Will reassess. DC home if no PE and 2 negative trops <Portia Lira, - Last Filed: 05/29/21 06:34> Lab Data Labs: Lab Results 05/28/21 05/28/21 05/28/21 Range/Units 18:30 18:30 18:30 WBC 9.4 (4.5-11.0) X10^3/uL RBC 5.89 H (4.0-5.2) X10^6/uL Hgb 12.5 (12.0-16.0) g/dL Hct 39.2 (36-46) % MCV 66.5 L (80-100) fL MCH 21.2 L (26-34) PG MCHC 31.9 (30-36) % RDW 17.8 H (11.6-14.8) % Plt Count 284 (150-400) X10^3/uL Neut % (Auto) 75.4 H (50-75) % Lymph % (Auto) 15.1 L (25-40) % [place] % (Auto) 7.0 (3-14) % Eos % (Auto) 1.5 L (2-4) % Baso % (Auto) 1.0 (0-2) % Neut # (Auto) 7100 H (3039-3181) /uL Lymph # (Auto) 1400 (5602-8736) /uL [place] # (Auto) 700 (0-900) /uL Eos # (Auto) 100 (0-450) /uL Baso # (Auto) 100 (0-100) /uL RBC Morphology See below Polychromasia 1+ H Hypochromasia 1+ H Microcytosis 2+ H PT (10.1-12.7) SECONDS INR (0.9-1.3) APTT (26.4-36.2) SECONDS D-Dimer (<230) ng/mL Sodium 134 L (137-145) mmol/L Potassium 4.2 (3.4-5.1) mmol/L Chloride 98 (98-107) mmol/L Carbon Dioxide 32 (22-32) mmol/L BUN 18 H (7-17) mg/dL Creatinine 0.52 (0.52-1.04) mg/dL Estimated GFR > 60.0 (>60) mL/min BUN/Creatinine Ratio 34.6 H (6-22) Glucose 316 H (70-100) mg/dL Calcium 9.1 (8.4-10.2) mg/dL Magnesium 1.9 (1.6-2.3) mg/dL Total Bilirubin 0.4 (0.2-1.3) mg/dL AST 36 (14-36) IU/L ALT 42 H (<35) IU/L Alkaline Phosphatase 64 (38-126) U/L Total Creatine Kinase 56 (30-135) U/L CK-MB (CK-2) TNP CK-MB (CK-2) Rel Index TNP Troponin I < 0.012 (0.01-0.034) ng/mL Total Protein 7.9 (6.3-8.2) g/dL Albumin 4.0 (3.5-5.0) g/dL Globulin 3.9 (1.7-4.1) g/dL Albumin/Globulin Ratio 1.0 (1.0-2.8) Lipase 115 (23-300) U/L TSH (0.47-4.68) uIU/mL 05/28/21 05/28/21 05/28/21 Range/Units 18:30 18:30 18:30 WBC (4.5-11.0) X10^3/uL RBC (4.0-5.2) X10^6/uL Hgb (12.0-16.0) g/dL Hct (36-46) % MCV (80-100) fL MCH (26-34) PG MCHC (30-36) % RDW (11.6-14.8) % Plt Count (150-400) X10^3/uL Neut % (Auto) (50-75) % Lymph % (Auto) (25-40) % [place] % (Auto) (3-14) % Eos % (Auto) (2-4) % Baso % (Auto) (0-2) % Neut # (Auto) (7091-7286) /uL Lymph # (Auto) (7486-2199) /uL [place] # (Auto) (0-900) /uL Eos # (Auto) (0-450) /uL Baso # (Auto) (0-100) /uL RBC Morphology Polychromasia Hypochromasia Microcytosis PT 11.6 (10.1-12.7) SECONDS INR 1.0 (0.9-1.3) APTT 34 (26.4-36.2) SECONDS D-Dimer 214 (<230) ng/mL Sodium (137-145) mmol/L Potassium (3.4-5.1) mmol/L Chloride (98-107) mmol/L Carbon Dioxide (22-32) mmol/L BUN (7-17) mg/dL Creatinine (0.52-1.04) mg/dL Estimated GFR (>60) mL/min BUN/Creatinine Ratio (6-22) Glucose (70-100) mg/dL Calcium (8.4-10.2) mg/dL Magnesium (1.6-2.3) mg/dL Total Bilirubin (0.2-1.3) mg/dL AST (14-36) IU/L ALT (<35) IU/L Alkaline Phosphatase (38-126) U/L Total Creatine Kinase (30-135) U/L CK-MB (CK-2) CK-MB (CK-2) Rel Index Troponin I (0.01-0.034) ng/mL Total Protein (6.3-8.2) g/dL Albumin (3.5-5.0) g/dL Globulin (1.7-4.1) g/dL Albumin/Globulin Ratio (1.0-2.8) Lipase (23-300) U/L TSH 1.52 (0.47-4.68) uIU/mL 05/28/21 Range/Units 21:50 WBC (4.5-11.0) X10^3/uL RBC (4.0-5.2) X10^6/uL Hgb (12.0-16.0) g/dL Hct (36-46) % MCV (80-100) fL MCH (26-34) PG MCHC (30-36) % RDW (11.6-14.8) % Plt Count (150-400) X10^3/uL Neut % (Auto) (50-75) % Lymph % (Auto) (25-40) % [place] % (Auto) (3-14) % Eos % (Auto) (2-4) % Baso % (Auto) (0-2) % Neut # (Auto) (8812-2693) /uL Lymph # (Auto) (4481-6048) /uL [place] # (Auto) (0-900) /uL Eos # (Auto) (0-450) /uL Baso # (Auto) (0-100) /uL RBC Morphology Polychromasia Hypochromasia Microcytosis PT (10.1-12.7) SECONDS INR (0.9-1.3) APTT (26.4-36.2) SECONDS D-Dimer (<230) ng/mL Sodium (137-145) mmol/L Potassium (3.4-5.1) mmol/L Chloride (98-107) mmol/L Carbon Dioxide (22-32) mmol/L BUN (7-17) mg/dL Creatinine (0.52-1.04) mg/dL Estimated GFR (>60) mL/min BUN/Creatinine Ratio (6-22) Glucose (70-100) mg/dL Calcium (8.4-10.2) mg/dL Magnesium (1.6-2.3) mg/dL Total Bilirubin (0.2-1.3) mg/dL AST (14-36) IU/L ALT (<35) IU/L Alkaline Phosphatase (38-126) U/L Total Creatine Kinase (30-135) U/L CK-MB (CK-2) CK-MB (CK-2) Rel Index Troponin I < 0.012 (0.01-0.034) ng/mL Total Protein (6.3-8.2) g/dL Albumin (3.5-5.0) g/dL Globulin (1.7-4.1) g/dL Albumin/Globulin Ratio (1.0-2.8) Lipase (23-300) U/L TSH (0.47-4.68) uIU/mL Point of Care Testing Test Results Negative Urine Dip Bedside Urine Glucose 250 mg/dl Bedside Urine Bilirubin - Negative Bedside Urine Ketone - Negative Urine Specific [place] 1.025 Bedside Urine Occult Blood +/- Bedside Urine pH 6.0 Bedside Urine Protein + 30 Bedside Urine Urobilinogen - Negative Bedside Urine Nitrite - Negative Bedside Urine Leukocytes - Negative Esterase ECG Data Interpretation: Normal sinus rhythm, no axis deviation, no ST-T changes. EKG 2. Shows sinus rhythm rate of 90 [place] 196 QRS 88 QTC 457. Patient's EKG appears similar to prior. She has had Q-waves in V1 2 and 3. MDM Narrative Medical decision making narrative: 35-year-old female with past medical history obesity, hyperlipidemia, type 2 diabetes, hypertension, plaque psoriasis, iron deficiency anemia, anxiety, depression presents to the ED with 5 days of left-sided chest pain. Concern for ACS versus PE. Will order labs, troponin, chest x-ray, EKG, D-dimer, left lower extremity ultrasound. Heart score 3. Will repeat trop if 1st troponin negative. Will reassess. DC home if no PE and 2 negative trops Patient was seen and evaluated by myself independently along with independently perform physical exam. She does have cardiac risk factors. EKG show no acute changes. Troponin is negative x 2. After examination and discussion. Patient does note that her blood pressures been high since switching her benzodiazepine to a new a benzodiazepine. This seems to have correlated with her recent symptoms. At this time feels appropriate for discharge home she has an appointment on 05/29 at 4:30 p.m. with her primary care and we discussed that would be appropriate to talk about stress testing as well as any medication changes. Patient feels comfortable with this plan and has very short-term follow-up. Discharge Plan Departure Patient Disposition: Home Clinical Impression: Chest pain Instructions: DI for Chest Pain Activity Restrictions/Additional Instructions: Follow-up with your physician this week for recheck. Your EKG and labs do not show active cardiac changes but it would be appropriate to be evaluated for possible stress testing. Please return for fevers, new or worsening chest pain, shortness of breath, lightheadedness or passing out, persistent vomiting or other new or concerning symptoms. Prescriptions: No Action (DME) BD U/F MINI PEN NEEDLE [id number] Qty: 100 RF: 2 Ventolin HFA 90 mcg/actuation HFA aerosol inhaler 2 puff Inhalation Q4HP PRN (Reason: Shortness Of Breath) Qty: 18 RF: 11 (DME) TRUE METRIX AIR GLUCOSE METER Qty: 1 RF: 0 (DME) True metrix glucose test strip Qty: 100 RF: 5 loratadine [Claritin] 10 mg tablet 10 mg PO DAILY PRN (Reason: Allergy Symptoms) Qty: 90 RF: 3 nystatin 100,000 unit/gram powder 1 applictn TOP BID Qty: 30 RF: 2 insulin lispro [Humalog KwikPen Insulin] 100 unit/mL insulin pen 60 unit SUBCUT QAC Qty: 40 RF: 11 (DME) BD U/F Mini Pen Needle 31G X 5MM Qty: 250 RF: 6 Trulicity 0.75 mg/0.5 mL pen injector 0.75 mg SUBCUT QWEEK RF: 0 minocycline 100 mg capsule 100 mg PO BID RF: 0 losartan 100 mg tablet 100 mg PO DAILY Qty: 90 RF: 3 hydrocodone-acetaminophen 7.5-325 mg tablet 1 tab PO Q6H PRN (Reason: pain) Qty: 120 RF: 0 diazepam 5 mg tablet 5 mg PO BID Qty: 60 RF: 2 metformin 500 mg tablet 500 mg PO QID Qty: 360 RF: 1 propranolol 20 mg tablet 20 mg PO BID-TID PRN (Reason: anxiety) Qty: 270 RF: 3 albuterol sulfate 2.5 mg /3 mL (0.083 %) solution for nebulization 2.5 mg INHALATION Q4H PRN (Reason: shortness of breath or wheezing) Qty: 90 RF: 5 ipratropium-albuterol 0.5 mg-3 mg(2.5 mg base)/3 mL solution for nebulization 3 ml INHALATION BID Qty: 90 RF: 5 ipratropium bromide 17 mcg/actuation HFA aerosol inhaler 1 puff INHALATION QID Qty: 12.9 RF: 5 (DME) Incontinence pads Qty: 1 RF: 0 ferrous sulfate 325 mg (65 mg iron) tablet 325 mg PO QPM RF: 0 Referrals: Corwin Pacheco MD [Primary Care Provider] -
[2021-05-28 18:47] LABS: Add Manual Diff / Slide Review NO; Basophils Absolute Auto 100 /uL (0-100); Eosinophils Absolute Auto 100 /uL (0-450); Eosinophils Percent Auto 1.5 % (2-4); Hematocrit 39.2 % (36-46); Hemoglobin 12.5 g/dL (12.0-16.0); Lymphocytes Absolute Auto 1400 /uL (1100-4500); Lymphocytes Percent Auto 15.1 % (25-40); Mean Corpuscular HGB Conc 31.9 % (30-36); Mean Corpuscular Hemoglobin 21.2 PG (26-34); Mean Corpuscular Volume 66.5 fL (80-100); Monocytes Absolute Auto 700 /uL (0-900); Neutrophils Absolute Auto 7100 /uL (1500-7000); Neutrophils Percent Auto 75.4 % (50-75); Platelet Count 284 X10^3/uL (150-400); Red Blood Cell Count 5.89 X10^6/uL (4.0-5.2); Red Cell Distribution Width 17.8 % (11.6-14.8); White Blood Cell Count 9.4 X10^3/uL (4.5-11.0)
[2021-05-28 18:55] LABS: Prothrombin Time 11.6 SECONDS (10.1-12.7)
[2021-05-28 18:57] LABS: PTT Partial Thromboplastin Tim 34 SECONDS (26.4-36.2)
[2021-05-28 19:01] LABS: Alanine Aminotransferase 42 IU/L (<35); Alkaline Phosphatase 64 U/L (38-126); Aspartate Aminotransferase 36 IU/L (14-36); BUN Creatinine Ratio 34.6 (6-22); Bilirubin Total 0.4 mg/dL (0.2-1.3); Blood Urea Nitrogen 18 mg/dL (7-17); Calcium 9.1 mg/dL (8.4-10.2); Carbon Dioxide 32 mmol/L (22-32); Chloride 98 mmol/L (98-107); Creatine Kinase 56 U/L (30-135); Estimated Glomerular Filt Rate > 60.0 mL/min (>60); Globulin 3.9 g/dL (1.7-4.1); Glucose 316 mg/dL (70-100); HEMOLYSIS < 15 (0-50); Lipase 115 U/L (23-300); Magnesium 1.9 mg/dL (1.6-2.3); Potassium 4.2 mmol/L (3.4-5.1); Sodium 134 mmol/L (137-145); Total Protein 7.9 g/dL (6.3-8.2)
[2021-05-28 19:11] LABS: D Dimer 214 ng/mL (<230)
[2021-05-28 19:12] LABS: Troponin I < 0.012 ng/mL (0.01-0.034)
[2021-05-28 19:21] LABS: Hypochromasia 1+; Microcytosis 2+; Polychromasia 1+
[2021-05-28 19:32] LABS: TSH w/ Reflex to FT4 1.52 uIU/mL (0.47-4.68)
--- NOTE | 2021-05-28 20:59 | PC.NURSE ---
updated on wait. moved to wheel chair for comfort. Denies complaints at this time.
[2021-05-28 22:22] LABS: Troponin I < 0.012 ng/mL (0.01-0.034)
== END 2021-05-29 | disposition home or self-care (01) ==
PROVIDERS: Student in an Organized Health Care Education/Training Program; Emergency Provider Emergency Medicine; PCP Student in an Organized Health Care Education/Training Program
DX: R07.9 Chest pain, unspecified (principal); M79.605 Pain in left leg
CPT/HCPCS: 36415; 71045; 80053; 81003; 81025; 82550; 83690; 83735; 84443; 84484; 85025; 85379; 85610; 85730; 93005; 93971; 99284

== ENCOUNTER 2021-08-15 00:51 | Emergency (ER) | payer OTHER, MEDICAID, SELFPAY ==
[2020-06-02 15:53] VITALS: BMI 59.5
[2021-08-15] VITALS (77 sets, daily range): BP systolic 141–251; BP diastolic 72–116; PULSE 66–87; RESP 12–22; TEMP 36.6–36.8; O2SAT 85–99; BMI 62.4
--- NOTE | 2021-08-15 01:22 | ED_ITS ---
HPI - Nausea/Vomiting/Diarrhea <Karuna Margarita, DO - Last Filed: 08/16/21 19:15> General Chief complaint: Nausea/Vomiting/Diarrhea Stated complaint: high bp/dry heaving x9 hours Time Seen by Provider: 08/15/21 01:20 Source: patient Mode of arrival: Wheelchair History of Present Illness HPI Narrative: Patient is 35-year-old female history of morbid obesity, cholecystectomy, insulin-dependent diabetes, psoriasis presenting with nausea vomiting and abdominal pain. She was recently diagnosed with cellulitis of her lower extremities secondary to her chronic ongoing skin is problems. She states that she was put on 1 medication however needed to be stopped and she was started on doxycycline. She says she took doxycycline for 5 days but has been feeling nauseated she quit taking it he continues to feel nauseous and generally not well. She denies any fever chills or chest pain. She is having epigastric pain is. She says that she overall feels bloated she has been burping vomiting and passing gas. She even had a normal bowel movement today. He says the redness on her legs is actually getting significantly better than it was previously. She reports cultures taken of her legs by primary natalio Malcolm. Related Data Home Medications Medication Instructions Recorded Confirmed ferrous sulfate 325 mg (65 mg 325 mg PO QPM 05/18/19 07/12/21 iron) tablet dulaglutide 0.75 mg/0.5 mL 0.75 mg SUBCUT QWEEK 09/19/20 07/12/21 subcutaneous pen injector (Trulicity) minocycline 100 mg capsule 100 mg PO BID 01/18/21 07/12/21 Previous Rx's Medication Instructions Recorded ipratropium bromide 17 1 puff INHALATION QID #12.9 gram 10/12/19 mcg/actuation HFA aerosol inhaler Incontinence pads #1 ea 10/19/19 BD U/F MINI PEN NEEDLE [id number] #100 each 10/20/19 albuterol sulfate 90 mcg/actuation 2 puff INHALATION Q4HP PRN #18 gram 11/26/19 aerosol inhaler (Ventolin HFA) TRUE METRIX AIR GLUCOSE METER #1 ea 12/31/19 True metrix glucose test strip #100 each 12/31/19 loratadine 10 mg tablet (Claritin) 10 mg PO DAILY PRN #90 tab 01/10/20 nystatin 100,000 unit/gram topical 1 applictn TOP BID #30 gram 02/23/20 powder albuterol sulfate 2.5 mg (3 mL) INHALATION Q4H PRN 04/19/20 #90 ml ipratropium 0.5 mg-albuterol 3 mg 3 ml INHALATION BID #90 ml 04/19/20 (2.5 mg base)/3 mL nebulization soln BD U/F Mini Pen Needle #250 ea 09/06/20 losartan 100 mg tablet 100 mg PO DAILY #90 tab 01/26/21 diazepam 10 mg tablet 10 mg PO BID #60 tab 05/29/21 metformin 500 mg tablet 500 mg PO QID #360 tab 06/14/21 benzonatate 200 mg capsule 200 mg PO BID PRN #14 cap 06/28/21 hydrocodone 7.5 mg-acetaminophen 1 tab PO Q8H PRN #90 tab 08/08/21 325 mg tablet insulin lispro 100 unit/mL 60 unit (0.6 mL) SUBCUT QAC #40 ml 08/10/21 subcutaneous pen (Humalog KwikPen (U-100) Insulin) ondansetron HCl 4 mg tablet 4 mg PO Q8H PRN 14 Days #42 tab 08/14/21 propranolol 80 mg capsule,24 80 mg PO DAILY #30 cap 08/14/21 hr,extended release Allergies Allergy/AdvReac Type Severity Reaction Status Date / Time Iodinated Contrast Media Allergy Severe Neck, face Verified 08/15/21 01:09 [IODINATED CONTRAST MEDIA - arms all IV DYE] swollen with difficulty breathing hydromorphone [From DILAUDID] Allergy Mild Very Verified 08/15/21 01:09 sensitive to this drug. ciprofloxacin [From Cipro] Allergy Hives Verified 08/15/21 01:09 Sulfa (Sulfonamide Allergy Rash Verified 08/15/21 01:09 Antibiotics) loperamide [From IMODIUM A-D] AdvReac Mild Nausea Verified 08/15/21 01:09 vomiting VITAMIN C AdvReac Mild Nausea/vomiting Uncoded 07/12/21 09:53 and migraines Review of Systems <Karuna Avila DO - Last Filed: 08/16/21 19:15> Review of Systems Narrative: GENERAL: Denies chills, fatigue, malaise, fever, sweats, travel HEENT: Denies sinus pain, ear pain, sore throat, difficulty swallowing, neck pain RESPIRATORY: Denies dyspnea, cough, wheezing, hemoptysis, sputum. CARDIOVASCULAR: Denies chest pain, palpitations, orthopnea, edema GASTROINTESTINAL: See HPI : Denies dysuria, frequency, incontinence, hematuria, urinary retention, flank pain. MUSCULOSKELETAL: Denies weakness, joint pain, or bony pain SKIN: Psoriasis NEUROLOGIC: Denies weakness, dizziness, headache, numbness, change in speech, confusion PSYCHIATRIC: No concerning psychosocial issues. 12 point review of systems is negative except for those stated above and HPI Patient History <Karuna Avila DO - Last Filed: 08/16/21 19:15> Medical History (Updated 08/16/21 @ 10:39 by Lesley Stanford MD) Anxiety (Unknown) Cellulitis of left breast Chronic dental pain Depression (Unknown) Dermatitis (Unknown) Hx MRSA infection (10/2010) Hypertension Insomnia due to medical condition (~08/2019) Mild intermittent asthma without complication (02/23/16) Morbid obesity with BMI of 60.0-69.9, adult (~11/23/20) Morbid obesity with body mass index (BMI) greater than or equal to 50 (08/04/15) Nocturnal hypoxemia Obstructive sleep apnea, adult Snoring Type 2 diabetes mellitus without complication, with long-term current use of insulin (10/08/16) Uncomplicated opioid dependence Surgical History History of cholecystectomy No history of previous surgery Family History Mother Age: 41 Type 2 diabetes mellitus without complication Sister Age: 31 Depression Sister Age: 34 Anxiety Family/Other Loud snoring Diabetes mellitus ADD (attention deficit disorder) Alcohol abuse Depression Anxiety Sister Loud snoring Insomnia Obesity Depression Anxiety ADD (attention deficit disorder) Alcohol abuse Social History household members: spouse Smoking Status: Former smoker eating out: 1-3 times/week Type(s) of exercise: none Smoking Status: Former smoker alcohol intake frequency: holidays/special occasions only Alcohol type: beer Substance Use Type: marijuana Exam <DO Tomas Maynard Last Filed: 08/16/21 19:15> Initial Vital Signs Initial Vital Signs: Vital Signs Temperature 97.9 F 08/15/21 00:55 Pulse Rate 72 08/15/21 00:55 Respiratory Rate 22 08/15/21 00:55 Blood Pressure 228/113 H 08/15/21 00:55 Pulse Oximetry 93 08/15/21 00:55 GENERAL: A 35-year-old female nauseous, dry heaving, BMI 62 HEENT: Head atraumatic,EOMI, pupils reactive, face symmetric, moist mucous membranes CARDIOVASCULAR: Regular rate and rhythm without murmurs, rubs or gallops. RESPIRATORY: Breath sounds equal bilaterally, no wheezes rales or rhonchi. ABDOMEN: Soft, epigastric tenderness mild right upper quadrant tenderness negative [place] sign no guarding or rebound no lower abdominal pain normal bowel sounds abdomen does feel tight and slightly swollen EXTREMITIES: Normal range of motion, no clubbing or edema. Neurovascularly intact NEUROLOGICAL: Alert and oriented x4.Normal gait and speech. SKIN: Warm, dry, no laceration, no petechiae, no rashes or lesions. <Chon Kilpatrick DO - Last Filed: 08/15/21 19:01> Initial Vital Signs Initial Vital Signs: Vital Signs Temperature 97.9 F 08/15/21 00:55 Pulse Rate 72 08/15/21 00:55 Respiratory Rate 22 08/15/21 00:55 Blood Pressure 228/113 H 08/15/21 00:55 Pulse Oximetry 93 08/15/21 00:55 <Lesley Stanford MD - Last Filed: 08/16/21 19:01> Initial Vital Signs Initial Vital Signs: Vital Signs Temperature 97.9 F 08/15/21 00:55 Pulse Rate 72 08/15/21 00:55 Respiratory Rate 22 08/15/21 00:55 Blood Pressure 228/113 H 08/15/21 00:55 Pulse Oximetry 93 08/15/21 00:55 Course <Karuna Avila DO - Last Filed: 08/16/21 19:15> Orders Ordered: Discontinued Medications Hydromorphone HCl (Hydromorphone 0.5 Mg Inj) 0.5 mg IV NOW ONE Stop: 08/15/21 03:12 Last Admin: 08/15/21 03:20 Dose: 0.5 mg Documented by: DELFINA Hydromorphone HCl (Hydromorphone 0.5 Mg Inj) 0.5 mg IV Q15MIN PRN PRN Reason: Pain, Last Admin: 08/16/21 12:38 Dose: 0.5 mg Documented by: SAMMY Sodium Chloride (Normal Saline 0.9%) 1,000 mls @ 1,000 mls/hr IV BOLUS ONE Stop: 08/15/21 02:41 Last Infusion: 08/15/21 03:45 Dose: 0 mls/hr Documented by: Admin: 08/15/21 02:16 Dose: 1,000 mls/hr Documented by: RUBEN Sodium Chloride (Normal Saline 0.9%) 1,000 mls @ 125 mls/hr IV CONT JANIE Last Infusion: 08/16/21 17:49 Dose: 125 mls/hr Documented by: Infusion: 08/16/21 10:39 Dose: 150 mls/hr Documented by: Admin: 08/16/21 07:21 Dose: 125 mls/hr Documented by: Infusion: 08/16/21 07:17 Dose: 0 mls/hr Documented by: Admin: 08/15/21 23:07 Dose: 125 mls/hr Documented by: Infusion: 08/15/21 22:44 Dose: 0 mls/hr Documented by: Admin: 08/15/21 13:27 Dose: 125 mls/hr Documented by: CHAPIS Sodium Chloride (Normal Saline 0.9%) 1,000 mls @ 150 mls/hr IV CONT [facility] Last Admin: 08/16/21 10:39 Dose: Not Given Documented by: EZEQUIEL Ketorolac Tromethamine (Ketorolac 30 Mg/Ml Vial) 15 mg IV NOW ONE Stop: 08/16/21 05:02 Last Admin: 08/16/21 05:04 Dose: 15 mg Documented by: JOSE Losartan Potassium (Losartan 50 Mg Tablet) 100 mg PO NOW ONE Stop: 08/16/21 10:55 Last Admin: 08/16/21 12:14 Dose: 100 mg Documented by: ASMMY Ondansetron HCl (Ondansetron 4 Mg/2 Ml Inj) 4 mg IV NOW ONE Stop: 08/15/21 01:43 Last Admin: 08/15/21 02:16 Dose: 4 mg Documented by: RUBEN Ondansetron HCl (Ondansetron 4 Mg/2 Ml Inj) 4 mg IV NOW ONE Stop: 08/15/21 03:13 Last Admin: 08/15/21 03:19 Dose: 4 mg Documented by: DELFINA Ondansetron HCl (Ondansetron 4 Mg/2 Ml Inj) 4 mg IV NOW ONE Stop: 08/15/21 22:47 Last Admin: 08/15/21 23:07 Dose: 4 mg Documented by: JOSE Ondansetron HCl (Ondansetron 4 Mg/2 Ml Inj) 4 mg IV NOW ONE Stop: 08/16/21 09:56 Last Admin: 08/16/21 10:03 Dose: 4 mg Documented by: CHAPIS Pantoprazole Sodium (Pantoprazole 40 Mg Vial) 40 mg IV NOW ONE Stop: 08/16/21 02:00 Last Admin: 08/16/21 02:13 Dose: 40 mg Documented by: JOSE Propranolol HCl (Propranolol 10 Mg Tablet) 20 mg PO TID JANIE Last Admin: 08/16/21 17:47 Dose: 20 mg Documented by: Admin: 08/16/21 12:14 Dose: 20 mg Documented by: SAMMY Vital Signs Vital signs: Vital Signs - 8 hr 08/16/21 12:14 08/16/21 12:20 08/16/21 12:21 Temperature Pulse Rate 85 82 80 Respiratory Rate Blood Pressure 182/101 H 196/101 H Pulse Oximetry 91 95 08/16/21 12:30 08/16/21 12:40 08/16/21 13:00 Temperature Pulse Rate 76 71 69 Respiratory Rate Blood Pressure 183/84 H 162/76 H Pulse Oximetry 99 98 96 08/16/21 13:20 08/16/21 13:30 08/16/21 13:40 Temperature Pulse Rate 65 67 64 Respiratory Rate Blood Pressure 154/76 H 156/74 H Pulse Oximetry 94 97 95 08/16/21 14:00 08/16/21 14:20 08/16/21 14:30 Temperature Pulse Rate 65 71 71 Respiratory Rate Blood Pressure 162/75 H 166/77 H Pulse Oximetry 96 96 94 08/16/21 14:40 08/16/21 15:00 12/16/21 15:20 Temperature Pulse Rate 69 67 70 Respiratory Rate Blood Pressure 165/79 H 157/77 H 169/81 H Pulse Oximetry 98 97 97 08/16/21 15:30 08/16/21 15:40 08/16/21 15:56 Temperature Pulse Rate 68 70 70 Respiratory Rate Blood Pressure 169/78 H 159/74 H Pulse Oximetry 99 98 98 08/16/21 16:00 08/16/21 16:20 08/16/21 16:30 Temperature Pulse Rate 73 71 76 Respiratory Rate Blood Pressure 155/71 H 160/82 H Pulse Oximetry 98 97 95 08/16/21 19:06 Temperature 98.3 F Pulse Rate 74 Respiratory Rate 22 Blood Pressure 155/89 H Pulse Oximetry 96 <Chon Kilpatrick DO - Last Filed: 08/15/21 19:01> Orders Ordered: Discontinued Medications Hydromorphone HCl (Hydromorphone 0.5 Mg Inj) 0.5 mg IV NOW ONE Stop: 08/15/21 03:12 Last Admin: 08/15/21 03:20 Dose: 0.5 mg Documented by: DELFINA Hydromorphone HCl (Hydromorphone 0.5 Mg Inj) 0.5 mg IV Q15MIN PRN PRN Reason: Pain, Last Admin: 08/16/21 12:38 Dose: 0.5 mg Documented by: SAMMY Sodium Chloride (Normal Saline 0.9%) 1,000 mls @ 1,000 mls/hr IV BOLUS ONE Stop: 08/15/21 02:41 Last Infusion: 08/15/21 03:45 Dose: 0 mls/hr Documented by: Admin: 08/15/21 02:16 Dose: 1,000 mls/hr Documented by: RUBEN Sodium Chloride (Normal Saline 0.9%) 1,000 mls @ 125 mls/hr IV CONT JANIE Last Infusion: 08/16/21 17:49 Dose: 125 mls/hr Documented by: Infusion: 08/16/21 10:39 Dose: 150 mls/hr Documented by: Admin: 08/16/21 07:21 Dose: 125 mls/hr Documented by: Infusion: 08/16/21 07:17 Dose: 0 mls/hr Documented by: Admin: 08/15/21 23:07 Dose: 125 mls/hr Documented by: Infusion: 08/15/21 22:44 Dose: 0 mls/hr Documented by: Admin: 08/15/21 13:27 Dose: 125 mls/hr Documented by: CHAPIS Sodium Chloride (Normal Saline 0.9%) 1,000 mls @ 150 mls/hr IV CONT JANIE Last Admin: 08/16/21 10:39 Dose: Not Given Documented by: EZEQUIEL Ketorolac Tromethamine (Ketorolac 30 Mg/Ml Vial) 15 mg IV NOW ONE Stop: 08/16/21 05:02 Last Admin: 08/16/21 05:04 Dose: 15 mg Documented by: JOSE Losartan Potassium (Losartan 50 Mg Tablet) 100 mg PO NOW ONE Stop: 08/16/21 10:55 Last Admin: 08/16/21 12:14 Dose: 100 mg Documented by: SAMMY Ondansetron HCl (Ondansetron 4 Mg/2 Ml Inj) 4 mg IV NOW ONE Stop: 08/15/21 01:43 Last Admin: 08/15/21 02:16 Dose: 4 mg Documented by: RUBEN Ondansetron HCl (Ondansetron 4 Mg/2 Ml Inj) 4 mg IV NOW ONE Stop: 08/15/21 03:13 Last Admin: 08/15/21 03:19 Dose: 4 mg Documented by: DELFINA Ondansetron HCl (Ondansetron 4 Mg/2 Ml Inj) 4 mg IV NOW ONE Stop: 08/15/21 22:47 Last Admin: 08/15/21 23:07 Dose: 4 mg Documented by: JOSE Ondansetron HCl (Ondansetron 4 Mg/2 Ml Inj) 4 mg IV NOW ONE Stop: 08/16/21 09:56 Last Admin: 08/16/21 10:03 Dose: 4 mg Documented by: CHAPIS Pantoprazole Sodium (Pantoprazole 40 Mg Vial) 40 mg IV NOW ONE Stop: 08/16/21 02:00 Last Admin: 08/16/21 02:13 Dose: 40 mg Documented by: JOSE Propranolol HCl (Propranolol 10 Mg Tablet) 20 mg PO TID [facility] Last Admin: 08/16/21 17:47 Dose: 20 mg Documented by: Admin: 08/16/21 12:14 Dose: 20 mg Documented by: SAMMY Vital Signs Vital signs: Vital Signs - 8 hr 08/16/21 12:14 08/16/21 12:20 08/16/21 12:21 Temperature Pulse Rate 85 82 80 Respiratory Rate Blood Pressure 182/101 H 196/101 H Pulse Oximetry 91 95 08/16/21 12:30 08/16/21 12:40 08/16/21 13:00 Temperature Pulse Rate 76 71 69 Respiratory Rate Blood Pressure 183/84 H 162/76 H Pulse Oximetry 99 98 96 08/16/21 13:20 08/16/21 13:30 08/16/21 13:40 Temperature Pulse Rate 65 67 64 Respiratory Rate Blood Pressure 154/76 H 156/74 H Pulse Oximetry 94 97 95 08/16/21 14:00 08/16/21 14:20 08/16/21 14:30 Temperature Pulse Rate 65 71 71 Respiratory Rate Blood Pressure 162/75 H 166/77 H Pulse Oximetry 96 96 94 08/16/21 14:40 08/16/21 15:00 08/16/21 15:20 Temperature Pulse Rate 69 67 70 Respiratory Rate Blood Pressure 165/79 H 157/77 H 169/81 H Pulse Oximetry 98 97 97 08/16/21 15:30 08/16/21 15:40 08/16/21 15:56 Temperature Pulse Rate 68 70 70 Respiratory Rate Blood Pressure 169/78 H 159/74 H Pulse Oximetry 99 98 98 08/16/21 16:00 08/16/21 16:20 08/16/21 16:30 Temperature Pulse Rate 73 71 76 Respiratory Rate Blood Pressure 155/71 H 160/82 H Pulse Oximetry 98 97 95 08/16/21 19:06 Temperature 98.3 F Pulse Rate 74 Respiratory Rate 22 Blood Pressure 155/89 H Pulse Oximetry 96 <Lesley Stanford MD - Last Filed: 08/16/21 19:01> Orders Ordered: Discontinued Medications Hydromorphone HCl (Hydromorphone 0.5 Mg Inj) 0.5 mg IV NOW ONE Stop: 08/15/21 03:12 Last Admin: 08/15/21 03:20 Dose: 0.5 mg Documented by: DELFINA Hydromorphone HCl (Hydromorphone 0.5 Mg Inj) 0.5 mg IV Q15MIN PRN PRN Reason: Pain, Last Admin: 08/16/21 12:38 Dose: 0.5 mg Documented by: SAMMY Sodium Chloride (Normal Saline 0.9%) 1,000 mls @ 1,000 mls/hr IV BOLUS ONE Stop: 08/15/21 02:41 Last Infusion: 08/15/21 03:45 Dose: 0 mls/hr Documented by: Admin: 08/15/21 02:16 Dose: 1,000 mls/hr Documented by: RUBEN Sodium Chloride (Normal Saline 0.9%) 1,000 mls @ 125 mls/hr IV CONT JANIE Last Infusion: 08/16/21 17:49 Dose: 125 mls/hr Documented by: Infusion: 08/16/21 10:39 Dose: 150 mls/hr Documented by: Admin: 08/16/21 07:21 Dose: 125 mls/hr Documented by: Infusion: 08/16/21 07:17 Dose: 0 mls/hr Documented by: Admin: 08/15/21 23:07 Dose: 125 mls/hr Documented by: Infusion: 08/15/21 22:44 Dose: 0 mls/hr Documented by: Admin: 08/15/21 13:27 Dose: 125 mls/hr Documented by: CHAPIS Sodium Chloride (Normal Saline 0.9%) 1,000 mls @ 150 mls/hr IV CONT [facility] Last Admin: 08/16/21 10:39 Dose: Not Given Documented by: EZEQUIEL Ketorolac Tromethamine (Ketorolac 30 Mg/Ml Vial) 15 mg IV NOW ONE Stop: 08/16/21 05:02 Last Admin: 08/16/21 05:04 Dose: 15 mg Documented by: JOSE Losartan Potassium (Losartan 50 Mg Tablet) 100 mg PO NOW ONE Stop: 08/16/21 10:55 Last Admin: 08/16/21 12:14 Dose: 100 mg Documented by: SAMMY Ondansetron HCl (Ondansetron 4 Mg/2 Ml Inj) 4 mg IV NOW ONE Stop: 08/15/21 01:43 Last Admin: 08/15/21 02:16 Dose: 4 mg Documented by: RUBEN Ondansetron HCl (Ondansetron 4 Mg/2 Ml Inj) 4 mg IV NOW ONE Stop: 08/15/21 03:13 Last Admin: 08/15/21 03:19 Dose: 4 mg Documented by: DELFINA Ondansetron HCl (Ondansetron 4 Mg/2 Ml Inj) 4 mg IV NOW ONE Stop: 08/15/21 22:47 Last Admin: 08/15/21 23:07 Dose: 4 mg Documented by: JOSE Ondansetron HCl (Ondansetron 4 Mg/2 Ml Inj) 4 mg IV NOW ONE Stop: 08/16/21 09:56 Last Admin: 08/16/21 10:03 Dose: 4 mg Documented by: CHAPIS Pantoprazole Sodium (Pantoprazole 40 Mg Vial) 40 mg IV NOW ONE Stop: 08/16/21 02:00 Last Admin: 08/16/21 02:13 Dose: 40 mg Documented by: JOSE Propranolol HCl (Propranolol 10 Mg Tablet) 20 mg PO TID JANIE Last Admin: 08/16/21 17:47 Dose: 20 mg Documented by: Admin: 08/16/21 12:14 Dose: 20 mg Documented by: SAMMY Vital Signs Vital signs: Vital Signs - 8 hr 08/16/21 12:14 08/16/21 12:20 08/16/21 12:21 Temperature Pulse Rate 85 82 80 Respiratory Rate Blood Pressure 182/101 H 196/101 H Pulse Oximetry 91 95 08/16/21 12:30 08/16/21 12:40 08/16/21 13:00 Temperature Pulse Rate 76 71 69 Respiratory Rate Blood Pressure 183/84 H 162/76 H Pulse Oximetry 99 98 96 08/16/21 13:20 08/16/21 13:30 08/16/21 13:40 Temperature Pulse Rate 65 67 64 Respiratory Rate Blood Pressure 154/76 H 156/74 H Pulse Oximetry 94 97 95 08/16/21 14:00 08/16/21 14:20 08/16/21 14:30 Temperature Pulse Rate 65 71 71 Respiratory Rate Blood Pressure 162/75 H 166/77 H Pulse Oximetry 96 96 94 08/16/21 14:40 08/16/21 15:00 08/16/21 15:20 Temperature Pulse Rate 69 67 70 Respiratory Rate Blood Pressure 165/79 H 157/77 H 169/81 H Pulse Oximetry 98 97 97 08/16/21 15:30 08/16/21 15:40 08/16/21 15:56 Temperature Pulse Rate 68 70 70 Respiratory Rate Blood Pressure 169/78 H 159/74 H Pulse Oximetry 99 98 98 08/16/21 16:00 08/16/21 16:20 08/16/21 16:30 Temperature Pulse Rate 73 71 76 Respiratory Rate Blood Pressure 155/71 H 160/82 H Pulse Oximetry 98 97 95 08/16/21 19:06 Temperature 98.3 F Pulse Rate 74 Respiratory Rate 22 Blood Pressure 155/89 H Pulse Oximetry 96 MDM - Nausea/Vomiting/Diarrhea <Karuna Avila, - Last Filed: 08/16/21 19:15> Lab Data Result diagrams: 08/16/21 06:27 08/16/21 06:27 Labs: Lab Results 08/15/21 08/15/21 08/15/21 Range/Units 02:13 02:13 02:13 WBC 8.0 (4.5-11.0) X10^3/uL RBC 5.67 H (4.0-5.2) X10^6/uL Hgb 12.1 (12.0-16.0) g/dL Hct 37.7 (36-46) % MCV 66.4 L (80-100) fL MCH 21.3 L (26-34) PG MCHC 32.1 (30-36) % RDW 16.8 H (11.6-14.8) % Plt Count 336 (150-400) X10^3/uL Neut % (Auto) 79.3 H (50-75) % Lymph % (Auto) 10.6 L (25-40) % Island % (Auto) 7.9 (3-14) % Eos % (Auto) 1.2 L (2-4) % Baso % (Auto) 1.0 (0-2) % Neut # (Auto) 6300 (1787-5875) /uL Lymph # (Auto) 800 L (2481-7727) /uL Island # (Auto) 600 (0-900) /uL Eos # (Auto) 100 (0-450) /uL Baso # (Auto) 100 (0-100) /uL RBC Morphology See below Polychromasia 1+ H Hypochromasia Anisocytosis 1+ H Microcytosis 2+ H Sodium 132 L (137-145) mmol/L Potassium 4.6 (3.4-5.1) mmol/L Chloride 96 L (98-107) mmol/L Carbon Dioxide 31 (22-32) mmol/L BUN 12 (7-17) mg/dL Creatinine 0.51 L (0.52-1.04) mg/dL Estimated GFR > 60.0 (>60) mL/min BUN/Creatinine Ratio 23.5 H (6-22) Glucose 317 H (70-100) mg/dL Calcium 9.1 (8.4-10.2) mg/dL Total Bilirubin 2.8 H (0.2-1.3) mg/dL AST 163 H (14-36) IU/L ALT 115 H (<35) IU/L Alkaline Phosphatase 116 (38-126) U/L Total Creatine Kinase (30-135) U/L CK-MB (CK-2) CK-MB (CK-2) Rel Index Troponin I (0.01-0.034) ng/mL Total Protein 8.6 H (6.3-8.2) g/dL Albumin 4.1 (3.5-5.0) g/dL Globulin 4.5 H (1.7-4.1) g/dL Albumin/Globulin Ratio 0.9 L (1.0-2.8) Lipase 71 (23-300) U/L Procalcitonin 0.08 (<0.5) ng/mL Urine RBC (0-5/HPF) Urine WBC (0-5/HPF) Ur Squamous Epith Cells (0-5/HPF) Urine Bacteria (None) Ur Culture Indicated? SARS-CoV-2 (PCR) (Negative) 08/15/21 08/15/21 08/15/21 Range/Units 02:13 02:39 06:30 WBC (4.5-11.0) X10^3/uL RBC (4.0-5.2) X10^6/uL Hgb (12.0-16.0) g/dL Hct (36-46) % MCV (80-100) fL MCH (26-34) PG MCHC (30-36) % RDW (11.6-14.8) % Plt Count (150-400) X10^3/uL Neut % (Auto) (50-75) % Lymph % (Auto) (25-40) % Island % (Auto) (3-14) % Eos % (Auto) (2-4) % Baso % (Auto) (0-2) % Neut # (Auto) (5155-4364) /uL Lymph # (Auto) (6564-8461) /uL Island # (Auto) (0-900) /uL Eos # (Auto) (0-450) /uL Baso # (Auto) (0-100) /uL RBC Morphology Polychromasia Hypochromasia Anisocytosis Microcytosis Sodium (137-145) mmol/L Potassium (3.4-5.1) mmol/L Chloride (98-107) mmol/L Carbon Dioxide (22-32) mmol/L BUN (7-17) mg/dL Creatinine (0.52-1.04) mg/dL Estimated GFR (>60) mL/min BUN/Creatinine Ratio (6-22) Glucose (70-100) mg/dL Calcium (8.4-10.2) mg/dL Total Bilirubin (0.2-1.3) mg/dL AST (14-36) IU/L ALT (<35) IU/L Alkaline Phosphatase (38-126) U/L Total Creatine Kinase 67 (30-135) U/L CK-MB (CK-2) TNP CK-MB (CK-2) Rel Index TNP Troponin I < 0.012 (0.01-0.034) ng/mL Total Protein (6.3-8.2) g/dL Albumin (3.5-5.0) g/dL Globulin (1.7-4.1) g/dL Albumin/Globulin Ratio (1.0-2.8) Lipase (23-300) U/L Procalcitonin (<0.5) ng/mL Urine RBC 1-5/hpf D (0-5/HPF) Urine WBC None seen (0-5/HPF) Ur Squamous Epith Cells 0-1 /hpf (0-5/HPF) Urine Bacteria None seen (None) Ur Culture Indicated? Cult not indicated SARS-CoV-2 (PCR) Negative (Negative) 08/15/21 08/15/21 08/16/21 Range/Units 11:27 18:04 06:27 WBC 7.3 (4.5-11.0) X10^3/uL RBC 5.37 H (4.0-5.2) X10^6/uL Hgb 11.4 L (12.0-16.0) g/dL Hct 35.7 L (36-46) % MCV 66.5 L (80-100) fL MCH 21.2 L (26-34) PG MCHC 31.9 (30-36) % RDW 17.2 H (11.6-14.8) % Plt Count 284 (150-400) X10^3/uL Neut % (Auto) 80.4 H (50-75) % Lymph % (Auto) 9.8 L (25-40) % Island % (Auto) 7.5 (3-14) % Eos % (Auto) 1.4 L (2-4) % Baso % (Auto) 0.9 (0-2) % Neut # (Auto) 5800 (1091-7017) /uL Lymph # (Auto) 700 L (2818-7522) /uL Island # (Auto) 500 (0-900) /uL Eos # (Auto) 100 (0-450) /uL Baso # (Auto) 100 (0-100) /uL RBC Morphology See below Polychromasia Hypochromasia 2+ H Anisocytosis 2+ H Microcytosis 2+ H Sodium 134 L 133 L (137-145) mmol/L Potassium 4.2 4.2 (3.4-5.1) mmol/L Chloride 98 100 (98-107) mmol/L Carbon Dioxide 31 30 (22-32) mmol/L BUN 12 10 (7-17) mg/dL Creatinine 0.51 L 0.49 L (0.52-1.04) mg/dL Estimated GFR > 60.0 > 60.0 (>60) mL/min BUN/Creatinine Ratio 23.5 H 20.4 (6-22) Glucose 276 H 262 H (70-100) mg/dL Calcium 8.8 8.5 (8.4-10.2) mg/dL Total Bilirubin 3.9 H 4.5 H (0.2-1.3) mg/dL AST 197 H 218 H (14-36) IU/L ALT 138 H 159 H (<35) IU/L Alkaline Phosphatase 115 112 (38-126) U/L Total Creatine Kinase (30-135) U/L CK-MB (CK-2) CK-MB (CK-2) Rel Index Troponin I (0.01-0.034) ng/mL Total Protein 8.3 H 7.7 (6.3-8.2) g/dL Albumin 4.1 3.8 (3.5-5.0) g/dL Globulin 4.2 H 3.9 (1.7-4.1) g/dL Albumin/Globulin Ratio 1.0 1.0 (1.0-2.8) Lipase 49 57 (23-300) U/L Procalcitonin (<0.5) ng/mL Urine RBC (0-5/HPF) Urine WBC (0-5/HPF) Ur Squamous Epith Cells (0-5/HPF) Urine Bacteria (None) Ur Culture Indicated? SARS-CoV-2 (PCR) (Negative) 08/16/21 Range/Units 06:27 WBC (4.5-11.0) X10^3/uL RBC (4.0-5.2) X10^6/uL Hgb (12.0-16.0) g/dL Hct (36-46) % MCV (80-100) fL MCH (26-34) PG MCHC (30-36) % RDW (11.6-14.8) % Plt Count (150-400) X10^3/uL Neut % (Auto) (50-75) % Lymph % (Auto) (25-40) % Island % (Auto) (3-14) % Eos % (Auto) (2-4) % Baso % (Auto) (0-2) % Neut # (Auto) (2180-9543) /uL Lymph # (Auto) (4879-4310) /uL Island # (Auto) (0-900) /uL Eos # (Auto) (0-450) /uL Baso # (Auto) (0-100) /uL RBC Morphology Polychromasia Hypochromasia Anisocytosis Microcytosis Sodium 135 L (137-145) mmol/L Potassium 3.9 (3.4-5.1) mmol/L Chloride 100 (98-107) mmol/L Carbon Dioxide 30 (22-32) mmol/L BUN 7 (7-17) mg/dL Creatinine 0.48 L (0.52-1.04) mg/dL Estimated GFR > 60.0 (>60) mL/min BUN/Creatinine Ratio 14.6 (6-22) Glucose 243 H (70-100) mg/dL Calcium 8.2 L (8.4-10.2) mg/dL Total Bilirubin 5.4 H (0.2-1.3) mg/dL AST 275 H (14-36) IU/L ALT 203 H (<35) IU/L Alkaline Phosphatase 124 (38-126) U/L Total Creatine Kinase (30-135) U/L CK-MB (CK-2) CK-MB (CK-2) Rel Index Troponin I (0.01-0.034) ng/mL Total Protein 7.8 (6.3-8.2) g/dL Albumin 3.7 (3.5-5.0) g/dL Globulin 4.1 (1.7-4.1) g/dL Albumin/Globulin Ratio 0.9 L (1.0-2.8) Lipase 46 (23-300) U/L Procalcitonin (<0.5) ng/mL Urine RBC (0-5/HPF) Urine WBC (0-5/HPF) Ur Squamous Epith Cells (0-5/HPF) Urine Bacteria (None) Ur Culture Indicated? SARS-CoV-2 (PCR) (Negative) Point of Care Testing Test Results Negative Glucose POC 244 Urine Dip Bedside Urine Glucose 1000 mg/dl Bedside Urine Bilirubin - Negative Bedside Urine Ketone + 15 Urine Specific [place] 1.015 Bedside Urine Occult Blood +++ Bedside Urine pH 7.0 Bedside Urine Protein ++ 100 Bedside Urine Urobilinogen +/- 1mg Bedside Urine Nitrite - Negative Bedside Urine Leukocytes - Negative Esterase Imaging Data US - abdomen: Radiologist's Impression: Preliminary report: Hepatomegaly. Postsurgical findings of cholecystostomy. CT scan - abdomen/pelvis: Radiologist's Impression: Preliminary report contrast: No acute abnormality. No bowel obstruction colitis or diverticulitis. Hepatic steatosis. [facility] Narrative Medical decision making narrative: Patient presents with 5 days of nausea is worsening vomiting and abdominal pain. Initial concern was for small bowel obstruction and possible DKA his. CT was done without contrast due to severe allergy, in did not mention anything in regards to, old left. Patient was found to have evidence of DKA but mild hyperglycemia with glucose of 317 is which patient says is normal for her. Her pain and nausea have improved with medications. She is found to have significant elevated bilirubin 2.8 and mild elevation of liver enzymes. All previous blood work ranging back to [address] scan and ultrasound do not show evidence of dilated common bile duct. 5am Stella, surgery has been at a pain symptoms test results at this time is recommends MRCP however due to patient body habitus patient will not fit an MRCP which point he recommend ERCP, which is have procedure not available at this facility. Patient will be transferred for further evaluation such as ERCP PE. Patient has otherwise overall been hemodynamically stable Dr Kilpatrick: Received turned over. Reviewed patient's history and physical exam. Reviewed patient's labs. Contacted multiple facilities and [facility] without any bed availability. I did discuss the case with the transfer center at [facility]. They stated they have no bed availability. We did discuss the case with the transfer center at [facility]. Continue have no bed availability. Throughout the day patient has remained pain-free. States she feels well. Repeat labs throughout the day does show an increase in bilirubin and also an increase in her liver function tests. I do feel that it is important to continue with the transfer. I discussed this with the patient. She expressed understanding and agreement. Care turned over to Dr. Avila to follow up in continue with this position. Dr. Avila 08/15/21 01:30, I received sign-out from Dr. Kilpatrick seen and evaluated patient myself. Patient is overall extremely cooperative. She says pain has been generally controlled real last 24 hours since 1 dose of Dilaudid. She is intermittently feeling nauseated. However she is currently tolerating all water. Multiple hospitals have been called in regards to your ERCP. She has a rising bilirubin and LFTs concern for common bile duct stone. Due to body habitus MRCP is not a possibility. [facility] has a possibility however unsure of the ERCP schedule and will call back in the morning. Many other hospitals are over capacity and able to assist, she is on multiple wait lists. She is overall hemodynamically stable and very understands. Signed out to Dr. Stanford awaiting placement for ERCP. <Chon Kilpatrick, DO - Last Filed: 08/15/21 19:01> Lab Data Labs: Lab Results 08/15/21 08/15/21 08/15/21 Range/Units 02:13 02:13 02:13 WBC 8.0 (4.5-11.0) X10^3/uL RBC 5.67 H (4.0-5.2) X10^6/uL Hgb 12.1 (12.0-16.0) g/dL Hct 37.7 (36-46) % MCV 66.4 L (80-100) fL MCH 21.3 L (26-34) PG MCHC 32.1 (30-36) % RDW 16.8 H (11.6-14.8) % Plt Count 336 (150-400) X10^3/uL Neut % (Auto) 79.3 H (50-75) % Lymph % (Auto) 10.6 L (25-40) % Island % (Auto) 7.9 (3-14) % Eos % (Auto) 1.2 L (2-4) % Baso % (Auto) 1.0 (0-2) % Neut # (Auto) 6300 (9775-6150) /uL Lymph # (Auto) 800 L (0493-6494) /uL Island # (Auto) 600 (0-900) /uL Eos # (Auto) 100 (0-450) /uL Baso # (Auto) 100 (0-100) /uL RBC Morphology See below Polychromasia 1+ H Hypochromasia Anisocytosis 1+ H Microcytosis 2+ H Sodium 132 L (137-145) mmol/L Potassium 4.6 (3.4-5.1) mmol/L Chloride 96 L (98-107) mmol/L Carbon Dioxide 31 (22-32) mmol/L BUN 12 (7-17) mg/dL Creatinine 0.51 L (0.52-1.04) mg/dL Estimated GFR > 60.0 (>60) mL/min BUN/Creatinine Ratio 23.5 H (6-22) Glucose 317 H (70-100) mg/dL Calcium 9.1 (8.4-10.2) mg/dL Total Bilirubin 2.8 H (0.2-1.3) mg/dL AST 163 H (14-36) IU/L ALT 115 H (<35) IU/L Alkaline Phosphatase 116 (38-126) U/L Total Creatine Kinase (30-135) U/L CK-MB (CK-2) CK-MB (CK-2) Rel Index Troponin I (0.01-0.034) ng/mL Total Protein 8.6 H (6.3-8.2) g/dL Albumin 4.1 (3.5-5.0) g/dL Globulin 4.5 H (1.7-4.1) g/dL Albumin/Globulin Ratio 0.9 L (1.0-2.8) Lipase 71 (23-300) U/L Procalcitonin 0.08 (<0.5) ng/mL Urine RBC (0-5/HPF) Urine WBC (0-5/HPF) Ur Squamous Epith Cells (0-5/HPF) Urine Bacteria (None) Ur Culture Indicated? SARS-CoV-2 (PCR) (Negative) 08/15/21 08/15/21 08/15/21 Range/Units 02:13 02:39 06:30 WBC (4.5-11.0) X10^3/uL RBC (4.0-5.2) X10^6/uL Hgb (12.0-16.0) g/dL Hct (36-46) % MCV (80-100) fL MCH (26-34) PG MCHC (30-36) % RDW (11.6-14.8) % Plt Count (150-400) X10^3/uL Neut % (Auto) (50-75) % Lymph % (Auto) (25-40) % Island % (Auto) (3-14) % Eos % (Auto) (2-4) % Baso % (Auto) (0-2) % Neut # (Auto) (0935-3344) /uL Lymph # (Auto) (8812-4864) /uL Island # (Auto) (0-900) /uL Eos # (Auto) (0-450) /uL Baso # (Auto) (0-100) /uL RBC Morphology Polychromasia Hypochromasia Anisocytosis Microcytosis Sodium (137-145) mmol/L Potassium (3.4-5.1) mmol/L Chloride (98-107) mmol/L Carbon Dioxide (22-32) mmol/L BUN (7-17) mg/dL Creatinine (0.52-1.04) mg/dL Estimated GFR (>60) mL/min BUN/Creatinine Ratio (6-22) Glucose (70-100) mg/dL Calcium (8.4-10.2) mg/dL Total Bilirubin (0.2-1.3) mg/dL AST (14-36) IU/L ALT (<35) IU/L Alkaline Phosphatase (38-126) U/L Total Creatine Kinase 67 (30-135) U/L CK-MB (CK-2) TNP CK-MB (CK-2) Rel Index TNP Troponin I < 0.012 (0.01-0.034) ng/mL Total Protein (6.3-8.2) g/dL Albumin (3.5-5.0) g/dL Globulin (1.7-4.1) g/dL Albumin/Globulin Ratio (1.0-2.8) Lipase (23-300) U/L Procalcitonin (<0.5) ng/mL Urine RBC 1-5/hpf D (0-5/HPF) Urine WBC None seen (0-5/HPF) Ur Squamous Epith Cells 0-1 /hpf (0-5/HPF) Urine Bacteria None seen (None) Ur Culture Indicated? Cult not indicated SARS-CoV-2 (PCR) Negative (Negative) 08/15/21 08/15/21 08/16/21 Range/Units 11:27 18:04 06:27 WBC 7.3 (4.5-11.0) X10^3/uL RBC 5.37 H (4.0-5.2) X10^6/uL Hgb 11.4 L (12.0-16.0) g/dL Hct 35.7 L (36-46) % MCV 66.5 L (80-100) fL MCH 21.2 L (26-34) PG MCHC 31.9 (30-36) % RDW 17.2 H (11.6-14.8) % Plt Count 284 (150-400) X10^3/uL Neut % (Auto) 80.4 H (50-75) % Lymph % (Auto) 9.8 L (25-40) % Island % (Auto) 7.5 (3-14) % Eos % (Auto) 1.4 L (2-4) % Baso % (Auto) 0.9 (0-2) % Neut # (Auto) 5800 (7148-6697) /uL Lymph # (Auto) 700 L (2261-2780) /uL Island # (Auto) 500 (0-900) /uL Eos # (Auto) 100 (0-450) /uL Baso # (Auto) 100 (0-100) /uL RBC Morphology See below Polychromasia Hypochromasia 2+ H Anisocytosis 2+ H Microcytosis 2+ H Sodium 134 L 133 L (137-145) mmol/L Potassium 4.2 4.2 (3.4-5.1) mmol/L Chloride 98 100 (98-107) mmol/L Carbon Dioxide 31 30 (22-32) mmol/L BUN 12 10 (7-17) mg/dL Creatinine 0.51 L 0.49 L (0.52-1.04) mg/dL Estimated GFR > 60.0 > 60.0 (>60) mL/min BUN/Creatinine Ratio 23.5 H 20.4 (6-22) Glucose 276 H 262 H (70-100) mg/dL Calcium 8.8 8.5 (8.4-10.2) mg/dL Total Bilirubin 3.9 H 4.5 H (0.2-1.3) mg/dL AST 197 H 218 H (14-36) IU/L ALT 138 H 159 H (<35) IU/L Alkaline Phosphatase 115 112 (38-126) U/L Total Creatine Kinase (30-135) U/L CK-MB (CK-2) CK-MB (CK-2) Rel Index Troponin I (0.01-0.034) ng/mL Total Protein 8.3 H 7.7 (6.3-8.2) g/dL Albumin 4.1 3.8 (3.5-5.0) g/dL Globulin 4.2 H 3.9 (1.7-4.1) g/dL Albumin/Globulin Ratio 1.0 1.0 (1.0-2.8) Lipase 49 57 (23-300) U/L Procalcitonin (<0.5) ng/mL Urine RBC (0-5/HPF) Urine WBC (0-5/HPF) Ur Squamous Epith Cells (0-5/HPF) Urine Bacteria (None) Ur Culture Indicated? SARS-CoV-2 (PCR) (Negative) 08/16/21 Range/Units 06:27 WBC (4.5-11.0) X10^3/uL RBC (4.0-5.2) X10^6/uL Hgb (12.0-16.0) g/dL Hct (36-46) % MCV (80-100) fL MCH (26-34) PG MCHC (30-36) % RDW (11.6-14.8) % Plt Count (150-400) X10^3/uL Neut % (Auto) (50-75) % Lymph % (Auto) (25-40) % Island % (Auto) (3-14) % Eos % (Auto) (2-4) % Baso % (Auto) (0-2) % Neut # (Auto) (2872-0078) /uL Lymph # (Auto) (1686-6935) /uL Island # (Auto) (0-900) /uL Eos # (Auto) (0-450) /uL Baso # (Auto) (0-100) /uL RBC Morphology Polychromasia Hypochromasia Anisocytosis Microcytosis Sodium 135 L (137-145) mmol/L Potassium 3.9 (3.4-5.1) mmol/L Chloride 100 (98-107) mmol/L Carbon Dioxide 30 (22-32) mmol/L BUN 7 (7-17) mg/dL Creatinine 0.48 L (0.52-1.04) mg/dL Estimated GFR > 60.0 (>60) mL/min BUN/Creatinine Ratio 14.6 (6-22) Glucose 243 H (70-100) mg/dL Calcium 8.2 L (8.4-10.2) mg/dL Total Bilirubin 5.4 H (0.2-1.3) mg/dL AST 275 H (14-36) IU/L ALT 203 H (<35) IU/L Alkaline Phosphatase 124 (38-126) U/L Total Creatine Kinase (30-135) U/L CK-MB (CK-2) CK-MB (CK-2) Rel Index Troponin I (0.01-0.034) ng/mL Total Protein 7.8 (6.3-8.2) g/dL Albumin 3.7 (3.5-5.0) g/dL Globulin 4.1 (1.7-4.1) g/dL Albumin/Globulin Ratio 0.9 L (1.0-2.8) Lipase 46 (23-300) U/L Procalcitonin (<0.5) ng/mL Urine RBC (0-5/HPF) Urine WBC (0-5/HPF) Ur Squamous Epith Cells (0-5/HPF) Urine Bacteria (None) Ur Culture Indicated? SARS-CoV-2 (PCR) (Negative) Point of Care Testing Test Results Negative Glucose POC 244 Urine Dip Bedside Urine Glucose 1000 mg/dl Bedside Urine Bilirubin - Negative Bedside Urine Ketone + 15 Urine Specific [place] 1.015 Bedside Urine Occult Blood +++ Bedside Urine pH 7.0 Bedside Urine Protein ++ 100 Bedside Urine Urobilinogen +/- 1mg Bedside Urine Nitrite - Negative Bedside Urine Leukocytes - Negative Esterase MDM Narrative Medical decision making narrative: Patient presents with 5 days of nausea is worsening vomiting and abdominal pain. Initial concern was for small bowel obstruction and possible DKA his. CT was done without contrast due to severe allergy, in did not mention anything in regards to, old left. Patient was found to have evidence of DKA but mild hyperglycemia with glucose of 317 is which patient says is normal for her. Her pain and nausea have improved with medications. She is found to have significant elevated bilirubin 2.8 and mild elevation of liver enzymes. All previous blood work ranging back to [address] scan and ultrasound do not show evidence of dilated common bile duct. 5am Stella, surgery has been at a pain symptoms test results at this time is recommends MRCP however due to patient body habitus patient will not fit an MRCP which point he recommend ERCP, which is have procedure not available at this facility. Patient will be transferred for further evaluation such as ERCP PE. Patient has otherwise overall been hemodynamically stable Dr Kilpatrick: Received turned over. Reviewed patient's history and physical exam. Reviewed patient's labs. Contacted multiple facilities and [facility] without any bed availability. I did discuss the case with the transfer center at [facility]. They stated they have no bed availability. We did discuss the case with the transfer center at [facility]. Continue have no bed availability. Throughout the day patient has remained pain-free. States she feels well. Repeat labs throughout the day does show an increase in bilirubin and also an increase in her liver function tests. I do feel that it is important to continue with the transfer. I discussed this with the patient. She expressed understanding and agreement. Care turned over to Dr. Avila to follow up in continue with this position. <Lesley Stanford MD - Last Filed: 08/16/21 19:01> Lab Data Labs: Lab Results 08/15/21 08/15/21 08/15/21 Range/Units 02:13 02:13 02:13 WBC 8.0 (4.5-11.0) X10^3/uL RBC 5.67 H (4.0-5.2) X10^6/uL Hgb 12.1 (12.0-16.0) g/dL Hct 37.7 (36-46) % MCV 66.4 L (80-100) fL MCH 21.3 L (26-34) PG MCHC 32.1 (30-36) % RDW 16.8 H (11.6-14.8) % Plt Count 336 (150-400) X10^3/uL Neut % (Auto) 79.3 H (50-75) % Lymph % (Auto) 10.6 L (25-40) % Island % (Auto) 7.9 (3-14) % Eos % (Auto) 1.2 L (2-4) % Baso % (Auto) 1.0 (0-2) % Neut # (Auto) 6300 (9780-6020) /uL Lymph # (Auto) 800 L (2235-9540) /uL Island # (Auto) 600 (0-900) /uL Eos # (Auto) 100 (0-450) /uL Baso # (Auto) 100 (0-100) /uL RBC Morphology See below Polychromasia 1+ H Hypochromasia Anisocytosis 1+ H Microcytosis 2+ H Sodium 132 L (137-145) mmol/L Potassium 4.6 (3.4-5.1) mmol/L Chloride 96 L (98-107) mmol/L Carbon Dioxide 31 (22-32) mmol/L BUN 12 (7-17) mg/dL Creatinine 0.51 L (0.52-1.04) mg/dL Estimated GFR > 60.0 (>60) mL/min BUN/Creatinine Ratio 23.5 H (6-22) Glucose 317 H (70-100) mg/dL Calcium 9.1 (8.4-10.2) mg/dL Total Bilirubin 2.8 H (0.2-1.3) mg/dL AST 163 H (14-36) IU/L ALT 115 H (<35) IU/L Alkaline Phosphatase 116 (38-126) U/L Total Creatine Kinase (30-135) U/L CK-MB (CK-2) CK-MB (CK-2) Rel Index Troponin I (0.01-0.034) ng/mL Total Protein 8.6 H (6.3-8.2) g/dL Albumin 4.1 (3.5-5.0) g/dL Globulin 4.5 H (1.7-4.1) g/dL Albumin/Globulin Ratio 0.9 L (1.0-2.8) Lipase 71 (23-300) U/L Procalcitonin 0.08 (<0.5) ng/mL Urine RBC (0-5/HPF) Urine WBC (0-5/HPF) Ur Squamous Epith Cells (0-5/HPF) Urine Bacteria (None) Ur Culture Indicated? SARS-CoV-2 (PCR) (Negative) 08/15/21 08/15/21 08/15/21 Range/Units 02:13 02:39 06:30 WBC (4.5-11.0) X10^3/uL RBC (4.0-5.2) X10^6/uL Hgb (12.0-16.0) g/dL Hct (36-46) % MCV (80-100) fL MCH (26-34) PG MCHC (30-36) % RDW (11.6-14.8) % Plt Count (150-400) X10^3/uL Neut % (Auto) (50-75) % Lymph % (Auto) (25-40) % Island % (Auto) (3-14) % Eos % (Auto) (2-4) % Baso % (Auto) (0-2) % Neut # (Auto) (6538-3107) /uL Lymph # (Auto) (3658-1479) /uL Island # (Auto) (0-900) /uL Eos # (Auto) (0-450) /uL Baso # (Auto) (0-100) /uL RBC Morphology Polychromasia Hypochromasia Anisocytosis Microcytosis Sodium (137-145) mmol/L Potassium (3.4-5.1) mmol/L Chloride (98-107) mmol/L Carbon Dioxide (22-32) mmol/L BUN (7-17) mg/dL Creatinine (0.52-1.04) mg/dL Estimated GFR (>60) mL/min BUN/Creatinine Ratio (6-22) Glucose (70-100) mg/dL Calcium (8.4-10.2) mg/dL Total Bilirubin (0.2-1.3) mg/dL AST (14-36) IU/L ALT (<35) IU/L Alkaline Phosphatase (38-126) U/L Total Creatine Kinase 67 (30-135) U/L CK-MB (CK-2) TNP CK-MB (CK-2) Rel Index TNP Troponin I < 0.012 (0.01-0.034) ng/mL Total Protein (6.3-8.2) g/dL Albumin (3.5-5.0) g/dL Globulin (1.7-4.1) g/dL Albumin/Globulin Ratio (1.0-2.8) Lipase (23-300) U/L Procalcitonin (<0.5) ng/mL Urine RBC 1-5/hpf D (0-5/HPF) Urine WBC None seen (0-5/HPF) Ur Squamous Epith Cells 0-1 /hpf (0-5/HPF) Urine Bacteria None seen (None) Ur Culture Indicated? Cult not indicated SARS-CoV-2 (PCR) Negative (Negative) 08/15/21 08/15/21 08/16/21 Range/Units 11:27 18:04 06:27 WBC 7.3 (4.5-11.0) X10^3/uL RBC 5.37 H (4.0-5.2) X10^6/uL Hgb 11.4 L (12.0-16.0) g/dL Hct 35.7 L (36-46) % MCV 66.5 L (80-100) fL MCH 21.2 L (26-34) PG MCHC 31.9 (30-36) % RDW 17.2 H (11.6-14.8) % Plt Count 284 (150-400) X10^3/uL Neut % (Auto) 80.4 H (50-75) % Lymph % (Auto) 9.8 L (25-40) % Island % (Auto) 7.5 (3-14) % Eos % (Auto) 1.4 L (2-4) % Baso % (Auto) 0.9 (0-2) % Neut # (Auto) 5800 (7910-4744) /uL Lymph # (Auto) 700 L (0198-4605) /uL Island # (Auto) 500 (0-900) /uL Eos # (Auto) 100 (0-450) /uL Baso # (Auto) 100 (0-100) /uL RBC Morphology See below Polychromasia Hypochromasia 2+ H Anisocytosis 2+ H Microcytosis 2+ H Sodium 134 L 133 L (137-145) mmol/L Potassium 4.2 4.2 (3.4-5.1) mmol/L Chloride 98 100 (98-107) mmol/L Carbon Dioxide 31 30 (22-32) mmol/L BUN 12 10 (7-17) mg/dL Creatinine 0.51 L 0.49 L (0.52-1.04) mg/dL Estimated GFR > 60.0 > 60.0 (>60) mL/min BUN/Creatinine Ratio 23.5 H 20.4 (6-22) Glucose 276 H 262 H (70-100) mg/dL Calcium 8.8 8.5 (8.4-10.2) mg/dL Total Bilirubin 3.9 H 4.5 H (0.2-1.3) mg/dL AST 197 H 218 H (14-36) IU/L ALT 138 H 159 H (<35) IU/L Alkaline Phosphatase 115 112 (38-126) U/L Total Creatine Kinase (30-135) U/L CK-MB (CK-2) CK-MB (CK-2) Rel Index Troponin I (0.01-0.034) ng/mL Total Protein 8.3 H 7.7 (6.3-8.2) g/dL Albumin 4.1 3.8 (3.5-5.0) g/dL Globulin 4.2 H 3.9 (1.7-4.1) g/dL Albumin/Globulin Ratio 1.0 1.0 (1.0-2.8) Lipase 49 57 (23-300) U/L Procalcitonin (<0.5) ng/mL Urine RBC (0-5/HPF) Urine WBC (0-5/HPF) Ur Squamous Epith Cells (0-5/HPF) Urine Bacteria (None) Ur Culture Indicated? SARS-CoV-2 (PCR) (Negative) 08/16/21 Range/Units 06:27 WBC (4.5-11.0) X10^3/uL RBC (4.0-5.2) X10^6/uL Hgb (12.0-16.0) g/dL Hct (36-46) % MCV (80-100) fL MCH (26-34) PG MCHC (30-36) % RDW (11.6-14.8) % Plt Count (150-400) X10^3/uL Neut % (Auto) (50-75) % Lymph % (Auto) (25-40) % Island % (Auto) (3-14) % Eos % (Auto) (2-4) % Baso % (Auto) (0-2) % Neut # (Auto) (2687-7374) /uL Lymph # (Auto) (2353-0837) /uL Island # (Auto) (0-900) /uL Eos # (Auto) (0-450) /uL Baso # (Auto) (0-100) /uL RBC Morphology Polychromasia Hypochromasia Anisocytosis Microcytosis Sodium 135 L (137-145) mmol/L Potassium 3.9 (3.4-5.1) mmol/L Chloride 100 (98-107) mmol/L Carbon Dioxide 30 (22-32) mmol/L BUN 7 (7-17) mg/dL Creatinine 0.48 L (0.52-1.04) mg/dL Estimated GFR > 60.0 (>60) mL/min BUN/Creatinine Ratio 14.6 (6-22) Glucose 243 H (70-100) mg/dL Calcium 8.2 L (8.4-10.2) mg/dL Total Bilirubin 5.4 H (0.2-1.3) mg/dL AST 275 H (14-36) IU/L ALT 203 H (<35) IU/L Alkaline Phosphatase 124 (38-126) U/L Total Creatine Kinase (30-135) U/L CK-MB (CK-2) CK-MB (CK-2) Rel Index Troponin I (0.01-0.034) ng/mL Total Protein 7.8 (6.3-8.2) g/dL Albumin 3.7 (3.5-5.0) g/dL Globulin 4.1 (1.7-4.1) g/dL Albumin/Globulin Ratio 0.9 L (1.0-2.8) Lipase 46 (23-300) U/L Procalcitonin (<0.5) ng/mL Urine RBC (0-5/HPF) Urine WBC (0-5/HPF) Ur Squamous Epith Cells (0-5/HPF) Urine Bacteria (None) Ur Culture Indicated? SARS-CoV-2 (PCR) (Negative) Point of Care Testing Test Results Negative Glucose POC 244 Urine Dip Bedside Urine Glucose 1000 mg/dl Bedside Urine Bilirubin - Negative Bedside Urine Ketone + 15 Urine Specific [place] 1.015 Bedside Urine Occult Blood +++ Bedside Urine pH 7.0 Bedside Urine Protein ++ 100 Bedside Urine Urobilinogen +/- 1mg Bedside Urine Nitrite - Negative Bedside Urine Leukocytes - Negative Esterase MDM Narrative Medical decision making narrative: Patient presents with 5 days of nausea is worsening vomiting and abdominal pain. Initial concern was for small bowel obstruction and possible DKA his. CT was done without contrast due to severe allergy, in did not mention anything in regards to, old left. Patient was found to have evidence of DKA but mild hyperglycemia with glucose of 317 is which patient says is normal for her. Her pain and nausea have improved with medications. She is found to have significant elevated bilirubin 2.8 and mild elevation of liver enzymes. All previous blood work ranging back to [address] scan and ultrasound do not show evidence of dilated common bile duct. 5am Stella, surgery has been at a pain symptoms test results at this time is recommends MRCP however due to patient body habitus patient will not fit an MRCP which point he recommend ERCP, which is have procedure not available at this facility. Patient will be transferred for further evaluation such as ERCP PE. Patient has otherwise overall been hemodynamically stable Dr Kilpatrick: Received turned over. Reviewed patient's history and physical exam. Reviewed patient's labs. Contacted multiple facilities and [facility] without any bed availability. I did discuss the case with the transfer center at [facility]. They stated they have no bed availability. We did discuss the case with the transfer center at [facility]. Continue have no bed availability. Throughout the day patient has remained pain-free. States she feels well. Repeat labs throughout the day does show an increase in bilirubin and also an increase in her liver function tests. I do feel that it is important to continue with the transfer. I discussed this with the patient. She expressed understanding and agreement. Care turned over to Dr. Avila to follow up in continue with this position. Dr. Avila 08/15/21 01:30, I received sign-out from Dr. Kilpatrick seen and evaluated patient myself. Patient is overall extremely cooperative. She says pain has been generally controlled real last 24 hours since 1 dose of Dilaudid. She is intermittently feeling nauseated. However she is currently tolerating all water. Multiple hospitals have been called in regards to your ERCP. She has a rising bilirubin and LFTs concern for common bile duct stone. Due to body habitus MRCP is not a possibility. [facility] has a possibility however unsure of the ERCP schedule and will call back in the morning. Many other hospitals are over capacity and able to assist, she is on multiple wait lists. She is overall hemodynamically stable and very understands. Signed out to Dr. Stanford awaiting placement for ERCP. 08/16/21 10:50am OBS note 35-year-old woman with acute onset right upper quadrant pain continues to wait for availability with presumption of common duct obstruction with increasing LFT s but no elevated white blood cell count or fever. She has been stable over the course of the evening. Bit of nausea this morning that is been controlled with Zofran. o: 182/101, pulse 85, resp 18, temp 96 Chest: Clear Abdomen: Continue mild right upper quadrant pain, no rebound or guarding A/p: Increasing bilirubin AST ALT without fever or chills. No evidence of acute infection she is not currently on antibiotics. Blood pressure is elevated this morning she is increasingly anxious will get her her baseline propranolol as well as losartan doses Care is reviewed with , admitting hospitalist Cristina dugan. Patient is accepted in transfer with bed availability expected to be later this evening. Patient is informed of labs, plan as well as discussion with the Cristina dugan team. Discharge Plan Departure Patient Disposition: [facility] Clinical Impression: Choledocholithiasis Prescriptions: No Action (DME) BD U/F MINI PEN NEEDLE [id number] Qty: 100 2RF Dose Instruction: As directed Rx Instructions: USE 4 TIMES A DAY Ventolin HFA 90 mcg/actuation HFA aerosol inhaler 2 puff Inhalation Q4HP PRN (Reason: Shortness Of Breath) Qty: 18 11RF (DME) TRUE METRIX AIR GLUCOSE METER Qty: 1 0RF Dose Instruction: As directed Rx Instructions: USE TO TEST BLOOD SUGAR FOUR TO FIVE TIMES A DAY (DME) True metrix glucose test strip Qty: 100 5RF Dose Instruction: As directed Rx Instructions: Use True metrix glucose test strips to test blood sugar 4 to 5 times daily. loratadine [Claritin] 10 mg tablet 10 mg PO DAILY PRN (Reason: Allergy Symptoms) Qty: 90 3RF nystatin 100,000 unit/gram powder 1 applictn TOP BID Qty: 30 2RF (DME) BD U/F Mini Pen Needle 31G X 5MM Qty: 250 6RF Dose Instruction: As directed Rx Instructions: Use four times a day Trulicity 0.75 mg/0.5 mL pen injector 0.75 mg SUBCUT QWEEK 0RF minocycline 100 mg capsule 100 mg PO BID 0RF losartan 100 mg tablet 100 mg PO DAILY Qty: 90 3RF metformin 500 mg tablet 500 mg PO QID Qty: 360 1RF hydrocodone-acetaminophen 7.5-325 mg tablet 1 tab PO Q8H PRN (Reason: pain) Qty: 90 0RF Rx Instructions: Exempt insulin lispro [Humalog KwikPen Insulin] 100 unit/mL insulin pen 60 unit SUBCUT QAC Qty: 40 11RF propranolol 80 mg capsule,extended release 24 hr 80 mg PO DAILY Qty: 30 0RF Rx Instructions: Trial prescription ondansetron HCl 4 mg tablet 4 mg PO Q8H PRN (Reason: nausea and vomiting) 14 Days Qty: 42 0RF albuterol sulfate 2.5 mg /3 mL (0.083 %) solution for nebulization 2.5 mg INHALATION Q4H PRN (Reason: shortness of breath or wheezing) Qty: 90 5RF ipratropium-albuterol 0.5 mg-3 mg(2.5 mg base)/3 mL solution for nebulization 3 ml INHALATION BID Qty: 90 5RF ipratropium bromide 17 mcg/actuation HFA aerosol inhaler 1 puff INHALATION QID Qty: 12.9 5RF (DME) Incontinence pads Qty: 1 0RF Rx Instructions: As needed. 10 pads per day. Dispense #250. diazepam 10 mg tablet 10 mg PO BID Qty: 60 0RF benzonatate 200 mg capsule 200 mg PO BID PRN (Reason: cough) Qty: 14 0RF ferrous sulfate 325 mg (65 mg iron) tablet 325 mg PO QPM 0RF Referrals: Corwin Pacheco MD [Primary Care Provider] -
--- NOTE | 2021-08-15 01:42 | DI.CT.S_ITS ---
PROCEDURE: CT ABDOMEN PELVIS WO CON INDICATIONS: vomiting, bloating TECHNIQUE: Noncontrast 5 mm thick sections acquired from the diaphragms to the symphysis. 5 mm coronal and sagittal reformats were then performed. For radiation dose reduction, the following was used: automated exposure control, adjustment of mA and/or kV according to patient size. COMPARISON: None. FINDINGS: Image quality: Excellent. ABDOMEN: Lung bases: Lung bases are clear. Heart size is normal. Solid organs: Liver is normal in size. Gallbladder is surgically absent . Pancreas is normal in contours. Spleen is normal in size. No adrenal nodules. Kidneys are normal in size, without hydronephrosis or nephrolithiasis. Peritoneum and bowel: Unenhanced bowel loops demonstrate normal wall thickness and caliber. No free fluid or air. Nodes and vessels: No retroperitoneal or mesenteric adenopathy by size criteria. Aorta and inferior vena cava are normal in caliber. Miscellaneous: No ventral hernias. PELVIS: Genitourinary: Bladder is distended. Bladder wall thickness is normal. Miscellaneous: No inguinal hernias or adenopathy. Bones: No suspicious bony lesions. No vertebral body compression fractures. IMPRESSION: 1. Distended bladder without bladder wall thickening. 2. Otherwise unremarkable study. No evidence of acute abdominal process. Comment: Final report is concordant with preliminary interpretation provided by [facility]. Dictated by: Derek Sorensen M.D. on 08/15/2021 at 7:42 Approved by: Derek Sorensen M.D. on 08/15/2021 at 7:45
[2021-08-15] MEDS: SODIUM CHLORIDE 0.9% 1,000 ML 1000 ML IV (02:16)
[2021-08-15] MEDS: ONDANSETRON 4 MG/2 ML INJ IV ×3 (02:16→23:07)
[2021-08-15 02:33] LABS: Alanine Aminotransferase 115 IU/L (<35); Albumin 4.1 g/dL (3.5-5.0); Albumin Globulin Ratio 0.9 (1.0-2.8); Alkaline Phosphatase 116 U/L (38-126); Aspartate Aminotransferase 163 IU/L (14-36); BUN Creatinine Ratio 23.5 (6-22); Bilirubin Total 2.8 mg/dL (0.2-1.3); Blood Urea Nitrogen 12 mg/dL (7-17); Calcium 9.1 mg/dL (8.4-10.2); Carbon Dioxide 31 mmol/L (22-32); Chloride 96 mmol/L (98-107); Estimated Glomerular Filt Rate > 60.0 mL/min (>60); Globulin 4.5 g/dL (1.7-4.1); Glucose 317 mg/dL (70-100); HEMOLYSIS < 15 (0-50); Lipase 71 U/L (23-300); Potassium 4.6 mmol/L (3.4-5.1); Sodium 132 mmol/L (137-145); Total Protein 8.6 g/dL (6.3-8.2)
[2021-08-15 02:34] LABS: Add Manual Diff / Slide Review NO; Basophils Absolute Auto 100 /uL (0-100); Eosinophils Absolute Auto 100 /uL (0-450); Eosinophils Percent Auto 1.2 % (2-4); Hematocrit 37.7 % (36-46); Hemoglobin 12.1 g/dL (12.0-16.0); Lymphocytes Absolute Auto 800 /uL (1100-4500); Lymphocytes Percent Auto 10.6 % (25-40); Mean Corpuscular HGB Conc 32.1 % (30-36); Mean Corpuscular Hemoglobin 21.3 PG (26-34); Mean Corpuscular Volume 66.4 fL (80-100); Monocytes Absolute Auto 600 /uL (0-900); Monocytes Percent Auto 7.9 % (3-14); Neutrophils Absolute Auto 6300 /uL (1500-7000); Neutrophils Percent Auto 79.3 % (50-75); Platelet Count 336 X10^3/uL (150-400); Red Blood Cell Count 5.67 X10^6/uL (4.0-5.2); Red Cell Distribution Width 16.8 % (11.6-14.8)
[2021-08-15 02:50] LABS: Procalcitonin 0.08 ng/mL (<0.5)
[2021-08-15 03:08] LABS: Bacteria Urine None Seen; RBC Urine 1-5/HPF (0-5/HPF); Squamous Epithelial Cell Urine 0-1 /HPF (0-5/HPF); WBC Urine None Seen (0-5/HPF)
[2021-08-15 03:09] LABS: Culture Indicated Urine Cult Not Indicated
--- NOTE | 2021-08-15 03:11 | DI.US.S_ITS ---
PROCEDURE: US ABDOMEN LIMITED INDICATIONS: ELEVATED BILIRUBIN TECHNIQUE: Real-time focused scanning was performed of the abdomen, with image documentation. COMPARISON: None. FINDINGS: Liver is mildly enlarged measuring 20 centimeters in long axis. Liver has mildly increased echogenicity. No focal hepatic mass lesions. Gallbladder is surgically absent. Biliary tree is nondilated. Common bile duct measures 6.5 millimeters. Pancreas is sonographically normal. IMPRESSION: Mild hepatomegaly and hepatic steatosis. No sonographic evidence of biliary obstruction. Dictated by: Jewell Herring MD, PhD on 08/15/2021 at 8:41 Approved by: Jewell Herring MD, PhD on 08/15/2021 at 8:42
[2021-08-15] MEDS: HYDROMORPHONE 0.5 MG INJ IV (03:20)
[2021-08-15 04:04] LABS: Anisocytosis 1+; Polychromasia 1+
[2021-08-15 04:05] LABS: Microcytosis 2+
[2021-08-15 07:10] LABS: COVID19 -Nasal RAPID Negative (Negative)
[2021-08-15 07:39] LABS: Creatine Kinase 67 U/L (30-135)
[2021-08-15 07:51] LABS: Troponin I < 0.012 ng/mL (0.01-0.034)
[2021-08-15 11:51] LABS: Alanine Aminotransferase 138 IU/L (<35); Albumin 4.1 g/dL (3.5-5.0); Alkaline Phosphatase 115 U/L (38-126); Aspartate Aminotransferase 197 IU/L (14-36); BUN Creatinine Ratio 23.5 (6-22); Bilirubin Total 3.9 mg/dL (0.2-1.3); Blood Urea Nitrogen 12 mg/dL (7-17); Calcium 8.8 mg/dL (8.4-10.2); Carbon Dioxide 31 mmol/L (22-32); Chloride 98 mmol/L (98-107); Estimated Glomerular Filt Rate > 60.0 mL/min (>60); Globulin 4.2 g/dL (1.7-4.1); Glucose 276 mg/dL (70-100); HEMOLYSIS < 15 (0-50); Lipase 49 U/L (23-300); Potassium 4.2 mmol/L (3.4-5.1); Sodium 134 mmol/L (137-145); Total Protein 8.3 g/dL (6.3-8.2)
[2021-08-15] MEDS: SODIUM CHLORIDE 0.9% 1,000 ML 125 ML IV ×2 (13:27→23:07)
[2021-08-15 18:24] LABS: Alanine Aminotransferase 159 IU/L (<35); Albumin 3.8 g/dL (3.5-5.0); Alkaline Phosphatase 112 U/L (38-126); Aspartate Aminotransferase 218 IU/L (14-36); BUN Creatinine Ratio 20.4 (6-22); Bilirubin Total 4.5 mg/dL (0.2-1.3); Blood Urea Nitrogen 10 mg/dL (7-17); Calcium 8.5 mg/dL (8.4-10.2); Carbon Dioxide 30 mmol/L (22-32); Chloride 100 mmol/L (98-107); Estimated Glomerular Filt Rate > 60.0 mL/min (>60); Globulin 3.9 g/dL (1.7-4.1); Glucose 262 mg/dL (70-100); HEMOLYSIS < 15 (0-50); Lipase 57 U/L (23-300); Potassium 4.2 mmol/L (3.4-5.1); Sodium 133 mmol/L (137-145); Total Protein 7.7 g/dL (6.3-8.2)
[2021-08-16] VITALS (27 sets, daily range): BP systolic 138–196; BP diastolic 69–112; PULSE 64–85; RESP 18–22; TEMP 36.8; O2SAT 86–99
[2021-08-16] MEDS: PANTOPRAZOLE 40 MG VIAL IV (02:13)
[2021-08-16] MEDS: KETOROLAC 30 MG/ML VIAL 15 MG IV (05:04)
[2021-08-16 06:49] LABS: Add Manual Diff / Slide Review NO; Basophils Absolute Auto 100 /uL (0-100); Basophils Percent Auto 0.9 % (0-2); Eosinophils Absolute Auto 100 /uL (0-450); Eosinophils Percent Auto 1.4 % (2-4); Hematocrit 35.7 % (36-46); Hemoglobin 11.4 g/dL (12.0-16.0); Lymphocytes Absolute Auto 700 /uL (1100-4500); Lymphocytes Percent Auto 9.8 % (25-40); Mean Corpuscular HGB Conc 31.9 % (30-36); Mean Corpuscular Hemoglobin 21.2 PG (26-34); Mean Corpuscular Volume 66.5 fL (80-100); Monocytes Absolute Auto 500 /uL (0-900); Monocytes Percent Auto 7.5 % (3-14); Neutrophils Absolute Auto 5800 /uL (1500-7000); Neutrophils Percent Auto 80.4 % (50-75); Platelet Count 284 X10^3/uL (150-400); Red Blood Cell Count 5.37 X10^6/uL (4.0-5.2); Red Cell Distribution Width 17.2 % (11.6-14.8); White Blood Cell Count 7.3 X10^3/uL (4.5-11.0)
[2021-08-16 06:52] LABS: Alanine Aminotransferase 203 IU/L (<35); Albumin 3.7 g/dL (3.5-5.0); Albumin Globulin Ratio 0.9 (1.0-2.8); Alkaline Phosphatase 124 U/L (38-126); Aspartate Aminotransferase 275 IU/L (14-36); BUN Creatinine Ratio 14.6 (6-22); Bilirubin Total 5.4 mg/dL (0.2-1.3); Blood Urea Nitrogen 7 mg/dL (7-17); Calcium 8.2 mg/dL (8.4-10.2); Carbon Dioxide 30 mmol/L (22-32); Chloride 100 mmol/L (98-107); Estimated Glomerular Filt Rate > 60.0 mL/min (>60); Globulin 4.1 g/dL (1.7-4.1); Glucose 243 mg/dL (70-100); HEMOLYSIS < 15 (0-50); Lipase 46 U/L (23-300); Potassium 3.9 mmol/L (3.4-5.1); Sodium 135 mmol/L (137-145); Total Protein 7.8 g/dL (6.3-8.2)
[2021-08-16 07:15] LABS: Microcytosis 2+
[2021-08-16 07:16] LABS: Anisocytosis 2+; Hypochromasia 2+
[2021-08-16] MEDS: SODIUM CHLORIDE 0.9% 1,000 ML 125 ML IV (07:21)
[2021-08-16] MEDS: ONDANSETRON 4 MG/2 ML INJ IV (10:03)
[2021-08-16] MEDS: PROPRANOLOL 10 MG TABLET 20 MG PO ×2 (12:14→17:47)
[2021-08-16] MEDS: LOSARTAN 50 MG TABLET 100 MG PO (12:14)
[2021-08-16] MEDS: HYDROMORPHONE 0.5 MG INJ IV (12:38)
== END 2021-08-16 19:00 | disposition short-term general hospital (02) ==
PROVIDERS: Emergency Medicine; Emergency Provider Emergency Medicine; PCP Student in an Organized Health Care Education/Training Program
DX: K80.50 Calculus of bile duct without cholangitis or cholecystitis without obstruction (principal); E11.65 Type 2 diabetes mellitus with hyperglycemia; Z88.5 Allergy status to narcotic agent; Z88.1 Allergy status to other antibiotic agents; Z88.2 Allergy status to sulfonamides; Z88.8 Allergy status to other drugs, medicaments and biological substances; Z87.891 Personal history of nicotine dependence; Z91.041 Radiographic dye allergy status; Z79.4 Long term (current) use of insulin; Z20.822 Contact with and (suspected) exposure to COVID-19
CPT/HCPCS: 36415; 74176; 76705; 80053; 81003; 81015; 81025; 82550; 82962; 83690; 84145; 84484; 85025; 87635; 93005; 93010; 96361; 96374; 96375; 96376; 99285; C9803; C9113; J1170; J1885; J2405

== ENCOUNTER → 2021-09-06 13:03 | Outpatient (CLI) | payer OTHER, MEDICAID, SELFPAY ==
[2020-06-02 15:53] VITALS: BMI 59.5
[2021-09-06 14:31] LABS: Alanine Aminotransferase 161 IU/L (<35); Alkaline Phosphatase 219 U/L (38-126); Aspartate Aminotransferase 68 IU/L (14-36); BUN Creatinine Ratio 23.6 (6-22); Bilirubin Total 1.3 mg/dL (0.2-1.3); Blood Urea Nitrogen 13 mg/dL (7-17); Calcium 9.5 mg/dL (8.4-10.2); Carbon Dioxide 30 mmol/L (22-32); Chloride 101 mmol/L (98-107); Estimated Glomerular Filt Rate > 60.0 mL/min (>60); Globulin 4.2 g/dL (1.7-4.1); Glucose 283 mg/dL (70-100); HEMOLYSIS < 15 (0-50); Sodium 135 mmol/L (137-145); Total Protein 8.2 g/dL (6.3-8.2)
[2021-09-06 14:37] LABS: Appearance Urine UA CLOUDY; Bilirubin Urine UA NEGATIVE (NEGATIVE); Color Urine UA YELLOW; Glucose Urine UA 2+ g/dL (Negative); Ketones Urine UA NEGATIVE (NEGATIVE); Leukocyte Esterase Urine UA TRACE (NEGATIVE); Nitrite Urine UA NEGATIVE (Negative); Occult Blood Urine UA 1+ (Negative); Protein Urine UA 2+ (Negative); Specific Gravity Urine UA 1.015 (1.000-1.035); Urobilinogen Urine UA 0.2 E.U./dL (0.2)
[2021-09-06 14:42] LABS: pH Urine UA 5.5 (4.5-8.0)
[2021-09-06 14:48] LABS: Amorphous Sediment Urine 2+; Bacteria Urine Occasional (0-1); RBC Urine 0-1/HPF (0-5/HPF); WBC Urine 5-10/HPF (0-5/HPF)
[2021-09-06 14:49] LABS: Culture Indicated Urine Specimen Cultured
== END ==
PROVIDERS: PCP Student in an Organized Health Care Education/Training Program; Referring Provider Student in an Organized Health Care Education/Training Program; Visit Provider Student in an Organized Health Care Education/Training Program
DX: E80.6 Other disorders of bilirubin metabolism (principal); R30.0 Dysuria
CPT/HCPCS: 36415; 80053; 81001; 87086

== ENCOUNTER → 2022-07-16 13:46 | Outpatient (CLI) | payer OTHER, MEDICAID, SELFPAY ==
[2022-07-12 12:44] VITALS: BMI 59.5
[2022-07-16 14:44] LABS: BUN Creatinine Ratio 36.4 (6-22); Blood Urea Nitrogen 16 mg/dL (7-17); Carbon Dioxide 34 mmol/L (22-32); Chloride 95 mmol/L (98-107); Estimated Glomerular Filt Rate > 60 mL/min (>60); Glucose 235 mg/dL (70-100); HEMOLYSIS < 15 (0-50); Potassium 4.1 mmol/L (3.4-5.1); Sodium 135 mmol/L (137-145)
== END ==
PROVIDERS: PCP Student in an Organized Health Care Education/Training Program; Referring Provider Student in an Organized Health Care Education/Training Program; Visit Provider Student in an Organized Health Care Education/Training Program
DX: I10 Essential (primary) hypertension (principal); R22.43 Localized swelling, mass and lump, lower limb, bilateral; Z79.899 Other long term (current) drug therapy
CPT/HCPCS: 36415; 80048

== ENCOUNTER → 2022-08-27 15:55 | Outpatient (CLI) | payer OTHER, MEDICAID, SELFPAY ==
[2022-07-12 12:44] VITALS: BMI 59.5
--- NOTE | 2022-08-28 16:03 | DIAB.MNT ---
Initial Diabetes Medical Nutrition Therapy Assessment Name: Yaquelin Loera Date: 08/27/22 Time: 340-5p Dx: Type II Diabetes Provider: Taramalena Jamison presents for initial visit for bariatric surgery virtually using [employer] platform. States she is here today to learn both about diabetes and to begin the process of her [address] for bariatric surgery. Endorses PMH of DM since . Reports h/o seeing RD that made her feel blame, shame, and weight stigma about her diabetes and overall health. Reassured her that would not be the case in our visits. Reports limited FH because she is adopted. Endorses poor dentition, barrier to some foods. Missing most of upper teeth. Another recent barrier to nutrition was pipe under the sink was broken. [employer] did not work. Increased take out meals as a result. This is being fixed today. Reports a barrier to DM care is recent depression. Endorses feeling depressed since becoming ill and hospitalized three months ago I could not move. She was having difficulty breathing. Ended up with fluid overload. Currently on home oxygen, which exacerbates feelings of depression per report. Recently got a food journal for [place] she would like to use. Diet Recall: Wake 10a 1030a: tea, coffee with sf creamer, water, 3 eggs, 2x toast or 1cup potatoes or a bagel +/- 1-1.5c berries or cottage cheese, sometimes 4-5 breakfast sausage or lewis OR 2 pkts low sugar oatmeal (30g) hb egg or low carb yogurt +/- berries Premier protein shake sometimes 230p: chicken/turkey/tuna sandwich (40g), small bag of chips (15g) and 2/3c berries (10-15g) 5p: sting cheese, ritz crackers x 5-6, pepperoni 630-730p: chicken, veggies, 3-4? 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 If 5% of starting weight: 19.7# Physical Activity: None. Not mobile per report. Health issues seem to be a barrier. Self-Monitoring Blood Glucose: after breakfast, pre or during or after lunch, after dinner, hs . usually mid to lower 200s. Better than previous per report. Use to take ac readings until recent hospitalization. May be a good CGM candidate. Diabetes Medications: Metformin 2000mg daily (taking 500mg at each meal and one at a snack) 60-80u Novolog (if BG is above 240 takes 60u; if above 340 takes 80u; if low carb meal will take 25u) Lantus 56u in morning Pertinent Labs: 11.3% in 2020. No new labs in EMR. May be overdue for HgA1c. Past Medical History: (Last Reviewed 05/15/22 @ 16:51 by Keith Thomas MD) Anxiety (Unknown) Cellulitis of left breast Chronic dental pain Depression (Unknown) Dermatitis (Unknown) Hx MRSA infection (10/2010) rt. hand Hypertension Insomnia due to medical condition (~08/2019) Localized swelling of both lower legs Mild intermittent asthma without complication (02/23/16) Morbid obesity with BMI of 60.0-69.9, adult (~11/23/20) Morbid obesity with body mass index (BMI) greater than or equal to 50 (08/04/15) Nocturnal hypoxemia Obstructive sleep apnea, adult Snoring Type 2 diabetes mellitus without complication, with long-term current use of insulin (10/08/16) Uncomplicated opioid dependence Nutrition Rx: REE: 2483 Rec Kcals based on 1-2# weight loss per week: 7691-8626 kcals Carbohydrates: Meal:45-60g Snack:15-30g Nutrition Diagnosis: - Nutrition and food related knowledge deficit r/t limited previous MNT/DSME aeb pt report - Physical inactivity r/t limited mobility and health issues aeb pt report - Excessive CHO intake r/t knowledge deficit aeb diet recall and pt report Intervention: This participant was very receptive. Provided appropriate educational handouts. Discussed the following topics: Completed intake assessment. Discussed barriers to care. Importance of pro for both Dm care and bariatric goals Medication Review: how to take Metformin and potential adjustments to insulin, danny with a CGM trial label reading for net carbs How RD can best support her in health goals Recommended servings for carbohydrates at meals and snacks Created SMART goals for patient self-care and success. Goals: If having bagel, cut in half with berries Look for a bread with 15g CHO pre serving or less Take Metformin 1000mg BID Keep a food journal if that feels good Follow-up: KATHLEEN CARIAS follow-up in 2-3 weeks. Plan for follow-up with this RD. May collaborate with VASU Winter since she likely has more availability for bariatric visits. Will continue to collaborate for MNT and DM care. Corinne Saldivar, KATHLEEN, [facility] Certified Diabetes Care and Gum Dipper P: [phone] Thank you for this referral
== END ==
PROVIDERS: PCP Student in an Organized Health Care Education/Training Program; Referring Provider Student in an Organized Health Care Education/Training Program; Visit Provider Student in an Organized Health Care Education/Training Program
DX: E11.9 Type 2 diabetes mellitus without complications (principal); Z79.84 Long term (current) use of oral hypoglycemic drugs; Z79.4 Long term (current) use of insulin; Z71.3 Dietary counseling and surveillance
CPT/HCPCS: 97802

== ENCOUNTER → 2022-09-19 14:00 | Outpatient (CLI) | payer OTHER, MEDICAID, SELFPAY ==
[2022-07-12 12:44] VITALS: BMI 59.5
--- NOTE | 2022-10-10 13:53 | DIAB.FU ---
Follow-up Diabetes Education Assessment Name: Yaquelin Loera Date: 09/19/22 Time: 2-3p Dx: Type II Diabetes Yaquelin presents for follow-up diabetes visit virtually using [employer] platform. Her Javi is present. States she recently went to [facility] ED due to stomach discomfort. This this could have been stress and anxiety related. Keeping food journal for the last two weeks. Bought higher fiber and lower carb bread. Loves sandwiches, often eats two in one sitting. has been trying to keep this to one or 1.5. Has questions about carbs today, ie net carbs, label reading, how insulin may play into insulin dosing for food. Trying to eat q 3-4 hours and being mindful of portions. No movement currently on weight loss surgery approval from insurance. Taking Metformin appropriately now. Physical Activity: Trying to move more. No program in place. Self-Monitoring Blood Glucose: Feeling low when BG under 200mg/dl, shaky, sweating, headache. BG often 300-350 previously. Now has been 270-315mg/dl. FBG often 180 to high 200s. Diabetes Medications: Metformin 2000mg daily 60-80u Novolog (if BG is above 240 takes 60u; if above 340 takes 80u; if low carb meal will take 25u) Lantus 56u in morning Pertinent Labs: 11.3% in 2020. No new labs in EMR. May be overdue for HgA1c. Past Medical History: (Last Reviewed 05/15/22 @ 16:51 by Keith Thomas MD) Anxiety (Unknown) Cellulitis of left breast Chronic dental pain Depression (Unknown) Dermatitis (Unknown) Hx MRSA infection (10/2010) rt. hand Hypertension Insomnia due to medical condition (~08/2019) Localized swelling of both lower legs Mild intermittent asthma without complication (02/23/16) Morbid obesity with BMI of 60.0-69.9, adult (~11/23/20) Morbid obesity with body mass index (BMI) greater than or equal to 50 (08/04/15) Nocturnal hypoxemia Obstructive sleep apnea, adult Snoring Type 2 diabetes mellitus without complication, with long-term current use of insulin (10/08/16) Uncomplicated opioid dependence Intervention: This participant was very receptive. Provided appropriate educational handouts. Discussed the following topics: Recent blood sugar results and trends Medication management Review of general nutrition recommendations and current intake Rule of 15 and s/s of hypoglycemia concept of correction factor and I:C ratio Potential for CGM, though skin integrity may be a barrier Created SMART goals for patient self-care and success. Goals: If having bagel, cut in half with berries- met Look for a bread with 15g CHO pre serving or less- met Take Metformin 1000mg BID- met Keep a food journal if that feels good- met If BG >100 and having symptoms of low, have a snack- new If BG <100 practice Rule of 15- new Check food labels for net carbs-new Aim for 45g CHO per meal- new Download CGM apps- new Follow-up: KATHLEEN CARIAS follow-up in over phone tomorrow after discussing insulin regimen and bariatric sx status with provider. Then 1:1 f/u in 2-3 weeks. Corinne Saldivar RDN, ARETHA Certified Diabetes Care and Shrimp Cleaner P: [phone] Thank you for this referral
== END ==
PROVIDERS: PCP Student in an Organized Health Care Education/Training Program; Referring Provider Student in an Organized Health Care Education/Training Program; Visit Provider Student in an Organized Health Care Education/Training Program
DX: E11.9 Type 2 diabetes mellitus without complications (principal); Z71.3 Dietary counseling and surveillance
CPT/HCPCS: G0108

== ENCOUNTER → 2022-11-07 11:00 | Outpatient (CLI) | payer OTHER, MEDICAID, SELFPAY ==
[2022-07-12 12:44] VITALS: BMI 59.5
--- NOTE | 2022-11-15 10:28 | DIAB.FU ---
Follow-up Diabetes Education Assessment Name: Yaquelin Loera Date: 11/07/22 Time: 110a Dx: Type II Diabetes Yaquelin presents for DM follow-up via [employer] virtual platform. Yaquelin report recent foot blisters and flare up of psoriasis. Has not seen the endo yet due to issues with referral per report. Started PT this week. Feels it was difficult but beneficial. Plans to see PT q other week but working on exercises daily at home with caregiver. Endorses stress with life, household, and marriage. Trying to move more to manage stress. Also draws/sketches for stress managment. Reports eating <45g CHO per meal. Diet recall indicates carb portions often <1c at meals. Eating small frequent meals. Breakfast is the highest carb content with about 30-45g reported. Started Levemir (switch in insulin) 2 weeks ago. Physical Activity: PT currently. Trying to move more. Self-Monitoring Blood Glucose: 3-4x per day: FBG and ac TID and HS. Reports improved BG with FBG 150-210mg/dl, pre lunch or dinner at 145-220mg/dl and HS 170-240mg/dl. Much improved since 300s. Still feeling low in the 100s. States if HS reading is 240mg/dl, skips HS snack. Diabetes Medications: Metformin 2000mg daily 60u Novolog TID (down from 60-80u with diet changes) Levemir 60u in morning Pertinent Labs: 11.3% in 2020. No new labs in EMR. May be overdue for HgA1c. Past Medical History: (Last Reviewed 05/15/22 @ 16:51 by Keith Thomas MD) Anxiety (Unknown) Cellulitis of left breast Chronic dental pain Depression (Unknown) Dermatitis (Unknown) Hx MRSA infection (10/2010) rt. hand Hypertension Insomnia due to medical condition (~08/2019) Localized swelling of both lower legs Mild intermittent asthma without complication (02/23/16) Morbid obesity with BMI of 60.0-69.9, adult (~11/23/20) Morbid obesity with body mass index (BMI) greater than or equal to 50 (08/04/15) Nocturnal hypoxemia Obstructive sleep apnea, adult Snoring Type 2 diabetes mellitus without complication, with long-term current use of insulin (10/08/16) Uncomplicated opioid dependence Intervention: This participant was very receptive. Provided appropriate educational handouts. Discussed the following topics: Recent blood sugar results and trends Medication management Treating lows and symptoms of low Review of general nutrition recommendations and current intake Physical activity plan and impact on blood sugars Macronutrient combinations for meals/snacks CGM review and barriers Created SMART goals for patient self-care and success. Goals: If BG >100 and having symptoms of low, have a snack- continue If BG <100 practice Rule of 15- continue Check food labels for net carbs-met Aim for 45g CHO per meal- met Download CGM apps- met Add almond butter to crackers- new Continue current insulin regimen with potential to increase next visit- new Follow-up: KATHLEEN CARIAS follow-up in 3-4 weeks. Corinne Saldivar RDN, ARETHA Certified Diabetes Care and Building Services Technician P: [phone] Thank you for this referral
== END ==
PROVIDERS: PCP Student in an Organized Health Care Education/Training Program; Referring Provider Student in an Organized Health Care Education/Training Program; Visit Provider Student in an Organized Health Care Education/Training Program
DX: E11.9 Type 2 diabetes mellitus without complications (principal); Z71.3 Dietary counseling and surveillance
CPT/HCPCS: G0108

== ENCOUNTER → 2023-07-17 10:39 | Outpatient (CLI) | payer OTHER, MEDICAID, SELFPAY ==
[2022-11-26 08:48] VITALS: BMI 59.5
[2023-07-17 11:27] LABS: Add Manual Diff / Slide Review NO; Basophils Absolute Auto 100 /uL (0-100); Basophils Percent Auto 0.7 % (0-2); Eosinophils Absolute Auto 200 /uL (0-450); Eosinophils Percent Auto 2.5 % (2-4); Hemoglobin 10.5 g/dL (12.0-16.0); Lymphocytes Absolute Auto 1300 /uL (1100-4500); Lymphocytes Percent Auto 17.1 % (25-40); Mean Corpuscular HGB Conc 31.8 % (30-36); Mean Corpuscular Hemoglobin 20.2 PG (26-34); Mean Corpuscular Volume 63.7 fL (80-100); Monocytes Absolute Auto 600 /uL (0-900); Monocytes Percent Auto 7.4 % (3-14); Neutrophils Absolute Auto 5500 /uL (1500-7000); Neutrophils Percent Auto 72.3 % (50-75); Platelet Count 314 X10^3/uL (150-400); Red Blood Cell Count 5.18 X10^6/uL (4.0-5.2); White Blood Cell Count 7.6 X10^3/uL (4.5-11.0)
[2023-07-17 11:37] LABS: Anisocytosis 1+; Stomatocytes 1+
[2023-07-17 11:42] LABS: Hemoglobin A1C% w Est Avg Glu 12.2 % (4.0-6.0)
[2023-07-17 11:43] LABS: HEMOLYSIS < 15 (0-50); Iron 48 ug/dL (37-170)
[2023-07-17 11:45] LABS: Alanine Aminotransferase 21 IU/L (<35); Albumin Globulin Ratio 1.1 (1.0-2.8); Alkaline Phosphatase 45 U/L (38-126); Aspartate Aminotransferase 19 IU/L (14-36); BUN Creatinine Ratio 29.8 (6-22); Bilirubin Total 0.6 mg/dL (0.2-1.3); Blood Urea Nitrogen 14 mg/dL (7-17); Calcium 9.4 mg/dL (8.4-10.2); Carbon Dioxide 30 mmol/L (22-32); Chloride 98 mmol/L (98-107); Cholesterol 195 mg/dL (140-199); Estimated Glomerular Filt Rate > 60 mL/min (>60); Globulin 3.8 g/dL (1.7-4.1); Glucose 308 mg/dL (70-100); HDL Cholesterol 56 mg/dL (40-60); HEMOLYSIS < 15 (0-50); LDL Cholesterol Calculated 116 mg/dL (<100); Potassium 4.7 mmol/L (3.4-5.1); Sodium 134 mmol/L (137-145); Total Protein 7.8 g/dL (6.3-8.2); Triglycerides 114 mg/dL (35-150)
[2023-07-17 11:53] LABS: Percent Iron Saturation 13 % (15-50); Total Iron Binding Capacity 371 ug/dL (265-497); Transferrin 320 mg/dL (206-381)
[2023-07-17 12:06] LABS: Vitamin D 25 Hydroxy (D3) < 12.8 ng/mL (30.0-100.0)
[2023-07-17 12:13] LABS: TSH w/ Reflex to FT4 0.77 uIU/mL (0.47-4.68)
[2023-07-17 12:18] LABS: Ferritin 9 ng/mL (6-137)
[2023-07-17 16:43] LABS: Microalbumin Urine Random 12.7 mg/dL (0-1.6)
== END ==
PROVIDERS: PCP Family Medicine; Referring Provider Family Medicine; Visit Provider Family Medicine
DX: D50.9 Iron deficiency anemia, unspecified (principal); I10 Essential (primary) hypertension; G47.33 Obstructive sleep apnea (adult) (pediatric); E66.01 Morbid (severe) obesity due to excess calories; Z68.44 Body mass index [BMI] 60.0-69.9, adult; E11.69 Type 2 diabetes mellitus with other specified complication; E78.5 Hyperlipidemia, unspecified; E55.9 Vitamin D deficiency, unspecified; E11.9 Type 2 diabetes mellitus without complications; Z79.4 Long term (current) use of insulin
CPT/HCPCS: 36415; 80053; 80061; 82043; 82306; 82570; 82728; 83036; 83540; 83550; 84443; 85025

== ENCOUNTER → 2023-08-14 10:50 | Outpatient (CLI) | payer OTHER, MEDICAID, SELFPAY ==
[2022-11-26 08:48] VITALS: BMI 59.5
--- NOTE | 2023-08-14 14:06 | DIAB.FU ---
Addendum entered by Corinne Saldivar 08/14/23 14:26: Not Trulicity. Pt plans to start Victoza. Original Note: Follow-up Diabetes Education Assessment Name: Yaquelin Loera Date: 08/14/23 Time: 4202r-1700p Dx: Type II Diabetes Provider: Jamal Jamison presents today for follow-up DM visit. Last visit was in October of this year. Presents with spouse, Javi. HgA1c up and BG elevated significantly per report since our last visit. Has not picked up new GLP1 due to having questions first. Still interested in CGM. One barrier is finding skin not severely impacted my plaque psoriasis. Has not started weight loss surgery program as of yet. Per diet recall, carb intake ranges from 30-75g per meal. Keeps snacks to 15g CHO. Some difficulty with eating out pizza. States it can be challenging with balancing carb intake and husbands desire to eat out. Only injecting insulin into mid section of abdomen, resulting in some scar tissue. She is unaware of other places she can inject. Endorses some weight loss since last visit, down to reported 389#. PCP has sent endo referral per notes. She has not seen endo yet. No appt made. Sees PCP today. Has moved to [employer] since our last visit. Very happy about this. Physical Activity: Not discussed today Self-Monitoring Blood Glucose: Checking regularly. Indicates readings are usually between 220-360mg/dl. Feels symptoms of lows around 160mg/dl. Last visit we were able to get all readings under 250mg/dl, and as low as 150mg/dl fasting. Additionally, we were able to reduce ac insulin to 60u pre meal; she states she is back to 60-80u. Denies any BG <95mg/dl, and no true lows <70. Seems GLP1 and diet changes and CGM may aid in treatment of hyperglycemia. Diabetes Medications: Metformin 2000mg daily 60-80u Novolog TID Levemir 60u in morning Trulicity (not yet taking) Pertinent Labs: HgA1c 12/2019 11.3% 04/2020 11.3% 07/2023 12.2% Past Medical History: (Last Updated 08/01/23 @ 16:54 by Ronnie Berry MD) Anxiety (Unknown) Cellulitis of left breast Chronic dental pain Depression (Unknown) Dermatitis (Unknown) Hx MRSA infection (10/2010) rt. hand Insomnia due to medical condition (~08/2019) Localized swelling of both lower legs Mild intermittent asthma without complication (02/23/16) Morbid obesity with BMI of 60.0-69.9, adult (~11/23/20) Morbid obesity with body mass index (BMI) greater than or equal to 50 (08/04/15) Nocturnal hypoxemia Obstructive sleep apnea, adult Snoring Type 2 diabetes mellitus without complication, with long-term current use of insulin (10/08/16) Uncomplicated opioid dependence Intervention: This participant was very receptive. Provided appropriate educational handouts. Discussed the following topics: Recent blood sugar results and trends Medication management GLP1: SE, action, pros/cons, indications Insulin: impact on weight, I:C ratios, injections sites and scar tissue Review of general nutrition recommendations and current intake Carb counting and macro pairing CGM education and self placement of FLS3 Rule of 15 for lows prn How to treat feeling low when not <70 Created SMART goals for patient self-care and success. Goals: keep food journal and write down insulin doses secondary set up man Trulicity rx Choose new injections sites: upper ab and legs Message VASU/ARETHA about CGM in the next week and RD will coordinate with PCP office for rx prn Follow-up: KATHLEEN CARIAS follow-up in 2-3 weeks. Next visit we will discuss more about insulin dosing and food. Will also review CGM results and how new GLP1 may be impacting BG results. Will also coordinate CGM rx prn. Corinne Saldivar RDN, ARETHA Certified Diabetes Care and Grid Molder P: [phone] Thank you for this referral
== END ==
PROVIDERS: PCP Family Medicine; Referring Provider Family Medicine; Visit Provider Family Medicine
DX: E11.9 Type 2 diabetes mellitus without complications (principal); Z71.3 Dietary counseling and surveillance; Z79.84 Long term (current) use of oral hypoglycemic drugs; Z79.4 Long term (current) use of insulin
CPT/HCPCS: G0108

== ENCOUNTER → 2023-08-27 10:07 | Outpatient (CLI) | payer OTHER, MEDICAID, SELFPAY ==
[2022-11-26 08:48] VITALS: BMI 59.5
--- NOTE | 2023-08-27 17:07 | DIAB.MNTFU ---
Follow-up Diabetes Medical Nutrition Therapy Assessment Name: Yaquelin Loera Date: 08/27/23 Time: 1010-1105am Dx: Type II Diabetes Yaquelin presents with spouse, Javi, for follow-up. Has started Victoza, though she is a little confused on the titration scheduled. Did not titrate to 1.2 dose this week, up to 0.8u. Wore CGM and liked it. Wants to move forward with FSL3. RD will coordinate with provider's office. Reports decrease in carb intake since starting GLP1. Endorses reduced appetite. Worries about low BG due to this, however has not experienced any lows yet. Is wondering what protein snacks she can try. Plans to grocery shop today. No SE with GLP1. Some anxiety reported about starting new medication. Noticed stress impacts BG. Sees therapist q other week. No stress management plan currently. Stress with multi health issues. Also noticed BG reduced with proper hydration. Anthropometrics: Wt: 396# 08/2023 last PCP visit Physical Activity: Seeing OT and implementing movement q 2 hours, sit to stands. Also increasing walking inside her home. Self-Monitoring Blood Glucose: Consistent hyperglycemia above 180mg/dl, however some improvement with GLP1. Time in range: 50% very high, above 250mg/dl 46% high, 181-250mg/dl 4% in target 70-180mg/dl 0% low Diabetes Medications: Metformin 2000mg daily 60-80u Novolog TID Levemir 60u in morning Trulicity 0.8 current (start at 0.6, inc to 1.2 after one week, do not exceed 1.8) Pertinent Labs: HgA1c 12/2019 11.3% 04/2020 11.3% 07/2023 12.2% Past Medical History: (Last Updated 08/01/23 @ 16:54 by Ronnie Berry MD) Anxiety (Unknown) Cellulitis of left breast Chronic dental pain Depression (Unknown) Dermatitis (Unknown) Hx MRSA infection (10/2010) rt. hand Insomnia due to medical condition (~08/2019) Localized swelling of both lower legs Mild intermittent asthma without complication (02/23/16) Morbid obesity with BMI of 60.0-69.9, adult (~11/23/20) Morbid obesity with body mass index (BMI) greater than or equal to 50 (08/04/15) Nocturnal hypoxemia Obstructive sleep apnea, adult Snoring Type 2 diabetes mellitus without complication, with long-term current use of insulin (10/08/16) Uncomplicated opioid dependence Nutrition Rx: Carbohydrates: Meal:30-45g Snack:15g Nutrition Diagnosis: Nutrition and food related knowledge deficit r/t limited knowledge of protein ideas aeb pt report Intervention: This participant was very receptive. Provided appropriate educational handouts. Discussed the following topics: Blood sugar review and trends. Impact of food intake and insulin resistance on results. Brainstormed protein snack ideas Meal planning and carb counting review, label reading for net carbs Physical activity plan and progress Stress management and impact on BG Hydration impact on BG Correcting for very higher BG >350mg/dl Created SMART goals for patient self-care and success. 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 After on full dose of Victoza, we will review I:C ratios and corrections. Corinne Saldivar, KATHLEEN, [facility] Certified Diabetes Care and Environmental Health Inspector P: [phone] Thank you for this referral
== END ==
PROVIDERS: PCP Family Medicine; Referring Provider Family Medicine; Visit Provider Family Medicine
DX: E11.9 Type 2 diabetes mellitus without complications (principal); Z79.84 Long term (current) use of oral hypoglycemic drugs; Z79.4 Long term (current) use of insulin; Z79.85 Long-term (current) use of injectable non-insulin antidiabetic drugs; Z71.3 Dietary counseling and surveillance
CPT/HCPCS: 97803

== ENCOUNTER → 2023-09-10 10:49 | Outpatient (CLI) | payer OTHER, MEDICAID, SELFPAY ==
[2022-11-26 08:48] VITALS: BMI 59.5
--- NOTE | 2023-09-11 17:04 | DIAB.FU ---
Follow-up Diabetes Education Assessment Name: Yaquelin Loera Date: 09/10/23 Time:9424-5263 Dx: Type II Diabetes Yaquelin presents with spouse for DM follow-up. Still having trouble getting CGM rx. States her insurance requires Dexcom (v [employer]). She is back to finger sticks for now. Overall, BG much improved. States her appetite has been moderate. Portions are smaller. Better satiety with GLP1. Ran out of SMBG strips and paid out of pocked, have been approved now. Feeling low symptoms at 140-160mg/dl, which is reasonable since she is use to being quite elevated. Treating feeling of lows with a few sips of juice or food, as discussed in the past. Endorses 30g CHO with 60u insulin resulting in postprandial readings <180mg/dl Had fast food, chose smaller portions, bg in goal at 178mg/dl. Biggest concern for her is the CGM coverage, which this RD agrees is a big concern and would help her continue to manage BG. Physical Activity: No change. Seeing OT and implementing movement q 2 hours, sit to stands. Also increasing walking inside her home. Self-Monitoring Blood Glucose: Seems BG has much improved from last visit, though no CGM results for download this week. Reports FBG often 150-190mg/dl. BG in meter indicate most are under 200mg/dl, ranging 150-250mg/dl more recently. Recent numbers: 175, 198, 241, 157, 193, 185, 152. Likely needs to titrate evening levemir, however she is experiencing symptoms of lows with Bg in 150s at night. Would suggest slow titration for her to continue to improve BG. Last visit: Time in range: 50% very high, above 250mg/dl 46% high, 181-250mg/dl 4% in target 70-180mg/dl 0% low Diabetes Medications: Metformin 2000mg daily 60-80u Novolog TID Levemir 60u in morning Trulicity 1.8 Pertinent Labs: HgA1c 12/2019 11.3% 04/2020 11.3% 07/2023 12.2% Past Medical History: (Last Updated 08/01/23 @ 16:54 by Ronnie Berry MD) Anxiety (Unknown) Cellulitis of left breast Chronic dental pain Depression (Unknown) Dermatitis (Unknown) Hx MRSA infection (10/2010) rt. hand Insomnia due to medical condition (~08/2019) Localized swelling of both lower legs Mild intermittent asthma without complication (02/23/16) Morbid obesity with BMI of 60.0-69.9, adult (~11/23/20) Morbid obesity with body mass index (BMI) greater than or equal to 50 (08/04/15) Nocturnal hypoxemia Obstructive sleep apnea, adult Snoring Type 2 diabetes mellitus without complication, with long-term current use of insulin (10/08/16) Uncomplicated opioid dependence Intervention: This participant was very receptive. Provided appropriate educational handouts. Discussed the following topics: Recent blood sugar results and trends Medication management: Slow increase in Levemir likely needed, trial 60u with 30g CHO and 40u with smaller meals Review of general nutrition recommendations and current intake Label reading review CGM hold ups and glucose tracking nikole options Physical activity plan and impact on blood sugars Created SMART goals for patient self-care and success. Goals: Buy lower carb snacks- met Start 1.2 dose for Victoza today- met Correct BG >350mg/dl with mealtime insulin and then consider higher meal doses prn- d/c Download glucose [employer] nikole for now until CGM approved- new Try lower insulin dose for meals <30g CHO- new Follow-up: KATHLEEN CARIAS follow-up in 2-[address] reach out to PCP staff to determine CGM rx info. Corinne Saldivar RDN, CDCES Certified Diabetes Care and Traffic Control Officer P: [phone] Thank you for this referral
== END ==
LOC: DIET 10:49
PROVIDERS: PCP Family Medicine; Referring Provider Family Medicine; Visit Provider Family Medicine
DX: E11.9 Type 2 diabetes mellitus without complications (principal); Z79.84 Long term (current) use of oral hypoglycemic drugs; Z79.85 Long-term (current) use of injectable non-insulin antidiabetic drugs; Z79.4 Long term (current) use of insulin; Z71.3 Dietary counseling and surveillance
CPT/HCPCS: G0108

== ENCOUNTER → 2023-10-08 11:03 | Outpatient (CLI) | payer OTHER, MEDICAID, SELFPAY ==
[2022-11-26 08:48] VITALS: BMI 59.5
--- NOTE | 2023-10-21 10:09 | DIAB.FU ---
Addendum entered by Corinne Saldivar 11/19/23 10:33: Phone call today: Continues to have very high BG in the 200-400mg/dl range. Ran out of Lantus x3 days and Victoza. Victoza, issue with pharmacy. RD has messaged provider (last week) regarding BG and need for additional insulin. Yaquelin wants referral to endo in [place]. Just refilled Lantus and took 80u last night. We discussed a 60u HS and 30u in the morning based on kg last week and today (though would rec not to go over 60u BID). Taking 60-80u Novolog with meals. Plans to scrap picker Victoza today. Has appt with PCP 11/20. Plans to discuss BG and endo referral. RD f/u in November or prn. Addendum entered by Corinne Saldivar 10/30/23 15:57: Phone call today: sick with covid. BG consistently above 180mg/dl for most days all day. Taking 60u Levemir and 40u Novolog TID. Low PO due to illness. Discussed how BG can increase with illness, especially covid. Encouraged increase in Levemir to 65-70u and Novolog to 45-60u (her usual dose) prn. Encouraged fluids and keeping low tx items close by for safety. She agreed. She will check back in in one week with an update and we will review her CGM again. Addendum entered by Corinne Saldivar 10/22/23 13:39: Yaquelin canceled our visit today d/t illness. Per CGM, still having some hyperglycemia. She worries she has some kind of infection. Sees PCP tomorrow. He has placed an order for a UA. Current insulin: Taking 65 Levemir 60u novolog TID Addendum entered by Corinne Saldivar 10/21/23 10:19: Time in range x 14 days 8% very high 46% high 46% in range 0% low Original Note: Follow-up Diabetes Education Assessment Name: Yaquelin Loera Date: 10/08/23 Time: [id number] Dx: Type II Diabetes Yaquelin presents for follow-up DM visit. Not currently using Dexcom sensors due to two faulty sensors. Called company and waiting for replacements. Has another sensor at home but has not placed yet. Using finger sticks and nikole to track. Had reduced Detemir to 55u to reduce feeling low in the night. No longer feeling low with BG in 140-160s. Now hypo symptoms at 90s, much improved. Has not woken up feeling low in two nights. Recently forgot to take Metformin a few nights in a row. I:C -- for under 40g : 50u for more than 40g : 60u Diet recall: 10a: berries with low carb yogurt and eggs with croissant 1-2p: tuna on 8 crackers or low carb tortilla 630p: same as lunch or 6 veggie bites or 5 taquitos or meatballs or beet salad hs: nuts or nothing Self-Monitoring Blood Glucose: Finger sticks indicate BG ranging from 157-240mg/dl. Yaquelin feels confused as to why she is no longer seeing BG under 140mg/dl, however she may be missing this data with finger sticks vs CGM. Advised her to place new sensor she has at home until other arrive in mail. Diabetes Medications: Metformin 2000mg daily 60-80u Novolog TID (currently 50-60u) Levemir 55-60u in morning Trulicity 1.8 Pertinent Labs: HgA1c 12/2019 11.3% 04/2020 11.3% 07/2023 12.2% Past Medical History: (Last Updated 08/01/23 @ 16:54 by Ronnie Berry MD) Anxiety (Unknown) Cellulitis of left breast Chronic dental pain Depression (Unknown) Dermatitis (Unknown) Hx MRSA infection (10/2010) rt. hand Insomnia due to medical condition (~08/2019) Localized swelling of both lower legs Mild intermittent asthma without complication (02/23/16) Morbid obesity with BMI of 60.0-69.9, adult (~11/23/20) Morbid obesity with body mass index (BMI) greater than or equal to 50 (08/04/15) Nocturnal hypoxemia Obstructive sleep apnea, adult Snoring Type 2 diabetes mellitus without complication, with long-term current use of insulin (10/08/16) Uncomplicated opioid dependence Intervention: This participant was very receptive. Provided appropriate educational handouts. Discussed the following topics: Recent blood sugar results and trends Medication management: I:C and Levemir titration Review of general nutrition recommendations and current intake CGM troubleshooting Created SMART goals for patient self-care and success. Goals: Download glucose mani nikole for now until CGM approved- met Try lower insulin dose for meals <30g CHO- met Increase Levemir back to 60u- new Place new Dexcom sensor today- new Follow-up: KATHLEEN CARIAS follow-up in 2-3 weeks Corinne Saldivar RDN, ARETHA Certified Diabetes Care and Auto Body Service Mechanic P: [phone] Thank you for this referral
== END ==
PROVIDERS: PCP Family Medicine; Referring Provider Family Medicine; Visit Provider Family Medicine
DX: E11.9 Type 2 diabetes mellitus without complications (principal); Z79.85 Long-term (current) use of injectable non-insulin antidiabetic drugs; Z79.4 Long term (current) use of insulin; Z71.3 Dietary counseling and surveillance
CPT/HCPCS: G0108

== ENCOUNTER → 2023-10-08 12:03 | Outpatient (CLI) | payer OTHER, MEDICAID, SELFPAY ==
[2022-11-26 08:48] VITALS: BMI 59.5
[2023-10-08 13:15] LABS: Hemoglobin A1C% w Est Avg Glu 8.7 % (4.0-6.0)
[2023-10-08 18:27] LABS: Vitamin D 25 Hydroxy (D3) 16.3 ng/mL (30.0-100.0)
== END ==
PROVIDERS: PCP Family Medicine; Referring Provider Family Medicine; Visit Provider Family Medicine
DX: E55.9 Vitamin D deficiency, unspecified (principal); E11.69 Type 2 diabetes mellitus with other specified complication; E78.5 Hyperlipidemia, unspecified; E11.9 Type 2 diabetes mellitus without complications; Z79.4 Long term (current) use of insulin; Z79.85 Long-term (current) use of injectable non-insulin antidiabetic drugs; Z71.3 Dietary counseling and surveillance
CPT/HCPCS: 36415; 82306; 83036; G0108

== ENCOUNTER → 2023-11-19 14:24 | Outpatient (CLI) | payer OTHER, MEDICAID, SELFPAY ==
[2022-11-26 08:48] VITALS: BMI 59.5
[2023-11-19 14:36] LABS: Appearance Urine UA CLEAR; Bilirubin Urine UA NEGATIVE (NEGATIVE); Color Urine UA YELLOW; Glucose Urine UA 2+ g/dL (Negative); Ketones Urine UA NEGATIVE (NEGATIVE); Leukocyte Esterase Urine UA NEGATIVE (NEGATIVE); Nitrite Urine UA NEGATIVE (Negative); Occult Blood Urine UA NEGATIVE (Negative); Protein Urine UA TRACE (Negative); Specific Gravity Urine UA >=1.030 (1.000-1.035); Urobilinogen Urine UA 0.2 E.U./dL (0.2); pH Urine UA 5.5 (4.5-8.0)
[2023-11-19 14:37] LABS: Urine Volume 10mL (spun)
[2023-11-19 14:39] LABS: Bacteria Urine None Seen; Culture Indicated Urine Cult Not Indicated; Mucus Urine 1+ (Negative); RBC Urine None Seen (0-5/HPF); Squamous Epithelial Cell Urine 5-10 /HPF (0-5/HPF); WBC Urine None Seen (0-5/HPF)
== END ==
PROVIDERS: PCP Family Medicine; Referring Provider Family Medicine; Visit Provider Family Medicine
DX: R73.9 Hyperglycemia, unspecified (principal)
CPT/HCPCS: 81001

== ENCOUNTER → 2023-12-18 11:08 | Outpatient (CLI) | payer OTHER, MEDICAID, SELFPAY ==
[2022-11-26 08:48] VITALS: BMI 59.5
--- NOTE | 2023-12-24 09:35 | DIAB.FU ---
Addendum entered by Corinne Saldivar 01/08/24 15:39: Phone call: Having lows at 3am. Will reduce Long acting insulin to 55u tonight. If continues, will reduce to 50u. F/u in one week. Original Note: Follow-up Diabetes Education Assessment Name: Yaquelin Loera Date: 12/18/23 Time: [id number] Dx: Type II Diabetes Yaquelin presents via telehealth visit using [employer] portal platform and agrees to receiving telehealth services. Not use to being lower in the 120s. Having symptoms of lows. Had low alarm set for 130mg/dl. Can lower this to 70-90mg/dl. Started Invokana 1.5 weeks ago. Taking 60-80u Novolog with meals. Better BG with 80u. Levemir BID 60pm 30am Victoza 1.8mg Invokana 100mg Metformin 1000mg BID Having one elevation per day over the last week. Levemir seems to be in a good place between meals. Will make notes in CGM of food and insulin dose. -27# in last 2 months. Physical Activity: Started gym a couple weeks ago. Been going about q other day. Foot flair up recently (plaque psoriasis with blisters hurts to walk, swollen, neuropathy pains), so stopped going this week. Usually goes to the gym 25 min regimen. Plans to restart gym this week. Self-Monitoring Blood Glucose: BG seem to be improving since covid infection and lingering hyperglcyemia from infection. More BG in the 100's causing low symptoms even though these are not true lows. She continues to adjust insulin appropriately to improve time in range. The last 6 days indicate minimal hyperglycemia compared to previous days. Time in range: 13% very high 44% high 43% in range 0% low av mg/dl GMI 8% Std dev: 47 mg/dl Diabetes Medications: 60-80u Novolog with meals. Levemir BID 60pm 30am Victoza 1.8mg Invokana 100mg Metformin 1000mg BI Pertinent Labs: HgA1c 12/2019 11.3% 04/2020 11.3% 07/2023 12.2% 10/2023 8.7% Past Medical History: (Last Updated 11/21/23 @ 19:10 by Ronnie Berry MD) Anxiety (Unknown) Cellulitis of left breast Chronic dental pain Depression (Unknown) Dermatitis (Unknown) Hx MRSA infection (10/2010) rt. hand Insomnia due to medical condition (~08/2019) Localized swelling of both lower legs Mild intermittent asthma without complication (02/23/16) Morbid obesity with BMI of 60.0-69.9, adult (~11/23/20) Morbid obesity with body mass index (BMI) greater than or equal to 50 (08/04/15) Nocturnal hypoxemia Obstructive sleep apnea, adult Type 2 diabetes mellitus without complication, with long-term current use of insulin (10/08/16) Uncomplicated opioid dependence Intervention: This participant was very receptive. Provided appropriate educational handouts. Discussed the following topics: Recent blood sugar results and trends Medication management and insulin titration, leaving Levemir as is and adjusting meal time to avoid hyperglycemia after meals Review of general nutrition recommendations and current intake Physical activity plan and impact on blood sugars How to tx low symptoms vs true low <70mg/dl BG alerts on CGm adjustments Created SMART goals for patient self-care and success. Goals: Increase Levemir back to 60u- d/c Place new Dexcom sensor today- met Record in CGM food and insulin doses- new Restart gym safely - new Change low alert to 70-90mg/dl- new Treat low symptoms with enough food to resolve symptoms (but avoid hyperglycemia, ie sips of juice or mixed macro snack) - new Follow-up: KATHLEEN CARIAS follow-up in 2-3 weeks Corinne Saldivar RDN, ARETHA Certified Diabetes Care and Traffic Signal Technician P: [phone] Thank you for this referral
== END ==
PROVIDERS: PCP Family Medicine; Referring Provider Family Medicine
DX: E11.9 Type 2 diabetes mellitus without complications (principal); Z79.84 Long term (current) use of oral hypoglycemic drugs; Z79.4 Long term (current) use of insulin; Z79.85 Long-term (current) use of injectable non-insulin antidiabetic drugs; Z71.3 Dietary counseling and surveillance
CPT/HCPCS: G0108

== ENCOUNTER → 2024-01-15 14:00 | Outpatient (CLI) | payer OTHER, MEDICAID, SELFPAY ==
[2022-11-26 08:48] VITALS: BMI 59.5
--- NOTE | 2024-01-18 18:04 | DIAB.FU ---
Follow-up Diabetes Education Assessment Name: Yaquelin Loera Date:01/15/2024 Time:2-230p Dx: Type II Diabetes Still having some lows early in the morning 8p latest for mealtime insulin Long acting insulin 55u HS and 30 am. Morning dose at 9-11am. HS dose 7-9p Low alarm set at 80mg/dl bc worries sensor is off by 20 points Endo visit 04/2024 Really wanting to get in to see Endo. Main concern is potential for medication changes. Potential for reducing daily injections. Mealtime insulin: 80u with meals (B and D), 60-80u (L) Diet going well. Went to oral sx with plans to pull more teeth and fit for dentures. Surgeon wants her to lose more wt and get off oxygen. Weight: 385# Down 21# x 4.5 months. Physical Activity: Looking for compression socks and better shoes. Socks make her warm, exacerbates placque psoriasis. Wants compression socks instead. Thinks this will help with walking. Going to gym: 2-3x per week. 30 mins upper body exercises. Some lower body resistance exercises. Self-Monitoring Blood Glucose: FBG 94-130mg/dl. Great improvement in time in range. Main concern is to eliminate lows happening weekly in night/lead pharmacy technician. Time in range: <1% very high 6% high 93% in range <1% low av mg/dl GMI 6.4% Std dev: 31 mg/dl Last Visit Time in range: 13% very high 44% high 43% in range 0% low av mg/dl GMI 8% Std dev: 47 mg/dl Diabetes Medications: 60-80u Novolog with meals. Levemir BID 55pm 30am Victoza 1.8mg Invokana 100mg Metformin 1000mg BI Pertinent Labs: HgA1c 12/2019 11.3% 04/2020 11.3% 07/2023 12.2% 10/2023 8.7% Past Medical History: (Last Updated 11/21/23 @ 19:10 by Ronnie Berry MD) Anxiety (Unknown) Cellulitis of left breast Chronic dental pain Depression (Unknown) Dermatitis (Unknown) Hx MRSA infection (10/2010) rt. hand Insomnia due to medical condition (~08/2019) Localized swelling of both lower legs Mild intermittent asthma without complication (02/23/16) Morbid obesity with BMI of 60.0-69.9, adult (~11/23/20) Morbid obesity with body mass index (BMI) greater than or equal to 50 (08/04/15) Nocturnal hypoxemia Obstructive sleep apnea, adult Type 2 diabetes mellitus without complication, with long-term current use of insulin (10/08/16) Uncomplicated opioid dependence Intervention: This participant was very receptive. Provided appropriate educational handouts. Discussed the following topics: Recent blood sugar results and trends Medication management Review of general nutrition recommendations and current intake Physical activity plan and impact on blood sugars Prevention of complications: foot care, dental and eye appointments, kidney and heart health, neuropathy, vaccination recommendations Created SMART goals for patient self-care and success. Goals: Record in CGM food and insulin doses- not met Restart gym safely - met Change low alert to 70-90mg/dl- met Treat low symptoms with enough food to resolve symptoms (but avoid hyperglycemia, ie sips of juice or mixed macro snack) - met Reduce Levemir to 50u tonight- new Keep reducing HS insulin by 2-3u if having weekly lows <70- new Follow-up: KATHLEEN CARIAS follow-up in 4-6 weeks Corinne Saldivar RDN, ARETHA Certified Diabetes Care and Recruiting Assistant P: [phone] Thank you for this referral
== END ==
PROVIDERS: PCP Family Medicine; Referring Provider Family Medicine
DX: E11.9 Type 2 diabetes mellitus without complications (principal); Z79.4 Long term (current) use of insulin; Z79.84 Long term (current) use of oral hypoglycemic drugs; Z71.3 Dietary counseling and surveillance
CPT/HCPCS: G0108

== ENCOUNTER → 2024-02-11 15:54 | Outpatient (CLI) | payer OTHER, MEDICAID, SELFPAY ==
[2022-11-26 08:48] VITALS: BMI 59.5
== END ==
LOC: RESP 15:54
PROVIDERS: PCP Family Medicine; Referring Provider Internal Medicine; Visit Provider Internal Medicine
DX: R06.02 Shortness of breath (principal); R94.2 Abnormal results of pulmonary function studies
CPT/HCPCS: 94060; 94070; 94618; 94726; 94729

== ENCOUNTER → 2024-02-16 13:35 | Outpatient (CLI) | payer OTHER, MEDICAID, SELFPAY ==
[2022-11-26 08:48] VITALS: BMI 59.5
[2024-02-16 15:22] LABS: Hemoglobin A1C% w Est Avg Glu 6.4 % (4.0-6.0)
== END ==
PROVIDERS: PCP Family Medicine; Referring Provider Family Medicine; Visit Provider Family Medicine
DX: E11.69 Type 2 diabetes mellitus with other specified complication (principal); E78.5 Hyperlipidemia, unspecified; E11.9 Type 2 diabetes mellitus without complications; Z79.4 Long term (current) use of insulin
CPT/HCPCS: 36415; 83036

== ENCOUNTER → 2024-02-26 11:31 | Outpatient (CLI) | payer OTHER, MEDICAID, SELFPAY ==
[2022-11-26 08:48] VITALS: BMI 59.5
--- NOTE | 2024-02-26 11:35 | DIAB.FU ---
Follow-up Diabetes Education Assessment Name: Yaquelin Loera Date: 02/26/24 Time: 1130a-12p Dx: Type II Diabetes Yaquelin presents for follow-up DM visit using portal for virtual visit. HgA1c of 6.4%, much improved. CGM results Adjusted low alert to 90 mg/dl due to variability in CGM. Worries about having a low and not getting an alert. Reports some lows, shaky and unable to move. Looking for juice that can stay at room temp. Having calibration issues with Dexcom sensors. having to replace them Breakfast is hardest time of the day with fluctuations. Breakfsat at 10a. Lunch is at 1 or 2p. Some elevations in the afternoon from 12-230p per CGM report. Usual breakfasts: (takes 80u) [place] muffin, egg, sausage overnight oats (30g CHO or less) with justa, sf vanilla jello, sf protein shake, and fruit, +/- HB egg Plans to work on meal prep more. Was eating out more this past month, and she has noticed she does not feel as well. Has been eating out 2-3x per week. Dental: saw oral surgeon. States he wants her to get a sleep study done, but she is currently waiting on PCP on sending a referral. Plans to see endo Self-Monitoring Blood Glucose: Continues to have good TIR. Great FBG and most postprandial in goal. Time in range: 0% very high 8% high 91% in range <1% low av mg/dl GMI 6.6% Std dev: 29 mg/dl Last Visit Time in range: <1% very high 6% high 93% in range <1% low av mg/dl GMI 6.4% Std dev: 31 mg/dl Diabetes Medications: 60-80u Novolog with meals. Levemir BID 52pm 30am Victoza 1.8mg Invokana 100mg Metformin 1000mg BID Pertinent Labs: HgA1c 12/2019 11.3% 04/2020 11.3% 07/2023 12.2% 10/2023 8.7% 01/2024 6.4% Past Medical History: (Last Reviewed 01/20/24 @ 19:28 by Charlotte Johnson PA-C) Anxiety (Unknown) Cellulitis of left breast Chronic dental pain Depression (Unknown) Dermatitis (Unknown) Hx MRSA infection (10/2010) rt. hand Insomnia due to medical condition (~08/2019) Localized swelling of both lower legs Mild intermittent asthma without complication (02/23/16) Morbid obesity with BMI of 60.0-69.9, adult (~11/23/20) Morbid obesity with body mass index (BMI) greater than or equal to 50 (08/04/15) Nocturnal hypoxemia Obstructive sleep apnea, adult Type 2 diabetes mellitus without complication, with long-term current use of insulin (10/08/16) Uncomplicated opioid dependence Intervention: This participant was very receptive. Provided appropriate educational handouts. Discussed the following topics: Recent blood sugar results and trends Medication management Review of general nutrition recommendations and current intake Prevention of complications: dental Meal prep for reduced eating out Keeping low tx close by Created SMART goals for patient self-care and success. Goals: Reduce Levemir tonight- met Keep reducing HS insulin by 2-3u if having weekly lows <70- met Move canned juice to bedroom for lows- new Reduce eating out occurrences (keep to 1x per week)- new Follow-up: KATHLEEN CARIAS follow-up prn. Plans to update RD after endo visit on plans for mitigating MDIs and optimizing DM medications. Corinne Saldivar, KATHLEEN, [facility] Certified Diabetes Care and Neck Band Setter P: [phone] Thank you for this referral
== END ==
PROVIDERS: PCP Family Medicine; Referring Provider Family Medicine
DX: E11.9 Type 2 diabetes mellitus without complications (principal); Z79.84 Long term (current) use of oral hypoglycemic drugs; Z79.85 Long-term (current) use of injectable non-insulin antidiabetic drugs; Z79.4 Long term (current) use of insulin; Z71.3 Dietary counseling and surveillance
CPT/HCPCS: G0108

== ENCOUNTER 2024-05-06 16:43 | Emergency (ER) | payer OTHER, MEDICAID, SELFPAY ==
[2022-11-26 08:48] VITALS: BMI 59.5
[2024-05-06 16:47] VITALS: BP 158/78; PULSE 90; RESP 20; TEMP 36.9; O2SAT 99; BMI 62.9
--- NOTE | 2024-05-06 19:45 | PC.NURSE ---
Pt not in waiting room at 1945. Will check again.
--- NOTE | 2024-05-06 22:21 | PC.NURSE ---
Attempted to find pt in waiting area at 2014 and 2029. Pt was not there.
== END 2024-05-06 20:30 | disposition left against medical advice (07) ==
PROVIDERS: Emergency Provider Emergency Medicine; PCP Family Medicine
CPT/HCPCS: 99284

== ENCOUNTER → 2025-03-23 10:59 | Outpatient (CLI) | payer OTHER, SELFPAY ==
[2022-11-26 08:48] VITALS: BMI 59.5
--- NOTE | 2025-04-28 11:42 | DIAB.MNT ---
Initial Diabetes Medical Nutrition Therapy Assessment Name: Yaquelin Loera Date: 03/23/25 Time: 392 Dx: Type II Diabetes Yaquelin presents for DM visit using portal for virtual visit. Last RD visit was 01/2024. Recent change of provider to [facility]. Reports recent hgA1c of 5.4%. Sees antonieta Rios. Switched from Victoza to Mounjaro per report. Endorses some diarrhea with higher dose of mounjaro. Endorses a 10-11# wt loss per month. Reduced appetite with change in GLP1. Improved overall health reported, ie less SOB and more movement easier. Has d/c'd oxygen use x 5 days. Has hysterectomy next month. Questions regarding cholesterol and label reading. cut out red meat and pork Diet Recall: 9am: low CHO kyrgyz yogurt with eggs and berries 12p: sandwich with veggies and baked chips OR salad with protein sn: nothing or low CHO/kcal PB cup OR 1oz bag of chips with string cheese OR turkey pepparoni with cheese 6p: mini pizza with veggie OR soup with 1-1/2 sandwich OR tuna salad with crackers or chips Or 1/2c fried rice with teriyaki chx OR 1c rice with fish HS snack: nothing or dessert with family OR egg OR yogurt water; 8oz herbal tea: 40-60oz premier prot shake x 1 20oz sf gatorade Self-Monitoring Blood Glucose: Continues to have good TIR. Time in range: 0% very high 4% high 96% in range 0% low av mg/dl GMI 6.3% Std dev: 25 mg/dl Variance 20% Diabetes Medications: 60-80u Novolog with meals. 30u Lantus AM 50u Lantus HS 100mg Invokana 10mg Mounjaro 1000mg BID Metformin Pertinent Labs: HgA1c 12/2019 11.3% 04/2020 11.3% 07/2023 12.2% 10/2023 8.7% 01/2024 6.4% 01/2025 5.4% Past Medical History: (Last Reviewed 01/20/24 @ 19:28 by Charlotte Johnson PA-C) Anxiety (Unknown) Cellulitis of left breast Chronic dental pain Depression (Unknown) Dermatitis (Unknown) Hx MRSA infection (10/2010) rt. handInsomnia due to medical condition (~08/2019) Localized swelling of both lower legs Mild intermittent asthma without complication (02/23/16) Morbid obesity with BMI of 60.0-69.9, adult (~11/23/20) Morbid obesity with body mass index (BMI) greater than or equal to 50 (08/04/15) Nocturnal hypoxemia Obstructive sleep apnea, adult Type 2 diabetes mellitus without complication, with long-term current use of insulin (10/08/16) Uncomplicated opioid dependence Nutrition Rx: Carbohydrates: Meal:30-45gSnack:15g Nutrition Diagnosis: Nutrition and food related knowledge deficit r/t limited knowledge of cholesterol and label reading aeb pt report Intervention: This participant was very receptive. Provided appropriate educational handouts. Discussed the following topics: Recent blood sugar results and trends Cholesterol MNT: fiber and fats Lable reading Lean protein snack ideas Fluids Created SMART goals for patient self-care and success. Goals: Try 30g CHO at dinner Add protein snack at 3p Aim for 60oz fluids or more (primarily water preferred) Follow-up: KATHLEEN CARIAS follow-up in 6-8 weeks per pt req Corinne Saldivar RDN, ARETHA Certified Diabetes Care and Network Support Technician P: [phone] Thank you for this referral
== END ==
LOC: DIET 11:00
PROVIDERS: PCP Family Medicine
DX: E11.9 Type 2 diabetes mellitus without complications (principal); Z71.3 Dietary counseling and surveillance; Z79.85 Long-term (current) use of injectable non-insulin antidiabetic drugs; R19.7 Diarrhea, unspecified; Z79.84 Long term (current) use of oral hypoglycemic drugs; Z79.4 Long term (current) use of insulin
CPT/HCPCS: 97802